=== PATIENT | male | born 1935 | race Caucasian/White ===

== ENCOUNTER 2018-08-29 23:27 | Inpatient (IN) | payer OTHER ==
[2018-08-30 00:29] LABS: Absolute Lymphocytes (CBC) 0.7 K/uL (0.7-4.9); Absolute Monocytes 0.4 K/uL (0.1-1.3); Absolute Neutrophil 4.5 K/uL (1.8-8.0); Basophils % 0.6 % (0-1.3); Eosinophils % 0.4 % (0-4.4); Hematocrit 37.6 % (39.6-49.0); Lymphocytes % 12.8 % (15.3-44.8); MCV 95.7 fL (80-100); MPV 11.4 fL (7.6-11.3); Monocytes % 6.9 % (3.3-12.3); RBC Red Blood Cell Count 3.93 M/uL (4.33-5.43)
[2018-08-30 00:48] LABS: Albumin 3.2 g/dL (3.4-5.0); Bilirubin Direct 0.3 mg/dL (0-0.2); Bilirubin Total 0.9 mg/dL (0.2-1.0); Potassium 4.3 mmol/L (3.5-5.1); Protein, Total 6.1 g/dL (6.4-8.2); Troponin (Emerg Dept Use Only) 0.07 ng/mL (0.0-0.045)
--- NOTE | 2018-08-30 01:27 | EDPHYS ---
Physician Documentation [facility] Name: Nicolle Lee Age: 82 yrs Sex: Male : 1935 Arrival Date: 08/29/2018 Time: 23:33 Bed 18 Private MD: ED Physician Cheikh Hutchins HPI: 08/30 01:10 This 82 yrs old Male presents to ER via EMS with complaints of Shortness Of rn Breath. 01:10 The patient has shortness of breath at rest, with light activity. Onset: The rn symptoms/episode began/occurred 1 week(s) ago. Duration: The symptoms are intermittent. Associated signs and symptoms: Pertinent positives: productive cough, Pertinent negatives: fever, hemoptysis, loss of consciousness. Severity of symptoms: At their worst the symptoms were moderate in the emergency department the symptoms are unchanged. The patient has not experienced similar symptoms in the past. The patient has not recently seen a physician. Reports 1 week of sob, + swelling of both legs, no fever, + productive cough, O2 was 82% for EMS, improved a little with albuterol. . Historical: - Allergies: 08/29 23:35 No Known Allergies; cc3 - Home Meds: 23:35 None [Active]; cc3 - PMHx: 23:35 None; cc3 - PSHx: 23:35 None; cc3 - Immunization history:: Adult Immunizations not up to date. - Social history:: Smoking status: Patient/guardian denies using tobacco, never smoked. - Ebola Screening: : No symptoms or risks identified at this time. - Family history:: not pertinent. - Hospitalizations: : No recent hospitalization is reported. ROS: 08/30 01:11 Constitutional: Negative for fever, chills, and weight loss, Eyes: Negative for injury, rn pain, redness, and discharge, Neck: Negative for injury, pain, and swelling, Cardiovascular: Negative for chest pain, palpitations Respiratory: Negative for wheezing, and pleuritic chest pain, Abdomen/GI: Negative for abdominal pain, nausea, vomiting, diarrhea, and constipation, MS/Extremity: + swelling of legs Skin: Negative for injury, rash, and discoloration, Neuro: Negative for headache, numbness, tingling, and seizure. Exam: 01:11 Constitutional: This is a well developed, well nourished patient who is awake, alert, rn and in no acute distress. Head/Face: Normocephalic, atraumatic. Eyes: Pupils equal round and reactive to light, extra-ocular motions intact. Lids and lashes normal. Conjunctiva and sclera are non-icteric and not injected. Cornea within normal limits. Periorbital areas with no swelling, redness, or edema. Neck: Trachea midline, no thyromegaly or masses palpated, and no cervical lymphadenopathy. Supple, full range of motion without nuchal rigidity, or vertebral point tenderness. No Meningismus. Cardiovascular: regular rate, + mild systolic murmur Respiratory: + mild tachypnea with diminished breath sounds bilaterally and at bases, no wheezing Abdomen/GI: soft, non-tender MS/ Extremity: Pulses equal, no cyanosis. Neurovascular intact. 1+ edema bilateral lower ext Neuro: Awake and alert, GCS 15, oriented to person, place, time, and situation. Cranial nerves II-XII grossly intact. Motor strength 5/5 in all extremities. Sensory grossly intact. Cerebellar exam normal. Vital Signs: 08/29 23:35 BP 159 / 106; Pulse 106; Resp 25 S; Temp 98.4(O); Pulse Ox 95% on 2 lpm NC; Weight cc3 61.23 kg (R); Height 5 ft. 8 in. (172.72 cm) (R); 08/30 00:46 BP 127 / 84; Pulse 99; Resp 28 S; Pulse Ox 95% on 2 lpm NC; cc3 01:15 BP 126 / 87; Pulse 100; Resp 28 S; Pulse Ox 94% on 2 lpm NC; cc3 02:30 BP 112 / 72; Pulse 110; Resp 25 S; Pulse Ox 94% on 2 lpm NC; cc3 08/29 23:35 Body Mass Index 20.52 (61.23 kg, 172.72 cm) cc3 MDM: 08/29 23:36 Patient medically screened. rn 08/30 01:22 Differential diagnosis: Anemia Anxiety Reaction asthma, Bronchitis CHF exacerbation, rn pneumonia, Pneumothorax pulmonary edema, reactive airway disease. Data reviewed: vital signs, nurses notes, lab test result(s), EKG, radiologic studies, plain films, and as a result, I will admit patient. Counseling: I had a detailed discussion with the patient and/or guardian regarding: the historical points, exam findings, and any diagnostic results supporting the discharge/admit diagnosis, lab results, radiology results, the need for further work-up and treatment in the hospital. Admission orders: after a detailed discussion of the patient's condition and case, the admit orders are written by me. 08/29 23:38 Order name: Hepatic Function; Complete Time: 01:01 rn 08/29 23:38 Order name: Blood Culture Adult (2) rn 08/29 23:38 Order name: BMP; Complete Time: 01:01 rn 08/29 23:38 Order name: CBC with Diff; Complete Time: 00:39 rn 08/29 23:38 Order name: NT PRO-BNP; Complete Time: 01:01 rn 08/29 23:38 Order name: Troponin (emerg Dept Use Only); Complete Time: 01:01 rn 08/29 23:38 Order name: XRAY CXR (1 view) rn 08/29 23:38 Order name: EKG; Complete Time: 23:39 rn 08/29 23:38 Order name: Cardiac monitoring; Complete Time: 23:43 rn 08/29 23:38 Order name: EKG - Nurse/Tech; Complete Time: 23:43 rn 08/29 23:38 Order name: Procalcitonin; Complete Time: 01:25 rn 08/29 23:38 Order name: Extrem Venous W Compression Pk US rn 08/30 02:30 Order name: Urine Dipstick--Ancillary (enter results) em1 08/29 23:38 Order name: IV Saline Lock; Complete Time: 23:43 rn 08/29 23:38 Order name: Labs collected and sent; Complete Time: 00:20 rn 08/29 23:38 Order name: O2 Per Protocol; Complete Time: 23:43 rn 08/29 23:38 Order name: O2 Sat Monitoring; Complete Time: 23:43 rn Administered Medications: 01:25 Drug: Lasix 40 mg Route: IVP; Site: right antecubital; cc3 01:40 Follow up: Response: No adverse reaction cc3 Disposition: 08/30/18 01:26 Hospitalization ordered by Julianna Noland for Inpatient Admission. Preliminary diagnosis are Dyspnea, unspecified, Hypoxemia, Pulmonary edema. - Bed requested for Telemetry/MedSurg (Inpatient). - Status is Inpatient Admission. cc3 - Condition is Stable. - Problem is new. - Symptoms have improved. UTI on Admission? No Signatures: Dispatcher [employer] EDMS Cheikh Hutchins MD MD rn Garcia, Cindy, RN RN cg Cordel, Charlene 3 Corrections: (The following items were deleted from the chart) 02:15 01:26 Hospitalization Ordered by Julianna Noland MD for Inpatient Admission. Preliminary cg diagnosis is Dyspnea, unspecified; Hypoxemia; Pulmonary edema. Bed requested for Telemetry/MedSurg (Inpatient). Status is Inpatient Admission. Condition is Stable. Problem is new. Symptoms have improved. UTI on Admission? No. rn 03:01 02:15 08/30/2018 01:26 Hospitalization Ordered by Julianna Noland MD for Inpatient cc3 Admission. Preliminary diagnosis is Dyspnea, unspecified; Hypoxemia; Pulmonary edema. Bed requested for Telemetry/MedSurg (Inpatient). Status is Inpatient Admission. Condition is Stable. Problem is new. Symptoms have improved. UTI on Admission? No. cg
--- NOTE | 2018-08-30 01:27 | ER ---
Nurse's Notes [facility] Name: Nicolle Lee Age: 82 yrs Sex: Male : 1935 Arrival Date: 08/29/2018 Time: 23:33 Bed 18 Private MD: Diagnosis: Dyspnea, unspecified;Hypoxemia;Pulmonary edema Presentation: 08/29 23:35 Presenting complaint: EMS states: shortness of breath since 1 week, oxygen saturation cc3 of 82% on room air. Transition of care: patient was not received from another setting of care. Onset of symptoms was August 29, 2018. Risk Assessment: Do you want to hurt yourself or someone else? Patient reports no desire to harm self or others. Initial Sepsis Screen: Does the patient meet any 2 criteria? No. Patient's initial sepsis screen is negative. Does the patient have a suspected source of infection? No. Patient's initial sepsis screen is negative. Care prior to arrival: Medication(s) given: Albuterol Neb Atrovent Neb x 1, Solu-Medrol 125 mg IV given by EMS. 23:35 Method Of Arrival: EMS: [facility] cc3 23:35 Acuity: MARY 3 cc3 Triage Assessment: 23:35 General: Appears in no apparent distress. comfortable, Behavior is calm, cooperative, cc3 appropriate for age. Pain: Denies pain. EENT: No signs and/or symptoms were reported regarding the EENT system. Neuro: Level of Consciousness is awake, alert, obeys commands, Oriented to person, place, time, situation, Appropriate for age. Cardiovascular: Denies chest pain, Patient's skin is warm and dry. Respiratory: Reports shortness of breath since 1 week Airway is patent Respiratory effort is even, unlabored, Respiratory pattern is regular, symmetrical. GI: Abdomen is round non-distended. : No signs and/or symptoms were reported regarding the genitourinary system. Derm: No signs and/or symptoms reported regarding the dermatologic system. Musculoskeletal: Circulation, motion, and sensation intact. Range of motion: intact in all extremities. Historical: - Allergies: 23:35 No Known Allergies; cc3 - Home Meds: 23:35 None [Active]; cc3 - PMHx: 23:35 None; cc3 - PSHx: 23:35 None; cc3 - Immunization history:: Adult Immunizations not up to date. - Social history:: Smoking status: Patient/guardian denies using tobacco, never smoked. - Ebola Screening: : No symptoms or risks identified at this time. - Family history:: not pertinent. - Hospitalizations: : No recent hospitalization is reported. Screenin:35 Abuse screen: Denies threats or abuse. Denies injuries from another. Nutritional cc3 screening: No deficits noted. Tuberculosis screening: No symptoms or risk factors identified. Fall Risk Ambulatory Aid- None/Bed Rest/Nurse Assist (0 pts). Gait- Normal/Bed Rest/Wheelchair (0 pts) Mental Status- Oriented to own ability (0 pts). Assessment: 23:35 General: see triage assessment. cc3 08/30 00:15 Reassessment: Patient appears in no apparent distress at this time. Patient and/or cc3 family updated on plan of care and expected duration. Pain level reassessed. Patient is alert, oriented x 3, equal unlabored respirations, skin warm/dry/pink. 01:26 Reassessment: Patient appears in no apparent distress at this time. Patient and/or cc3 family updated on plan of care and expected duration. Pain level reassessed. Patient is alert, oriented x 3, equal unlabored respirations, skin warm/dry/pink. Patient for admission, awaiting admission orders. 02:15 Reassessment: Patient appears in no apparent distress at this time. Patient and/or cc3 family updated on plan of care and expected duration. Pain level reassessed. Patient is alert, oriented x 3, equal unlabored respirations, skin warm/dry/pink. Patient passed urine in the urinal thrice with a total amount of 400 mL urine output noted. 02:30 Reassessment: Room available in 421, report handed over to Hilary Elder for continuity cc3 of care. 02:40 Reassessment: Patient and/or family updated on plan of care and expected duration. Pain cc3 level reassessed. Patient is alert, oriented x 3, equal unlabored respirations, skin warm/dry/pink. Patient complained of low back pain, gave PRN meditech order of Tylenol extra strength 500 mg PO. 02:50 Reassessment: Patient appears in no apparent distress at this time. Patient and/or cc3 family updated on plan of care and expected duration. Pain level reassessed. Patient is alert, oriented x 3, equal unlabored respirations, skin warm/dry/pink. Patient left ER for admission vitally stable by stretcher on oxygen therapy escorted by gis technician Anglican and the patient's . Vital Signs: 08/29 23:35 BP 159 / 106; Pulse 106; Resp 25 S; Temp 98.4(O); Pulse Ox 95% on 2 lpm NC; Weight cc3 61.23 kg (R); Height 5 ft. 8 in. (172.72 cm) (R); 08/30 00:46 BP 127 / 84; Pulse 99; Resp 28 S; Pulse Ox 95% on 2 lpm NC; cc3 01:15 BP 126 / 87; Pulse 100; Resp 28 S; Pulse Ox 94% on 2 lpm NC; cc3 02:30 BP 112 / 72; Pulse 110; Resp 25 S; Pulse Ox 94% on 2 lpm NC; cc3 08/29 23:35 Body Mass Index 20.52 (61.23 kg, 172.72 cm) cc3 ED Course: 08/29 23:33 Patient arrived in ED. em1 23:35 Arm band placed on left wrist. cc3 23:35 Patient has correct armband on for positive identification. Bed in low position. Call cc3 light in reach. Side rails up X2. executive consultant on. Pulse ox on. NIBP on. 23:36 Cheikh Hutchins MD is Attending Physician. rn 23:42 Janee Ayala is Primary Nurse. cc3 23:49 Triage completed. cc3 08/30 00:05 Inserted saline lock: 20 gauge in right antecubital area, using aseptic technique. cc3 Blood collected. 00:12 Extrem Venous W Compression Pk US In Process Unspecified. EDMS 00:26 X-ray completed. Portable x-ray completed in exam room. Patient tolerated procedure kw well. 00:29 XRAY CXR (1 view) In Process Unspecified. EDMS 01:26 Julianna Noland MD is Hospitalizing Provider. rn 02:30 No provider procedures requiring assistance completed. Patient admitted, IV remains in cc3 place. Administered Medications: 01:25 Drug: Lasix 40 mg Route: IVP; Site: right antecubital; cc3 01:40 Follow up: Response: No adverse reaction cc3 Outcome: 01:26 Decision to Hospitalize by Provider. rn 02:30 Admitted to Tele accompanied by tech, family with patient, via stretcher, room 421, cc3 with oxygen, with chart, Report called to Hilary Elder 02:30 Condition: stable 02:30 Instructed on the need for admit, Demonstrated understanding of instructions. 03:01 Patient left the ED. cc3 Signatures: Dispatcher [employer] EDMS Cheikh Hutchins MD MD rn Martinez, Avery em1 Tara Chen Charlene cc3 Corrections: (The following items were deleted from the chart) 00:20 08/29 23:35 Maintain EMS IV. Dressing intact. Good blood return noted. Site clean \T\ cc3 dry. Gauge \T\ site: gauge 20 at the left ACV. cc3 08/30 00:58 00:46 BP 127 / 84; Pulse 99bpm; Resp 32bpm; Pulse Ox 95% 2 lpm Nasal Cannula; cc3 cc3 01:35 08/29 23:35 BP 159 / 106; Pulse 106bpm; Resp 22bpm; Spontaneous; Pulse Ox 95% 2 lpm cc3 Nasal Cannula; Temp 98.4F Oral; 61.23 kg Reported; Height 5 ft. 8 in. Reported; BMI: 20.5; cc3
[2018-08-30] MEDS ORDERED: FUROSEMIDE 40 MG/4 ML VIAL ONE (01:34)
[2018-08-30] MEDS ORDERED: ONDANSETRON 4 MG/2 ML VIAL IV PRN (02:42)
[2018-08-30] MEDS: ACETAMINOPHEN 500 MG TAB PO PRN ×3 (02:45→15:58)
[2018-08-30] MEDS ORDERED: ACETAMINOPHEN 500 MG TAB ONE (02:55)
[2018-08-30 04:16] VITALS: BMI 19.8
--- NOTE | 2018-08-30 05:41 | P.HP ---
Certification for Inpatient Patient admitted to: Inpatient With expected LOS: >2 Midnights Practitioner: I am a practitioner with admitting privileges, knowledge of patient current condition, hospital course, and medical plan of care. Services: Services provided to patient in accordance with Admission requirements found in Title 42 Section 412.3 of the Code of Federal Regulations Patient History Date of Service: 08/30/18 Reason for admission: Acute on chronic diastolic CHF History of Present Illness: Mr Lee is a 89-year-old male with history of [id number] aortic stenosis, according to echocardiogram done in 11/03, came to ER complaining of progressive shortness of breath and weakness since 3 weeks ago, associated with lower extremity edema. He came to night because his symptoms are worse, and his noticed severe respiratory distress. She called 911, when EMS arrived O2 sat was 82% on room air, he received breathing treatment and IV steroids, then he was placed on oxygen supplement, subsequently his symptoms slightly improved. No history of fever or cough. He denied any chest pain or syncopal episode. In ER, O2 sat was 92% on 2 L NC. Chest-x-ray remarkable for venous congestion bilateral infiltrate consistent with pulmonary edema. Lab work remarkable for elevated troponin I and proBNP. Allergies No Known Allergies Allergy (Verified 03/08/13 16:53) Home medications list reviewed: Yes Home Medications: NK [No Home Meds] 08/30/18 - Past Medical/Surgical History Diabetic: No -: Mild Arthritis -: Moderate to severe aortic stenosis -: Tonsilectomy - Family History Family History: Reviewed- Non-Contributory - Social History Smoking Status: Former smoker Alcohol use: No CD- Drugs: No Caffeine use: No Place of Residence: Home Review of Systems 10-point ROS is otherwise unremarkable Physical Examination - Vital Signs Temperature: 97.3 F Blood Pressure: 150/89 Pulse: 119 Respirations: 20 Pulse Ox (%): 92 - Physical Exam General: Alert, In no apparent distress HEENT: Atraumatic, PERRLA, Mucous membr. moist/pink, EOMI, Sclerae nonicteric Neck: Supple, 2+ carotid pulse no bruit, No LAD, Without JVD or thyroid abnormality Respiratory: Normal air movement, Crackles/rales (Bibasilar rales) Cardiovascular: Regular rate/rhythm, Normal S1 S2 Gastrointestinal: Normal bowel sounds, No tenderness Musculoskeletal: No tenderness, Swelling (Bilateral lower extremity edema 2+) Integumentary: No rashes Neurological: Normal speech, Normal strength at 5/5 x4 extr, Normal tone, Normal affect Lymphatics: No axilla or inguinal lymphadenopathy - Studies Laboratory Data (last 24 hrs) 08/29/18 23:59: WBC 5.6, Hgb 12.5 L, Hct 37.6 L, Plt Count 163 08/29/18 23:59: Sodium 141, Potassium 4.3, BUN 19 H, Creatinine 1.20, Glucose 175 H, Total Bilirubin 0.9, AST 30, ALT 30, Alkaline Phosphatase 48 Assessment and Plan - Problems (Diagnosis) (1) Acute on chronic diastolic CHF (congestive heart failure) Current Visit: Yes Status: Acute (2) Elevated troponin I level Current Visit: No Status: Acute (3) Aortic stenosis Current Visit: No Status: Chronic Qualifiers: Cardiac valve disease etiology: etiology unspecified Qualified Code(s): I35.0 - Nonrheumatic aortic (valve) stenosis - Plan The patient will be admitted to the hospital due to acute on chronic diastolic CHF secondary to moderate to severe aortic stenosis. Will continue IV diuretics , oxygen support, would repeat echocardiogram to evaluate progression of the valvulopathy. Consult Cardiology team for evaluation recommendation. - Advance Directives Does patient have a Living Will: No Does patient have a Durable POA for Healthcare: No - Code Status/Comfort Care Code Status Assessed: Yes Code Status: Full Code
--- NOTE | 2018-08-30 07:14 | EKG ---
Test Date: 2018-08-29 Test Time: 23:37:13 [place]: CATIA MEASUREMENT RESULTS: Intervals: Rate: 104 MT: 140 QRSD: 138 QT: 386 QTc: 507 [place]: P: 43 MT: 140 QRS: 19 T: 55 INTERPRETIVE STATEMENTS: Sinus tachycardia with premature atrial complexes Possible Left atrial enlargement Right bundle branch block Abnormal ECG Compared to ECG 10/26/2016 17:48:52 Atrial premature complex(es) now present Sinus rhythm no longer present Electronically Signed On 08-30-18 07:13:18 SNORKELLING INSTRUCTOR by Marcelo Garcia
[2018-08-30] MEDS ORDERED: INFLUENZA VACCINE (for 3y+) 0.5 ML DOSE IMVAC ONE (08:00)
[2018-08-30] MEDS ORDERED: PNEUMOCOCCAL VACCINE 0.5 ML IMVAC ONE (08:00)
--- NOTE | 2018-08-30 08:00 | RAD REPORT ---
EXAM DESCRIPTION: USExtrem Venous W Compress Bil08/30/2018 12:05 am CLINICAL HISTORY: left leg swelling. COMPARISON: 2016 FINDINGS: Left common femoral, superficial femoral, popliteal and posterior tibial veins are compre ssible and demonstrate augmentation. Doppler demonstrates good flow. IMPRESSION: No evidence of deep venous thrombosis involving the left lower extremity.
[2018-08-30] MEDS: FUROSEMIDE 40 MG/4 ML VIAL IV SCH ×2 (08:24→17:25)
--- NOTE | 2018-08-30 08:25 | RAD REPORT ---
EXAM DESCRIPTION: Chao Single View08/30/2018 12:29 am CLINICAL HISTORY: Shortness of breath COMPARISON: 2017 FINDINGS: Small bilateral pleural effusions are present. [id number] bilateral pulmonary opacit ies seen. The heart is mildly enlarged. IMPRESSION: These findings likely indicate CHF
[2018-08-30] MEDS: ENOXAPARIN 40 MG/0.4 ML SQ SCH (08:26)
--- NOTE | 2018-08-30 13:28 | CON ---
Date of Consultation: 08/30/[address] Horan's service on August 30, 2018. I saw the patient on August 30, 2018. Reason For Consultation: Congestive heart failure. History Of Present Illness: Mr. Lee is an 82-year-old white male, has really not been in the [facility] since November 03. At that time, he was here for cellulitis. He had an echocardiogram showing ao rtic stenosis of 1 centimeter square at that time. This has not been an issue since. He came in wit h congestive heart failure symptoms with PND, orthopnea, pedal edema. Denied any syncope or chest pa in. Denied any unexplained nausea, vomiting, or diaphoresis. He did have an elevated troponin of 0. 08. He had a BNP of 14,187. His blood pressure was 133/89. Past Medical History: Otherwise negative. Allergies: NONE. Medications: Medications at home, none. Review of Systems: Negative. Social History: Negative. Family History: Noncontributory. Physical Examination: Vital Signs: Stable. He was afebrile. General: He was actually in no acute distress, lying flat. O2 saturations were adequate. HEENT: Negative. Neck: Supple without any bruit, lymphadenopathy, JVD, or thyromegaly. Chest: Clear to auscultation and percussion on the right; he had some rales on the left. Cardiac Exam: Revealed a regular rhythm and rate. No S4 gallops, aortic stenosis, murmur. Abdomen: Benign. Extremities: Revealed no clubbing, cyanosis, or edema. Diagnostic Data: As stated earlier. Impression And Plan: Acute congestive heart failure, probably secondary to decreased left ventricula r compliance, diastolic dysfunction, possibly secondary to aortic stenosis. I think echocardiogram i s needed to be repeated to see what his aortic valve is. He certainly could be a candidate for a TAV R. The patient admitted very clear to me that he does not want to have any intervention done especia lly from an open heart surgery standpoint. We will discuss the case after the echocardiogram. PAVAN Voice ID: [id number] Report ID: [id number]
--- NOTE | 2018-08-30 15:13 | ECHO ---
HEIGHT: 5 ft 8 in WEIGHT: 130 lb 4.8 oz DATE OF STUDY: 08/30/[address]: Julianna Daley MD 2-DIMENSIONAL: YES M.MODE: YES DOPPLER: YES COLOR FLOW: YES TDS: YES PORTABLE: NO DEFINITY: NO BUBBLE STUDY: NO DIAGNOSIS: AORTIC STENOSIS CARDIAC HISTORY: CATHERIZATION: NO SURGERY: NO PROSTHETIC VALVE: NO PACEMAKER: NO MEASUREMENTS (cm) DIASTOLIC (NORMALS) SYSTOLIC (NORMALS) IVSd 1.1 (0.6-1.2) LA Diam 3.6 (1.9-4.0) LVEF 38% LVIDd 5.2 (3.5-5.7) LVIDs 4.2 (2.0-3.5) %FS 19% LVPWd 1.2 (0.6-1.2) Ao Diam 2.7 (2.0-3.7) 2 DIMENSIONAL ASSESSMENT: RIGHT ATRIUM: NORMAL LEFT ATRIUM: NORMAL RIGHT VENTRICLE: NORMAL LEFT VENTRICLE: NORMAL SIZE TRICUSPID VALVE: NORMAL MITRAL VALVE: MITRAL ANNULAR CALCIFICATION PULMONIC VALVE: NORMAL AORTIC VALVE: STENOTIC PERICARDIAL EFFUSION: NONE AORTIC ROOT: NORMAL LEFT VENTRICULAR WALL MOTION: MODERATE GLOBAL HYPOKINESIS. DOPPLER/COLOR FLOW: AORTIC STENOSIS- CRITICAL 0.6 CENTIMETERS SQUARED. GRADIENT 50mmHg . SEVERE PULMONARY HYPERTENSION. COMMENTS: MODERATE GLOBAL HYPOKINESIS EJECTION FRACTION 38%. AORTIC STENOSIS CRITICAL 0.6 CENTIMETER SQUARED. MITRAL ANNULAR CALCIFICATION. MODERATE TRICUSPID REGURGITATION SEVERE PULMONARY HYPERTENSION. TECHNOLOGIST: MIN WALDEN
--- NOTE | 2018-08-30 17:25 | PN ---
Date of Progress Note: 08/30/2018 Subjective: The patient seen and examined. Chart reviewed and case discussed with RN. The patient does report significant shortness of breath, it improved but his extremity edema remains. Code Status: Full. Medications: List reviewed. Review of Systems: Negative except as above. Physical Examination: Vital Signs: Temperature 97.2, heart rate 103, blood pressure 132/89, respirations 20, O2 96% on 2 L via nasal cannula. General: Awake, alert, oriented x3. Elderly male, ill-appearing, frail, cachectic. BMI 19.3. CV: S1, S2. Sinus tachycardia. Peripheral pulses present. 3/6 systolic murmur is heard. Respiratory: Diminished breath sounds. Contractures heard. The patient is slightly tachypneic. Gastrointestinal: Abdomen is soft, nontender, nondistended. Positive bowel sounds. No guarding or rigidity. Extremities: No clubbing or cyanosis. The patient has lower extremity edema present. Neurologic: Nonfocal. Laboratory Data: Troponin 0.07, 0.08, and 0.1. Magnesium 2. Blood cultures pending. Assessment: 1.Acute dyspnea, currently on supplemental oxygen. 2.Hypoxia. 3.Acute respiratory distress. 4.Acute on chronic diastolic heart failure. Continue with IV diuresis and congestive heart failure guidelines. Repeat echocardiogram. 5.Severe aortic stenosis, nonrheumatic. 6.Elevated troponin level secondary to above. 7.Osteoarthritis, generalized. Plan: Continue diuresis. Wean out of oxygen as tolerated. Repeat echocardiogram. Follow up with betito bermudez. Length of stay greater than 48 hours. /MANJULA Voice ID: [id number] Report ID: [id number]
[2018-08-30] MEDS: METOPROLOL TAR 25 MG TAB PO SCH (17:26)
[2018-08-30] MEDS: TAMSULOSIN 0.4 MG SR CAP PO SCH (21:05)
[2018-08-31 04:14] LABS: Absolute Lymphocytes (CBC) 1.1 K/uL (0.7-4.9); Absolute Monocytes 0.8 K/uL (0.1-1.3); Absolute Neutrophil 5.5 K/uL (1.8-8.0); Basophils % 0.5 % (0-1.3); Eosinophils % 0.1 % (0-4.4); Lymphocytes % 14.5 % (15.3-44.8); MCV 94.3 fL (80-100); MPV 11.3 fL (7.6-11.3); RBC Red Blood Cell Count 3.92 M/uL (4.33-5.43)
[2018-08-31] MEDS: ACETAMINOPHEN 500 MG TAB PO PRN (05:23)
[2018-08-31] MEDS: METOPROLOL TAR 25 MG TAB PO SCH ×2 (05:23→17:04)
[2018-08-31] MEDS: FUROSEMIDE 40 MG/4 ML VIAL IV SCH ×2 (08:13→17:19)
[2018-08-31] MEDS: ENOXAPARIN 40 MG/0.4 ML SQ SCH (08:13)
[2018-08-31] MEDS: SPIRONOLACTONE 25 MG TABLET PO SCH (11:02)
--- NOTE | 2018-08-31 12:08 | RAD REPORT ---
EXAM DESCRIPTION: RAD - Chest Pa And Lat (2 Views) - 08/31/2018 11:43 am CLINICAL HISTORY: shortness of breath Chest pain. COMPARISON: Chest Single View dated 08/30/2018; Chest Single View dated 10/26/2016; CHEST SINGLE VIEW dated 03/08/2013 FINDINGS: Moderate bilateral pleural effusions. Atelectasis is suspected in both lung bases. The hea rt is mildly enlarged in size. No displaced fractures. IMPRESSION: Moderate bilateral pleural effusions.
--- NOTE | 2018-08-31 20:06 | PN ---
Date of Progress Note: 08/31/2018 Subjective: The patient seen and examined, chart reviewed, and case discussed with RN and Dr. Garcia. Family at the bedside. Treatment plan explained and all questions answered. The patient still has some shortness of breath. The patient seems to be very anxious, whenever, talking about his overall prognosis to adamantly refusing any sort of surgery for valve replacement. He understands the benefits versus risks. The family at the bedside. All questions answered. The patient has been hypertensive and has been short of breath with movement. Review of Systems: Negative except as above. Medications: List reviewed. Physical Examination: Vital Signs: Temperature 99.4, heart rate 81, blood pressure 87/51, respirations 28, O2 94% on room air. General: Awake, alert, oriented x3. Elderly male, in some mild distress. Ill- appearing, frail, cachectic. BMI 19. CV: S1 and S2. Regular rate and rhythm. Murmurs heard. 3/6 systolic ejection murmur. Peripheral pulses present. Respiratory: Diminished breath sounds at the bases. Some crackles heard. No wheezing or stridor. No use of accessory muscles. Gastrointestinal: Abdomen is soft, nontender, nondistended. Positive bowel sounds. Extremities: No clubbing or cyanosis. Edema, improved. Neurologic: Nonfocal. Laboratory Data: Sodium 139, potassium 4, chloride 102, CO2 30, BUN 26, creatinine 1.2, glucose 95, calcium 8.1. WBC 7.4, H and H 12.6 and 37, platelets 179, neutrophils 73%. Blood cultures no growth to date. Chest x-ray 2-view, personally reviewed, shows moderate bilateral pleural effusions. Echocardiogram shows EF of 38%, moderate global hypokinesis. The patient has critical aortic stenosis 0.6 cm2. Mitral annular calcification. Moderate tricuspid regurgitation and severe pulmonary hypertension. Assessment And Plan: An 82-year-old male with: 1. Shortness of breath with secondary to heart failure and aortic stenosis, currently on supplemental oxygen. We will try to wean off. Check room air sats. Ambulate patient. 2. Hypoxia, currently on supplemental oxygen. 3. Acute respiratory distress with hypoxia. 4. Jpwiz-ru-zomyopt systolic and diastolic heart failure. Echocardiogram shows EF of 38%. The patient continue with IV diuresis and congestive heart failure guidelines. The patient unable to tolerate Aldactone due to low blood pressure. We will monitor closely. Daily weights. 5. Severe aortic stenosis, nonrheumatic. The patient encouraged to have evaluation by CT surgeon, however, currently adamantly refusing and understands the risks including syncope, worsening heart failure, even sudden . 6. Elevated troponin level secondary to congestive heart failure. 7. Osteoarthritis, generalized. 8. Failure to thrive, BMI 19. 9. Normocytic normochromic anemia, likely anemia of chronic disease. 10. Gastrointestinal and deep venous thrombosis prophylaxis addressed with Lovenox. Plan: We will continue diuresis. Chest x-ray shows worsening pleural effusions. We will encourage incentive spirometry and PT evaluation. Ambulate patient. Likely discharge in the next 24 to 48 hours. Again, very poor prognosis without surgical intervention for aortic stenosis. Family updated. /MANJULA Voice ID: [id number] Report ID: [id number]
[2018-08-31] MEDS: TAMSULOSIN 0.4 MG SR CAP PO SCH (20:08)
[2018-09-01 04:20] LABS: Potassium 3.4 mmol/L (3.5-5.1)
[2018-09-01 04:49] LABS: Absolute Lymphocytes (CBC) 1.3 K/uL (0.7-4.9); Absolute Monocytes 0.7 K/uL (0.1-1.3); Absolute Neutrophil 4.3 K/uL (1.8-8.0); Eosinophils % 0.6 % (0-4.4); Hematocrit 38.8 % (39.6-49.0); Lymphocytes % 20.8 % (15.3-44.8); MCH 32.4 pg (27.0-35.0); MCV 93.7 fL (80-100); MPV 11.2 fL (7.6-11.3); RBC Red Blood Cell Count 4.15 M/uL (4.33-5.43)
[2018-09-01] MEDS ORDERED: POTASSIUM CL SA 10 MEQ TAB PO ONE ×2 (04:54→09:00)
[2018-09-01] MEDS: METOPROLOL TAR 25 MG TAB PO SCH (05:24)
[2018-09-01 08:46] VITALS: O2SAT 93
[2018-09-01] MEDS: SPIRONOLACTONE 25 MG TABLET PO SCH (09:00)
[2018-09-01] MEDS: FUROSEMIDE 40 MG/4 ML VIAL IV SCH (09:32)
[2018-09-01] MEDS: ENOXAPARIN 40 MG/0.4 ML SQ SCH (09:32)
[2018-09-01] MEDS ORDERED: SPIRONOLACTONE 25 MG TABLET PO SCH (11:00)
[2018-09-01] MEDS: ACETAMINOPHEN 500 MG TAB PO PRN (11:14)
[2018-09-01] MEDS ORDERED: MORPHINE 2 MG/ML SYR IV ONE (12:15)
[2018-09-01 12:32] VITALS: BP 106/73; TEMP 98.2
--- NOTE | 2018-09-01 17:12 | EKG ---
Test Date: 2018-09-01 Test Time: 11:33:01 Counter Manager: VALENTE MEASUREMENT RESULTS: Intervals: Rate: 96 LA: 128 QRSD: 130 QT: 392 QTc: 495 [place]: P: 46 LA: 128 QRS: 55 T: 51 INTERPRETIVE STATEMENTS: Sinus rhythm with frequent premature atrial complexes Possible Left atrial enlargement Right bundle branch block Abnormal ECG Compared to ECG 08/29/2018 23:37:13 Sinus tachycardia no longer present Electronically Signed On 09-01-18 17:12:12 SCRIP CLERK by Marcelo Garcia
--- NOTE | 2018-09-02 06:18 | DS ---
Date of Discharge: 09/01/2018 Consultants: Dr. Barker with Cardiology. Admitting Diagnoses: 1.Piwsk-bm-mwnfsor congestive heart failure. 2.Elevated troponin level. 3.Aortic stenosis. Discharge Diagnoses: 1.Acute shortness of breath. 2.Acute systolic and diastolic heart failure. Ejection fraction 38%. 3.Hypotension. 4.Hypoxia, resolved. 5.Acute respiratory distress, resolved. 6.Severe aortic stenosis, nonrheumatic. The patient is refusing surgery at this time. 7.Elevated troponin level secondary to congestive heart failure and aortic stenosis. 8.Osteoarthritis, generalized. 9.Failure to thrive. Body mass index 19. 10.Normocytic normochromic anemia. Anemia of chronic disease. 11.Hypokalemia, corrected. 12.Severe pulmonary hypertension. Hospital Course: The patient is an 82-year-old male with past medical history of nlmgifig-kg-cozgyu aortic stenosis, arthritis, who comes in with shortness of breath. The patient's chest x-ray was rem arkable for venous congestion bilaterally. He was hypoxic and was requiring supplemental oxygen. Do ppler venous was done, which showed no DVT. The patient was seen by Dr. Barker with Cardiology. Th e patient had an echocardiogram done, which showed a depressed ejection fraction at 38% and also show ed severe aortic stenosis of 0.6 cm2, moderate global hypokinesis, moderate tricuspid regurgitation, and severe pulmonary hypertension. The patient was recommended to have aortic valve replacement, how ever, adamantly refused open heart surgery and valve replacement. Family is at the bedside. He was counseled extensively regarding benefits and risks. The patient is afraid that due to the complicate d nature of the surgery, he would not survive, and did not wish to perceive any sort of open heart peck rgery. The patient could be a candidate for TAVR, however, will need to be set up as an outpatient. The patient was counseled extensively on fluid-restricted diet, sodium restricted diet, and monitori ng his weight daily. The patient will need to follow up with Cardiology very closely. The patient w as then cleared for discharge from Cardiology standpoint. He was agreeable to home health being set up. The patient was then discharged home with home health in a fair condition. Activity: Fall precautions. Medications: As per medication reconciliation list. The patient instructed to hold his blood pressu re medications if his blood pressure is less than 100 systolic. Followup: Follow up with primary care physician in 2 to 3 days. Follow up with track superintendent, Dr. Ja mccord, Wednesday, next week. Return to ER for worsening condition. Diet: Low-sodium, fluid-restricted diet. Physical Examination: General: Awake, alert, oriented x3. Elderly male, frail. CV: S1, S2, 3/6 holosystolic murmur. Respiratory: Diminished breath sounds at the bases, otherwise moving air well. Gastrointestinal: Abdomen is soft, nontender, nondistended. Positive bowel sounds. Extremities: No clubbing, cyanosis, or edema. Neurologic: Nonfocal. Total time spent discharging the patient was 45 minutes. /MANJULA Voice ID: [id number] Report ID: [id number]
--- NOTE | 2018-09-05 10:13 | PN ---
Date of Progress Note: 08/31/2018 The patient was initially seen on 08/30/2018. The patient came in with shortness of breath, congesti ve heart failure. Echocardiography showed critical aortic stenosis of 0.6 sq cm. Diastolic dysfunct ion. Normal ejection fraction. Mild pulmonary hypertension. The patient's congestive heart failure is possibly caused by the aortic stenosis. The patient indicated that he does not want to have any open heart surgery. A TAVR may be considered. I will discuss the case with Dr. Horan. The patient will come to my office with his family and we can discuss that in more details prior to making any fu rther decisions. If a TAVR is planned, the patient will need a heart catheterization left and right prior to the TAVR. PAVAN Voice ID: [id number] Report ID: [id number]
== END 2018-09-01 15:41 | disposition home health service (06) | DRG 306 ==
LOC: ER 23:27 → ERHOLD 08-30 01:27 → 4TH 08-30 02:39
PROVIDERS: ADMIT Internal Medicine; ATTEND Family Medicine
DX: I35.0 Nonrheumatic aortic (valve) stenosis (principal); I50.33 Acute on chronic diastolic (congestive) heart failure; Z87.891 Personal history of nicotine dependence; R09.02 Hypoxemia; R06.03 Acute respiratory distress; M19.90 Unspecified osteoarthritis, unspecified site; R62.7 Adult failure to thrive; D63.8 Anemia in other chronic diseases classified elsewhere; I95.9 Hypotension, unspecified; E87.6 Hypokalemia; I27.20 Pulmonary hypertension, unspecified; R79.89 Other specified abnormal findings of blood chemistry
CPT/HCPCS: 36415; 71045; 71046; 80048; 80076; 83735; 83880; 84132; 84145; 84484; 85025; 87040; 90670; 93005; 93306; 93970; 94760; 96374; 97163; 99285; G0008; G0009; J1650; J1940; J2270; J2405; Q2035

== ENCOUNTER 2021-01-09 17:42 | Emergency (ER) | payer OTHER ==
--- OUTSIDE RECORDS SUMMARY | 2021-01-09 17:45 | XMS REPORT | Continuity of Care Document ---
:[address] 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) l Outpati ent Clinics Underweigh Underweigh Problem Active [facility] Irregular Irregular Problem Active [facility] heartbeat heartbeat [facility] - [facility] Generalize Generalize Problem Active [facility] d weakness d weakness [facility] - [facility] RBBB RBBB Problem Active [facility] (right (right [facility] - bundle bundle [facility] branch branch l block) block) [facility] Ventricula Ventricula Problem Active [facility] - hypokinesi hypokinesi Me moria s s l [facility] PAC PAC Problem Active [facility] (premature (premature Reta kes - atrial atrial [facility] contractio contractio l n) n) [facility] Aortic Aortic Problem Active [facility] valve valve [facility] - stenosis, stenosis, Papo stephy etiology etiology l of cardiac of cardiac Ou tpati valve valve ent disease disease Clinics unspecifie unspecifie d d History of History of Problem Active [facility] CVA CVA [facility] - (cerebrova (cerebrova Me moria scular scular l accident) accident) Outp ati ent Clinics Pulmonary Pulmonary Problem Active [facility] hypertensi hypertensi Reta kes - on on [facility] Diastolic Diastolic Problem Active [facility] congestive congestive Reta kes - heart heart Memoria failure, failure, l unspecifie unspecifie Ou tpati d HF d HF ent chronicity chronicity Cl inics Bilateral Bilateral Problem Active [facility] pleural pleural [facility] - effusion effusion Memori a l [facility] ent [facility] S/P TAVR S/P TAVR Problem Active [facility] (transcath (transcath Reta kes - eter eter Memoria aortic aortic l valve valve Outpati replacemen replacemen en t t) t) Clinics Weight Weight Problem Active [facility] loss, loss, [facility] - non-intent non-intent Me moria ional ional l [facility] Left leg Left leg Problem [facility] swelling swelling [facility]ics Onychomyco Onychomyco Problem Active [facility] sis sis [facility] Depression Depression Problem Active [facility] screening screening [facility] - [facility] Tongue Tongue Problem Active [facility] lesion lesion [facility] Cervical Cervical Problem Active [facility] lymphadeno lymphadeno Reta kes - christelle christelle [facility] l [facility] Allergies, Adverse Reactions, Alerts This patient has no known allergies or adverse reactions. Medications Ordered Filled Start Stop Current Ordering Indication Dosage Frequency Signature Comments Components Source Medication Medication Date Date Medication? Clinician (SIG) Name Name Furosemide Furosemide 2017-10 Yes Francoise [address] [facility] 2-08 [facility] - 00:[facility]: [facility] 00 [facility] Calcium Calcium Yes Francoise [address] [facility] Millender [facility] Custar 3 Custar 3 Yes Francoise [address] [facility] Millender [facility] Docusate Docusate Yes Francoise [address] Sodium Sodium Millender as needed [facility] - [facility] Tylenol Tylenol Yes Francoise ([address] [facility] Millender mg/OTC) [facility] - 1-2 Memoria tablets l prn [facility] Docusate Docusate Yes Francoise ([address] [facility] [address] Calcium Calcium Millender mg/OTC) 1 [facility] - capsule [facility] Carvedilol Carvedilol Yes Francoise [address] [facility] Vitamin C Vitamin C Yes Francoise [address] [facility] Millender [facility] Furosemide Furosemide Yes Francoise (40 mg) [address] [facility] Millender tablet [facility] Multivitami Multivitami Yes Francoise [address] [facility] n Adults n Adults Millender Reta kes - [facility] ent Clinics Aspirin Aspirin Yes Francoise [address] [facility] Mill[facility] Spironolact Spironolact 2020- No Francoise 1/[address] [facility] one one 11-11 Millender [facility] - 00:00 Memoria :00 [facility] ent Clinics Immunizations Ordered Filled Immunization Date Status Comments Sour e Immunization Name Name FLUZONE HIGH DOSE FLUZONE HIGH DOSE 2019-07-[address] [facility] - OVER 65 OVER 65 00:00:00 [facility] Procedures This patient has no known procedures. Encounters Start End Encounter Admission Attending Care Care Encounter Source Date/Time Date/Time Type Type Clinicians Facility Department ID 2019-12-28 2019-12-28 Outpatient Alexi Truongt [id number] [facility] 16[facility]15[facility] Medicine Outpati ent Clinics 2019-09-29 2019-09-29 [facility] [id number] [facility] 11:41[facility]00 11[facility] 2019-08-24 2019-08-24 [facility] [id number] [facility] 10:00[facility]00 10[facility] Medicine Outpati [facility] Clin[facility] 2019-07-24 2019-07-24 [facility] [id number] [facility] 11[facility]40[facility]00 11[facility]:00 [facility] Medicine Outpati ent Clin[facility] 2019-07-13 2019-07-13 [facility] [id number] [facility] 16[facility]20[facility]00 16:[facility]00 [facility] Medicine Outpati ent Clinics 2019-05-19 2019-05-19 [facility] [id number] [facility] 16:02:00 16:02:00 [facility] Medicine l Medicine Outpati ent Clinics 2019-05-18 2019-05-18 [facility] [id number] [facility] 16[facility]20[facility]00 16:20:00 [facility] Medicine Outpati [facility] Clinics 2019-02-14 2019-02-14 [facility] [id number] [facility] 13:00:[facility] Medicine Outpati ent Clinics 2019-01-17 2019-01-17 [facility] [id number] [facility] 13:20:00 13:[facility] Outpati [facility] Clin[facility] 2018-11-14 2018-11-14 [facility] [id number] [facility] 11[facility]30[facility]00 [facility] Out[facility] Clin[facility] 2018-10-07 2018-10-07 [facility] [id number] 15:00[facility] Outpati [facility] Clin[facility] 2018-04-04 2018-04-04 [facility] [id number] [facility] 11:45:00 [facility]:00 [facility] Medicine Outpati [facility] Clinics Results This patient has no known results.
[2021-01-09] MEDS ORDERED: ETOMIDATE 20 MG/10 ML VIAL IV ONE (18:00)
[2021-01-09 18:14] LABS: Basophils % 0.5 % (0-1.3); Hematocrit 32.8 % (39.6-49.0); Lymphocytes % 9.5 % (15.3-44.8); MPV 8.2 fL (7.6-11.3); RBC Red Blood Cell Count 3.51 M/uL (4.33-5.43)
[2021-01-09 18:18] LABS: Protime INR 1.19
--- NOTE | 2021-01-09 18:19 | RAD REPORT ---
EXAM DESCRIPTION: CT - [id number] - 01/09/2021 5:59 pm CLINICAL HISTORY: PAIN, fall, head and neck injury COMPARISON: No comparisons TECHNIQUE: Axial 5 mm thick images of the head were obtained. Axial 2 mm thick images of the cervic al spine were obtained with sagittal and coronal reconstruction images generated and reviewed. All CT scans are performed using dose optimization technique as appropriate and may include automated exposure control or mA/KV adjustment according to patient size. FINDINGS: No intracranial hemorrhage, mass, edema or acute intracranial finding. No suspicion for ac manuela infarction. Mild for age atrophy and chronic ischemic changes are present. Ventricles are in prop ortion to the volume loss. Mastoid air cells and paranasal sinuses are clear. No globe or orbit abnor mality seen. Very dense arterial tree calcifications are present. Patient has a small left parietal s calp hematoma with underlying bone intact. Cervical bodies are normal in height. No fracture or acute cervical body finding. Slight anterior sub luxation of C4 on C5 facet degenerative change. C5-6, C6-7 and C7-T1 disc space narrowing and endplat e spurring. Multilevel facet joint degenerative changes are present. Central canal detail is inheren tly limited. No paraspinal mass or hematoma. IMPRESSION: Mild atrophy and chronic ischemic changes are present with no acute intracranial finding . There is a small left parietal scalp hematoma. Cervical spine degenerative change with no acute finding.
[2021-01-09 18:43] LABS: Urine Blood 3+ (Negative); Urine Glucose NEGATIVE (Negative); Urine Protein 2+ (NEG); Urine pH 8.5 (5.0-7.0)
--- NOTE | 2021-01-09 19:05 | EDPHYS ---
Physician Documentation [facility] Name: Nicolle Lee Age: 85 yrs Sex: Male : 1935 Arrival Date: 01/09/2021 Time: 17:37 Bed 6 Private MD: ED Physician Zaid Barrera HPI: 01/09 17:56 This 85 yrs old Male presents to ER via Unassigned with complaints of Fall kdr Injury. 17:56 Details of fall: The patient fell from an upright position, while standing. Onset: The kdr symptoms/episode began/occurred suddenly, just prior to arrival. Associated injuries: The patient sustained injury to the head, abrasion, hematoma, laceration, pain. Severity of symptoms: At their worst the symptoms were moderate, just prior to arrival, in the emergency department the symptoms are unchanged. The patient has not experienced similar symptoms in the past. It is unknown whether or not the patient has recently seen a physician. Per EMS, the patient has become more confused and agitated since the fall and their first contact. Historical: - Allergies: 17:40 No Known Allergies; bp - Home Meds: 17:40 Unable to obtain [Active]; bp - PMHx: 01/10 00:08 Hypertension; GERD; Anemia; sg - Immunization history: Last tetanus immunization: unknown. - Social history:: Smoking status: unknown. ROS: 01/09 17:56 Constitutional: Unable to obtain Eyes: Negative for injury, pain, redness, and kdr discharge, Neck: Negative for injury, pain, and swelling. Unable to obtain ROS due to altered mental status, patient distress. Exam: 17:56 Constitutional: This is a well developed, well nourished patient who is awake, alert, kdr and in no acute distress. Eyes: Pupils equal round and reactive to light, extra-ocular motions intact. Lids and lashes normal. Conjunctiva and sclera are non-icteric and not injected. Cornea within normal limits. Periorbital areas with no swelling, redness, or edema. Neck: Trachea midline, no thyromegaly or masses palpated, and no cervical lymphadenopathy. Supple, full range of motion without nuchal rigidity, or vertebral point tenderness. No Meningismus. Chest/axilla: Normal chest wall appearance and motion. Nontender with no deformity. No lesions are appreciated. Cardiovascular: Regular rate and rhythm with a normal S1 and S2. No gallops, murmurs, or rubs. Normal PMI, no JVD. No pulse deficits. Respiratory: Lungs have equal breath sounds bilaterally, clear to auscultation and percussion. No rales, rhonchi or wheezes noted. No increased work of breathing, no retractions or nasal flaring. Abdomen/GI: Soft, non-tender, with normal bowel sounds. No distension or tympany. No guarding or rebound. No evidence of tenderness throughout. Back: No spinal tenderness. No costovertebral tenderness. Full range of motion. Skin: Warm, dry with normal turgor. Normal color with no rashes, no lesions, and no evidence of cellulitis. MS/ Extremity: Pulses equal, no cyanosis. Neurovascular intact. Full, normal range of motion. Neuro: Awake and alert, GCS 15, oriented to person, place, time, and situation. Cranial nerves II-XII grossly intact. Motor strength 5/5 in all extremities. Sensory grossly intact. Cerebellar exam normal. Normal gait. Psych: Awake, alert, with orientation to person, place and time. Behavior, mood, and affect are within normal limits. 19:15 ECG was reviewed by the Attending Physician. kdr Vital Signs: 17:40 BP 158 / 84; Pulse 97; Resp 27; Temp 100.4; Pulse Ox 100% ; bp 18:00 BP 163 / 72; Pulse 95; Resp 27; Pulse Ox 100% ; bp 19:00 BP 147 / 62; Pulse 92 MON; Resp 18; Temp 99.1; sg 20:00 BP 140 / 60; Pulse 95; Resp 18; Pulse Ox 98% ; ea 22:00 BP 153 / 78; Pulse 89; Resp 16; Pulse Ox 100% on R/A; sg 23:00 BP 143 / 63; Pulse 98; Resp 16; Pulse Ox 99% on R/A; sg 01/10 00:00 BP 140 / 60; Pulse 91; Resp 16; Temp 99.1; Pulse Ox 100% on R/A; sg [place] Coma Score: 01/09 17:40 Eye Response: spontaneous(4). Verbal Response: confused(4). Motor Response: localizes bp pain(5). Total: 13. Trauma Score (Adult): 17:40 Eye Response: spontaneous(1); Verbal Response: confused(1); Motor Response: localizes bp pain(1); Systolic BP: > 89 mm Hg(4); Respiratory Rate: 10 to 29 per min(4); Anita Score: 13; Trauma Score: 11 Laceration: 19:06 Wound Repair of 4cm ( 1.6in ) subcutaneous laceration to back of head. Irregularly cp shaped.. Distal neuro/vascular/tendon intact. Wound prep: Simple cleansing by nurse. Skin closed with 5 1-0 Kindra using staple gun. Dressed with Bacitracin. Patient tolerated fair. MDM: 19:05 Patient medically screened. kdr 19:05 Data reviewed: vital signs, nurses notes, lab test result(s), radiologic studies. kdr Counseling: I had a detailed discussion with the patient and/or guardian regarding: the historical points, exam findings, and any diagnostic results supporting the discharge/admit diagnosis, lab results, radiology results, the need to transfer to another facility. 01/09 17:54 Order name: Amylase, Serum [facility] 01/09 17:54 Order name: Basic Metabolic Panel [facility] 01/09 17:54 Order name: Blood Culture Adult (2) [facility] 01/09 17:54 Order name: CBC with Diff; Complete Time: 18:46 kdr 01/09 17:54 Order name: Ckmb [facility] 01/09 17:54 Order name: CPK [facility] 01/09 17:54 Order name: Lactate; Complete Time: 18:46 [facility] 01/09 17:54 Order name: LFT's [facility] 01/09 17:54 Order name: Lipase [facility] 01/09 17:54 Order name: Procalcitonin [facility] 01/09 17:54 Order name: Protime (+inr); Complete Time: 18:46 kdr 01/09 17:54 Order name: Ptt, Activated; Complete Time: 18:46 kdr 01/09 17:54 Order name: Troponin (emerg Dept Use Only) [facility] 01/09 17:54 Order name: Urine Microscopic Only [facility] 01/09 17:38 Order name: CT Head C Spine; Complete Time: 18:46 bp 01/09 18:48 Interpretation: Abnormal. [facility] 01/09 17:54 Order name: Chest Single View XRAY [facility] 01/09 17:54 Order name: Accucheck; Complete Time: 18:30 kdr 01/09 17:54 Order name: Cardiac monitoring; Complete Time: 18:30 [facility] 01/09 17:55 Order name: EKG - Nurse/Tech; Complete Time: 19:07 [facility] 01/09 17:55 Order name: IV Saline Lock - Large Bore; Complete Time: 18:30 [facility] 01/09 17:55 Order name: Labs collected and sent; Complete Time: 18:30 [facility] 01/09 17:55 Order name: O2 Per Protocol; Complete Time: 18:30 [facility] 01/09 17:55 Order name: Amylase [facility] 01/09 17:56 Order name: Basic Metabolic Panel [facility] 01/09 17:56 Order name: Blood Culture [facility] 01/09 18:33 Order name: Urine Dipstick--Ancillary (enter results); Complete Time: 18:48 em1 01/09 19:22 Order name: Urine Culture [facility] 01/09 21:50 Order name: Lactate Sepsis 2 HR Follow-up [facility] 01/09 17:55 Order name: O2 Sat Monitoring; Complete Time: 18:30 [facility] 01/09 17:55 Order name: Urine Dipstick-Ancillary (obtain specimen); Complete Time: 18:30 [facility] 01/09 18:31 Order name: Restraint:Non-Violent; Complete Time: 18:32 bp EC:15 Rate is 110 beats/min. Rhythm is regular, Sinus tachycardia with No ectopy, Right kdr bundle branch block. QRS [place] is Normal. MD interval is normal. QRS interval is normal. QT interval is normal. Clinical impression: Sinus tachycardia. Administered Medications: 17:40 Drug: Etomidate 10 mg Route: IVP; Site: left forearm; bp 18:32 Follow up: Response: Marked relief of symptoms bp 18:58 Drug: Rocephin - (cefTRIAXone) 1 grams Route: IVPB; Infused Over: 30 mins; Site: left bp forearm; 19:15 Follow up: Response: No adverse reaction; IV Status: Completed infusion sg Disposition: 19:16 Co-signature as Attending Physician, Zaid Barrera MD I agree with the assessment and [facility] plan of care. Disposition: 01/09/21 19:05 Transfer ordered to [facility]. Diagnosis are Concussion, Altered mental status, unspecified, Fever, unspecified, Urinary tract infection, site not specified. - Reason for transfer: Higher level of care. - Accepting physician is Sheah/Trauma/Neuro. - Condition is Fair. - Problem is new. - Symptoms are unchanged. Signatures: Dispatcher [employer] EDVin Mak RN RN sg Zaid Barrera MD MD kdr Horacio Espino PA PA cp Peltier, Brian, RN RN bp Corrections: (The following items were deleted from the chart) 01/10 00:08 01/09 17:40 PMHx: Unable to obtain; bp 01/10 00:09 01/09 19:05 01/09/2021 19:05 Transfer ordered to [facility]. Diagnosis is sg Concussion; Altered mental status, unspecified; Fever, unspecified; Urinary tract infection, site not specified. Reason for transfer: Higher level of care. Accepting physician is Sheah/Trauma/Neuro. Condition is Fair. Problem is new. Symptoms are unchanged. kdr
--- NOTE | 2021-01-09 19:05 | ER ---
Nurse's Notes [facility] Name: Nicolle Lee Age: 85 yrs Sex: Male : 1935 Arrival Date: 01/09/2021 Time: 17:37 Bed 6 Private MD: Diagnosis: Concussion;Altered mental status, unspecified;Fever, unspecified;Urinary tract infection, site not specified Presentation: 01/09 17:40 Chief complaint: EMS states: FALL FROM STANDING IN PARKING LOT, UNKNOWN DOWNTIME. Care bp prior to arrival: IV initiated. 18 GA, in the right forearm. Mechanism of Injury: Fall from standing position. Trauma event details: Injury occurred in the [facility], Injury occurred: at home. Injury occurred: January 09, 2021 Injury occurred at: 17:00. 17:40 Acuity: MARY 2 bp 17:40 Method Of Arrival: EMS: [facility] bp 17:40 Coronavirus screen: At this time, the client does not indicate any symptoms associated bp with coronavirus-19. Ebola Screen: No symptoms or risks identified at this time. Initial Sepsis Screen: Does the patient meet any 2 criteria? Altered Mental Status. HR > 90 bpm. Yes Does the patient have a suspected source of infection? Yes: Dysuria/Frequency/Urgency/UTI. Risk Assessment: Do you want to hurt yourself or someone else? Patient reports no desire to harm self or others. Onset of symptoms was January 09, 2021 at 17:00. Triage Assessment: 17:40 General: SEE TRAUMA TAB. bp Trauma Activation: Physician: ED Physician; Name: ; Notified At: ; Arrived At: Physician: General Surgeon; Name: ; Notified At: ; Arrived At: Physician: Radiology; Name: ; Notified At: ; Arrived At: Physician: Respiratory; Name: ; Notified At: ; Arrived At: Physician: Lab; Name: ; Notified At: ; Arrived At: 17:40 CODE SEPSIS bp Historical: - Allergies: 17:40 No Known Allergies; bp - Home Meds: 17:40 Unable to obtain [Active]; bp - PMHx: 01/10 00:08 Hypertension; GERD; Anemia; sg - Immunization history: Last tetanus immunization: unknown. - Social history:: Smoking status: unknown. Screenin/25 17:40 Abuse screen: Denies threats or abuse. Denies injuries from another. Tuberculosis bp screening: No symptoms or risk factors identified. 17:40 Nutritional screening: No deficits noted. Fall Risk Fall in past 12 months (25 points). bp No secondary diagnosis (0 pts). IV access (20 points). Ambulatory Aid- None/Bed Rest/Nurse Assist (0 pts). Gait- Normal/Bed Rest/Wheelchair (0 pts) Mental Status- Overestimates/Forgets Limitations (15 pts.). Total Dimas Fall Scale indicates High Risk Score (45 or more points). Fall prevention measures have been instituted. Side Rails Up X 2 Placed Close to Nursing Station Frequent Obs/Assessments Occuring As available patient and family educated on Fall Prevention Program and Strategies. Primary Survey: 17:40 NO uncontrolled hemorrhage observed. A: The patient is alert. Airway: patent, No bp supplemental oxygen in use on arrival. Breathing/Chest: Respiratory pattern: regular, Respiratory effort: spontaneous, unlabored. Circulation: Skin color: pink, Skin temperature: warm, dry. Disability Alert. Exposure/Environment: All clothing and personal items were removed. Forensic evidence collection is not deemed to be indicated at this time. Items placed in patient belonging bag. There is no evidence of uncontrolled external bleeding. Obvious injury(ies) are noted at this time: OCCIPITAL LACERATION A warming method has been applied: A warm blanket has been provided to the patient. PT STAT TO CT FOR R/O CEREBRAL HEMORRHAGE. 19:50 Reassessment Airway Airway Breathing/Chest Respiratory pattern Regular Respiratory ea effort Spontaneous Unlabored Disability Alert. Assessment: 17:40 General: Appears distressed, uncomfortable, Behavior is agitated, anxious, bp uncooperative. Pain: Unable to use pain scale. Does not appear to understand pain scale. Neuro: Level of Consciousness is awake, confused, Oriented to none. EENT: No deficits noted. Cardiovascular: No deficits noted. Respiratory: No deficits noted. GI: No signs and/or symptoms were reported involving the gastrointestinal system. : Urine is cloudy, ODIFEROUS. Derm: No deficits noted. Musculoskeletal: No deficits noted. Injury Description: Laceration sustained to back of head. 18:00 Reassessment: PT RETURNED TO ER, CT GROSSLY UNREMARKABLE. PT AGITATED, AOx0, ATTEMPTING bp TO D/C PIV AND MONITOR AND EXIT BED. PT NOT RESPONDING TO VERBAL DIRECTION. RESTRAINTS PLACED FOR PT SAFETY. RESTRAINT RELEASE CRITERIA EXPLAINED, BUT PT EXHIBITED NO COMPREHENSION. 19:10 Reassessment: Franklin PARR at bedside for laceration repair at this time, assisted by stephani Rivera technology analyst. 19:47 Reassessment:. sg 20:00 General: Appears in no apparent distress. Behavior is agitated, uncooperative. Pain: ea Unable to use pain scale. Does not appear to understand pain scale. Neuro: Level of Consciousness is awake, confused, Oriented to none. Respiratory: Airway is patent Respiratory effort is even, unlabored, Respiratory pattern is regular, symmetrical. Derm: Skin is thin, Skin is dry, Skin is normal. 21:00 Reassessment: Patient and/or family updated on plan of care and expected duration. Pain ea level reassessed. Pt resting with eyes closed, respirations even and unlabored, chest expansions even and symmetrical. 23:40 Reassessment: Patient appears in no apparent distress at this time. pt alert and sg oriented to self at this time, states that he would like to go home with is , educated on the need for transfer to see NEURO for follow, pt stated understanding, awaiting pt transport at this time for transfer to receiving facility, will continue to monitor. 23:43 Reassessment: Patient and/or family updated on plan of care and expected duration. Pain ea level reassessed. Pt resting with eyes closed, respirations even and unlabored, chest expansions even and symmetrical. Awaiting on EMS for transfer. 01/10 00:00 Reassessment: Patient and/or family updated on plan of care and expected duration. Pain sg level reassessed[facility], educated pt has had a slight fever of 99.1, stated understanding. Vital Signs: 01/09 17:40 BP 158 / 84; Pulse 97; Resp 27; Temp 100.4; Pulse Ox 100% ; bp 18:00 BP 163 / 72; Pulse 95; Resp 27; Pulse Ox 100% ; bp 19:00 BP 147 / 62; Pulse 92 MON; Resp 18; Temp 99.1; sg 20:00 BP 140 / 60; Pulse 95; Resp 18; Pulse Ox 98% ; ea 22:00 BP 153 / 78; Pulse 89; Resp 16; Pulse Ox 100% on R/A; sg 23:00 BP 143 / 63; Pulse 98; Resp 16; Pulse Ox 99% on R/A; sg 01/10 00:00 BP 140 / 60; Pulse 91; Resp 16; Temp 99.1; Pulse Ox 100% on R/A; sg [place] Coma Score: 01/09 17:40 Eye Response: spontaneous(4). Verbal Response: confused(4). Motor Response: localizes bp pain(5). Total: 13. Trauma Score (Adult): 17:40 Eye Response: spontaneous(1); Verbal Response: confused(1); Motor Response: localizes bp pain(1); Systolic BP: > 89 mm Hg(4); Respiratory Rate: 10 to 29 per min(4); Anita Score: 13; Trauma Score: 11 ED Course: 17:37 Patient arrived in ED. bp 17:40 Initial lab(s) drawn, by me, sent to lab. Inserted saline lock: 20 gauge in left aa5 forearm, using aseptic technique. Blood collected. 17:40 Patient maintains SpO2 saturation greater than 95% on room air. bp 17:40 Maintain EMS IV. Dressing intact. Good blood return noted. Site clean \T\ dry. Gauge \T\ bp site: 18 GAUGE LEFT AC. 17:40 Patient has correct armband on for positive identification. Placed in gown. Bed in low bp position. Call light in reach. Side rails up X2. Adult w/ patient. 17:40 Arm band placed on. bp 17:42 Zaid Barrera MD is Attending Physician. kdr 17:59 CT Head C Spine In Process Unspecified. EDMS 18:10 Ede Diane, RN is Primary Nurse. bp 18:17 Triage completed. bp 18:29 Chest Single View XRAY In Process Unspecified. EDMS 18:51 Avery Andres initiated transfer at [facility] with Dale Ibrahim. tt3 18:56 Dale Ibrahim called back and gave admin approval to Avery Andres. The pt is going to tt3 [facility] ER. The accepting physician is Dr. Rooney. Nurse to call report to . Face sheet and MOT faxed to per Dale's request. 19:00 Thermoregulation: warm blanket given to patient. sg 21:55 No provider procedures requiring assistance completed. Patient transferred, IV remains ea in place. 01/10 00:09 Patient transferred, IV remains in place. intact, No redness/swelling at site. sg Restraints: 01/09 18:00 Non-Violent Restraint: Order obtained. Initiated on January 09, 2021 at 18:00 Restraint bp Education provided to family/significant other/legally authorized equal opportunity representative. Actions/Behavior observed: Confused/disoriented, has difficulty remembering/follow instructions, has impaired decision making, repeated attempts to get up from bed/chair w/o assistance, unable to follow instructions, repeated attempts to remove/tamper lines/tubes/IV med devices \T\ wound dressing, Less restrictive alternatives attempted: decrease environmental stimuli, placed near Nurse station, reoriented to location, medications evaluated, medicated for pain/anxiety, repositioned, performed diversional activities, Alternative interventions: Ineffective. Clinical justification for use: line protection, patient safety, Mental status: agitated/restless, confused, Cognition: poor judgement, poor safety awareness, poor attention/concentration, unable to follow commands, short term memory loss, Circulation: Within defined parameters (based on Cardiovascular assessment) Skin integrity: Within defined parameters (based on Integumentary assessment) Signs of injury related to restraint: No injuries noted. Range of Motion (ROM): declined. Hydration/Food: patient declined. Elimination/Hygiene: with urinary catheter, Restraint status: Soft wrist restraint (Right) Started. Soft wrist restraint (Left) Started. Criteria to discontinue Restraint not met. Restraint continued. Administered Medications: 17:40 Drug: Etomidate 10 mg Route: IVP; Site: left forearm; bp 18:32 Follow up: Response: Marked relief of symptoms bp 18:58 Drug: Rocephin - (cefTRIAXone) 1 grams Route: IVPB; Infused Over: 30 mins; Site: left bp forearm; 19:15 Follow up: Response: No adverse reaction; IV Status: Completed infusion sg Intake: 17:40 IV: 0ml; Total: 0ml. bp Outcome: 19:05 ER care complete, transfer ordered by . kdr 20:02 Transferred Note: report called to [place] in the ER at receiving facility sg 21:57 Patient's length of stay in the Emergency Department was greater than 2 hours. pt being ea transferedPatient's length of stay extended due to 01/10 00:09 Patient left the ED. sg 00:09 Transferred by ground EMS to [facility], Transfer form completed. sg 00:09 Condition: stable 00:09 Instructed on the need for transfer, safety practices, Demonstrated understanding of instructions, follow-up care. Addendum: 01/13/2021 09:59 Addendum: Other pt discharged from [facility]. b d Signatures: Dispatcher [employer] EDMS Mariaelena Toussaint Steven, RN RN Zaid Jiménez MD MD kdr Calderon, Audri RN RN aa5 Noa Moss RN RN ea Peltier, Brian, RN RN bp Trim, Tyler tt3 Corrections: (The following items were deleted from the chart) 01/10 00:08 01/09 17:40 PMHx: Unable to obtain; bp stephani
[2021-01-09 19:13] LABS: Albumin 3.2 g/dL (3.4-5.0); Bilirubin Direct 0.3 mg/dL (0-0.2); CKMB Creatine Kinase MB 1.1 ng/mL (0.3-3.6); Protein, Total 7.4 g/dL (6.4-8.2); Troponin (Emerg Dept Use Only) 0.02 ng/mL (0.0-0.045)
[2021-01-09 19:14] LABS: Potassium 4.2 mmol/L (3.5-5.1)
[2021-01-09] MEDS ORDERED: CEFTRIAXONE/SWI 1gm 1 GM/10 ML SYR ONE (19:14)
[2021-01-09] MEDS ORDERED: NA CHLORIDE 0.9% 100 ML ONE (19:14)
[2021-01-09 19:21] LABS: Urine Bacteria >50 /HPF (NONE SEEN)
--- NOTE | 2021-01-09 19:47 | RAD REPORT ---
EXAM DESCRIPTION: RAD - Chest Single View - 01/09/2021 6:29 pm CLINICAL HISTORY: s/p fall, chest pain COMPARISON: Two view chest August 2018 TECHNIQUE: AP portable chest image was obtained 01/09/2021 6:29 pm . FINDINGS: Lungs are fibrotic as a baseline. No pulmonary contusion, infiltrate or acute lung parench ymal process. Heart and vasculature are normal. No measurable pleural effusion and no pneumothorax. L ateral right eighth rib fracture is present, nondisplaced. No other definitive fracture. Portable exa m is limited for rib assessment. Dedicated rib films could be obtained as warranted. No acute aortic findings suspected. IMPRESSION: Fibrotic lung pattern with no pneumothorax, pulmonary contusion or significant chest fin ding. Nondisplaced lateral right eighth rib fracture.
[2021-01-10 03:59] VITALS: TEMP 99.1
[2021-01-10 04:03] VITALS: BP 143/63; O2SAT 99
== END 2021-01-10 00:09 | disposition short-term general hospital (02) ==
LOC: ER 17:42
PROC: 0HQ0XZZ Repair Scalp Skin, External Approach (ICD-10-PCS; principal; 2021-01-09)
DX: S01.01XA Laceration without foreign body of scalp, initial encounter (principal); S06.0X0A Concussion without loss of consciousness, initial encounter; N39.0 Urinary tract infection, site not specified; W19.XXXA Unspecified fall, initial encounter; I10 Essential (primary) hypertension; K21.9 Gastro-esophageal reflux disease without esophagitis
CPT/HCPCS: 96365; 87040 ×2; 87088; 85025; 87086; 80048; 36415; 82150; 82550; 87205; 85610; 80076; 83605 ×2; 85730; 87077 ×2; 87186 ×2; 84484; 82553; 83690; 84145; 70450; 72125; 71045; 96375; 99285; 12002; J0696; 81003; 81015; 93005

== ENCOUNTER 2021-02-06 10:06 | Emergency (ER) | payer OTHER ==
--- OUTSIDE RECORDS SUMMARY | 2021-02-06 10:09 | XMS REPORT | Continuity of Care Document ---
:1935 Author Organization [facility] t Address 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) l Outpati ent Clinics Underweigh Underweigh Problem Active [facility] Irregular Irregular Problem Active [facility] heartbeat heartbeat Luke s - [facility] Generalize Generalize Problem Active C [facility] d weakness d weakness Reta kes - Memoria l Outpati ent Clinics RBBB RBBB Problem Active [facility] (right (right [facility] - bundle bundle Memoria branch branch l block) block) [facility] Ventricula Ventricula Problem Active [facility] - hypokinesi hypokinesi Me moria s s l [facility] PAC PAC Problem Active [facility] (premature (premature Reta kes - atrial atrial Memoria contractio contractio l n) n) [facility] Aortic Aortic Problem Active [facility] [...] Reta kes - on on Memoria l [facility] Diastolic Diastolic Problem Active [facility] congestive congestive Reta kes - heart heart Memoria failure, failure, l unspecifie unspecifie Ou tpati d HF d HF ent chronicity chronicity Cl inics Bilateral Bilateral Problem Active [facility] pleural pleural [facility] - effusion effusion Memori a l [facility] S/P TAVR S/P TAVR Problem Active [facility] (transcath (transcath Reta kes - eter eter Memoria aortic aortic l valve valve [facility] replacemen replacemen en t t) t) Clinics Weight Weight Problem Active [facility] loss, loss, [facility] - non-intent non-intent Me moria ional ional l [facility] ent Clinics Left leg Left leg Problem Active [facility] swelling swelling [facility] - Memoria l [facility]ics Onychomyco Onychomyco Problem Active C HI [facility] sis sis [facility] - Memoria l [facility] Depression Depression Problem Active C HI [facility] screening screening Luke s - Memoria l [facility] Tongue Tongue Problem Active [facility] lesion lesion [facility] - Memoria l [facility] Cervical Cervical Problem Active [facility] t lymphadeno lymphadeno Reta kes - christelle christelle Memoria l [facility] Allergies, Adverse Reactions, Alerts This patient has no known allergies or adverse reactions. Social History Social Habit Start Date Stop Date Quantity Comments Source History [facility] Meth odist Alcohol Std Drinks History [facility] Meth odist Alcohol Binge Tobacco use and 2018-11-18 2018-11-18 Never used Mark Anthony Connor ethodist exposure 00:00:00 00:00:00 Alcohol intake 2018-11-18 2018-11-18 Current Mark Anthnoy Abernathy thodist 00:00:00 00:00:00 non-drinker of alcohol (finding) History SDOH 2018-09-02 2018-09-02 1 Mark Anthony Do odist Alcohol Frequency 00:00:00 00:00:00 [birth year] Mark Anthony nyodist 00:00:00 00:00:00 Smoking Status Start Date Stop Date Source Never smoker Mark Anthony Methodis t Medications Ordered Filled Start Stop Current Ordering Indication Dosage Frequency Signature Comments Components Source Medication Medication Date Date Medication? Clinician (SIG) Name Name furosemide Yes 40mg QD Take 40 mg [place] (LASIX) 40 2-01 by mouth Metho di mg tablet 11:02: daily. st 33 tamsulosin Yes .4mg QD Take 0.4 Evonne ston (FLOMAX) 2-01 mg by Methodi 0.4 mg 11:02: mouth st capsule 33 nightly. carvedilol Yes 6.25mg Q.5D Take 6.25 [place] (COREG) 2-01 mg by Methodi 6.25 MG 11:02: mouth 2 st tablet 33 (two) times a day with meals. Furosemide Furosemide 2017-10 Yes Francoise [address] [facility] 2-08 [facility] - 00:00: Memoria 00 l Outpati ent Clinics Calcium Calcium Yes Francoise [address] [facility]ics Molina 3 [place] 3 Yes Francoise [address] [facility] Docusate Docusate Yes Francoise [address] Sodium Sodium Millender as needed L ukes - Memoria l Outpati ent Clinics Tylenol Tylenol Yes Francoise ([address] Millender mg/OTC) [facility] - 1-2 Memoria tablets l prn Outpati ent Clinics Docusate Docusate Yes Rfancoise ([address] Calcium Calcium Millender mg/OTC) 1 [facility]ukes - capsule Memoria l Outpati ent Clinics Carvedilol Carvedilol Yes Francoise [address] [facility] [facility] Vitamin C Vitamin C Yes Francoise [address] Mill[facility] - Memoria l [facility] Furosemide Furosemide Yes Francoise (40 mg) [address] Millender tablet [facility] - Memoria l [facility]ics Multivitami Multivitami Yes Francoise [address] n Adults n Adults Millender Reta kes - Memoria l [facility] ent Clinics Aspirin Aspirin Yes Francoise [address] Mill[facility] - Memoria l [facility] Spironolact Spironolact 2019- No Francoise 1/[address] one one 11-11 [facility] - 00:00 Memoria :00 l [facility] ent Clinics Immunizations Ordered Filled Immunization Date Status Comments [facility] e Immunization Name Name FLUZONE HIGH DOSE FLUZONE HIGH DOSE 2019-07-[address] [facility] [facility] - OVER 65 OVER 65 00:00:00 [facility] Procedures This patient has no known procedures. Plan of Care Planned Activity Planned Date Details Comments Source Future Scheduled 2021-05-18 INFLUENZA VACCINE [place] [facility] 00:00:00 [code = INFLUENZA VACCINE] Future Scheduled 1986 SHINGLES VACCINES (#1) [place] [facility] 00:00:00 [code = SHINGLES VACCINES (#1)] Future Scheduled 1952 COVID-19 VACCINE (1) Evonne jenny [facility] Test 00:00:00 [code = COVID-19 VACCINE (1)] Future Scheduled 1942 65+ PNEUMOCOCCAL [place] [facility] 00:00:00 VACCINE (1 of 2 - PPSV23) [code = 65+ PNEUMOCOCCAL VACCINE (1 of 2 - PPSV23)] Encounters Start End Encounter Admission Attending Care Care Encounter Source Date/Time Date/Time Type Type Clinicians Facility Department ID 2019-12-28 2019-12-28 Outpatient Alexi Navarrete [id number] [facility] 16:15:00 16:15:00 [facility] Medicine [facility] 2019-09-29 2019-09-29 Outpatient Alexi Navarrete [id number] [facility] 11:41:00 11:41:00 [facility] Medicine [facility] 2019-08-24 2019-08-24 Outpatient Alexi Navarrete [id number] [facility] 10:00:00 10:00:00 t [facility] Medicine Outpati ent Clinics 2019-07-24 2019-07-24 [facility] [id number] [address] 11[facility]40:00 11:40:00 t [facility] Medicine Outpati ent Clinics 2019-07-13 2019-07-13 [facility] [id number] 16:20:00 16:20:00 t [facility] Medicine Medicine Outpati ent Clinics 2019-05-19 2019-05-19 [facility] [id number] [address] 16:02:00 16:02:00 t [facility] Medicine Outpati ent Clinics 2019-05-18 2019-05-18 [facility] [id number] [address] 16:20:00 16:20:00 [facility] Medicine Outpati ent Clinics 2019-02-14 2019-02-14 [facility] [id number] [facility] 13:00:00 13:00:00 [facility] Medicine Outpati ent Clinics 2019-01-17 2019-01-17 [facility] [id number] 13:20:00 13:20:00 [facility] Medicine Outpati ent Clinics 2018-11-14 2018-11-14 [facility] [id number] 11:30:00 11:30:00 [facility] Medicine Outpati ent Clinics 2018-10-07 2018-10-07 [facility] [id number] [facility] 15:00:00 15:00:00 [facility] Medicine Outpati ent Clinics 2018-04-04 2018-04-04 [facility] [id number] 11:45:00 11:45:00 [facility] Medicine Outpati ent Clinics Results This patient has no known results.
--- NOTE | 2021-02-06 10:37 | ER ---
Nurse's Notes [facility] Name: Nicolle Lee Age: 85 yrs Sex: Male : 1935 Arrival Date: 02/06/2021 Time: 10:07 Bed 18 Private MD: Diagnosis: Encounter for removal of sutures - Family history:: not pertinent. - Hospitalizations: : No recent hospitalization is reported. Assessment: 02/06 10:25 General: Appears in no apparent distress. Behavior is calm, cooperative, appropriate tr6 for age, pt reports that he is here to have rosa removed from back of his head. Pain: Denies pain. Neuro: No deficits noted. Cardiovascular: No deficits noted. Respiratory: No deficits noted. GI: No deficits noted. : No deficits noted. EENT: No deficits noted. Derm: Wound noted rosa on back of pts head. Musculoskeletal: No deficits noted. ED Course: 10:07 Patient arrived in ED. as 10:18 Cheikh Hutchins MD is Attending Physician. rn 10:54 Cintia Crawley RN is Primary Nurse. tw2 10:55 Bed in low position. Call light in reach. Adult w/ patient. tw2 Administered Medications: No medications were administered Outcome: 10:37 Discharge ordered by . rn 10:55 Patient left the ED. tw2 Signatures: Elaine Andres Roman, MD MD rn Wise, Tara, RN RN tw2 Cintia Crawley RN RN tr6
--- NOTE | 2021-02-06 10:37 | EDPHYS ---
Physician Documentation [facility] Name: Nicolle Lee Age: 85 yrs Sex: Male : 1935 Arrival Date: 02/06/2021 Time: 10:07 Bed 18 Private MD: ED Physician Cheikh Hutchins HPI: 02/06 10:35 This 85 yrs old Male presents to ER via Unassigned with complaints of Staple rn Removal. 10:35 The patient has rosa on the scalp. Previous treatment: The patient was initially rn treated 21 day(s) ago. Sutures/rosa progress: The patient has no c/o's. The wound is well-healing with no redness, swelling, discharge, or dehiscence reported. The patient has not experienced similar symptoms in the past. The patient has been recently seen at the [facility] Emergency Department. Reports 3 weeks ago got rosa on scalp after fall, doing well, hasn't had a ride to get them removed. . - Family history:: not pertinent. - Hospitalizations: : No recent hospitalization is reported. ROS: 10:35 Constitutional: Negative for fever, chills, and weight loss, Neuro: Negative for rn headache, weakness, numbness, tingling, and seizure. Exam: 10:35 Head/Face: 4 rosa, cephaulad scalp, wound closed and well healed, 4th staple rn partially buried. Procedures: 10:35 Suture/Staple removal: Removed 4 rosa, from scalp, site appears well healed, Patient rn tolerated well. MDM: 10:18 Patient medically screened. rn 10:35 Data reviewed: vital signs, nurses notes, and as a result, I will discharge patient. rn Counseling: I had a detailed discussion with the patient and/or guardian regarding: the historical points, exam findings, and any diagnostic results supporting the discharge/admit diagnosis, the need for outpatient follow up, to return to the emergency department if symptoms worsen or persist or if there are any questions or concerns that arise at home. Response to treatment: the patient's symptoms have markedly improved after treatment, and as a result, I will discharge patient. Administered Medications: No medications were administered Disposition: 02/06/21 10:37 Discharged to Home. Impression: Encounter for removal of sutures. - Condition is Stable. - Discharge Instructions: Suture Removal, Care After. - Medication Reconciliation Form, Thank You Letter, Antibiotic Education, Prescription Opioid Use form. - Follow up: Private Physician; When: As needed; Reason: Recheck today's complaints, Re-evaluation by your physician. - Problem is new. - Symptoms have improved. Signatures: Cheikh Hutchins MD MD rn DuncanMaricarmen RN RN tw2 Corrections: (The following items were deleted from the chart) 10:55 10:37 02/06/2021 10:37 Discharged to Home. Impression: Encounter for removal of tw2 sutures. Condition is Stable. Forms are Medication Reconciliation Form, Thank You Letter, Antibiotic Education, Prescription Opioid Use. Follow up: Private Physician; When: As needed; Reason: Recheck today's complaints, Re-evaluation by your physician. Problem is new. Symptoms have improved. rn
== END 2021-02-06 10:55 | disposition home or self-care (01) ==
LOC: ER 10:06
DX: Z48.02 Encounter for removal of sutures (principal)

== ENCOUNTER 2021-03-18 23:52 | Inpatient (IN) | payer OTHER ==
--- OUTSIDE RECORDS SUMMARY | 2021-03-18 23:56 | XMS REPORT | Continuity of Care Document ---
:1935 Author Organization [facility] t Address 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 Reta kes - heart heart Memoria failure, failure, l unspecifie unspecifie Ou tpati d HF d HF ent chronicity chronicity Cl inics Bilateral Bilateral Problem Active [facility] pleural pleural [facility]ukes - effusion effusion Memori a l [facility] S/P TAVR S/P TAVR Problem Active [facility] (transcath (transcath Reta kes - eter eter Memoria aortic aortic l valve valve [facility] replacemen replacemen en t t) t) Clinics Weight Weight Problem Active [facility] loss, loss, [facility] - non-intent non-intent Me moria ional ional l [facility] Left leg Left leg Problem Active [facility] swelling swelling [facility] - Memoria l [facility]ics Onychomyco Onychomyco Problem Active C [facility] sis sis [facility] - Memoria l [facility] Depression Depression Problem Active C [facility] screening screening Luke s - Memoria l [facility] Tongue Tongue Problem Active [facility] lesion lesion [facility] - Memoria l [facility] Cervical Cervical Problem Active [facility] lymphadeno lymphadeno Reta kes - christelle christelle Memoria l [facility] Allergies, Adverse Reactions, Alerts This patient has no known allergies or adverse reactions. Social History Social Habit Start Date Stop Date Quantity Comments Source History [facility] Meth odist Alcohol Std Drinks History [facility] Meth odist Alcohol Binge Tobacco use and 2018-11-18 2018-11-18 Never used Mark Anthony Connor ethodist exposure 00:00:00 00:00:00 Alcohol intake 2018-11-18 2018-11-18 Current Mark Anthony Abernathy thodist 00:00:00 00:00:00 non-drinker of alcohol (finding) History SDOH 2018-11-18 2018-11-18 1 Mark Anthony Meth odist Alcohol Frequency 00:00:00 00:00:00 Sex Assigned [...] [facility] [place] 3 Yes Francoise [address] [facility] [facility] Docusate Docusate Yes Francoise [address] Sodium Sodium Millender as needed L ukes - Memoria l Outpati ent Clinics Tylenol Tylenol Yes Francoise ([address] Millender mg/OTC) Lukes - 1-2 Memoria tablets l prn Outpati ent Clinics Docusate Docusate Yes Francoise ([address] Calcium Calcium Millender mg/OTC) 1 [facility]ukes - capsule Memoria l Outpati ent Clinics Carvedilol Carvedilol Yes Francoise [address] [facility] [facility] Vitamin C Vitamin C Yes Francoise [address] Millender [facility] - [facility] Furosemide Furosemide Yes Francoise (40 mg) [address] Millender tablet [facility] - Memoria l [facility] Multivitami Multivitami Yes Francoise [address] [facility] n Adults n Adults Millender Reta kes - Memoria l [facility] ent Clinics Aspirin Aspirin Yes Francoise [address] [facility] - Memoria l [facility] Spironolact Spironolact 2019- No Francoise 1/[address] one one 11-11 [facility] - 00:00 Memoria :00 l [facility] Immunizations Ordered Filled Immunization Date Status Comments [facility] e Immunization Name Name FLUZONE HIGH DOSE FLUZONE HIGH DOSE 2019-07-[address] [facility] - OVER 65 OVER 65 00:00:00 [facility] Procedures This patient has no known procedures. Plan of Care Planned Activity Planned Date Details Comments Source Future Scheduled 2021-05-18 INFLUENZA VACCINE [place] [facility] 00:00:00 [code = INFLUENZA VACCINE] Future Scheduled 1986 SHINGLES VACCINES (#1) [place] [facility] 00:00:00 [code = SHINGLES VACCINES (#1)] Future Scheduled 1948 COVID-19 VACCINE (1) [place] [facility] 00:00:00 [code = COVID-19 VACCINE (1)] Future Scheduled 1942 65+ PNEUMOCOCCAL [place] [facility] 00:00:00 VACCINE (1 of 2 - PPSV23) [code = 65+ PNEUMOCOCCAL VACCINE (1 of 2 - PPSV23)] Encounters Start End Encounter Admission Attending Care Care Encounter Source Date/Time Date/Time Type Type Clinicians Facility Department ID 2019-12-28 2019-12-28 Outpatient Alexi Navarrete [id number] [facility] 16:15:00 16:15:00 [facility] Medicine [facility] 2019-09-29 2019-09-29 Outpatient Alexi Navarrete [id number] [facility] 11:41:00 11:41:00 [facility] Medicine [facility] 2019-08-24 2019-08-24 Outpatient Alexi Navarrete [id number] 10:00:00 10:00:00 t [facility] Medicine Outpati ent Clinics 2019-07-24 2019-07-24 [facility] [id number] 11:40:00 11:40:00 t [facility] Medicine Outpati ent Clinics 2019-07-13 2019-07-13 [facility] [id number] [facility] 16:20:00 16:20:00 t [facility] Medicine Medicine Outpati ent Clinics 2019-05-19 2019-05-19 [facility] [id number] [facility] 16:02:00 16:02:00 t [facility] Medicine Outpati ent Clinics 2019-05-18 2019-05-18 [facility] [id number] 16:20:00 16:20:00 [facility] Medicine Outpati ent Clinics 2019-02-14 2019-02-14 [facility] [id number] 13:00:00 13:00:00 [facility] Medicine Outpati ent Clinics 2019-01-17 2019-01-17 [facility] [id number] [facility] 13:20:00 13:20:00 [facility] Medicine Outpati ent Clinics 2018-11-14 2018-11-14 [facility] [id number] 11:30:00 11:30:00 [facility] Medicine Outpati ent Clinics 2018-10-07 2018-10-07 [facility] [id number] 15:00:00 15:00:00 [facility] Medicine Outpati ent Clinics 2018-04-04 2018-04-04 [facility] [id number] [facility] 11:45:00 11:45:00 [facility] Medicine Outpati ent Clinics Results This patient has no known results.
[2021-03-19] MEDS ORDERED: LORazepam 2 MG/ML VIAL ONE ×2 (00:19→06:19)
[2021-03-19 01:17] LABS: Absolute Lymphocytes (CBC) 0.1 K/uL (0.7-4.9); Basophils % 0.2 % (0-1.3); Hematocrit 30.8 % (39.6-49.0); Lymphocytes % 3.2 % (15.3-44.8); RBC Red Blood Cell Count 3.34 M/uL (4.33-5.43)
[2021-03-19 01:20] LABS: Protime INR 1.09
[2021-03-19 01:24] LABS: Urine Blood 3+ (Negative); Urine Glucose Negative (Negative); Urine Protein 2+ (Negative); Urine Specific Gravity 1.015 (1.005-1.030); Urine pH 5.5 (5.0-7.0)
[2021-03-19 01:29] LABS: Bilirubin Direct 0.1 mg/dL (0-0.2); Bilirubin Total 0.5 mg/dL (0.2-1.0); Potassium 3.7 mmol/L (3.5-5.1); Protein, Total 6.2 g/dL (6.4-8.2); Troponin (Emerg Dept Use Only) 0.17 ng/mL (0.0-0.045)
[2021-03-19] MEDS ORDERED: ACETAMINOPHEN 650MG/RECT SUPP PR ONE (01:54)
[2021-03-19] MEDS ORDERED: CEFTRIAXONE/SWI 1gm 1 GM/10 ML SYR ONE (01:55)
[2021-03-19] MEDS ORDERED: NA CHLORIDE 0.9% 1,000 ML ONE (01:55)
[2021-03-19 02:06] LABS: Urine Bacteria >50 /HPF (NONE SEEN); Urine RBC >50 /HPF (NONE SEEN)
[2021-03-19 03:15] LABS: Blood Morphology Comment NOT SEEN (NOT SEEN); Platelet Estimate ADEQ
--- NOTE | 2021-03-19 03:17 | EDPHYS ---
Physician Documentation [facility] Name: Nicolle Lee Age: 85 yrs Sex: Male : 1935 Arrival Date: 03/18/2021 Time: 23:53 Bed 30 Private MD: ED Physician Cheikh Hutchins HPI: 03/19 01:54 This 85 yrs old Male presents to ER via EMS with complaints of Altered Mental rn Status. 01:54 The patient presents with agitation, confusion. Onset: The symptoms/episode rn began/occurred at an unknown time. Possible causes: unknown. Current symptoms: In the emergency department the patient's symptoms are unchanged from the initial presentation. It is unknown whether or not the patient has had similar symptoms in the past. Per EMS, called 911 for AMS, hematuria was noted on underwear, as well as fever. Pt not oriented to place or time. Very agitated and not cooperative with exam.. Historical: - Allergies: 00:01 No Known Allergies; ap3 - Home Meds: 00:01 Unable to obtain [Active]; ap3 - PMHx: 00:01 Anemia; GERD; Hypertension; ap3 - PSHx: 00:01 Unable to obtain; ap3 - Immunization history:: Adult Immunizations unknown. - Social history:: Smoking status: unknown. - History obtained from: EMS. - Unable to obtain history due to: altered mental status. ROS: 01:54 Constitutional: Negative for fever, chills, and weight loss. rn 01:54 Unable to obtain ROS due to altered mental status. Exam: 01:54 Constitutional: Thin male, agitated, trying to get out of bed Head/Face: rn Normocephalic, atraumatic. ENT: dry MM Neck: No Meningismus. Cardiovascular: Tachycardic. No pulse deficits. Respiratory: + mild tachypnea. No retractions or nasal flaring. Abdomen/GI: Soft, non-tender Skin: Warm, dry MS/ Extremity: Pulses equal, no cyanosis. Neuro: Awake, not oriented to place or time. Moves all 4 extremities. Vital Signs: 03/18 23:56 Pulse 122; Resp 24; Temp 102.5; Pulse Ox 96% on R/A; ap3 03/19 00:30 Weight 68.04 kg (R); bb 01:40 Pulse 101; Resp 24 S; Pulse Ox 99% on 2 lpm NC; bb 02:26 BP 154 / 80; Pulse 102; Resp 24 S; Temp 99.1(A); Pulse Ox 100% on R/A; bb 04:30 BP 128 / 65; Pulse 113; Resp 20; Pulse Ox 98% on 2 lpm NC; wh 06:00 BP 151 / 77; Pulse 106; Resp 20; Temp 99.1(A); Pulse Ox 98% on R/A; wh MDM: 03/18 23:53 Patient medically screened. rn 03/19 03:15 Differential Diagnosis: pneumonia, sepsis, UTI, volume depletion. Data reviewed: vital rn signs, nurses notes, lab test result(s), and as a result, I will admit patient. Counseling: I had a detailed discussion with the patient and/or guardian regarding: the historical points, exam findings, and any diagnostic results supporting the discharge/admit diagnosis, lab results, the need for further work-up and treatment in the hospital. Response to treatment: the patient's symptoms have markedly improved after treatment, and as a result, I will admit patient. Admission orders: after a detailed discussion of the patient's condition and case, the admit orders are written by me. ED course: Pt with urosepsis, stable and improving vitals, will admit to hospitalist service, domenica burdick. . 03/18 23:55 Order name: Urine Culture rn 03/18 23:55 Order name: Basic Metabolic Panel; Complete Time: 01:40 rn 03/18 23:55 Order name: Blood Culture Adult (2) rn 03/18 23:55 Order name: CBC with Diff rn 03/18 23:55 Order name: Lactate rn 03/18 23:55 Order name: LFT's; Complete Time: 01:40 rn 03/18 23:55 Order name: Lipase; Complete Time: 01:40 rn 03/18 23:55 Order name: Procalcitonin; Complete Time: 01:40 rn 03/18 23:55 Order name: Protime (+inr); Complete Time: 01:40 rn 03/18 23:55 Order name: Ptt, Activated; Complete Time: 01:40 rn 03/18 23:55 Order name: Troponin (emerg Dept Use Only); Complete Time: 01:40 rn 03/18 23:55 Order name: Urine Microscopic Only rn 03/19 01:23 Order name: Urine Dipstick-Ancillary; Complete Time: 01:40 EDMS 03/18 23:55 Order name: Chest Single View XRAY rn 03/18 23:55 Order name: Accucheck; Complete Time: 01:48 rn 03/18 23:55 Order name: CT Abd/Pelvis - IV Contrast Only rn 03/18 23:55 Order name: CT Head Brain wo Cont rn 03/19 01:24 Order name: Manual Differential EDMS 03/19 01:38 Order name: CORONAVIRUS EDMS 03/19 02:30 Order name: SARS-COV-2 RT PCR EDMS 03/19 05:39 Order name: Lactate Sepsis 2 HR Follow-up EDMS 03/18 23:55 Order name: Cardiac monitoring; Complete Time: 01:40 rn 03/18 23:55 Order name: EKG - Nurse/Tech; Complete Time: 01:40 rn 03/18 23:55 Order name: IV Saline Lock - Large Bore; Complete Time: 00:08 rn 03/18 23:55 Order name: Labs collected and sent; Complete Time: 01:48 rn 03/18 23:55 Order name: O2 Per Protocol; Complete Time: 01:48 rn 03/18 23:55 Order name: O2 Sat Monitoring; Complete Time: 00:08 rn 03/18 23:55 Order name: Urine Dipstick-Ancillary (obtain specimen); Complete Time: 01:39 rn Administered Medications: 00:05 Drug: Ativan (LORazepam) 0.5 mg Route: IVP; Site: left forearm; wh 01:48 Follow up: Response: No adverse reaction bb 01:40 Drug: NS 0.9% 1000 ml Route: IV; Rate: 1000 ml; Site: right wrist; bb 06:08 Follow up: Response: No adverse reaction; IV Status: Completed infusion wh 01:40 Drug: Tylenol Suppository 650 mg Route: LA; bb 02:27 Follow up: Response: Temperature is decreased bb 06:08 Follow up: Response: No adverse reaction; Temperature is decreased wh 01:40 Drug: Rocephin (cefTRIAXone) 1 grams Route: IV; Rate: calculated rate; Site: right bb wrist; 01:50 Follow up: Response: No adverse reaction; IV Status: Completed infusion; IV Intake: 10mlbb 06:08 Follow up: Response: No adverse reaction; IV Status: Completed infusion 03:47 Drug: morphine 2 mg Route: IVP; Site: right forearm; 06:08 Follow up: Response: No adverse reaction; Pain is decreased 04:33 Drug: Zofran (Ondansetron) 4 mg Route: IVP; Site: right forearm; 06:07 Follow up: Response: No adverse reaction; Nausea is decreased 06:02 Drug: Ativan (LORazepam) 0.5 mg Route: IVP; Site: right forearm; Disposition: 03/19/21 03:16 Hospitalization ordered by Rae Roman for Inpatient Admission. Preliminary diagnosis are Altered mental status, unspecified, Delirium due to known physiological condition, Urinary tract infection, site not specified, Sepsis, unspecified organism. - Bed requested for Telemetry/MedSurg (Inpatient). - Status is Inpatient Admission. - Condition is Stable. - Problem is new. - Symptoms have improved. Signatures: Dispatcher [employer] EDMS Elaina Felton RN RN bb Cheikh Hutchins MD MD rn Garcia, Cindy, RN RN Tracy Elder RN RN Candi Xavier RN RN ap3 Corrections: (The following items were deleted from the chart) 01:48 03/18 23:55 Dickerson ordered. rn lilly 03/19 05:41 03:16 Hospitalization Ordered by Rae Roman MD for Inpatient Admission. Preliminary cg diagnosis is Altered mental status, unspecified; Delirium due to known physiological condition; Urinary tract infection, site not specified; Sepsis, unspecified organism. Bed requested for Telemetry/MedSurg (Inpatient). Status is Inpatient Admission. Condition is Stable. Problem is new. Symptoms have improved. rn 06:27 05:41 03/19/2021 03:16 Hospitalization Ordered by Rae Roman MD for Inpatient Admission. Preliminary diagnosis is Altered mental status, unspecified; Delirium due to known physiological condition; Urinary tract infection, site not specified; Sepsis, unspecified organism. Bed requested for Telemetry/MedSurg (Inpatient). Status is Inpatient Admission. Condition is Stable. Problem is new. Symptoms have improved.
--- NOTE | 2021-03-19 03:17 | ER ---
Nurse's Notes [facility] Name: Nicolle Lee Age: 85 yrs Sex: Male : 1935 Arrival Date: 03/18/2021 Time: 23:53 Bed 30 Private MD: Diagnosis: Altered mental status, unspecified;Delirium due to known physiological condition;Urinary tract infection, site not specified;Sepsis, unspecified organism Presentation: 03/18 23:56 Chief complaint: EMS states: patient was found at home in the restroom, and appeared to ap3 have been urinating blood. called EMS due to patients altered mental status. Patient is AOX0. Coronavirus screen: Client denies travel out of the [place] in the last 14 days. chills, fever, shaking with chills, Client presents with at least one sign or symptom that may indicate coronavirus-19. Ebola Screen: No symptoms or risks identified at this time. Initial Sepsis Screen: Does the patient meet any 2 criteria? RR > 20 per min. Temp <36.0*C (96.8*F)) or > 38.3*C (100.9*F). Altered Mental Status. HR > 90 bpm. Yes Does the patient have a suspected source of infection? Yes: Other: AMS, urinating blood, axillary temp 102.5. Risk Assessment: Do you want to hurt yourself or someone else? Unable to obtain. Onset of symptoms was March 18, 2021 at 22:45. Care prior to arrival: IV initiated. 20 GA, in the left forearm. 23:56 Method Of Arrival: EMS: [facility] ap3 23:56 Acuity: MARY 2 ap3 03/19 00:04 Note unable to attain blood pressure at this time. patient keeps saying "I need to go ap3 to the other room", "I need to get up", and "help me". patient is currently AOx0. Patient is trying to get out of bed. Side rails up X's 4, Code Sepsis called at [phone]. Triage Assessment: 00:03 General: Appears distressed, uncomfortable, Behavior is agitated, anxious, combative, ap3 restless. Pain: Complains of pain in unknown. patient states, "it hurts, it hurts" but area is unspecified. Neuro: Oriented to none. Historical: - Allergies: 00:01 No Known Allergies; ap3 - Home Meds: 00:01 Unable to obtain [Active]; ap3 - PMHx: 00:01 Anemia; GERD; Hypertension; ap3 - PSHx: 00:01 Unable to obtain; ap3 - Immunization history:: Adult Immunizations unknown. - Social history:: Smoking status: unknown. - History obtained from: EMS. - Unable to obtain history due to: altered mental status. Screenin:01 Abuse screen: Denies threats or abuse. Nutritional screening: unable to attain at this ap3 time.. Tuberculosis screening: No symptoms or risk factors identified. Fall Risk Fall in past 12 months (25 points). Secondary diagnosis (15 points) altered mental status. IV access (20 points). Ambulatory Aid- Crutches/Cane/Walker (15 pts). Gait- Impaired (20 pts.). Mental Status- Overestimates/Forgets Limitations (15 pts.). Total Dimas Fall Scale indicates High Risk Score (45 or more points). Fall prevention measures have been instituted. Side Rails Up X 2 Placed Close to Nursing Station Frequent Obs/Assessments Occuring As available patient and family educated on Fall Prevention Program and Strategies. Assessment: 03/18 06:00 Reassessment: Patient appears in no apparent distress at this time. Patient and/or wh family updated on plan of care and expected duration. Pain level reassessed. 03/19 00:00 General: Appears ill, emaciated, Behavior is flat, listless. Neuro: Level of bb Consciousness is listless, Oriented to none. Cardiovascular: Heart tones present Capillary refill < 3 seconds Patient's skin is warm and dry. Edema is 2+ to left midcalf, left ankle, right midcalf and right ankle. Respiratory: Airway is patent Respiratory effort is unlabored, Respiratory pattern is regular, Breath sounds are diminished bilaterally. GI: Abdomen is non-distended, Bowel sounds diminished in right upper quadrant, left upper quadrant, right lower quadrant and left lower quadrant. Derm: Skin is fragile, is thin, Skin is dry, Skin is pale, Skin temperature is warm. Musculoskeletal: Capillary refill < 3 seconds. 01:48 Reassessment: pt to CT scan via bed accompanied by optical lab technician. bb 02:25 Reassessment: pt back from CT scan resting quietly, resp unlabored, IV site intact, bb patent, with fluids infusing, family at bedside. 04:00 Reassessment: Patient appears in no apparent distress at this time. Patient and/or family updated on plan of care and expected duration. Pain level reassessed. Received report from Elaina MACKENZIE. Vital Signs: 03/18 23:56 Pulse 122; Resp 24; Temp 102.5; Pulse Ox 96% on R/A; ap3 03/19 00:30 Weight 68.04 kg (R); bb 01:40 Pulse 101; Resp 24 S; Pulse Ox 99% on 2 lpm NC; bb 02:26 BP 154 / 80; Pulse 102; Resp 24 S; Temp 99.1(A); Pulse Ox 100% on R/A; bb 04:30 BP 128 / 65; Pulse 113; Resp 20; Pulse Ox 98% on 2 lpm NC; wh 06:00 BP 151 / 77; Pulse 106; Resp 20; Temp 99.1(A); Pulse Ox 98% on R/A; ED Course: 03/18 23:53 Patient arrived in ED. mw2 23:53 Cheikh Hutchins MD is Attending Physician. rn 03/19 00:00 Triage completed. ap3 00:04 Bed in low position. Call light in reach. Side rails up X2. sheet roller operator on. Pulse ap3 ox on. NIBP on. 01:00 Inserted saline lock: 20 gauge in right forearm, using aseptic technique. Blood oe collected. 02:00 Chest Single View XRAY In Process Unspecified. EDMS 02:23 CT Abd/Pelvis - IV Contrast Only In Process Unspecified. EDMS 02:23 CT Head Brain wo Cont In Process Unspecified. EDMS 02:28 Arm band placed on on arrival. bb 03:16 Rae Roman MD is Hospitalizing Provider. rn 04:32 Tracy Elder RN is Primary Nurse. 06:05 No provider procedures requiring assistance completed. Patient admitted, IV remains in place. Administered Medications: 00:05 Drug: Ativan (LORazepam) 0.5 mg Route: IVP; Site: left forearm; 01:48 Follow up: Response: No adverse reaction bb 01:40 Drug: NS 0.9% 1000 ml Route: IV; Rate: 1000 ml; Site: right wrist; bb 06:08 Follow up: Response: No adverse reaction; IV Status: Completed infusion 01:40 Drug: Tylenol Suppository 650 mg Route: WA; bb 02:27 Follow up: Response: Temperature is decreased bb 06:08 Follow up: Response: No adverse reaction; Temperature is decreased 01:40 Drug: Rocephin (cefTRIAXone) 1 grams Route: IV; Rate: calculated rate; Site: right bb wrist; 01:50 Follow up: Response: No adverse reaction; IV Status: Completed infusion; IV Intake: 10mlbb 06:08 Follow up: Response: No adverse reaction; IV Status: Completed infusion 03:47 Drug: morphine 2 mg Route: IVP; Site: right forearm; 06:08 Follow up: Response: No adverse reaction; Pain is decreased 04:33 Drug: Zofran (Ondansetron) 4 mg Route: IVP; Site: right forearm; 06:07 Follow up: Response: No adverse reaction; Nausea is decreased 06:02 Drug: Ativan (LORazepam) 0.5 mg Route: IVP; Site: right forearm; bb Intake: 01:50 IV: 10ml; Total: 10ml. Outcome: 03:16 Decision to Hospitalize by Provider. rn 06:05 Admitted to Med/surg accompanied by tech, family with patient, via stretcher, room 212, with chart, Report called to Handy Person RN 06:05 Condition: stable 06:05 Instructed on the need for admit. 06:27 Patient left the ED. Signatures: Dispatcher [employer] EDElaina Brown RN RN Cheikh Hutchins MD MD rn Espinosa, Orlando oe Habalo, Winsy, RN RN Candi Xavier RN RN ap3 Collette Demarco 2
[2021-03-19] MEDS ORDERED: MORPHINE 2 MG/ML SYR ONE (04:05)
[2021-03-19] MEDS ORDERED: ONDANSETRON 4 MG/2 ML VIAL ONE (04:50)
--- NOTE | 2021-03-19 06:27 | P.HP ---
Certification for Inpatient Patient admitted to: Inpatient With expected LOS: >2 Midnights Patient will require the following post-hospital care: None Practitioner: I am a practitioner with admitting privileges, knowledge of patient current condition, hospital course, and medical plan of care. Services: Services provided to patient in accordance with Admission requirements found in Title 42 Section 412.3 of the Code of Federal Regulations Patient History Date of Service: 03/19/21 Primary Care Provider: Benitez Reason for admission: urosepsis History of Present Illness: Mr. Lee is an 85 yo M with HTN here today for AMS. Per , he is normally oriented x 4. Since yesterday at 5pm, he has been confused. She says he has had fever, nausea, vomiting, hematuria. Denies pain, diarrhea. H/H 10.5 BUN 27 Lactate 2.8 Trop 0.17 procal 3.18 found to have a UTI, flagging sepsis. Allergies No Known Allergies Allergy (Verified 03/08/13 16:53) Home Medications: Furosemide [Lasix] 40 mg PO DAILY #30 tab 09/01/18 Spironolactone 12.5 mg PO DAILY #30 tablet 09/01/18 Tamsulosin [Flomax*] 0.4 mg PO BEDTIME #30 cap 09/01/18 carvediloL [Coreg] 6.25 mg PO BID #60 tab 09/01/18 - Past Medical/Surgical History Diabetic: No -: Mild Arthritis -: Moderate to severe aortic stenosis -: HTN -: Tonsilectomy - Family History Family History: Reviewed- Non-Contributory - Social History Smoking Status: Never smoker Alcohol use: No CD- Drugs: No Caffeine use: No Place of Residence: Home Review of Systems is unable to be obtained Physical Examination - Physical Exam General: Cachectic, Demented, Confused HEENT: Atraumatic, Normocephalic, PERRLA, Mucous membr. moist/pink, EOMI, Sclerae nonicteric Neck: Supple, 2+ carotid pulse no bruit, JVD not distended, No Thyromegaly, No LAD Respiratory: Clear to auscultation bilaterally, Normal air movement Cardiovascular: No edema, Normal pulses, Regular rate/rhythm, Normal S1 S2, No gallops, No rubs, No murmurs Capillary refill: <2 Seconds Gastrointestinal: Normal bowel sounds, Soft and benign, Non-distended, No ascites, No tenderness, No masses, No rebound, No guarding Musculoskeletal: No clubbing, No swelling, No contractures, No erythema, No tenderness, No warmth Integumentary: No rashes, No breakdown, No significant lesion, No tenderness/swelling, No erythema, No warmth, No cyanosis Neurological: Normal tone, Abnormal affect, Dementia Lymphatics: No axilla or inguinal lymphadenopathy Urinary: Deleon catheter - Studies Laboratory Data (last 24 hrs) 03/19/21 00:50: PT 12.6 H, INR 1.09, APTT 25.9 03/19/21 00:50: WBC 4.00 L, Hgb 10.5 L, Hct 30.8 L, Plt Count 152 03/19/21 00:50: Sodium 145, Potassium 3.7, BUN 27 H, Creatinine 1.22, Glucose 98, Total Bilirubin 0.5, AST 20, ALT 15, Alkaline Phosphatase 78, Lipase 170 Assessment and Plan - Plan Assessment UTI sepsis HTN elevated troponin Plan IV vancomycin and ceftriaxone continue IVF tylenol for fever trend troponin BNP pending blood cultures pending deleon catheter SCDs BP currently stable, continue to monitor Discharge Plan: Home Plan to discharge in: 72 Hours - Advance Directives Does patient have a Living Will: No Does patient have a Durable POA for Healthcare: No - Code Status/Comfort Care Code Status Assessed: Yes (full code) Critical Care: No Time Spent Managing Pts Care (In Minutes): 70
[2021-03-19] MEDS ORDERED: Pharmacy Consult 1 EA XX PRN (06:40)
[2021-03-19] MEDS ORDERED: ACETAMINOPHEN 500 MG TAB PO PRN (06:40)
[2021-03-19] MEDS ORDERED: ONDANSETRON 4 MG/2 ML VIAL IV PRN (06:40)
[2021-03-19] MEDS ORDERED: VANCOMYCIN 1.75 GM in NA CHLORIDE 0.9% 500 ML IVPB ONE (07:00)
[2021-03-19 08:07] LABS: Albumin 2.9 g/dL (3.4-5.0); Bilirubin Total 0.8 mg/dL (0.2-1.0); Potassium 3.7 mmol/L (3.5-5.1); Protein, Total 5.8 g/dL (6.4-8.2)
[2021-03-19 08:12] LABS: Troponin I 5.29 ng/mL (0.0-0.045)
[2021-03-19 08:13] LABS: Urine Appearance CLEAR (Clear); Urine Bilirubin NEGATIVE (Negative); Urine Blood 2+ (Negative); Urine Color YELLOW (Yellow); Urine Glucose NEGATIVE (Negative); Urine Protein TRACE (Negative); Urine Urobilinogen 0.2 mg/dL (0.2-1.0)
[2021-03-19 08:16] LABS: Urine Microscopic Reflex ORDER UMIC
[2021-03-19 09:15] LABS: Urine Bacteria <20 /HPF (NONE SEEN); Urine Yeast PRESENT (NONE SEEN)
[2021-03-19] MEDS: NA CHLORIDE 0.9% 1,000 ML IV SCH ×2 (09:17→16:40)
[2021-03-19] MEDS: VANCOMYCIN 1.25 GM in NA CHLORIDE 0.9% 250 ML IVPB SCH (09:18)
[2021-03-19 09:40] VITALS: BMI 21.5
--- NOTE | 2021-03-19 10:54 | RAD REPORT ---
EXAM DESCRIPTION: CT Head Without Intravenous Contrast CLINICAL HISTORY: The patient is 85 years old and is Male; AMS TECHNIQUE: Axial computed tomography images of the head/brain without intravenous contrast. Sagitt al and coronal reformatted images were created and reviewed. This CT exam was performed using one o r more of the following dose reduction techniques: automated exposure control, adjustment of the mA and/or kV according to patient size, and/or use of iterative reconstruction technique. COMPARISON: No relevant prior studies available. FINDINGS: Limitations: Evaluation limited by motion artifact. Brain: Mild nonspecific white matter changes likely related to chronic microvascular ischemic di sease. No hemorrhage. Ventricles: Unremarkable. No ventriculomegaly. Bones/joints: Unremarkable. No acute fracture. Soft tissues: Unremarkable. Vasculature: Vascular calcifications. Sinuses: Unremarkable as visualized. Mastoid air cells: Unremarkable as visualized. No mastoid effusion. IMPRESSION: No acute intracranial abnormality. Electronically signed by: Thomas Jin MD 03/19/2021 3:15 AM CDT Due to temporary technical issues with the PACS/Fluency reporting system, reports are being signed by the in house radiologist without review as a courtesy to ensure prompt reporting. The interpreting r adiologist is fully responsible for the content of the report.
--- NOTE | 2021-03-19 10:58 | RAD REPORT ---
EXAM DESCRIPTION: CT Abdomen and Pelvis With Intravenous Contrast CLINICAL HISTORY: The patient is 85 years old and is Male; fever, hematuria TECHNIQUE: Axial computed tomography images of the abdomen and pelvis with intravenous contrast. S agittal and coronal reformatted images were created and reviewed. This CT exam was performed using one or more of the following dose reduction techniques: automated exposure control, adjustment of t he mA and/or kV according to patient size, and/or use of iterative reconstruction technique. COMPARISON: No relevant prior studies available. FINDINGS: Limitations: Evaluation severely limited by motion artifact and artifact related to hand /arm positioning. Lung bases: Unremarkable. No mass. No consolidation. ABDOMEN: Liver: Unremarkable. No mass. Gallbladder and bile ducts: Unremarkable. No calcified stones. No ductal dilation. Pancreas: Unremarkable. No mass. No ductal dilation. Spleen: Unremarkable. No splenomegaly. Adrenals: Unremarkable. No mass. Kidneys and ureters: Bilateral perinephric stranding, left greater than right, which may be college advisor charlie. 3.3 cm simple cyst in the right kidney. ACR White Paper guidelines (Hernicola, et al. JACR 2018; 15(2):264-273) suggest no follow-up is necessary. No hydronephrosis. Stomach and bowel: Unremarkable. No obstruction. No mucosal thickening. PELVIS: Appendix: No findings to suggest acute appendicitis. Bladder: Unremarkable. No mass. Reproductive: Unremarkable as visualized. ABDOMEN and PELVIS: Intraperitoneal space: Unremarkable. No free air. No significant fluid collection. Bones/joints: Osseous hemangioma in the T10 vertebral body. Disc space narrowing with degenerative endplate changes from T10 to T11. No acute fracture. No dislocation. Soft tissues: Unremarkable. Vasculature: Scattered atherosclerotic vascular calcifications including at the origins of the m esenteric and renal arteries. No abdominal aortic aneurysm. Lymph nodes: Unremarkable. No enlarged lymph nodes. IMPRESSION: 1. No acute finding. 2. The bladder appears normal. 3. Bilateral perinephric stranding, left greater than right, which may be chronic. 4. Evaluation severely limited by motion artifact and artifact related to hand/arm positioning. Electronically signed by: Thomas Jin MD 03/19/2021 3:25 AM CDT Due to temporary technical issues with the PACS/Fluency reporting system, reports are being signed by the in house radiologist without review as a courtesy to ensure prompt reporting. The interpreting r henryogist is fully responsible for the content of the report.
--- NOTE | 2021-03-19 11:11 | RAD REPORT ---
EXAM DESCRIPTION: XR Chest, 1 View CLINICAL HISTORY: The patient is 85 years old and is Male; fever, AMS TECHNIQUE: Single view of the chest. COMPARISON: No relevant prior studies available. FINDINGS: Lungs: Unremarkable. No consolidation. Pleural space: Unremarkable. No pneumothorax. Heart: No cardiomegaly. TAVR. Mediastinum: Unremarkable. Bones/joints: Degenerative changes in the AC joints. No acute rib fracture visualized. Upper abdomen: No free air in the visualized upper abdomen. IMPRESSION: No acute cardiopulmonary process identified. Electronically signed by: Stephany Ugalde MD 03/19/2021 4:35 AM CDT Due to temporary technical issues with the PACS/Fluency reporting system, reports are being signed by the in house radiologist without review as a courtesy to ensure prompt reporting. The interpreting r adiologist is fully responsible for the content of the report.
--- NOTE | 2021-03-19 11:55 | EKG ---
Test Date: 2021-03-19 Test Time: 01:33:20 Engine Tester: ROSARIO MEASUREMENT RESULTS: Intervals: Rate: 100 AZ: 174 QRSD: 130 QT: 358 QTc: 461 Hudson: P: 86 AZ: 174 QRS: 58 T: 52 INTERPRETIVE STATEMENTS: Normal sinus rhythm Right bundle branch block Abnormal ECG Compared to ECG 01/09/2021 18:29:54 Sinus tachycardia no longer present Atrial premature complex(es) no longer present Electronically Signed On 03-19-21 11:53:33 CDT by Vahe Barker
[2021-03-19] MEDS: FLUCONAZOLE 200mg IVPB 200 MG/100 ML BAG IV SCH (17:05)
[2021-03-19] MEDS ORDERED: KCL 20 MEQ/100 mL IVPB 20 MEQ/100 ML BAG IV SCH (18:00)
--- NOTE | 2021-03-19 19:10 | P.PN ---
Date of Service: 03/19/21 Patient seen and examined. He is somnolent. Diagnosis: UTI Sepsis. Metabolic encephalopathy. Plan: Cultures pending Continue broad-spectrum antibiotics. IV fluid. Keep NPO until fully awake. Full-dose Lovenox for elevated troponin. Obtain echocardiogram. Cardiology consult.
[2021-03-19] MEDS ORDERED: ENOXAPARIN 80 MG/0.8 ML SQ ONE (19:15)
[2021-03-19] MEDS: CEFTRIAXONE/SWI 1gm 1 GM/10 ML SYR IVP SCH (20:32)
[2021-03-19] MEDS: ENSURE ENLIVE 237 ML CAN PO SCH (20:32)
[2021-03-19] MEDS ORDERED: CEFTRIAXONE 1 GM/NS 50 ML 1 GM/50 ML BAG IV SCH (21:00)
[2021-03-20] MEDS: NA CHLORIDE 0.9% 1,000 ML IV SCH (02:06)
[2021-03-20 04:43] LABS: Absolute Lymphocytes (CBC) 0.7 K/uL (0.7-4.9); Basophils % 0.2 % (0-1.3); Hematocrit 32.7 % (39.6-49.0); Lymphocytes % 4.6 % (15.3-44.8); MPV 9.9 fL (7.6-11.3)
[2021-03-20 04:58] LABS: Albumin 2.4 g/dL (3.4-5.0); Bilirubin Total 0.6 mg/dL (0.2-1.0); Magnesium 1.7 mg/dL (1.8-2.4); Phosphorus 3.5 mg/dL (2.5-4.9); Potassium 3.7 mmol/L (3.5-5.1); Protein, Total 5.4 g/dL (6.4-8.2)
[2021-03-20] MEDS ORDERED: MAGNESIUM SULFATE 1 gm IVPB 1 GM/100 ML BAG IV ONE (05:57)
[2021-03-20 07:55] LABS: Blood Morphology Comment NOT SEEN (NOT SEEN); Platelet Estimate ADEQ
[2021-03-20] MEDS ORDERED: KCL 20 MEQ/100 mL IVPB 20 MEQ/100 ML BAG IV SCH (08:00)
[2021-03-20] MEDS: VANCOMYCIN 1.25 GM in NA CHLORIDE 0.9% 250 ML IVPB SCH (08:27)
[2021-03-20] MEDS: ENOXAPARIN 80 MG/0.8 ML SQ SCH ×2 (08:28→20:16)
--- NOTE | 2021-03-20 10:18 | CON ---
Date of Consultation: 03/20/[address] Lanier with sepsis on 03/19/2021. I saw the patient on 03/20/2021. DICTATION ENDS HERE LINDA/MANJULA Voice ID: [id number] Report ID: [id number]
--- NOTE | 2021-03-20 10:58 | P.PN ---
Subjective Date of Service: 03/20/21 Primary Care Provider: Benitez Chief Complaint: urosepsis Patient is more awake and interactive today. He has intermittent low-grade fever. Oral intake is poor. Lactate has trended down. He has significant bandemia. Physical Examination - Vital Signs Temperature: 98.4 F Blood Pressure: 106/58 Pulse: 78 Respirations: 20 Pulse Ox (%): 100 - Physical Exam General: In no apparent distress, Confused, Other (Awake,) HEENT: Normocephalic, Mucous membr. moist/pink Neck: JVD not distended Respiratory: Normal air movement Cardiovascular: No edema, Regular rate/rhythm, Normal S1 S2 Capillary refill: <2 Seconds Gastrointestinal: Normal bowel sounds, Soft and benign, Non-distended, No tenderness Musculoskeletal: No swelling Integumentary: No rashes Neurological: Other (No focal motor deficit.) Lymphatics: No axilla or inguinal lymphadenopathy Assessment And Plan - Current Problems (Diagnosis) (1) Sepsis Current Visit: Yes Status: Acute (2) UTI (urinary tract infection) Current Visit: Yes Status: Acute (3) Metabolic encephalopathy Current Visit: Yes Status: Acute (4) Elevated troponin Current Visit: Yes Status: Acute (5) Hypertension Current Visit: Yes Status: Acute - Plan Patient with clinical features of severe sepsis. Elevated troponin likely secondary to sepsis. Urine culture is growing Gram negative rods. Blood cultures: no growth to the Continue current antibiotics and follow cultures. Cardiology input appreciated. Echocardiogram completed, result is pending. Continue to hold antihypertensives given sepsis and soft blood pressure. Lasix on hold given sepsis and poor oral intake. Monitor CBC and blood chemistry. IV hydration with D5 normal saline until oral intake improve.
--- NOTE | 2021-03-20 11:48 | CON ---
Date of Consultation: 03/20/2021 Reason For Consultation: Admitted to Dr. Lanier on 03/19/2021 with sepsis. I saw the patient on 12/2020 for elevated troponin. History Of Present Illness: Mr. Lee is an 85-year-old white male with history of anemia, gastroeso phageal reflux disease, hypotension, came in with altered mental status, confusion, was found to be i n sepsis. He was very agitated. Has had hematuria, fever. No chest pain, nausea, vomiting, diaphor esis, PND, orthopnea, pedal edema, palpitations, or syncope. He was found to have UTI, sepsis, and h e was found to have an elevated troponin. Past Medical History: Otherwise negative. Allergies: NONE. Review of Systems: Negative. Social History: Negative. Family History: Noncontributory. Medications: Listed by Dr. Lanier. Physical Examination: Vital Signs: He had a pulse of 100. He had a temperature 102.5. His respiratory rate was 24. O2 s aturation was 96% on room air. Blood pressure was 128/65. Sinus tachycardia. Chest: Clear. Abdomen: Benign. Extremities: Revealed no clubbing, cyanosis, or edema. Diagnostic Data: Basically showed UTI. Creatinine 1.2. Troponin was 4.21. BNP was 6098. Impression And Plan: The patient with sepsis, elevated troponin. The troponin elevation is secondar y to sepsis. He has elevated BNP. Echocardiogram is pending. Continue Lovenox. Continue antibioti cs. We will see what the echocardiogram shows before making further decisions. LINDA/MANJULA Voice ID: [id number] Report ID: [id number]
[2021-03-20] MEDS: D5NS KCL 20MEQ 20 MEQ/1,000 ML BAG IV SCH (12:00)
[2021-03-20] MEDS: ENSURE ENLIVE 237 ML CAN PO SCH ×2 (12:46→20:17)
[2021-03-20] MEDS: FLUCONAZOLE 200mg IVPB 200 MG/100 ML BAG IV SCH (16:39)
[2021-03-20] MEDS: CEFTRIAXONE/SWI 1gm 1 GM/10 ML SYR IVP SCH (20:16)
[2021-03-20] MEDS: POLYETHYL GLY 3350 17 GM/DOSE PO SCH (20:16)
[2021-03-21] MEDS: D5NS KCL 20MEQ 20 MEQ/1,000 ML BAG IV SCH ×2 (01:20→14:40)
[2021-03-21 05:54] LABS: Absolute Lymphocytes (CBC) 0.8 K/uL (0.7-4.9); Basophils % 0.3 % (0-1.3); Hematocrit 29.9 % (39.6-49.0); Lymphocytes % 7.9 % (15.3-44.8); MPV 9.9 fL (7.6-11.3); RBC Red Blood Cell Count 3.24 M/uL (4.33-5.43)
[2021-03-21 05:59] LABS: Magnesium 2.3 mg/dL (1.8-2.4); Potassium 3.7 mmol/L (3.5-5.1)
[2021-03-21 09:38] LABS: Blood Morphology Comment NOT SEEN (NOT SEEN); Platelet Estimate DECR
--- NOTE | 2021-03-21 10:10 | ECHO ---
HEIGHT: 5 ft 10 in WEIGHT: 150 lb 0 oz DATE OF STUDY: 03/20/[address]: cat goldberg 2-DIMENSIONAL: YES M.MODE: YES DOPPLER: YES COLOR FLOW: YES TDS: PORTABLE: DEFINITY: BUBBLE STUDY: DIAGNOSIS: NON ST ELEVATION MYOCARDIAL INFARCTION CARDIAC HISTORY: CATHERIZATION: NO SURGERY: NO PROSTHETIC VALVE: NO PACEMAKER: NO MEASUREMENTS (cm) DIASTOLIC (NORMALS) SYSTOLIC (NORMALS) IVSd 1.0 (0.6-1.2) LA Diam 2.4 (1.9-4.0) LVEF 55-60% LVIDd 4.7 (3.5-5.7) LVIDs 2.6 (2.0-3.5) %FS 44% LVPWd 1.0 (0.6-1.2) Ao Diam 2.2 (2.0-3.7) 2 DIMENSIONAL ASSESSMENT: RIGHT ATRIUM: NORMAL LEFT ATRIUM: NORMAL RIGHT VENTRICLE: NORMAL LEFT VENTRICLE: NORMAL TRICUSPID VALVE: MILD TRICUSPID REGURGITATION MITRAL VALVE: MODERATE MITRAL REGURGITATION PULMONIC VALVE: NORMAL AORTIC VALVE: NORMAL PERICARDIAL EFFUSION: NONE AORTIC ROOT: NORMAL LEFT VENTRICULAR WALL MOTION: NORMAL DOPPLER/COLOR FLOW: SEE BELOW COMMENTS: NORMAL LEFT VENTRICULAR EJECTION FRACTION 55-60%. NORMAL WALL MOTION. MILD TRICUSPID REGURGITATION. TECHNOLOGIST: SAKSHI ARROYO
[2021-03-21] MEDS: ENOXAPARIN 80 MG/0.8 ML SQ SCH ×2 (10:29→21:00)
[2021-03-21] MEDS: POLYETHYL GLY 3350 17 GM/DOSE PO SCH ×2 (10:29→21:00)
[2021-03-21] MEDS: ENSURE ENLIVE 237 ML CAN PO SCH ×2 (10:30→21:56)
[2021-03-21] MEDS: VANCOMYCIN 1.25 GM in NA CHLORIDE 0.9% 250 ML IVPB SCH (11:48)
[2021-03-21] MEDS: FLUCONAZOLE 100 MG TAB PO SCH (16:54)
--- NOTE | 2021-03-21 18:38 | P.PN ---
Subjective Date of Service: 03/21/21 Primary Care Provider: Benitez Chief Complaint: urosepsis Patient is more awake. No fever past 48 hrs. Patient is eating well according to the spouse. Leukocytosis resolved. Bandemia improved. Physical Examination - Vital Signs Temperature: 97.6 F Blood Pressure: 162/79 Pulse: 78 Respirations: 16 Pulse Ox (%): 98 - Physical Exam General: Confused, Other (Awake) HEENT: Mucous membr. moist/pink Neck: Supple, JVD not distended Respiratory: Clear to auscultation bilaterally, Normal air movement Cardiovascular: No edema, Regular rate/rhythm, Normal S1 S2 Gastrointestinal: Normal bowel sounds, Soft and benign, Non-distended, No tenderness Musculoskeletal: No swelling Integumentary: No rashes Neurological: Normal strength at 5/5 x4 extr - Studies Microbiology Data (last 24 hrs): 03/19/21 01:07 Catheterized Urine [place] Count - Final >100,000 CFU/ML. 03/19/21 01:07 Catheterized Urine - Final Escherichia Coli Gram Neg Jeovany Assessment And Plan - Current Problems (Diagnosis) (1) Sepsis Current Visit: Yes Status: Acute (2) UTI (urinary tract infection) Current Visit: Yes Status: Acute (3) Metabolic encephalopathy Current Visit: Yes Status: Acute (4) Elevated troponin Current Visit: Yes Status: Acute (5) Hypertension Current Visit: Yes Status: Acute - Plan Urine culture growing E. coli. Blood culture no growth to date. Elevated troponin likely secondary to sepsis. Cardiology input appreciated. Antibiotics scaled down to IV Rocephin. Echocardiogram: Normal EF, unremarkable. Patient is currently hypertensive. Resume antihypertensives Lasix on hold given poor oral intake. Monitor CBC and blood chemistry. Continue IV fluid. PT to evaluate.
[2021-03-21] MEDS: CEFTRIAXONE/SWI 1gm 1 GM/10 ML SYR IVP SCH (21:56)
[2021-03-22] MEDS: D5NS KCL 20MEQ 20 MEQ/1,000 ML BAG IV SCH ×3 (02:29→16:54)
[2021-03-22 06:01] LABS: Absolute Lymphocytes (CBC) 0.8 K/uL (0.7-4.9); Basophils % 0.6 % (0-1.3); Hematocrit 30.6 % (39.6-49.0); Lymphocytes % 14.6 % (15.3-44.8); MPV 10.3 fL (7.6-11.3); RBC Red Blood Cell Count 3.26 M/uL (4.33-5.43)
[2021-03-22 06:10] LABS: BUN Blood Urea Nitrogen 16 mg/dL (7-18); Bicarbonate 27 mmol/L (21-32); Glucose Level 91 mg/dL (74-106); Potassium 4.6 mmol/L (3.5-5.1); Sodium Level 145 mmol/L (136-145)
[2021-03-22] MEDS ORDERED: VANCOMYCIN 1.5 GM in NA CHLORIDE 0.9% 500 ML IVPB SCH (08:00)
[2021-03-22] MEDS: ENOXAPARIN 80 MG/0.8 ML SQ SCH (08:41)
[2021-03-22] MEDS: ENSURE ENLIVE 237 ML CAN PO SCH ×2 (08:41→21:00)
[2021-03-22] MEDS: POLYETHYL GLY 3350 17 GM/DOSE PO SCH ×2 (08:41→20:56)
--- NOTE | 2021-03-22 14:17 | P.PN ---
Subjective Date of Service: 03/22/21 Primary Care Provider: Benitez Chief Complaint: urosepsis Patient is awake and interactive. Oriented x2. Patient is seen eating well Leukocytosis resolved. Bandemia improved. He is tolerating physical therapy. Physical Examination - Vital Signs Temperature: 97.9 F Blood Pressure: 150/70 Pulse: 62 Respirations: 16 Pulse Ox (%): 98 - Physical Exam General: Alert, In no apparent distress, Oriented x2 HEENT: Mucous membr. moist/pink Neck: Supple, JVD not distended Respiratory: Clear to auscultation bilaterally, Normal air movement Cardiovascular: No edema, Regular rate/rhythm, Normal S1 S2 Gastrointestinal: Soft and benign, Non-distended, No tenderness Musculoskeletal: No swelling Integumentary: No rashes Neurological: Normal strength at 5/5 x4 extr Assessment And Plan - Current Problems (Diagnosis) (1) Sepsis Current Visit: Yes Status: Acute (2) UTI (urinary tract infection) Current Visit: Yes Status: Acute (3) Metabolic encephalopathy Current Visit: Yes Status: Acute (4) Elevated troponin Current Visit: Yes Status: Acute (5) Hypertension Current Visit: Yes Status: Acute - Plan Urine culture growing E. coli. Blood culture no growth to date. Elevated troponin likely secondary to sepsis. Seen by cardiology. Continue IV Rocephin. Echocardiogram: Normal EF, unremarkable. Antihypertensives resumed for elevated BP. Home medications resumed. Continue to hold Lasix. Monitor CBC and blood chemistry. Continue IV fluid with dextrose. Continue PT.
[2021-03-22] MEDS: FLUCONAZOLE 100 MG TAB PO SCH (16:33)
[2021-03-22] MEDS: carvediloL 6.25 MG TAB PO SCH (20:56)
[2021-03-22] MEDS: CEFTRIAXONE/SWI 1gm 1 GM/10 ML SYR IVP SCH (20:56)
[2021-03-23] MEDS: D5NS KCL 20MEQ 20 MEQ/1,000 ML BAG IV SCH (04:07)
[2021-03-23 06:07] LABS: BUN Blood Urea Nitrogen 10 mg/dL (7-18); Bicarbonate 28 mmol/L (21-32); Glucose Level 90 mg/dL (74-106); Magnesium 1.9 mg/dL (1.8-2.4); Potassium 4.6 mmol/L (3.5-5.1); Sodium Level 145 mmol/L (136-145)
[2021-03-23 06:10] LABS: Absolute Lymphocytes (CBC) 0.8 K/uL (0.7-4.9); Basophils % 0.8 % (0-1.3); Hematocrit 30.9 % (39.6-49.0); Lymphocytes % 17.9 % (15.3-44.8); MPV 10.6 fL (7.6-11.3); RBC Red Blood Cell Count 3.33 M/uL (4.33-5.43)
[2021-03-23] MEDS: POLYETHYL GLY 3350 17 GM/DOSE PO SCH ×2 (08:43→21:00)
[2021-03-23] MEDS: SPIRONOLACTONE 25 MG TABLET PO SCH (08:44)
[2021-03-23] MEDS: POTASS/SODIUM PHOSPHATE 1 PKT POWD.PACK PO SCH ×3 (08:44→10:22)
[2021-03-23] MEDS: carvediloL 6.25 MG TAB PO SCH ×2 (08:44→21:24)
[2021-03-23] MEDS: ENSURE ENLIVE 237 ML CAN PO SCH ×2 (08:45→21:31)
[2021-03-23] MEDS: ENOXAPARIN 80 MG/0.8 ML SQ SCH (08:45)
[2021-03-23] MEDS ORDERED: FUROSEMIDE 40 MG TABLET PO SCH (09:00)
--- NOTE | 2021-03-23 11:14 | P.PN ---
Subjective Date of Service: 03/23/21 Primary Care Provider: Benitez Chief Complaint: urosepsis Patient is awake and interactive. Oriented x2. Patient is seen eating well. Leukocytosis resolved. Bandemia improved. Patient has no complain today. Physical Examination - Vital Signs Temperature: 97.8 F Blood Pressure: 178/79 Pulse: 55 Respirations: 16 Pulse Ox (%): 98 - Physical Exam General: Alert, In no apparent distress HEENT: Mucous membr. moist/pink Neck: JVD not distended Respiratory: Clear to auscultation bilaterally, Normal air movement Cardiovascular: Regular rate/rhythm, Normal S1 S2 Gastrointestinal: Soft and benign, Non-distended, No tenderness Musculoskeletal: No swelling, No tenderness Integumentary: No rashes Neurological: Normal strength at 5/5 x4 extr, Cranial nerves 3-12 intact Assessment And Plan - Current Problems (Diagnosis) (1) Sepsis Current Visit: Yes Status: Acute (2) UTI (urinary tract infection) Current Visit: Yes Status: Acute (3) Metabolic encephalopathy Current Visit: Yes Status: Acute (4) Elevated troponin Current Visit: Yes Status: Acute (5) Hypertension Current Visit: Yes Status: Acute - Plan Urine culture growing E. coli. Blood culture no growth to date. Elevated troponin likely secondary to sepsis. Seen by cardiology. Continue IV Rocephin.. Transition to oral Levaquin tomorrow for discharge. Echocardiogram: Normal EF, unremarkable. Antihypertensives resumed for elevated BP. Add amlodipine to control blood pressure. Resume Lasix. Discontinue IV fluid Monitor CBC and blood chemistry. Continue PT. Possible home with PT pending PT follow up tomorrow.
[2021-03-23] MEDS: AMLODIPINE 5 MG TAB PO SCH (12:16)
[2021-03-23] MEDS: FLUCONAZOLE 100 MG TAB PO SCH (16:10)
[2021-03-23] MEDS: CEFTRIAXONE/SWI 1gm 1 GM/10 ML SYR IVP SCH (21:24)
[2021-03-24 04:59] LABS: Basophils % 0.9 % (0-1.3); Hematocrit 30.6 % (39.6-49.0); Lymphocytes % 20.3 % (15.3-44.8); MPV 10.3 fL (7.6-11.3); RBC Red Blood Cell Count 3.33 M/uL (4.33-5.43)
[2021-03-24 05:12] LABS: BUN Blood Urea Nitrogen 11 mg/dL (7-18); Bicarbonate 29 mmol/L (21-32); Glucose Level 79 mg/dL (74-106); Phosphorus 3.5 mg/dL (2.5-4.9); Sodium Level 142 mmol/L (136-145)
[2021-03-24] MEDS: SPIRONOLACTONE 25 MG TABLET PO SCH (07:56)
[2021-03-24] MEDS: POLYETHYL GLY 3350 17 GM/DOSE PO SCH ×2 (07:57→20:59)
[2021-03-24] MEDS: ENSURE ENLIVE 237 ML CAN PO SCH ×2 (07:57→20:59)
[2021-03-24] MEDS: AMLODIPINE 5 MG TAB PO SCH (07:57)
[2021-03-24] MEDS: carvediloL 6.25 MG TAB PO SCH ×2 (07:57→20:58)
[2021-03-24] MEDS ORDERED: ENOXAPARIN 40 MG/0.4 ML SQ SCH (09:00)
--- NOTE | 2021-03-24 13:42 | P.DS ---
Admission Date: 03/19/21 Discharge Date: 03/24/21 Primary Care Provider: Benitez Disposition: DC HOME/HOME HEALTH CARE Discharge Condition: FAIR Reason for Admission: urosepsis - Problems (1) Sepsis Current Visit: Yes Status: Acute (2) UTI (urinary tract infection) Current Visit: Yes Status: Acute (3) Metabolic encephalopathy Current Visit: Yes Status: Acute (4) Elevated troponin Current Visit: Yes Status: Acute (5) Hypertension Current Visit: Yes Status: Acute Brief History of Present Illness: 85-year-old gentleman with a history of hypertension was brought to the emergency department due to altered mental status. At baseline the patient is oriented times 4 per his . Patient was unresponsive on arrival to the ED. Spouse reported episode of fever and nausea vomiting and hematuria. Lactate was elevated to 2.8, broke up 3.18 and troponin mildly elevated. Patient diagnosed with sepsis and UTI. He was started on antibiotics and admitted for further management. Hospital Course: Patient admitted to the medical floor and started on broad-spectrum antibiotics- IV cefepime and vancomycin. Blood culture yielded no growth. Urine culture grew E. coli. Noted urine also showed yeast. Patient started on Diflucan. His troponin trended up to 5. Patient was seen by cardiology, elevated troponin deemed secondary to sepsis. Echocardiogram done showed normal EF and unremarkable. Patient mental status improved with treatment and was back to baseline. He was seen by PT, patient was able to walk with a walker with minimal support. He has clinically improved with treatment. He is eating well, mental status is back to baseline. Patient is deemed stable for discharge. He is prescribed ciprofloxacin to complete at least 10 days of treatment, Diflucan complete 14 days of treatment. Vital Signs/Physical Exam: Temp Pulse Resp BP Pulse Ox 97.2 F 62 15 156/72 H 100 03/24/21 08:00 03/24/21 08:00 03/24/21 08:00 03/24/21 08:00 03/24/21 08:00 General: Alert, In no apparent distress, Oriented x3 HEENT: Mucous membr. moist/pink Neck: JVD not distended Respiratory: Clear to auscultation bilaterally, Normal air movement Cardiovascular: No edema, Regular rate/rhythm, Normal S1 S2 Gastrointestinal: Soft and benign, Non-distended, No tenderness Musculoskeletal: No swelling, No erythema Integumentary: No rashes Neurological: Normal strength at 5/5 x4 extr Laboratory Data at Discharge: WBC 4.90 K/uL (4.3-10.9) 03/24/21 04:27 Hgb 10.5 g/dL (13.6-17.9) L 03/24/21 04:27 Hct 30.6 % (39.6-49.0) L 03/24/21 04:27 Plt Count 114 K/uL (152-406) L 03/24/21 04:27 PT 12.6 SECONDS (9.5-12.5) H 03/19/21 00:50 INR 1.09 03/19/21 00:50 APTT 25.9 SECONDS (24.3-36.9) 03/19/21 00:50 Sodium 142 mmol/L (136-145) 03/24/21 04:27 Potassium 4.0 mmol/L (3.5-5.1) 03/24/21 04:27 BUN 11 mg/dL (7-18) 03/24/21 04:27 Creatinine 0.72 mg/dL (0.55-1.3) 03/24/21 04:27 Glucose 79 mg/dL (74-106) 03/24/21 04:27 Phosphorus 3.5 mg/dL (2.5-4.9) D 03/24/21 04:27 Magnesium 1.9 mg/dL (1.8-2.4) 03/23/21 05:31 Total Bilirubin 0.6 mg/dL (0.2-1.0) 03/20/21 03:43 AST 46 U/L (15-37) H 03/20/21 03:43 ALT 17 U/L (12-78) 03/20/21 03:43 Alkaline Phosphatase 49 U/L (45-117) 03/20/21 03:43 Troponin I 3.59 ng/mL (0.0-0.045) H* 03/19/21 23:27 Lipase 170 U/L (73-393) 03/19/21 00:50 Home Medications: Furosemide [Lasix*] 40 mg PO DAILY #30 tab 09/01/18 Spironolactone 12.5 mg PO DAILY #30 tablet 09/01/18 carvediloL [Coreg*] 6.25 mg PO BID #60 tab 09/01/18 Amlodipine [Norvasc*] 5 mg PO DAILY #30 tab 03/24/21 Ciprofloxacin HCl [Cipro 500 MG Tablet] 500 mg PO BID #12 tab 03/24/21 Ensure Enlive 237 ml PO BID #60 can 03/24/21 Fluconazole [Diflucan] 200 mg PO DAILY #10 tablet 03/24/21 Lactobacillus Acidophilus [Acidophilus] 1 each PO TID #90 capsule 03/24/21 New Medications: Lactobacillus Acidophilus [Acidophilus] 1 each PO TID #90 capsule Ciprofloxacin HCl [Cipro 500 MG Tablet] 500 mg PO BID #12 tab Fluconazole [Diflucan] 200 mg PO DAILY #10 tablet Ensure Enlive 237 ml PO BID #60 can Amlodipine [Norvasc*] 5 mg PO DAILY #30 tab Diet: AHA Activity: Fall precautions Followup: Unknown,U [Primary Care Provider] - 1 Week Time spent managing pt's care (in minutes): 36
[2021-03-24] MEDS: FLUCONAZOLE 100 MG TAB PO SCH (16:26)
--- NOTE | 2021-03-24 17:53 | P.PN ---
Subjective Date of Service: 03/24/21 Primary Care Provider: Benitez Chief Complaint: urosepsis Patient is awake and interactive. Patient is seen eating well. Nursing staff report patient had hematuria today. He is experiencing the urge to urinate frequently. Patient ambulated in the hallway with a walker and completed 2 laps. Physical Examination - Vital Signs Temperature: 97.2 F Blood Pressure: 154/75 Pulse: 61 Respirations: 16 Pulse Ox (%): 99 - Physical Exam General: Alert, In no apparent distress, Oriented x2 HEENT: Mucous membr. moist/pink Neck: JVD not distended Respiratory: Clear to auscultation bilaterally, Normal air movement Cardiovascular: No edema, Regular rate/rhythm, Normal S1 S2 Gastrointestinal: Soft and benign, Non-distended, No tenderness Musculoskeletal: No swelling Integumentary: No rashes Neurological: Normal strength at 5/5 x4 extr - Studies Microbiology Data (last 24 hrs): 03/19/21 01:05 Blood - Blood Aerobic Blood Culture - Final No growth in 5 days. 03/19/21 01:05 Blood - Blood Anaerobic Blood Culture - Final No growth in 5 days. 03/19/21 00:50 Blood - Blood Aerobic Blood Culture - Final No growth in 5 days. 03/19/21 00:50 Blood - Blood Anaerobic Blood Culture - Final No growth in 5 days. Assessment And Plan - Current Problems (Diagnosis) (1) Sepsis Current Visit: Yes Status: Acute (2) UTI (urinary tract infection) Current Visit: Yes Status: Acute (3) Metabolic encephalopathy Current Visit: Yes Status: Acute (4) Elevated troponin Current Visit: Yes Status: Acute (5) Hypertension Current Visit: Yes Status: Acute (6) Hematuria Current Visit: Yes Status: Acute - Plan Urine culture growing E. coli. Blood culture no growth to date. Elevated troponin likely secondary to sepsis. Seen by cardiology. Patient is on IV Rocephin. He will be discharged with oral Cipro. Overall he has clinically improved. I suspect the hematuria is secondary to BPH. Bladder scan shows no urinary retention. Patient started on Flomax. Will need to monitor overnight to make sure patient does not have any voiding issues before discharge. Continue current antihypertensives. Lasix is on hold. Monitor CBC and blood chemistry. Continue PT.
[2021-03-24] MEDS ORDERED: TAMSULOSIN 0.4 MG SR CAP PO SCH (21:00)
[2021-03-24] MEDS: CEFTRIAXONE/SWI 1gm 1 GM/10 ML SYR IVP SCH (21:04)
[2021-03-24 21:34] VITALS: O2SAT 96
[2021-03-25 06:18] LABS: Absolute Lymphocytes (CBC) 1.2 K/uL (0.7-4.9); Basophils % 0.7 % (0-1.3); Lymphocytes % 25.1 % (15.3-44.8); MPV 9.8 fL (7.6-11.3); RBC Red Blood Cell Count 3.56 M/uL (4.33-5.43)
[2021-03-25 06:25] LABS: BUN Blood Urea Nitrogen 15 mg/dL (7-18); Bicarbonate 28 mmol/L (21-32); Glucose Level 83 mg/dL (74-106); Magnesium 1.9 mg/dL (1.8-2.4); Potassium 4.1 mmol/L (3.5-5.1); Sodium Level 141 mmol/L (136-145)
[2021-03-25] MEDS: AMLODIPINE 5 MG TAB PO SCH (09:00)
[2021-03-25] MEDS: ENSURE ENLIVE 237 ML CAN PO SCH (09:00)
[2021-03-25] MEDS: POLYETHYL GLY 3350 17 GM/DOSE PO SCH (10:00)
[2021-03-25] MEDS: SPIRONOLACTONE 25 MG TABLET PO SCH (10:00)
[2021-03-25] MEDS: carvediloL 6.25 MG TAB PO SCH (10:00)
--- NOTE | 2021-03-25 10:47 | P.DS ---
Admission Date: 03/19/21 Discharge Date: 03/25/21 Primary Care Provider: Benitez Disposition: DC HOME/HOME HEALTH CARE Discharge Condition: FAIR Reason for Admission: urosepsis Consultations: Cardiology - Dr. Barker Procedures: CXR (03/18): IMPRESSION: No acute cardiopulmonary process identified. CT Abd/Pelvis (03/18): IMPRESSION: 1. No acute finding. 2. The bladder appears normal. 3. Bilateral perinephric stranding, left greater than right, which may be chronic. 4. Evaluation severely limited by motion artifact and artifact related to hand/arm positioning. CT Head (03/18): FINDINGS: Limitations: Evaluation limited by motion artifact. Brain: Mild nonspecific white matter changes likely related to chronic microvascular ischemic disease. No hemorrhage. Ventricles: Unremarkable. No ventriculomegaly. Bones/joints: Unremarkable. No acute fracture. Soft tissues: Unremarkable. Vasculature: Vascular calcifications. Sinuses: Unremarkable as visualized. Mastoid air cells: Unremarkable as visualized. No mastoid effusion. IMPRESSION: No acute intracranial abnormality. TTE (03/20): normal LVEF: 55-60%, normal wall mition. mild TR Brief History of Present Illness: 85-year-old gentleman with a history of hypertension was brought to the emergency department due to altered mental status. At baseline the patient is oriented times 4 per his . Patient was unresponsive on arrival to the ED. Spouse reported episode of fever and nausea vomiting and hematuria. Lactate was elevated to 2.8, broke up 3.18 and troponin mildly elevated. Patient diagnosed with sepsis and UTI. He was started on antibiotics and admitted for further management. Hospital Course: Patient admitted to the medical floor and started on broad-spectrum antibiotics- IV cefepime and vancomycin. Blood culture yielded no growth. Urine culture grew E. coli. Noted urine also showed yeast. Patient started on Diflucan. His troponin trended up to 5. Patient was seen by cardiology, elevated troponin deemed secondary to sepsis. Echocardiogram done showed normal EF and unremarkable. Patient mental status improved with treatment and was back to baseline. He was seen by PT, patient was able to walk with a walker with minimal support. He has clinically improved with treatment. He is eating well, mental status is back to baseline. Patient is deemed stable for discharge. He is prescribed ciprofloxacin to complete at least 10 days of treatment, Diflucan complete 14 days of treatment. He was started on flomax for BPH and mild/temporary urinary retention. He was noted to have high BP and norvasc was added to his regimen with improvement. Vital Signs/Physical Exam: Physical Exam: General: Alert, In no apparent distress, Oriented x3 HEENT: Mucous membr. moist/pink Respiratory: Clear to auscultation bilaterally, Normal air movement Cardiovascular: No edema, Regular rate/rhythm, Normal S1 S2 Gastrointestinal: Soft and benign, Non-distended, No tenderness Musculoskeletal: No swelling, No erythema Integumentary: No rashes Temp Pulse Resp BP Pulse Ox 97.6 F 69 15 164/72 H 96 03/25/21 08:00 03/25/21 08:00 03/25/21 08:00 03/25/21 08:00 03/25/21 08:00 Laboratory Data at Discharge: WBC 4.70 K/uL (4.3-10.9) 03/25/21 05:41 Hgb 10.9 g/dL (13.6-17.9) L 03/25/21 05:41 Hct 33.0 % (39.6-49.0) L 03/25/21 05:41 Plt Count 150 K/uL (152-406) L D 03/25/21 05:41 PT 12.6 SECONDS (9.5-12.5) H 03/19/21 00:50 INR 1.09 03/19/21 00:50 APTT 25.9 SECONDS (24.3-36.9) 03/19/21 00:50 Sodium 141 mmol/L (136-145) 03/25/21 05:41 Potassium 4.1 mmol/L (3.5-5.1) 03/25/21 05:41 BUN 15 mg/dL (7-18) 03/25/21 05:41 Creatinine 0.77 mg/dL (0.55-1.3) 03/25/21 05:41 Glucose 83 mg/dL (74-106) 03/25/21 05:41 Phosphorus 3.5 mg/dL (2.5-4.9) D 03/24/21 04:27 Magnesium 1.9 mg/dL (1.8-2.4) 03/25/21 05:41 Total Bilirubin 0.6 mg/dL (0.2-1.0) 03/20/21 03:43 AST 46 U/L (15-37) H 03/20/21 03:43 ALT 17 U/L (12-78) 03/20/21 03:43 Alkaline Phosphatase 49 U/L (45-117) 03/20/21 03:43 Troponin I 3.59 ng/mL (0.0-0.045) H* 03/19/21 23:27 Lipase 170 U/L (73-393) 03/19/21 00:50 Home Medications: Furosemide [Lasix*] 40 mg PO DAILY #30 tab 09/01/18 Spironolactone 12.5 mg PO DAILY #30 tablet 09/01/18 carvediloL [Coreg*] 6.25 mg PO BID #60 tab 09/01/18 Amlodipine [Norvasc*] 5 mg PO DAILY #30 tab 03/24/21 Ciprofloxacin HCl [Cipro 500 MG Tablet] 500 mg PO BID #12 tab 03/24/21 Ensure Enlive 237 ml PO BID #60 can 03/24/21 Fluconazole [Diflucan] 200 mg PO DAILY #10 tablet 03/24/21 Lactobacillus Acidophilus [Acidophilus] 1 each PO TID #90 capsule 03/24/21 Tamsulosin [Flomax*] 0.4 mg PO BEDTIME 30 Days #30 cap 03/25/21 New Medications: Lactobacillus Acidophilus [Acidophilus] 1 each PO TID #90 capsule Ciprofloxacin HCl [Cipro 500 MG Tablet] 500 mg PO BID #12 tab Fluconazole [Diflucan] 200 mg PO DAILY #10 tablet Ensure Enlive 237 ml PO BID #60 can Tamsulosin [Flomax*] 0.4 mg PO BEDTIME 30 Days #30 cap Amlodipine [Norvasc*] 5 mg PO DAILY #30 tab Physician Discharge Instructions: PROBLEM: Urinary Tract infection GOAL: Clear understanding of disease process INSTRUCTIONS: Diet: heart healthy Activity: Fall precautions You were found to have a urinary tract infection. You are discharged with antibiotics and antifungal medications. You were also noted to have high blood pressure and norvasc (amlodipine) was added. You had some mild urinary retention, flomax was started, and you are discharged with this medication as well. Follow up with your PCP in 3-5 days. Diet: AHA Activity: Fall precautions Followup: Unknown,U [Primary Care Provider] - 1 Week Time spent managing pt's care (in minutes): 40
[2021-03-25 12:06] VITALS: BP 120/60; TEMP 98
== END 2021-03-25 14:03 | disposition home or self-care (01) | DRG 871 ==
LOC: ER 23:52 → 2ND 03-19 05:35
PROVIDERS: ADMIT Internal Medicine; ATTEND Hospitalist
DX: A41.51 Sepsis due to Escherichia coli [E. coli] (principal); G93.41 Metabolic encephalopathy; N39.0 Urinary tract infection, site not specified; R64 Cachexia; K21.9 Gastro-esophageal reflux disease without esophagitis; I10 Essential (primary) hypertension; D72.825 Bandemia; N40.1 Benign prostatic hyperplasia with lower urinary tract symptoms; R33.8 Other retention of urine; R31.9 Hematuria, unspecified; R65.20 Severe sepsis without septic shock; R77.8 Other specified abnormalities of plasma proteins; Z79.899 Other long term (current) drug therapy; Z68.21 Body mass index [BMI] 21.0-21.9, adult; Z20.822 Contact with and (suspected) exposure to COVID-19
CPT/HCPCS: 36415; 70450; 71045; 74177; 80048; 80053; 80076; 80202; 81003; 81015; 83605; 83690; 83735; 83880; 84100; 84145; 84484; 85025; 85610; 85730; 87040; 87077; 87086; 87088; 87186; 93005; 93306; 94760; 97116; 97161; 97530; 99285; J0696; J1450; J1650; J2270; J2405; J3370; J3475; J3480; J7030; J7040; J7050; Q9967; U0003

== ENCOUNTER 2022-07-09 15:32 | Emergency (ER) | payer OTHER ==
--- OUTSIDE RECORDS SUMMARY | 2022-07-09 15:37 | XMS REPORT | Continuity of Care Document ---
:1935 Author Organization [facility] t Address 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 with 29mm EvolutPRO Benign Benign Disease Active 2017-10 Methodi prostatic prostatic 1-16 st hyperplasi hyperplasi 00:00: Ho spita a without a without 00 l lower lower urinary urinary tract tract symptoms symptoms Allergies, Adverse Reactions, Alerts This patient has no known allergies or adverse reactions. Social History Social Habit Start Date Stop Date Quantity Comments Source History [facility] Drinks [facility] Alcohol intake 2018-11-18 2018-11-18 Current [facility] 00:00:00 00:00:00 non-drinker of Hospital alcohol (finding) History SDOH 2018-11-18 2018-11-18 1 [facility] Alcohol Frequency 00:00:00 00:00:00 Hospita l Tobacco use and 2018-09-02 2018-09-02 Smokeless tobacco Me thodist exposure 00:00:00 00:00:00 non-user Hospital Sex Assigned At [birth year] [facility] 00:[facility]00 Hospital Smoking Status Start Date Stop Date Source Never smoked tobacco [facility] Medications Ordered Filled Start Stop Current Ordering Indication Dosage Frequency Signature Comments Components Source Medication Medication Date Date Medication? Clinician (SIG) Name Name furosemide Yes 40mg QD Take 40 mg M ethodi (LASIX) 40 2-[address] mg tablet 11:02: daily. Hospit a 33 l tamsulosin Yes .4mg QD Take 0.4 Met hodi (FLOMAX) 2-[address] 0.4 mg 11:02: mouth Hospita capsule 33 nightly. l carvedilol Yes 6.25mg Q.5D Take 6.25 Methodi (COREG) 2-[address] 6.25 MG 11:02: mouth 2 Hospita tablet 33 (two) l times a day with meals. Furosemide Furosemide 2017-10 Yes Francoise 1 tablet Common 2-08 [facility] 00:[facility]: - [facility] 00 [facility] Calcium Calcium Yes Francoise 1 tablet Comm on [facility] Midway 3 Midway 3 Yes Francoise 1 capsule Com mon [facility] Docusate Docusate Yes Francoise 1 capsule C ommon Sodium Sodium [facility] as needed S pirit [facility] Tylenol Tylenol Yes Francoise (500 Common [facility] mg/OTC) [facility] 1-2 - [facility] tablets [facility] Docusate Docusate Yes Francoise (50 Common Calcium Calcium [facility] mg/OTC) 1 Spirit capsule - [facility] Carvedilol Carvedilol Yes Francoise 1 tablet Common [facility] Vitamin C Vitamin C Yes Francoise 1 tablet Common [facility] Furosemide Furosemide Yes Francoise (40 mg) 1 Common [facility] tablet [facility] Multivitami Multivitami Yes Francoise 1 tablet Common n Adults n Adults [facility] Aspirin Aspirin Yes Francoise 1 tablet Comm on [facility] Spironolact Spironolact 2020- No Francoise 1/2 tablet Common one one 11-11 [facility] 00:00 - [facility] :00 [facility] Immunizations Ordered Immunization Filled Immunization Date Status Commen ts Source Name Name FLUZONE HIGH DOSE FLUZONE HIGH DOSE 2019-07-13 Completed [facility] OVER 65 OVER 65 00:00:00 [facility] Procedures This patient has no known procedures. Plan of Care Planned Activity Planned Date Details Comments Source Future Scheduled 2022-06-19 HEPATITIS B VACCINES [facility] Test 22:24:08 (1 of 3 - 3-dose series) [code = HEPATITIS B VACCINES (1 of 3 - 3-dose series)] Future Scheduled 2022-06-19 COVID-19 VACCINE (#1) Me [facility] Test 22:24:08 [code = COVID-19 VACCINE (#1)] Future Scheduled 2022-06-19 SHINGLES VACCINES (1 [facility] Test 22:24:08 of 2) [code = SHINGLES VACCINES (1 of 2)] Future Scheduled 2022-06-19 65+ PNEUMOCOCCAL Methodi [facility] Test 22:24:08 VACCINE (1 - PCV) [code = 65+ PNEUMOCOCCAL VACCINE (1 - PCV)] Future Scheduled 2022-06-19 INFLUENZA VACCINE Method [facility] Test 22:24:08 [code = INFLUENZA VACCINE] Encounters Start End Encounter Admission Attending Care Care Encounter Source Date/Time Date/Time Type Type Clinicians Facility Department ID 2021-12-25 Outpatient Marquis, [facility] [id number] Common 10:28:00 Magen [facility] 2021-11-12 Outpatient [facility] [id number] Common 13:56:53 [id number] [facility] 2021-11-12 Outpatient [facility] [id number] Common 13:19:58 [id number] [facility] 2021-11-12 Outpatient [facility] [id number] Common 13:19:13 [id number] [facility] 2021-11-12 Outpatient [facility] [id number] Common 13:08:42 [id number] [facility] 2021-11-12 Outpatient [facility], [facility]LMLC [facility] [id number] Common 11:26:08 Francoise [id number] [facility] 2021-11-12 Outpatient [facility], STLMLC ST[facility] [id number] Common 11:11:18 Francoise [id number] [facility] 2021-11-12 Outpatient [facility], STLMLC ST[facility] [id number] Common 10:59:56 Francoise [id number] [facility] 2022-05-29 2022-05-29 ambulatory [facility] [id number] Common 00:00:00 00:00:00 [facility] 2021-07-24 2021-07-24 Outpatient [facility] [id number] Common 00:00:00 00:00:00 [facility] 2021-07-24 2021-07-24 Outpatient [facility] [id number] Common 00:00:00 00:00:00 [facility] 2021-07-24 2021-07-24 Outpatient [facility] [id number] Common 00:00:00 00:00:00 [facility] 2021-04-23 2021-04-23 Outpatient [facility] [id number] Common 00:00:00 00:00:00 [facility] 2019-12-28 2019-12-28 [facility] [id number] Common 16:15:00 16:15:00 [facility] 2019-09-29 2019-09-29 [facility] [id number] Common 11:41:00 11:41:00 [facility] 2019-08-24 2019-08-24 [facility] [id number] Common 10:00:00 10:00:[address] [facility] 2019-07-24 2019-07-24 [facility] [id number] Common 11:40:00 11:40:[address] [facility] 2019-07-13 2019-07-13 [facility] [id number] Common 16:20:00 16:20:[address] [facility] 2019-05-19 2019-05-19 [facility] [id number] Common 16:02:00 16:02:[address] [facility] 2019-05-18 2019-05-18 [facility] [id number] Common 16:20:00 16:20:[address] [facility] 2019-02-14 2019-02-14 [facility] [id number] Common 13:00:00 13:00:[address] [facility] 2019-01-17 2019-01-17 [facility] [id number] Common 13:20:00 13:20:[address] [facility] 2018-11-14 2018-11-14 [facility] [id number] Common 11:30:00 11:30:[address] [facility] 2018-10-07 2018-10-07 [facility] [id number] Common 15:00:00 15:00:[address] [facility] 2018-04-04 2018-04-04 [facility] [id number] Common 11:45:00 11:45:[address] [facility] Results This patient has no known results.
--- NOTE | 2022-07-09 19:24 | ER ---
Nurse's Notes [facility] Name: Nicolle Lee Age: 86 yrs Sex: Male : 1935 Arrival Date: 07/09/2022 Time: 15:37 Bed 9 Private MD: Diagnosis: Unilateral inguinal hernia, without obstruction or gangrene Presentation: 07/09 16:21 Chief complaint: Pt's states "he's got a hernia on his right groin and he's been aa5 hurting since this morning". Coronavirus screen: At this time, the client does not indicate any symptoms associated with coronavirus-19. Ebola Screen: Patient denies travel to an Ebola-affected area in the 21 days before illness onset. Initial Sepsis Screen: Does the patient meet any 2 criteria? No. Patient's initial sepsis screen is negative. Does the patient have a suspected source of infection? No. Patient's initial sepsis screen is negative. Risk Assessment: Do you want to hurt yourself or someone else? Patient reports no desire to harm self or others. Onset of symptoms was July 09, 2022. 16:21 Method Of Arrival: Wheelchair aa5 16:21 Acuity: MARY 3 aa5 Historical: - Allergies: 16:07 No Known Allergies; aa5 - PMHx: 16:07 Hypertension; aa5 - Immunization history:: Adult Immunizations unknown. - Social history:: Smoking status: Patient denies any tobacco usage or history of. Screenin:23 Abuse screen: Denies threats or abuse. Denies injuries from another. Nutritional lg3 screening: No deficits noted. Tuberculosis screening: No symptoms or risk factors identified. Fall Risk None identified. Assessment: 19:23 General: Appears in no apparent distress. comfortable, Behavior is calm, cooperative. lg3 Pain: Complains of pain in groin. Neuro: No deficits noted. Level of Consciousness is awake, alert, obeys commands, Oriented to person, place, time, situation. Cardiovascular: No deficits noted. Denies chest pain, shortness of breath, Capillary refill < 3 seconds Clubbing of nail beds is absent JVD is absent Patient's skin is warm and dry. Respiratory: No deficits noted. Airway is patent Trachea midline Respiratory effort is even, unlabored, Respiratory pattern is regular, symmetrical, Breath sounds are clear bilaterally. GI: No deficits noted. Abdomen is flat, non-distended, Bowel sounds present X 4 quads. : No deficits noted. No signs and/or symptoms were reported regarding the genitourinary system. EENT: No deficits noted. No signs and/or symptoms were reported regarding the EENT system. Derm: No deficits noted. Skin is intact, is fragile, is thin, Skin is dry, Skin is normal, Skin temperature is warm. Musculoskeletal: Circulation, motion, and sensation intact. Range of motion: intact in all extremities. Vital Signs: 16:21 BP 188 / 70; Pulse 72; Resp 16 S; Temp 97.0(TE); Pulse Ox 100% on R/A; aa5 19:26 BP 184 / 72; Pulse 68; Resp 17 S; Pulse Ox 98% on R/A; lg3 ED Course: 15:37 Patient arrived in ED. rg4 16:07 Arm band placed on. aa5 16:22 Triage completed. aa5 19:12 Butch Barragan DO is Attending Physician. ms3 19:23 Cesario Rushing MD is Referral Physician. ms3 19:23 Patient has correct armband on for positive identification. Placed in gown. Bed in low lg3 position. Call light in reach. Side rails up X 1. Client placed on continuous cardiac and pulse oximetry monitoring. NIBP monitoring applied. Door closed. Noise minimized. Warm blanket given. Family accompanied patient. 19:23 No provider procedures requiring assistance completed. Patient did not have IV access lg3 during this emergency room visit. Administered Medications: No medications were administered Medication: 19:23 VIS not applicable for this client. lg3 Outcome: 19:23 Discharge ordered by . ms3 19:29 Discharged to home via wheelchair, with significant other. lg3 19:29 Condition: stable 19:29 Discharge instructions given to patient, significant other, Instructed on discharge instructions, follow up and referral plans. Demonstrated understanding of instructions, follow-up care. 19:48 Patient left the ED. lg3 Signatures: Queta Briggs, RN RN aa5 Majo Munguia rg4 Deana Martin RN RN lg3 Butch Barragan DO DO ms3 Corrections: (The following items were deleted from the chart) 16:23 16:07 PMHx: Anemia; aa5 aa5 16:23 16:07 PMHx: GERD; aa5 aa5 16:24 16:21 Resp 16bpm; Spontaneous; Temp 97.0F Temporal; aa5 aa5
--- NOTE | 2022-07-09 19:24 | EDPHYS ---
Physician Documentation [facility] Name: Nicolle Lee Age: 86 yrs Sex: Male : 1935 Arrival Date: 07/09/2022 Time: 15:37 Bed 9 Private MD: ED Physician Butch Barragan HPI: 07/09 19:25 This 86 yrs old Male presents to ER via Wheelchair with complaints of Hernia. ms3 19:25 86-year-old male with past medical history of hypertension presents with his for ms3 hernia pain. Patient states this morning his hernia appeared to be larger and was painful. Patient states while waiting in the emergency department the pain decreased. Patient's gave patient aspirin that alleviated some of the pain. Patient denies inciting factors. Patient states he is pain is currently a 6/10 and described as "normal pain.". Patient denies nausea, vomiting, fevers, chills.. Historical: - Allergies: 16:07 No Known Allergies; aa5 - PMHx: 16:07 Hypertension; aa5 - Immunization history:: Adult Immunizations unknown. - Social history:: Smoking status: Patient denies any tobacco usage or history of. ROS: 19:25 Constitutional: Negative for fever, and chills. Neck: Negative for injury, pain, and ms3 swelling, Cardiovascular: Negative for chest pain, and palpitations. Respiratory: Negative for shortness of breath, cough, wheezing, and pleuritic chest pain. 19:25 MS/Extremity: Negative for injury and deformity, Skin: Negative for injury, rash, and discoloration. 19:25 Abdomen/GI: Positive for abdominal pain. 19:25 All other systems are negative. Exam: 19:25 Constitutional: This is a well developed, well nourished patient who is awake, alert, ms3 and in no acute distress. Head/Face: Normocephalic, atraumatic. Chest/axilla: Normal chest wall appearance and motion. Nontender with no deformity. Cardiovascular: Regular rate and rhythm with a normal S1 and S2. No gallops, murmurs, or rubs. Normal PMI, no JVD. No pulse deficits. Respiratory: Lungs have equal breath sounds bilaterally, clear to auscultation and percussion. No rales, rhonchi or wheezes noted. No increased work of breathing, no retractions or nasal flaring. 19:25 Neuro: Awake and alert, GCS 15, oriented to person, place, time, and situation. Cranial nerves II-XII grossly intact. Motor strength 5/5 in all extremities. Sensory grossly intact. Cerebellar exam normal. Normal gait. Psych: Awake, alert, with orientation to person, place and time. Behavior, mood, and affect are within normal limits. 19:25 Abdomen/GI: Inspection: abdomen appears normal, Bowel sounds: normal, Palpation: mild abdominal tenderness, in the right lower quadrant. Vital Signs: 16:21 BP 188 / 70; Pulse 72; Resp 16 S; Temp 97.0(TE); Pulse Ox 100% on R/A; aa5 19:26 BP 184 / 72; Pulse 68; Resp 17 S; Pulse Ox 98% on R/A; lg3 MDM: 19:23 Patient medically screened. ms3 19:25 Data reviewed: vital signs, nurses notes, and as a result, I will discharge patient. ms3 Counseling: I had a detailed discussion with the patient and/or guardian regarding: the historical points, exam findings, and any diagnostic results supporting the discharge/admit diagnosis, to return to the emergency department if symptoms worsen or persist or if there are any questions or concerns that arise at home. ED course: Hernia easily reduced, no overlying erythema, patient without emesis, patient nontoxic-appearing. Patient to follow-up with Dr. Rushing in 2 to 3 days for evaluation. All questions were answered. Return precautions discussed include worsening symptoms, or any other concerns.. Administered Medications: No medications were administered Disposition Summary: 07/09/22 19:23 Discharge Ordered Location: Home ms3 Condition: Stable ms3 Diagnosis - Unilateral inguinal hernia, without obstruction or gangrene ms3 Followup: ms3 - With: Cesario Rushing MD - When: 2 - 3 days - Reason: Recheck today's complaints Discharge Instructions: - Discharge Summary Sheet ms3 - Inguinal Hernia, Adult ms3 Forms: - Medication Reconciliation Form ms3 - Thank You Letter ms3 - Antibiotic Education ms3 - Prescription Opioid Use ms3 Signatures: Queta Briggs RN RN aa5 Butch Barragan DO DO ms3 Corrections: (The following items were deleted from the chart) 16:23 16:07 PMHx: Anemia; aa5 aa5 : 16:07 PMHx: GERD; aa5 aa5
[2022-07-11 07:42] VITALS: TEMP 97
[2022-07-11 07:44] VITALS: BP 184/72; O2SAT 98
== END 2022-07-09 19:48 | disposition home or self-care (01) ==
LOC: ER 15:32
DX: K40.90 Unilateral inguinal hernia, without obstruction or gangrene, not specified as recurrent (principal); I10 Essential (primary) hypertension
CPT/HCPCS: 99281

== ENCOUNTER 2022-10-31 05:41 | Inpatient (IN) | payer OTHER ==
--- OUTSIDE RECORDS SUMMARY | 2022-10-31 05:45 | XMS REPORT | Continuity of Care Document ---
:1935 Author Organization [facility] t Address [address] [place] [address] Care Team Providers Name Role Phone Francoise Tatum MD Primary Care Physician Magen Marquis Attending Clinician Unavailable Francoise Tatum Attending Clinician Unavailable Payers Payer Name Policy Type Policy Number Effective Date Expiration Date S ource MEDICAID MC [id number] [facility] MEDICARE MB [id number] [place] [id number] Common Sp davian ing Medicare - [facility] MEDICAID MC [id number] [facility] MEDICARE MB [id number] Common [place] [id number] Common Sp davian ing Medicare - [facility] MEDICARE MB [id number] [place] [id number] Common Sp davian ing Medicare - [facility] MEDICAID MC [id number] [facility] Problems Condition Condition Condition Status Onset Resolution Last Treating Co mments Source Name Details Category Date Date Treatment Clinician Date 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 with 29mm EvolutPRO Benign Benign Disease Active 2017-10 Methodi prostatic prostatic 1-16 st hyperplasi hyperplasi 00:00: Ho spita a without a without 00 l lower lower urinary urinary tract tract symptoms symptoms [id number] Underweigh Problem Active Co mmon t [facility] [id number] Elevated Problem Active Comm on BP without Spirit diagnosis - [facility] of [facility] [id number] Diastolic Problem Active 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, St unspecifie [facility] d HF Medical chronicity Center [id number] Weight Problem Active Common loss, Spirit non-intent - [facility] ional [facility] [id number] Pulmonary Problem Active Comm on hypertensi Spirit on [facility] [id number] Aortic Problem Active Common valve Spirit stenosis, - [facility]I etiology St of cardiac [facility] valve Medical disease Center unspecifie d [id number] Bilateral Problem Active Com mon pleural Spirit effusion - [facility] [id number] PAC Problem Active Common (premature Spirit atrial - [facility] contractio St n) [facility] [id number] Ventricula Problem Active Com mon r Spirit hypokinesi - [facility] s [facility] [id number] 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) [facility] [id number] Tongue Problem Active Common lesion Spirit - [facility] [id number] 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) [facility] Cardiac Irregular Problem Active Commo n arrhythmia heartbeat Spi rit - [facility] [id number] Cervical Problem Active Comm on lymphadeno [facility] christelle - [facility] [id number] Generalize Problem Active Com mon d weakness [facility] 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 Social History Social Habit Start Date Stop Date Quantity Comments Source History of Common [facility] - Tobacco Use [facility] Drinks History SDWI [facility] Alcohol intake 2018-11-18 2018-11-18 Current [facility] 00:00:00 00:00:00 non-drinker of Hospital alcohol (finding) [facility] 2018-11-18 2018-11-18 1 [facility] Alcohol Frequency 00:00:00 00:00:00 Hospita l Tobacco use and 2018-09-02 2018-09-02 Smokeless tobacco Me thodist exposure 00:00:00 00:00:00 non-user Hospital Sex Assigned At [birth year] [facility] 00:00:00 00:00:00 Hospital Smoking Status Start Date Stop Date Source Former Smoker 2021-09-19 00:00:00 2021-09-19 00:00:00 Common S pirit - [facility] Ce nter Never smoked tobacco [facility] Medications Ordered Filled Start Stop Current Ordering Indication Dosage Frequency Signature Comments Components Source Medication Medication Date Date Medication? Clinician (SIG) Name Name furosemide Yes 40mg QD Take 40 mg M ethodi (LASIX) 40 2-[address] mg tablet 11:02: daily. Hospit a 33 l furosemide Yes 40mg QD Take 40 mg [...] (two) l times a day with meals. tamsulosin 2019-0 Yes .4mg QD Take 0.4 Met hodi (FLOMAX) 2-[address] 0.4 mg 11:02: mouth Hospita capsule 33 nightly. l carvedilol 2018- Yes 6.25mg Q.5D Take 6.25 Methodi (COREG) 2-[address] 6.25 MG 11:02: mouth 2 Hospita tablet 33 (two) l times a day with meals. Furosemide Furosemide 2017-10 Yes Francoise 1 tablet Common - [place] Spirit 00:00: - [facility] 00 [facility] Furosemide Furosemide No 1{table Furosemide 40 MG 40 MG t} 40 MG Furosemide Furosemide No Furosemide Carvedilol Carvedilol No 1{table Carvedilol 6.25 MG 6.25 MG t} 6.25 MG Flomax 0.4 Flomax 0.4 No 1{capsu QD Flomax 0.4 MG MG le} MG [place] 3 [place] 3 No 1{capsu QD [place] 3 1000 MG 1000 MG le} 1000 MG Spironolact Spironolact No QD Spironolac one 25 mg one 25 mg tone 25 mg Spironolact Spironolact No QD Spironolac one 25 mg one 25 mg tone 25 mg Vitamin C Vitamin C No 1{table QD Vitamin C 1000 MG 1000 MG t} 1000 MG Aspirin 325 Aspirin 325 No 1{table QD Aspirin MG MG t} 325 MG amLODIPine amLODIPine No amLODIPine Besylate 5 Besylate 5 Besylate 5 MG MG MG Furosemide Furosemide No 1{table Furosemide 40 MG 40 MG t} 40 MG Furosemide Furosemide No Furosemide [place] 3 [place] 3 No 1{capsu QD [place] 3 1000 MG 1000 MG le} 1000 MG Calcium Calcium No 1{table QD Calcium t} Docusate Docusate No QD Docusate Calcium Calcium Calcium Multivitami Multivitami No 1{table QD Multivitam n Adults - n Adults - t} in Adults - Docusate Docusate No 1{capsu QD Docusate Sodium 50 Sodium 50 le_as_n Sodium 50 MG MG eeded} MG Flomax 0.4 Flomax 0.4 No 1{capsu QD Flomax 0.4 MG MG le} MG Carvedilol Carvedilol No 1{table Carvedilol 6.25 MG 6.25 MG t} 6.25 MG Tylenol Tylenol No QD Tylenol Docusate Docusate No 1{capsu QD Docusate Sodium 50 Sodium 50 le_as_n Sodium 50 MG MG eeded} MG Calcium Calcium No 1{table QD Calcium t} amLODIPine amLODIPine No amLODIPine Besylate 5 Besylate 5 Besylate 5 MG MG MG Vitamin C Vitamin C No 1{table QD Vitamin C 1000 MG 1000 MG t} 1000 MG Aspirin 325 Aspirin 325 No 1{table QD Aspirin MG MG t} 325 MG Tylenol Tylenol No QD Tylenol Docusate Docusate No QD Docusate Calcium Calcium Calcium Multivitami Multivitami No 1{table QD Multivitam n Adults - n Adults - t} in Adults - Furosemide Furosemide No 1{table Furosemide 40 MG 40 MG t} 40 MG Furosemide Furosemide No Furosemide Carvedilol Carvedilol No 1{table Carvedilol 6.25 MG 6.25 MG t} 6.25 MG Flomax 0.4 Flomax 0.4 No 1{capsu QD Flomax 0.4 MG MG le} MG [place] 3 [place] 3 No 1{capsu QD [place] 3 1000 MG 1000 MG le} 1000 MG Spironolact Spironolact No QD Spironolac one 25 mg one 25 mg tone 25 mg Docusate Docusate No 1{capsu QD Docusate Sodium 50 Sodium 50 le_as_n Sodium 50 MG MG eeded} MG Calcium Calcium No 1{table QD Calcium t} amLODIPine amLODIPine No amLODIPine Besylate 5 Besylate 5 Besylate 5 MG MG MG Vitamin C Vitamin C No 1{table QD Vitamin C 1000 MG 1000 MG t} 1000 MG Aspirin 325 Aspirin 325 No 1{table QD Aspirin MG MG t} 325 MG Tylenol Tylenol No QD Tylenol Docusate Docusate No QD Docusate Calcium Calcium Calcium Multivitami Multivitami No 1{table QD Multivitam n Adults - n Adults - t} in Adults - Furosemide Furosemide No 1{table Furosemide 40 MG 40 MG t} 40 MG Furosemide Furosemide No Furosemide Carvedilol Carvedilol No 1{table Carvedilol 6.25 MG 6.25 MG t} 6.25 MG Flomax 0.4 Flomax 0.4 No 1{capsu QD Flomax 0.4 MG MG le} MG [place] 3 [place] 3 No 1{capsu QD [place] 3 1000 MG 1000 MG le} 1000 MG Spironolact Spironolact No QD Spironolac one 25 mg one 25 mg tone 25 mg Calcium Calcium Yes Francoise 1 tablet Comm on Millender [facility] [place] 3 [place] 3 Yes Francoise 1 capsule Com mon [facility] Docusate Docusate Yes Francoise 1 capsule C ommon Sodium Sodium Millender as needed S pirit [facility] Tylenol Tylenol Yes Francoise (500 Common Millender mg/OTC) Spirit 1-2 - [facility] tablets [facility] Docusate Docusate Yes Francoise (50 Common Calcium Calcium Millender mg/OTC) 1 Spirit capsule [facility] Carvedilol Carvedilol Yes Francoise 1 tablet Common Millender [facility] Vitamin C Vitamin C Yes Francoise 1 tablet Common Millender [facility] Furosemide Furosemide Yes Francoise (40 mg) 1 Common Millender tablet [facility] Multivitami Multivitami Yes Francoise 1 tablet Common n Adults n Adults Millender Sp davian [facility] Aspirin Aspirin Yes Francoise 1 tablet Comm on Millender [facility] Docusate Docusate No 1{capsu QD Docusate Sodium 50 Sodium 50 le_as_n Sodium 50 MG MG eeded} MG Calcium Calcium No 1{table QD Calcium t} amLODIPine amLODIPine No amLODIPine Besylate 5 Besylate 5 Besylate 5 MG MG MG Vitamin C Vitamin C No 1{table QD Vitamin C 1000 MG 1000 MG t} 1000 MG Aspirin 325 Aspirin 325 No 1{table QD Aspirin MG MG t} 325 MG Tylenol Tylenol No QD Tylenol Docusate Docusate No QD Docusate Calcium Calcium Calcium Multivitami Multivitami No 1{table QD Multivitam n Adults - n Adults - t} in Adults - Spironolact Spironolact 2019- No Francoise 1/2 tablet Common one one 11-11 [place] [facility] 00:00 - [facility] :00 [facility] Immunizations Ordered Immunization Filled Immunization Date Status Commen ts Source Name Name FLUZONE HIGH DOSE FLUZONE HIGH DOSE 2021-07-24 Completed [facility] OVER 65 OVER 65 15:17:00 - [facility] FLUZONE HIGH DOSE FLUZONE HIGH DOSE 2021-07-24 Completed [facility] OVER 65 OVER 65 15:17:00 [facility] FLUZONE HIGH DOSE FLUZONE HIGH DOSE 2021-07-24 Completed [facility] OVER 65 OVER 65 15:17:00 - [facility] FLUZONE HIGH DOSE FLUZONE HIGH DOSE 2021-07-24 Completed [facility] OVER 65 OVER 65 15:17:00 - [facility] Pneumovax (PPSV23) Pneumovax (PPSV23) 2020-07-18 Completed [facility] 14:00:00 [facility] Pneumovax (PPSV23) Pneumovax (PPSV23) 2020-07-18 Completed [facility] 14:00:00 [facility] FLUZONE HIGH DOSE FLUZONE HIGH DOSE 2019-07-13 Completed [facility] OVER 65 OVER 65 17:05:00 - [facility] FLUZONE HIGH DOSE FLUZONE HIGH DOSE 2019-07-13 Completed [facility] OVER 65 OVER 65 17:05:00 - [facility] FLUZONE HIGH DOSE FLUZONE HIGH DOSE 2019-07-13 Completed [facility] OVER 65 OVER 65 17:05:00 [facility] FLUZONE HIGH DOSE FLUZONE HIGH DOSE 2019-07-13 Completed Common [facility] OVER 65 OVER 65 17:05:00 [facility] FLUZONE HIGH DOSE FLUZONE HIGH DOSE 2019-07-13 Completed Common [facility] OVER 65 OVER 65 00:00:00 - [facility] Vital Signs Vital Name Observation Time Observation Value Comments Source height 2021-07-24 13:10:00 67.00 [in_i] Common [facility] weight 2021-07-24 13:10:00 121.2 [lb_av] Common [facility] temperature 2021-07-24 13:10:00 97.5 [degF] Common [facility] bmi 2021-07-24 13:10:00 18.98 kg/m2 Common [facility] oximetry 2021-07-24 13:10:00 97 % Common S [facility] respiratory rate 2021-07-24 13:10:00 18 /min Comm on [facility] blood pressure 2021-07-24 13:10:00 130 mm[Hg] Common [facility] - systolic [facility] blood pressure 2021-07-24 13:10:00 73 mm[Hg] Common [facility] - diastolic [facility] height 2021-07-24 13:00:00 67.00 [in_i] Common [facility] weight 2021-07-24 13:00:00 121.2 [lb_av] [facility] temperature 2021-07-24 13:00:00 97.5 [degF] [facility] bmi 2021-07-24 13:00:00 18.98 kg/m2 [facility] oximetry 2021-07-24 13:00:00 97 % [facility] respiratory rate 2021-07-24 13:00:00 18 /min Comm on [facility] blood pressure 2021-07-24 13:00:00 130 mm[Hg] [facility] systolic [facility] blood pressure 2021-07-24 13:00:00 73 mm[Hg] Common [facility] diastolic [facility] Procedures This patient has no known procedures. Plan of Care Planned Activity Planned Date Details Comments Source Future Scheduled 2022-10-03 COVID-19 VACCINE (#1) [facility] Test 17:56:49 [code = COVID-19 VACCINE (#1)] Future Scheduled 2022-10-03 SHINGLES VACCINES (1 Met [facility] Test 17:56:49 of 2) [code = SHINGLES VACCINES (1 of 2)] Future Scheduled 2022-10-03 65+ P[facility]UMOCOCCAL [facility] Test 17:56:49 VACCINE (1 - PCV) [code = 65+ PNEUMOCOCCAL VACCINE (1 - PCV)] Future Scheduled 2022-10-03 INFLUENZA VACCINE Method [facility] Hospital Test 17:56:49 [code = INFLUENZA VACCINE] Future Scheduled 2022-06-19 HEPATITIS B VACCINES Met [facility] Test 22:24:08 (1 of 3 - 3-dose series) [code = HEPATITIS B VACCINES (1 of 3 - 3-dose series)] Future Scheduled 2022-06-19 COVID-19 VACCINE (#1) Me [facility] Test 22:24:08 [code = COVID-19 VACCINE (#1)] Future Scheduled 2022-06-19 SHINGLES VACCINES (1 Met [facility] Test 22:24:08 of 2) [code = SHINGLES VACCINES (1 of 2)] Future Scheduled 2022-06-19 65+ P[facility]UMOCOCCAL [facility] Test 22:24:08 VACCINE (1 - PCV) [code = 65+ PNEUMOCOCCAL VACCINE (1 - PCV)] Future Scheduled 2022-06-19 INFLUENZA VACCINE Method [facility] Hospital Test 22:24:08 [code = INFLUENZA VACCINE] Encounters Start End Encounter Admission Attending Care Care Encounter Source Date/Time Date/Time Type Type Clinicians Facility Department ID 2021-12-25 Outpatient Marquis, STLMLC STLMLC [id number] Common 10:28:00 [facility] 2021-11-12 Outpatient STLMLC STLMLC [id number] Common 13:56:53 [id number] [facility] 2021-11-12 Outpatient STLMLC STLMLC [id number] Common 13:19:58 [id number] [facility] 2021-11-12 Outpatient STLMLC STLMLC [id number] Common 13:19:13 [id number] [facility] 2021-11-12 Outpatient STLMLC STLMLC [id number] Common 13:08:42 [id number] [facility] 2021-11-12 Outpatient Millender, STLMLC STLMLC [id number] Common 11:26:08 Francoise [id number] [facility] 2021-11-12 Outpatient Millender, STLMLC STLMLC [id number] Common 11:11:18 Francoise [id number] [facility] 2021-11-12 Outpatient Millender, STLMLC STLMLC [id number] Common 10:59:56 Francoise [id number] [facility] - [facility] 2022-05-29 2022-05-29 (TEL) STLMLC STLMLC [id number] Co mmon 00:00:00 00:00:00 Spirit [facility] 2021-07-24 2021-07-24 OFFICE STLMLC STLMLC [id number] Co mmon 00:00:00 00:00:00 VISIT Spirit ESTAB PT - [facility]I LEVEL 4 [facility] 2021-07-24 2021-07-24 (TEL) STLMLC STLMLC [id number] Co mmon 00:00:00 00:00:00 [facility] 2021-07-24 2021-07-24 SUB ANNUAL STLMLC STLMLC [id number] Common 00:00:00 00:00:00 MCR Spirit WELLNESS - [facility]I VISIT [facility] 2021-04-23 2021-04-23 Outpatient STLMLC STLMLC [id number] Common 00:00:00 00:00:00 [facility] 2019-12-28 2019-12-28 [id number] Common 16:15:00 16:15:[address] [facility] [address] [facility] 2019-09-29 2019-09-29 [facility] [id number] Common 11:41:00 11:41:[address] [facility] [address] [facility] [address] [facility] 2019-08-24 2019-08-24 [facility] [id number] Common 10:00:00 10:00:[address] [facility] [address] [place] [facility] [address] [facility] 2019-07-24 2019-07-24 [facility] [id number] Common 11:40:00 11:40:[address] [facility] [address] [place] [facility] [address] [facility] 2019-07-13 2019-07-13 [facility] [id number] Common 16:20:00 16:20:[address] [facility] [address] [place] [facility] [address] [facility] 2019-05-19 2019-05-19 [facility] [id number] Common 16:02:00 16:02:[address] [facility] 2019-05-18 2019-05-18 [facility] [id number] Common 16:20:00 16:20:[address] [facility] 2019-02-14 2019-02-14 [facility] [id number] Common 13:00:00 13:00:[address] [facility] 2019-01-17 2019-01-17 [facility] [id number] Common 13:20:00 13:20:[address] [facility] 2018-11-14 2018-11-14 [facility] [id number] Common 11:30:00 11:30:[address] [facility] 2018-10-07 2018-10-07 [facility] [id number] Common 15:00:00 15:00:[address] [facility] 2018-04-04 2018-04-04 [facility] [id number] Common 11:45:00 11:45:[address] [facility] Results This patient has no known results.
[2022-10-31 05:52] LABS: Urine Blood 2+ (Negative); Urine Glucose Negative (Negative); Urine Protein 2+ (Negative)
[2022-10-31] MEDS ORDERED: ACETAMINOPHEN 650MG/RECT SUPP PR ONE (05:57)
[2022-10-31 06:00] LABS: Absolute Lymphocytes (CBC) 0.3 K/uL (0.7-4.9); Hematocrit 32.3 % (39.6-49.0); MCV 93.7 fL (80-100); RBC Red Blood Cell Count 3.45 M/uL (4.33-5.43)
--- NOTE | 2022-10-31 06:11 | ER ---
Nurse's Notes [facility] Name: Nicolle Lee Age: 87 yrs Sex: Male : 1935 Arrival Date: 10/31/2022 Time: 05:44 Bed 3 Private MD: Diagnosis: Altered mental status, unspecified;Fever, unspecified Presentation: 10/31 05:47 Chief complaint: EMS states: Pt reportedly fell, had no LOC. Upon arrival pt was jb4 altered and had a fever of 101.7. BGL of 143 Given 250ml of NS via 18g to RAC. Coronavirus screen: At this time, the client does not indicate any symptoms associated with coronavirus-19. Ebola Screen: No symptoms or risks identified at this time. Initial Sepsis Screen: Does the patient meet any 2 criteria? RR > 20 per min. Temp <36.0*C (96.8*F)) or > 38.3*C (100.9*F). Altered Mental Status. HR > 90 bpm. Yes Does the patient have a suspected source of infection? Yes: Dysuria/Frequency/Urgency/UTI. Risk Assessment: Do you want to hurt yourself or someone else? Patient reports no desire to harm self or others. Onset of symptoms was October 31, 2022. Transition of care: patient was not received from another setting of care. 05:47 Method Of Arrival: EMS: [facility] 05:47 Acuity: MARY 2 jb4 Triage Assessment: 05:49 General: Appears uncomfortable, ill, Behavior is calm, cooperative. Pain: Unable to use jb4 pain scale. FLACC scale score is 0 out of 10. EENT: No signs and/or symptoms were reported regarding the EENT system. Neuro: Level of Consciousness is awake, confused, Oriented to none. Cardiovascular: Patient's skin is warm and dry. Respiratory: Airway is patent Respiratory effort is even, labored, Respiratory pattern is symmetrical, tachypnea. GI: No signs and/or symptoms were reported involving the gastrointestinal system. : Parent/caregiver report the patient having incontinence. Derm: Skin is intact. Musculoskeletal: Circulation, motion, and sensation intact. Range of motion: intact in all extremities. Historical: - Allergies: 07:03 No Known Allergies; jb4 - Home Meds: 05:49 Unable to obtain [Active]; jb4 - PMHx: 05:49 Hypertension; jb4 - PSHx: 05:49 Unable to Obtain; jb4 - Immunization history:: Adult Immunizations unknown. - Social history:: Smoking status: unknown. Screenin:49 [facility] ED Fall Risk Assessment (Adult) History of falling in the last 3 months, jb4 including since admission Yes- single mechanical fall (1 pt) Confusion or Disorientation Yes (5 pts) Intoxicated or Sedated No (0 pts) Impaired Gait No (0 pts) Mobility Assist Device Used No (0 pt) Altered Elimination Yes (1 pt) Score/Fall Risk Level 3 or more points = High Risk Oriented to surroundings, Maintained a safe environment, Educated pt \T\ family on fall prevention, incl call for assistance when getting out of bed, Assessed \T\ reinforced patient's understanding of fall precautions, Provided non-skid footwear, Hourly rounding (assess needs \T\ fall precautionary measures) done, Used ambulatory aids as needed (educated on \T\ assisted with), Used gait belt as appropriate Implemented a Fall Risk Plan of Care, Apply high fall risk patient identification: yellow non skid footwear/ fall signage, Placed fall mat w/ non beveled edge next to bed, Activated bed/chair alarm. Abuse screen: Denies threats or abuse. Nutritional screening: No deficits noted. Tuberculosis screening: No symptoms or risk factors identified. Assessment: 05:49 Reassessment: See triage note. jb4 08:14 Reassessment: Patient appears in no apparent distress at this time. No changes from hb previously documented assessment. Patient and/or family updated on plan of care and expected duration. Pain level reassessed. 10:22 Reassessment: Report called to Stella MACKENZIE. ph Vital Signs: 05:47 BP 158 / 74; Pulse 107; Resp 21; Temp 100.3; Pulse Ox 100% on R/A; jb4 06:37 Weight 57 kg (M); Height 5 ft. 10 in. (177.80 cm) (R); jb4 08:14 BP 115 / 98; Pulse 92; Resp 18; Pulse Ox 100% on R/A; hb 09:49 BP 106 / 53; Pulse 86; Resp 18; Temp 98.1; Pulse Ox 98% on R/A; ph 06:37 Body Mass Index 18.03 (57.00 kg, 177.80 cm) jb4 ED Course: 05:44 Patient arrived in ED. jb4 05:46 Zadi Barrera MD is Attending Physician. kdr 05:46 Cintia Colby is Primary Nurse. tw5 05:46 Urine collected: straight cath specimen, cloudy, Amount Returned: 200mL. tw5 05:49 Triage completed. jb4 05:49 Arm band placed on right wrist. jb4 06:05 Inserted saline lock: 18 gauge in left antecubital area, using aseptic technique. Blood kd3 collected. 06:09 Rae Roman MD is Hospitalizing Provider. kdr 06:28 Notified ED physician of a critical lab result(s). Lactate 2.4. kl 06:41 No provider procedures requiring assistance completed. bb 06:41 Patient admitted, IV remains in place. bb 06:41 Patient has correct armband on for positive identification. Placed in gown. Bed in low bb position. Call light in reach. Side rails up X2. Adult w/ patient. residential monitor on. Pulse ox on. NIBP on. Warm blanket given. 06:55 CXR XRAY In Process Unspecified. EDMS 07:04 CT Head C Spine In Process Unspecified. EDMS 07:18 Attending Physician role handed off by Zaid Barrera MD [facility] 07:18 Horacio Giron MD is Attending Physician. beau Administered Medications: 06:22 Drug: Tylenol Suppository 650 mg Route: KS; jb4 07:51 Follow up: Response: No adverse reaction ph 06:38 Drug: Rocephin (cefTRIAXone) 1 grams Route: IV; Rate: calculated rate; Site: right bb antecubital; 07:15 Follow up: Response: No adverse reaction; IV Status: Completed infusion ph 06:38 Drug: NS 0.9% (30 ml/kg) 30 ml/kg Route: IV; Rate: bolus; Site: right antecubital; bb Medication: 06:41 VIS not applicable for this client. bb Outcome: 06:11 Decision to Hospitalize by Provider. kdr 06:41 Instructed on the need for admit. bb 10:23 Admitted to Med/surg accompanied by tech, family with patient, via stretcher, room 201, ph with chart, Report called to Stella MACKENZIE 10:23 Condition: stable 11:19 Patient left the ED. ph Signatures: Dispatcher [employer] EDMS Olimpia Perez RN Horacio Pacheco MD MD cha Rittger, Kevin, MD MD kdr Ballard, Brenda RN Juliet Aragon RN RN ph Baxter, Heather, RN RN hb Bryson, James RN RN jb4 Cintia Colby tw5 Elizabeth Carlos RN GURDEEP kd3 Corrections: (The following items were deleted from the chart) 06:53 05:47 Chief complaint: EMS states: Pt reportedly fell, had no LOC. Upon arrival pt was jb4 altered and had a fever of 101.7. BGL of 143 jb4 07:03 05:49 Allergies: Unable to obtain; jb4 jb4
--- NOTE | 2022-10-31 06:12 | EDPHYS ---
Physician Documentation [facility] Name: Nicolle Lee Age: 87 yrs Sex: Male : 1935 Arrival Date: 10/31/2022 Time: 05:44 Bed 3 Private MD: ED Physician Horacio Giron HPI: 10/31 06:02 This 87 yrs old Male presents to ER via EMS with complaints of ams. kdr 06:02 EMS states that they were called to the house of the patient where he lives with his kdr . The call had been for lift assist. When they arrived they realized the patient was altered and had a temperature of 101.0. He then transferred the patient to the ED in stable condition. Is unknown his baseline mental status but at this time he is confused and not responding appropriately to questions. There is no obvious injury.. Onset: The symptoms/episode began/occurred just prior to arrival, today. Severity of symptoms: At their worst the symptoms were mild in the emergency department the symptoms are unchanged. It is unknown whether or not the patient has had similar symptoms in the past. Historical: - Allergies: 07:03 No Known Allergies; jb4 - Home Meds: 05:49 Unable to obtain [Active]; jb4 - PMHx: 05:49 Hypertension; jb4 - PSHx: 05:49 Unable to Obtain; jb4 - Immunization history:: Adult Immunizations unknown. - Social history:: Smoking status: unknown. ROS: 06:02 Constitutional: Unable to obtain secondary to altered mental status and there was no kdr family present 06:02 Constitutional: Positive for chills, fever, malaise. 06:02 Unable to obtain ROS due to altered mental status, patient distress. Exam: 06:02 Constitutional: This is a well developed, poorly nourished patient who is awake, kdr confused and not responding to questions or following commands consistently Head/Face: Normocephalic, atraumatic. Neck: Trachea midline, no thyromegaly or masses palpated, and no cervical lymphadenopathy. Supple, full range of motion without nuchal rigidity, or vertebral point tenderness. No Meningismus. Chest/axilla: Normal chest wall appearance and motion. Nontender with no deformity. No lesions are appreciated. Cardiovascular: Regular rate and rhythm with a normal S1 and S2. No gallops, murmurs, or rubs. Normal PMI, no JVD. No pulse deficits. Respiratory: Lungs have equal breath sounds bilaterally, clear to auscultation and percussion. No rales, rhonchi or wheezes noted. No increased work of breathing, no retractions or nasal flaring. Abdomen/GI: Soft, non-tender, with normal bowel sounds. No distension or tympany. No guarding or rebound. No evidence of tenderness throughout. Back: No spinal tenderness. No costovertebral tenderness. Full range of motion. Skin: Warm, dry with normal turgor. Normal color with no rashes, no lesions, and no evidence of cellulitis. MS/ Extremity: Pulses equal, no cyanosis. Neurovascular intact. Full, normal range of motion. 06:02 Psych: Awake, alert, with orientation to person, place and time. Behavior, mood, and affect are within normal limits. 06:02 ENT: Mouth: Oral mucosa: dry. 06:02 Neuro: Orientation: unable to test, Mentation: inappropriate for stated age, slow to respond, confused. 07:39 ECG was reviewed by the Attending Physician. [facility] Vital Signs: 05:47 BP 158 / 74; Pulse 107; Resp 21; Temp 100.3; Pulse Ox 100% on R/A; jb4 06:37 Weight 57 kg (M); Height 5 ft. 10 in. (177.80 cm) (R); jb4 08:14 BP 115 / 98; Pulse 92; Resp 18; Pulse Ox 100% on R/A; hb 09:49 BP 106 / 53; Pulse 86; Resp 18; Temp 98.1; Pulse Ox 98% on R/A; ph 06:37 Body Mass Index 18.03 (57.00 kg, 177.80 cm) jb4 MDM: 06:02 Data reviewed: vital signs, nurses notes, lab test result(s), radiologic studies. kdr Consideration of Admission/Observation Patient was admitted/placed on observation. Escalation of care including admission/observation considered. Management of patient was discussed with the following: Hospitalist: Dr. Roman. I considered the following discharge prescriptions or medication management in the emergency department Patient was given antibiotics and fluids according to the sepsis protocol. Test considered but Not performed:. Counseling: I had a detailed discussion with the patient and/or guardian regarding: the historical points, exam findings, and any diagnostic results supporting the discharge/admit diagnosis, lab results, radiology results, the need for further work-up and treatment in the hospital. ED course: Patient continued to be medically stable in the ED. 06:11 Patient medically screened. kdr 10/31 05:45 Order name: Blood Culture Adult (2) 10/31 05:45 Order name: CBC with Diff; Complete Time: 07:19 10/31 05:45 Order name: CMP; Complete Time: 07:19 bb 10/31 05:45 Order name: Lactate w/ 2H reflex if indic.; Complete Time: 07:19 bb 10/31 05:45 Order name: Protime (+inr); Complete Time: 07:19 10/31 05:45 Order name: Ptt, Activated; Complete Time: 07:19 10/31 05:52 Order name: Urine Microscopic Only; Complete Time: 11:11 [facility] 10/31 05:52 Order name: Urine Dipstick-Ancillary; Complete Time: 07:19 EDAR 10/31 05:52 Order name: Urine Culture [facility] 10/31 06:12 Order name: Glucose, Ancillary Testing; Complete Time: 07:19 EDAR 10/31 06:14 Order name: SARS RAPID; Complete Time: 07:19 10/31 07:41 Order name: COVID-19/FLU A+B; Complete Time: 11:11 [facility] 10/31 10:37 Order name: Creatine Phosphokinase; Complete Time: 11:11 EDMS 10/31 10:37 Order name: T4 Free; Complete Time: 11:11 EDAR 10/31 05:45 Order name: EKG; Complete Time: 05:46 10/31 05:45 Order name: Accucheck; Complete Time: 06:09 10/31 05:45 Order name: Cardiac monitoring; Complete Time: 05:52 bb 10/31 05:45 Order name: EKG - Nurse/Tech; Complete Time: 06:09 10/31 05:45 Order name: IV Saline Lock - Large Bore; Complete Time: 05:52 10/31 05:45 Order name: Labs collected and sent; Complete Time: 05:52 10/31 05:45 Order name: O2 Per Protocol; Complete Time: 05:52 10/31 05:45 Order name: O2 Sat Monitoring; Complete Time: 05:52 10/31 05:45 Order name: Vital Signs; Complete Time: 05:51 10/31 06:39 Order name: CXR XRAY; Complete Time: 07:19 [facility] 10/31 06:39 Order name: CT Head C Spine; Complete Time: 07:19 [facility] 10/31 10:37 Order name: Thyroid Stimulating Hormone; Complete Time: 11:11 EDMS 10/31 11:03 Order name: Lactate w/ 2H reflex if indic.; Complete Time: 11:11 EDMS EC:39 Rate is 102 beats/min. Rhythm is regular. QRS [place] is Normal. [place] interval is normal. beau QRS interval is normal. QT interval is normal. No Q waves. T waves are Normal. Clinical impression: Sinus tachycardia and No evidence of ischemia. Interpreted by me. Reviewed by me. Administered Medications: 06:22 Drug: Tylenol Suppository 650 mg Route: OH; jb4 07:51 Follow up: Response: No adverse reaction ph 06:38 Drug: Rocephin (cefTRIAXone) 1 grams Route: IV; Rate: calculated rate; Site: right bb antecubital; 07:15 Follow up: Response: No adverse reaction; IV Status: Completed infusion ph 06:38 Drug: NS 0.9% (30 ml/kg) 30 ml/kg Route: IV; Rate: bolus; Site: right antecubital; Disposition Summary: 10/31/22 06:11 Hospitalization Ordered Hospitalization Status: Inpatient Admission kdr Provider: Rae Roman Condition: Fair kdr Problem: new kdr Symptoms: have improved kdr Bed/Room Type: Standard kdr Location: Telemetry/MedSurg (Inpatient)(10/31/22 06:42) Room Assignment: 201(10/31/22 09:38) Diagnosis - Altered mental status, unspecified kdr - Fever, unspecified kdr Forms: - Medication Reconciliation Form kdr - SBAR form kdr Signatures: Dispatcher [employer] Olimpia Tarango RN RN kl Webb, Martha RN Horacio Salmeron MD MD cha Rittger, Kevin, MD MD kdr Waters, Shelly, MANAGER PERIOPERATIVE-C MANAGER PERIOPERATIVE-Lylew Elaina Felton RN RN bb Bryson, James, RN RN jb Lauren Palma Patricia RN ph Corrections: (The following items were deleted from the chart) 06:14 06:11 kdr 06:42 06:11 Telemetry/MedSurg (Inpatient) [facility] 06:42 06:14 [facility] 07:03 05:49 Allergies: Unable to obtain; jb4 jb4 09:38 06:42 [facility]
[2022-10-31 06:14] LABS: Protime INR 1.07
[2022-10-31 06:18] LABS: Albumin 3.4 g/dL (3.4-5.0); Bilirubin Total 0.5 mg/dL (0.2-1.0); Potassium 4.5 mmol/L (3.5-5.1); Protein, Total 6.9 g/dL (6.4-8.2)
[2022-10-31] MEDS ORDERED: CEFTRIAXONE 1000 MG/VIAL ONE (06:34)
[2022-10-31] MEDS ORDERED: NA CHLORIDE 0.9% 1,000 ML ONE ×2 (06:34→06:43)
[2022-10-31 07:01] LABS: Urine Bacteria <20 /HPF (<20); Urine WBC Clump Few /HPF (None Seen)
[2022-10-31 07:08] LABS: SARS-CoV-2 Antigen Rapid Res Negative (Negative)
--- NOTE | 2022-10-31 07:08 | RAD REPORT ---
EXAM DESCRIPTION: RAD - Chest Single View - 10/31/2022 6:53 am CLINICAL HISTORY: FEVER COMPARISON: Chest Single View dated 03/19/2021; Chest Single View dated 01/09/2021; Chest Pa And Lat (2 Views) dated 08/31/2018; Chest Single View dated 08/30/2018; Head C Spine Mpr Wo Con dated 10/31/2022 Chest Single View dated 03/19/2021; Chest Single View dated 01/09/2021; Chest Pa And Lat (2 Views) dated 08/31/2018; Chest Single View dated 08/30/2018; Head C Spine Mpr Wo Con dated 10/31/2022; Abdomen P zahira W Contrast dated 03/19/2021 FINDINGS: Lines: None. Lungs: No evidence of edema or pneumonia. Pleural: No significant pleural effusions or pneumothorax. Cardiac: Similar size and configuration. TAVR. Mediastinum: Within normal limits. Bones: No acute fractures. Other: None IMPRESSION: No acute cardiopulmonary disease.
--- NOTE | 2022-10-31 07:16 | RAD REPORT ---
EXAM DESCRIPTION: CT - CTHCSPWOC - 10/31/2022 7:02 am CLINICAL HISTORY: Trauma, head and neck injury. Altered Mental Status COMPARISON: Head C Spine Mpr Wo Con dated 01/09/2021 TECHNIQUE: Axial 5 mm thick images of the head were obtained. Axial 2 mm thick images of the cervical spine were obtained with sagittal and coronal reconstruction images generated and reviewed. All CT scans are performed using dose optimization technique as appropriate and may include automated exposure control or mA/KV adjustment according to patient size. FINDINGS: CT HEAD WITHOUT CONTRAST: No acute hemorrhage, hydrocephalus or extra-axial collection is identified.No areas of brain edema or midline shift. Chronic small vessel ischemic changes. Mild maxillary sinus thickening bilaterally. Several ethmoid air cells are also thickened.The calvari um is intact. CT CERVICAL SPINE WITHOUT CONTRAST: No fracture or subluxation.No prevertebral soft tissues swelling is identified. Multilevel cervical s pondylosis with varying degrees of neural foraminal narrowing. 3 millimeters anterolisthesis C4 on C5 likely related underlying degenerative changes. IMPRESSION: No acute intracranial or cervical spine findings.
[2022-10-31 09:04] LABS: SARS-COV-2 RT PCR NEGATIVE (NEGATIVE)
[2022-10-31] MEDS ORDERED: ONDANSETRON 4 MG/2 ML VIAL IV PRN (09:16)
--- NOTE | 2022-10-31 09:59 | P.HP ---
Certification for Inpatient Patient admitted to: Inpatient With expected LOS: >2 Midnights Patient will require the following post-hospital care: None Practitioner: I am a practitioner with admitting privileges, knowledge of patient current condition, hospital course, and medical plan of care. Services: Services provided to patient in accordance with Admission requirements found in Title 42 Section 412.3 of the Code of Federal Regulations Patient History Date of Service: 10/31/22 Reason for admission: AMS, UTI History of Present Illness: Mr. Lee is an 85-year-old male with prior medical history of hypertension who presents to the emergency room with complaints of altered mental status with fever. Patient was evaluated in the ER, with at bedside. Patient was sound asleep but arousable and confused. Pupils were equal reactive to light and accommodation. Sensations were intact. Review of systems and history obtained from . Per , he is normally oriented x 4 and independent. She states that her was coming out of the bathroom this morning, he did not have his cane, and while coming out of the bathroom he fell. She denies any injuries post fall. stated that she was unable to pick her up from the floor. She proceeded to calling EMS for help. She states that her had 3 falls this past year. She denies any other contributing symptoms. No reported chest pain, shortness of breath, palpitation, headaches, change in vision, nausea, diarrhea, or constipation. Patient was found to have a UTI in the ER. His labs were significant for lactic of 2.4, temperature 100.3, blood pressure 158/74, pulse rate of 107. All imaging negative for any acute findings. Patient will be admitted under the care of Dr. Roman. Infectious disease will be consulted for further recommendations. Physical therapy will be consulted for further recommendations. Allergies No Known Allergies Allergy (Verified 03/08/13 16:53) Home medications list reviewed: Yes Home Medications: NK [No Home Meds] 10/31/22 - Past Medical/Surgical History Diabetic: No -: Mild Arthritis -: Moderate to severe aortic stenosis -: HTN -: Tonsilectomy - Social History Smoking Status: Never smoker Alcohol use: No CD- Drugs: No Caffeine use: No Review of Systems 10-point ROS is otherwise unremarkable General: Fever Physical Examination - Vital Signs Temperature: 98.1 F Blood Pressure: 107/53 Pulse: 88 Respirations: 20 Pulse Ox (%): 97 - Physical Exam General: Confused HEENT: Atraumatic, Normocephalic, PERRLA Neck: Supple, 2+ carotid pulse no bruit Respiratory: Clear to auscultation bilaterally, Normal air movement Cardiovascular: Edema Capillary refill: <2 Seconds Gastrointestinal: Normal bowel sounds Musculoskeletal: No clubbing, Swelling Integumentary: No breakdown Neurological: Sensation intact, Normal reflexes 2+, Abnormal speech Lymphatics: No axilla or inguinal lymphadenopathy - Studies Laboratory Data (last 24 hrs) 10/31/22 05:48: PT 11.8, INR 1.07, APTT 24.3 10/31/22 05:48: Sodium 144, Potassium 4.5, BUN 27 H, Creatinine 1.21, Glucose 130 H, Total Bilirubin 0.5, AST 17, ALT 15 L, Alkaline Phosphatase 77 10/31/22 05:48: WBC 8.30, Hgb 10.8 L, Hct 32.3 L, Plt Count 231 Assessment and Plan - Plan Assessment UTI AMS with fall Hypertension BPH Aortic stenosis Plan UTI Continue antibiotic Blood/urine cultures pending Infectious disease consulted, recommendation appreciated AMS with fall 3 falls this year Physical therapy consult, recommendations appreciated Keep patient n.p.o. Continue IV fluid Perform bedside swallowing evaluation Advance diet as tolerated CPK ordered CT Head & Spine No acute intracranial or cervical spine findings. Hypertension Resume home meds when appropriate BPH Resume home meds when appropriate Insert Dickerson with urinary retention Aortic stenosis ECHO 03/20/21 NORMAL LEFT VENTRICULAR EJECTION FRACTION 55-60%. NORMAL WALL MOTION. MILD TRICUSPID REGURGITATION. Resume home medication when appropriate PPX- Lovenox Code Status- Full code Discharge Plan: Home Plan to discharge in: 48 Hours - Advance Directives Does patient have a Living Will: No Does patient have a Durable POA for Healthcare: No - Code Status/Comfort Care Code Status Assessed: Yes (Full code) Critical Care: No Time Spent Managing Pts Care (In Minutes): 50
[2022-10-31 10:37] LABS: Thyroid Stimulating Hormone 1.27 uIU/mL (0.358-3.740)
[2022-10-31] MEDS: NA CHLORIDE 0.9% 1,000 ML IV SCH (11:52)
[2022-10-31 12:08] VITALS: BMI 17.4
[2022-10-31] MEDS: CEFTRIAXONE 1,000 MG in NA CHLORIDE 0.9% 50 ML IVPB SCH (20:30)
[2022-10-31] MEDS: ACETAMINOPHEN 500 MG TAB PO PRN (20:30)
--- NOTE | 2022-10-31 20:35 | CON ---
History Of Present Illness: This is an 87-year-old male. I was consulted for urinary tract infectio n, sepsis, and altered mental status. The patient is an -[id number]-lmt male lying in bed, hard of hearing. Most of the history was obtained through by the bedside and medical record. The hung casillas was brought in the emergency room after he had a fall coming out of the bathroom. As per , the patient was on the bathroom on the floor for 15 minutes. On admission, the patient was arousabl e, but asleep and confused, but at the time of my examination, patient was awake and was able to resp ond to verbal commands. The patient denies any headache, nausea, vomiting, chest pain, abdominal rustam n, constipation, diarrhea. No coughing or fevers. At the time of admission, patient's temperature w as 100.3, and he was admitted for urosepsis. Past Medical History: Mild arthritis, moderate to severe aortic stenosis, hypertension, tonsillectom y, coronary artery disease. Social History: Nonsmoker, nondrinker. Family History: Noncontributory. Medications: Rocephin. See MAR for other medications. Allergies: NO KNOWN DRUG ALLERGIES. Review of Systems: 10-point review was performed. Physical Examination: General: This is an 87-year-old male, lying in bed, not in any acute cardiopulmonary distress. Vital Signs: Temperature 98, pulse 88, respirations 18, blood pressure 107/53. HEENT: Unremarkable. Neck: Supple. Lungs: Basal crackles. Heart: S1, S2. Regular. Abdomen: Soft, nontender. Bowel sounds present. Extremities: No edema. Laboratory Data: Shows WBC 8.3, hemoglobin 10.8, platelets 231. Chemistry shows BUN of 27, creatini ne 1.2. Albumin level of 3.4, lactic acid 2.4. Urinalysis shows more than 50 wbc, 11-20 rbc. Micro data; blood cultures and urine cultures are pending. Assessment And Plan: 1.Urosepsis status post fall. 2.Anemia of chronic disease. 3.Muscle wasting noted. The patient currently on Rocephin empirically, pending culture results. Fever has subsided. History of coronary artery disease. Continue current treatment most likely requiring 5-7 days of antibiotic treatment, can be switched to oral if the patient able to tolerate. We will follow the patient clos nghia. Thank you Dr. Roman for consult. LUZ MARIA/MANJULA Voice ID: [id number] Report ID: [id number]
[2022-11-01] MEDS ORDERED: ALPRAZOLAM 0.5 MG TABLET PO ONE ×2 (00:33→23:24)
[2022-11-01] MEDS: NA CHLORIDE 0.9% 1,000 ML IV SCH ×2 (00:56→21:39)
[2022-11-01] MEDS: ACETAMINOPHEN 500 MG TAB PO PRN (05:04)
[2022-11-01 06:27] LABS: Magnesium 1.8 mg/dL (1.6-2.4); Phosphorus 2.4 mg/dL (2.5-4.9); Potassium 3.7 mmol/L (3.5-5.1)
[2022-11-01 06:33] LABS: Absolute Lymphocytes (CBC) 0.5 K/uL (0.7-4.9); Lymphocytes % 5.2 % (15.3-44.8); MCV 93.8 fL (80-100); MPV 8.6 fL (7.6-11.3); RBC Red Blood Cell Count 2.88 M/uL (4.33-5.43)
[2022-11-01] MEDS: CEFTRIAXONE 1,000 MG in NA CHLORIDE 0.9% 50 ML IVPB SCH ×2 (08:00→21:38)
[2022-11-01] MEDS: ENOXAPARIN 40 MG/0.4 ML SQ SCH (08:01)
[2022-11-01] MEDS ORDERED: MAGNESIUM SULFATE 1 gm IVPB 1 GM/100 ML BAG IV ONE (10:00)
[2022-11-01] MEDS ORDERED: POTASSIUM PHOS IN 0.9 % NACL 15 MMOL/250 ML BAG IV ONE (11:00)
[2022-11-02] MEDS: NA CHLORIDE 0.9% 1,000 ML IV SCH (02:00)
[2022-11-02 03:40] LABS: MCV 93.5 fL (80-100); RBC Red Blood Cell Count 3.43 M/uL (4.33-5.43)
[2022-11-02 03:41] LABS: Absolute Lymphocytes (CBC) 0.7 K/uL (0.7-4.9); Lymphocytes % 7.2 % (15.3-44.8)
[2022-11-02 04:04] LABS: Magnesium 2.1 mg/dL (1.6-2.4); Potassium 3.8 mmol/L (3.5-5.1)
[2022-11-02] MEDS: ENOXAPARIN 40 MG/0.4 ML SQ SCH (07:58)
[2022-11-02] MEDS: CEFTRIAXONE 1,000 MG in NA CHLORIDE 0.9% 50 ML IVPB SCH ×2 (07:58→20:49)
--- NOTE | 2022-11-02 08:54 | P.PN ---
Subjective Date of Service: 11/02/22 Chief Complaint: AMS, UTI Patient lying in bed resting when ID arrives. Denied having any chest pain, shortness of breath, nausea, vomiting, diarrhea, or constipation. No major event upon examination. Friends at the bedside. Physical Examination - Vital Signs Temperature: 97.0 F Blood Pressure: 173/70 Pulse: 79 Respirations: 16 Pulse Ox (%): 93 - Physical Exam General: Alert, In no apparent distress, Oriented x3, Demented (baseline, per friends at bedside.) Respiratory: Clear to auscultation bilaterally Cardiovascular: No edema, Irregular heart rate/rhythm Gastrointestinal: Normal bowel sounds Musculoskeletal: No swelling, No tenderness Integumentary: No breakdown Neurological: Normal speech - Studies Current Medications: Acetaminophen (Acetaminophen 500 Mg Tab) 500 mg PO Q4HP PRN PRN Reason: Pain scale 2-4 (Mild) Last Admin: 11/01/22 05:04 Dose: 500 mg Enoxaparin Sodium (Enoxaparin 40 Mg/0.4 Ml) 40 mg SQ DAILY [facility] Last Admin: 11/02/22 07:58 Dose: 40 mg Sodium Chloride (Ns 1000 Ml Ivbag) 1,000 mls @ 75 mls/hr IV .[id number] [facility] Last Admin: 11/02/22 02:00 Dose: Not Given Ceftriaxone Sodium 1,000 mg/ (Sodium Chloride) 50 mls @ 100 mls/hr IVPB Q12HR [facility]; Protocol Last Admin: 11/02/22 07:58 Dose: 50 mls Ondansetron HCl (Ondansetron 4 Mg/2 Ml Vial) 4 mg IV Q6HP PRN PRN Reason: NAUSEA / VOMITING Sodium Chloride (Flush Normal Saline 10 Ml) 10 ml IV BID [facility] Last Admin: 11/02/22 07:58 Dose: 10 ml Microbiology Data (last 24 hrs): 10/31/22 05:49 Catheterized Urine [place] Count - Final >100,000 CFU/ML. 10/31/22 05:49 Catheterized Urine - Final Escherichia Coli 10/31/22 05:48 Blood - Blood Blood Culture Gram Stain - Final Assessment And Plan - Current Problems (Diagnosis) (1) Urosepsis secondary to UTI Current Visit: Yes Status: Acute Plan: Cultures: 10/31 UC: Positive E. Coli 10/31 BC: Negative Antibiotics: - Recommend to continue with current IV antibiotics, Ceftriaxone 10/31 to present - Can switch to PO Levofloxacin tomorrow as patient tolerates diet ID will monitor the patient closely for signs of infection with fever and WBC trends Case has been discussed with Taty Beatty - Plan 1. Urosepsis status post fall: Recommend to continue current IV antibiotics, Ceftriaxone 2. Anemia of chronic disease 3. Muscle wasting noted 4. HTN 5. History of CAD ID will monitor the patient closely for signs of infection with fever and WBC trends. Case has been discussed with Dr. Galdamez N
--- NOTE | 2022-11-02 10:31 | P.PN ---
Subjective Date of Service: 11/02/22 Chief Complaint: AMS, UTI Per RN, no acute events overnight. He has been intermittently confused per nursing staff. This morning, he is alert and oriented x 1 to self only. No further history is available at this time. Review of Systems is unable to be obtained Physical Examination - Vital Signs Temperature: 97.0 F Blood Pressure: 173/70 Pulse: 79 Respirations: 16 Pulse Ox (%): 93 - Physical Exam General: Alert, In no apparent distress, Oriented x1 HEENT: Atraumatic, Mucous membr. moist/pink, Sclerae nonicteric Neck: JVD not distended Respiratory: Clear to auscultation bilaterally, Normal air movement Cardiovascular: No edema, Regular rate/rhythm, Normal S1 S2, No gallops, No rubs, No murmurs Gastrointestinal: Normal bowel sounds, Soft and benign, Non-distended, No tenderness, No rebound, No guarding Musculoskeletal: No clubbing Integumentary: No rashes Neurological: Other (confused) - Studies Microbiology Data (last 24 hrs): 10/31/22 05:49 Catheterized Urine [place] Count - Final >100,000 CFU/ML. 10/31/22 05:49 Catheterized Urine - Final Escherichia Coli 10/31/22 05:48 Blood - Blood Blood Culture Gram Stain - Final Assessment And Plan - Plan # Acute Toxic Metabolic Encephalopathy likely secondary to Becerra-Sensitive Escherichia Coli Urinary Tract Infection with Gram-Negative Bacteremia # Microscopic Hematuria - Evaluation thus far: - Labs = Na+ 141, Ca2+ 7.8, CO2 24, Glucose 75, Ammonia pending, BUN 16, Vitamin B12 pending, TSH 1.27 - ABG = pending - Blood cultures x 2 drawn = 1/4 positive for gram-negative rods - Urinalysis = 2+ blood, 3+ leukocyte esterase, 11-20 RBCs, >50 WBCs, 2+ protein - Urine culture = becerra-sensitive Escherichia Coli - Chest x-ray = "no acute cardiopulmonary disease." - CT head/cervical spine = "No acute intracranial or cervical spine findings." - Management plan: - Infectious Diseases consulted and spoke with Dr. Galdamez - recommendations appreciated - Continue ceftriaxone - Await pending lab studies above - Serial neurologic exams # Severe Sepsis likely secondary to Becerra-Sensitive Escherichia Coli Urinary Tract Infection with Gram-Negative Bacteremia (POA) He initially met sepsis criteria based on HR > 90 bpm and RR > 20 breaths/min, and the identified source is UTI with bacteremia. Severe sepsis is suspected due to concern for tissue hypoperfusion/organ dysfunction based on lactic acid > 2 mmol/L. - No longer meeting sepsis criteria - Sepsis order set was initiated - Lactate trend 2.4 -> 0.8 - Blood cultures drawn - 10/21 positive for gram-negative rods - Broad spectrum antibiotics started: Ceftriaxone - In regards to fluids: - 30 mL/kg of IV fluids was not administered given SBP > 90, MAP > 65, lactic acid < 4 # KDIGO Stage I Acute Kidney Injury secondary to Dehydration (resolved) - Creatinine = 1.21 -> 0.88 -> 0.79 - Urinalysis = 2+ blood, 3+ leukocyte esterase, 11-20 RBCs, >50 WBCs, 2+ protein - Lactated Ringers' @ 75 mL/hr - Monitor creatinine and urine output - If worsening, obtain renal ultrasound - Renally dose medications # Deconditioning complicated by Recurrent Mechanical Falls - Consulted PT - recommendations appreciated # Concern for Protein Calorie Malnutrition - BMI 17.4 kg/m2 - Consulted nutrition for formal evaluation - recommendations appreciated # Hypertension # Benign Prostatic Hyperplasia - Resume home medications once verified # Moderate-Severe Aortic Stenosis s/p TAVR - Follow-up with outpatient seed production field supervisor as previously scheduled Jose Gibbons M.D.
[2022-11-02] MEDS: Ringers Lactate 1,000 ML IV SCH (11:15)
[2022-11-02 14:50] LABS: Arterial Blood Carboxyhemoglob 1.2 % (0-1.5); Blood Gas Oxyhemoglobin 94.9 % (94-97); Blood O2 Saturation 97.4 % (92-98.5)
--- NOTE | 2022-11-02 17:38 | EKG ---
Test Date: 2022-10-31 Test Time: 06:14:06 Crm Architect: GUILLERMO MEASUREMENT RESULTS: Intervals: Rate: 102 NC: QRSD: 128 QT: 356 QTc: 463 [place]: P: NC: QRS: 57 T: 64 INTERPRETIVE STATEMENTS: Sinus rhythm with occasional premature ventricular complexes Right bundle branch block Abnormal ECG Compared to ECG 03/19/2021 01:33:20 Ventricular premature complex(es) now present Electronically Signed On 11-02-22 17:34:06 CLINICAL DOCUMENTATION NURSE by Chang Suacedo
[2022-11-02] MEDS: ENSURE ENLIVE 237 ML CAN PO SCH (20:50)
[2022-11-03] MEDS: Ringers Lactate 1,000 ML IV SCH (00:20)
[2022-11-03 05:45] VITALS: TEMP 97.9
[2022-11-03] MEDS: ENSURE ENLIVE 237 ML CAN PO SCH (08:04)
[2022-11-03] MEDS: ENOXAPARIN 40 MG/0.4 ML SQ SCH (08:05)
[2022-11-03] MEDS: CEFTRIAXONE 1,000 MG in NA CHLORIDE 0.9% 50 ML IVPB SCH (08:05)
--- NOTE | 2022-11-03 08:31 | P.DS ---
Admission Date: 10/31/22 Discharge Date: 11/03/22 Disposition: DC HOME/HOME HEALTH CARE Discharge Condition: GOOD Reason for Admission: AMS, UTI Consultations: 1. Infectious Diseases Hospital Course: DIAGNOSES: # Acute Toxic Metabolic Encephalopathy likely secondary to Becerra-Sensitive Escherichia Coli Urinary Tract Infection with Bacteremia # Severe Sepsis likely secondary to Becerra-Sensitive Escherichia Coli Urinary Tract Infection with Bacteremia (POA) # KDIGO Stage I Acute Kidney Injury secondary to Dehydration (resolved) # Deconditioning complicated by Recurrent Mechanical Falls # Severe Protein Calorie Malnutrition - BMI 17.4 kg/m2 # Microscopic Hematuria # Hypertension # Benign Prostatic Hyperplasia # Moderate-Severe Aortic Stenosis s/p TAVR HOSPITAL COURSE: Mr. Nicolle Lee is a pleasant 87 year old male with a past medical history significant for aortic stenosis s/p TAVR, hypertension, and benign prostatic hyperplasia who was admitted to the [facility] on 10/31/2022 for altered mental status. He was admitted to the Medicine service. Upon further evaluation, he was found to have actue toxic metabolic encephalopathy secondary to a becerra-sensitive Escherichia Coli urinary tract infection with bacteremia. Infectious Diseases was consulted and he was evaluated by Dr. Galdamez. He was treated with ceftriaxone while hospitalized, and he improved significantly over the course of his hospitalization. This morning, his mental status has returned back to baseline and he is alert and oriented x 4 to person, place, time, and situation. He has been cleared for discharge with an additional 10 days of PO levofloxacin. Of note, he was found to have deconditioning. He was evaluated by Physical Therapy and it was recommended that he be discharged with Home Health services. With the assistance of case management, this was arranged. Additionally, he was noted to have microscopic hematuria. He and his , Ms. Vázquez, were counseled that this may represent an underlying malignancy. They were advised that he have this followed up with his PCP for further evaluation. They verbalized understanding and agreed to make this appointment. On 11/03/2022, he was seen on morning rounds and deemed medically stable for discharge. He was discharged with instructions to schedule a follow-up appointment with his PCP (Dr. Marquis). He was provided a prescription for levofloxacin. He and his were given the opportunity to ask questions and reported no further questions. Furthermore, all questions were answered to the best of my ability. A copy of this discharge summary will be sent to the above providers to facilitate continuity of care. Today, I personally spent 25 minutes on his case, of which greater than 50% of the time was spent in patient education, counseling, and coordination of care as described above. Vital Signs/Physical Exam: Temp Pulse Resp BP Pulse Ox 97.9 F 66 18 154/74 H 96 11/03/22 04:00 11/03/22 04:00 11/03/22 04:00 11/03/22 04:00 11/03/22 04:00 General: Alert, In no apparent distress, Oriented x3, Other (hard of hearing) HEENT: Atraumatic, Mucous membr. moist/pink, EOMI, Sclerae nonicteric Neck: JVD not distended Respiratory: Clear to auscultation bilaterally, Normal air movement Cardiovascular: No edema, Regular rate/rhythm, Normal S1 S2, No gallops, No rubs, No murmurs Gastrointestinal: Normal bowel sounds, Soft and benign, Non-distended, No tenderness, No rebound, No guarding Musculoskeletal: No clubbing Integumentary: No rashes Neurological: Normal speech, Cranial nerves 3-12 intact, Normal affect Laboratory Data at Discharge: WBC 9.80 K/uL (4.3-10.9) 11/02/22 03:17 Hgb 10.7 g/dL (13.6-17.9) L D 11/02/22 03:17 Hct 32.0 % (39.6-49.0) L 11/02/22 03:17 Plt Count 170 K/uL (152-406) 11/02/22 03:17 PT 11.8 SECONDS (9.5-12.5) 10/31/22 05:48 INR 1.07 10/31/22 05:48 APTT 24.3 SECONDS (24.3-36.9) 10/31/22 05:48 Sodium 141 mmol/L (136-145) 11/02/22 03:17 Potassium 3.8 mmol/L (3.5-5.1) 11/02/22 03:17 BUN 16 mg/dL (7-18) 11/02/22 03:17 Creatinine 0.79 mg/dL (0.70-1.30) 11/02/22 03:17 Glucose 75 mg/dL (74-106) 11/02/22 03:17 Phosphorus 2.4 mg/dL (2.5-4.9) L 11/01/22 05:41 Magnesium 2.1 mg/dL (1.6-2.4) 11/02/22 03:17 Total Bilirubin 0.5 mg/dL (0.2-1.0) 10/31/22 05:48 AST 17 U/L (15-37) 10/31/22 05:48 ALT 15 U/L (16-61) L 10/31/22 05:48 Alkaline Phosphatase 77 U/L (45-117) 10/31/22 05:48 Triglycerides 54 mg/dL (<150) 11/01/22 05:41 Cholesterol 119 mg/dL (<200) 11/01/22 05:41 HDL Cholesterol 43 mg/dL (40-60) 11/01/22 05:41 Cholesterol/HDL Ratio 2.77 11/01/22 05:41 Home Medications: levoFLOXacin [Levaquin] 750 mg PO DAILY 10 Days #10 tab 11/03/22 New Medications: levoFLOXacin [Levaquin] 750 mg PO DAILY 10 Days #10 tab Physician Discharge Instructions: 1. Please call and schedule a follow-up appointment with your PCP (Dr. Marquis) in 3-5 days - You were noted to have a small amount of blood in your urine. As we discussed, this could be a sign of cancer. Please discuss this with Dr. Marquis, so that it can be further evaluated. Diet: Regular Activity: Fall precautions Followup: Magen Marquis, DO [ACTIVE - CAN ADMIT] - Time spent managing pt's care (in minutes): 25
--- NOTE | 2022-11-03 08:41 | P.PN ---
Subjective Date of Service: 11/03/22 Chief Complaint: AMS, UTI Patient sitting in bed having breakfast with the at the bedside. Patient is alert and able to answer questions accordingly. Denied having any chest pain, shortness of breath, nausea, vomiting, diarrhea, or constipation. No major event upon examination. Physical Examination - Vital Signs Temperature: 97.9 F Blood Pressure: 154/74 Pulse: 66 Respirations: 18 Pulse Ox (%): 96 - Physical Exam General: Alert, In no apparent distress, Oriented x3 HEENT: Other (severely hard of hearing) Respiratory: Clear to auscultation bilaterally Cardiovascular: No edema, Irregular heart rate/rhythm Gastrointestinal: Normal bowel sounds Musculoskeletal: No swelling, No tenderness Integumentary: No rashes, No breakdown Neurological: Normal speech, Sensation intact - Studies Current medications: Acetaminophen (Acetaminophen 500 Mg Tab) 500 mg PO Q4HP PRN PRN Reason: Pain scale 2-4 (Mild) Last Admin: 11/01/22 05:04 Dose: 500 mg Enoxaparin Sodium (Enoxaparin 40 Mg/0.4 Ml) 40 mg SQ DAILY [facility] Last Admin: 11/03/22 08:05 Dose: 40 mg Lactated Ringer's (Lactated Ringers) 1,000 mls @ 75 mls/hr IV .[id number] [facility] Last Admin: 11/03/22 00:20 Dose: 1,000 mls Levofloxacin (Levofloxacin 750 Mg Tab) 750 mg PO DAILY [facility] Stop: 11/12/22 09:01 Nutritional Formula (Ensure Enlive 237 Ml Can) 237 ml PO BID [facility] Last Admin: 11/03/22 08:04 Dose: 237 ml Ondansetron HCl (Ondansetron 4 Mg/2 Ml Vial) 4 mg IV Q6HP PRN PRN Reason: NAUSEA / VOMITING Sodium Chloride (Flush Normal Saline 10 Ml) 10 ml IV BID [facility] Last Admin: 11/03/22 08:04 Dose: 10 ml Microbiology Data (last 24 hrs): 10/31/22 05:48 Blood - Blood Blood Culture Gram Stain - Final 10/31/22 05:49 Catheterized Urine [place] Count - Final >100,000 CFU/ML. 10/31/22 05:49 Catheterized Urine - Final Escherichia Coli Assessment And Plan - Current Problems (Diagnosis) (1) Urosepsis secondary to UTI Status: Acute Plan: Cultures: 10/31 UC: Positive E. Coli 10/31 BC: Positive E. Coli Antibiotics: - Had IV antibiotics, Ceftriaxone (10/31 - 11/02) - 11/03 Started PO Levofloxacin today Plan to discharge home today ID will monitor the patient closely for signs of infection with fever and WBC trends Case has been discussed with Taty Beatty - Plan 1. Urosepsis status post fall: Can discharge with PO Levofloxacin 2. Anemia of chronic disease 3. Muscle wasting noted 4. HTN 5. History of CAD ID will monitor the patient closely for signs of infection with fever and WBC trends. Case has been discussed with Dr. Galdamez N
[2022-11-03] MEDS ORDERED: levoFLOXacin 750 MG TAB PO SCH (09:00)
[2022-11-03 09:48] VITALS: O2SAT 94
[2022-11-03 16:22] VITALS: BP 154/74
== END 2022-11-03 12:00 | disposition home health service (06) | DRG 871 ==
LOC: ER 05:41 → ERHOLD 08:45 → 2ND 10:26
PROVIDERS: ADMIT Hospitalist; ATTEND Internal Medicine
DX: A41.51 Sepsis due to Escherichia coli [E. coli] (principal); E43 Unspecified severe protein-calorie malnutrition; G92.8 Other toxic encephalopathy; N39.0 Urinary tract infection, site not specified; N17.9 Acute kidney failure, unspecified; Z68.1 Body mass index [BMI] 19.9 or less, adult; I10 Essential (primary) hypertension; E86.0 Dehydration; D63.8 Anemia in other chronic diseases classified elsewhere; I35.0 Nonrheumatic aortic (valve) stenosis; N40.0 Benign prostatic hyperplasia without lower urinary tract symptoms; M62.50 Muscle wasting and atrophy, not elsewhere classified, unspecified site; M19.90 Unspecified osteoarthritis, unspecified site; I25.10 Atherosclerotic heart disease of native coronary artery without angina pectoris; R31.29 Other microscopic hematuria; R29.6 Repeated falls; R65.20 Severe sepsis without septic shock; Z79.899 Other long term (current) drug therapy; Z20.822 Contact with and (suspected) exposure to COVID-19
CPT/HCPCS: 0240U; 36415; 70450; 71045; 72125; 80048; 80053; 80061; 81003; 81015; 82140; 82550; 82607; 82805; 82947; 83605; 83735; 84100; 84439; 84443; 85025; 85610; 85730; 87040; 87077; 87086; 87088; 87186; 87205; 87811; 93005; 96365; 96375; 97110; 97116; 97161; 97530; 99285; J1650; J3475; J7030; J7120

== ENCOUNTER 2023-05-06 04:26 | Inpatient (IN) | payer OTHER ==
--- OUTSIDE RECORDS SUMMARY | 2023-05-06 04:30 | XMS REPORT | Continuity of Care Document ---
:[address] [facility] t Address [address] [place] [address] Care Team Providers Name Role Phone Franocise Tatum MD Primary Care Physician Magen Marquis Attending Clinician Unavailable Francoise Tatum Attending Clinician Unavailable Payers Payer Name Policy Type Policy Number Effective Date Expiration Date S clauce MEDICAID MC [id number] [facility] MEDICARE MB [id number] [place] [id number] Common Sp davian ing Medicare - [facility] MEDICAID MC [id number] [facility] MEDICARE MB [id number] Common [place] [id number] Common Sp davian ing Medicare - [facility] MEDICARE MB [id number] [place] [id number] Common Sp davian ing Medicare - [facility] MEDICAID MC [id number] [facility] Problems Condition Condition Condition Status Onset Resolution [...] lower urinary urinary tract tract symptoms symptoms [id number] Underweigh Problem Active Co mmon t Spirit [facility] [id number] Elevated Problem Active Comm on BP without Spirit diagnosis - [facility] of [facility] [id number] Diastolic Problem Active 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, St unspecifie [facility] d HF Medical chronicity Center [id number] Weight Problem Active Common loss, Spirit non-intent - CHI ional [facility] [id number] Pulmonary Problem Active Comm on hypertensi Spirit on - [facility] [id number] Aortic Problem Active Common valve Spirit stenosis, - CHI etiology St of cardiac [facility] valve Medical disease Center unspecifie d [id number] Bilateral Problem Active Com mon pleural Spirit effusion - [facility] [id number] PAC Problem Active Common (premature Spirit atrial - CHI contractio St n) [facility] [id number] Ventricula Problem Active Com mon r Spirit hypokinesi - CH[facility] s [facility] [id number] 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) [facility] [id number] Tongue Problem Active Common lesion Spirit - [facility] [id number] 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) [facility] Cardiac Irregular Problem Active Commo n arrhythmia heartbeat Spi rit - [facility] [id number] Cervical Problem Active Comm on lymphadeno Spirit christelle - [facility] [id number] Generalize Problem Active Com mon d weakness [facility] 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 Social History Social Habit Start Date Stop Date Quantity Comments Source History of Tobacco [facility] - Use [facility] History [facility] Hospit al Sexual orientation [facility] Gender identity [facility] History of Social 2019-06-08 2019-06-[address] function 00:00:00 00:00:00 Hospital Alcohol intake 2018-11-18 2018-11-18 Current [facility] 00:00:00 00:00:00 non-drinker of Hospital alcohol (finding) History [facility] 2018-11-18 2018-11-18 1 [facility] Frequency 00:00:00 00:00:00 Hospita l Tobacco use and 2018-09-02 2018-09-02 Smokeless [facility] exposure 00:00:00 00:00:00 tobacco non-user Hospital Sex Assigned At [birth year] [facility] 00:[facility] 00:[facility]:00 Hospital Smoking Status Start Date Stop Date Source Former Smoker 2021-09-19 00:00:00 2021-09-19 00:00:00 Common S [facility]ter Never smoked tobacco [facility] Medications Ordered Filled Start Stop [...] mouth Hospita capsule 33 nightly. l carvedilol 2019-0 Yes 6.25mg Q.5D Take 6.25 Methodi (COREG) 2-[address] 6.25 MG 11:02: mouth 2 Hospita tablet 33 (two) l times a day with meals. tamsulosin 2018-0 Yes .4mg QD Take 0.4 Met hodi (FLOMAX) 2-[address] 0.4 mg 11:02: mouth Hospita capsule 33 nightly. l carvedilol 2018-0 Yes 6.25mg Q.5D Take 6.25 Methodi (COREG) 2-[address] 6.25 MG 11:02: mouth 2 Hospita tablet 33 (two) l times a day with meals. furosemide Yes 40mg QD Take 40 mg M ethodi (LASIX) 40 2-[address] mg tablet 11:02: daily. Hospit a 33 l tamsulosin Yes .4mg QD Take 0.4 Met hodi (FLOMAX) 2-[address] 0.4 mg 11:02: mouth Hospita capsule 33 nightly. l carvedilol 0 Yes 6.25mg Q.5D Take 6.25 Methodi (COREG) 2-[address] 6.25 MG 11:02: mouth 2 Hospita tablet 33 (two) l times a day with meals. Furosemide Furosemide 2017-10 Yes Francoise 1 tablet Common 2-08 Mill[facility] Spirit 00:00: - [facility] 00 [facility] Calcium Calcium No 1{table QD Calcium t} [...] QD Flomax 0.4 MG MG le} MG [place] 3 [place] 3 No 1{capsu QD [place] 3 1000 MG 1000 MG le} 1000 [...] t} 40 MG Furosemide Furosemide No Furosemide [place] 3 [place] 3 No 1{capsu QD [place] 3 1000 MG 1000 MG le} 1000 [...] QD Flomax 0.4 MG MG le} MG [place] 3 [place] 3 No 1{capsu QD [place] 3 1000 MG 1000 MG le} 1000 [...] QD Flomax 0.4 MG MG le} MG [place] 3 [place] 3 No 1{capsu QD [place] 3 1000 MG 1000 MG le} 1000 MG Spironolact Spironolact No QD Spironolac one 25 mg one 25 mg tone 25 mg Calcium Calcium Yes Francoise 1 tablet Comm on Millender [facility] [place] 3 [place] 3 Yes Francoise 1 capsule Com mon Millender [facility] Docusate Docusate Yes Francoise 1 capsule C ommon Sodium Sodium Millender as needed S pirit [facility] Tylenol Tylenol Yes Francoise (500 Common Millender mg/OTC) Spirit 1-2 - CHI tablets [facility] Docusate Docusate Yes Francoise (50 Common Calcium Calcium Millender mg/OTC) 1 Spirit capsule - [facility] Carvedilol Carvedilol Yes Francoise 1 tablet Common Millender [facility] Vitamin C Vitamin C Yes Francoise 1 tablet Common Millender [facility] Furosemide Furosemide Yes Francoise (40 mg) 1 Common Millender tablet [facility] Multivitami Multivitami Yes Francoise 1 tablet Common n Adults n Adults Millender Sp davian - [facility] Aspirin Aspirin Yes Francoise 1 tablet Comm on Millender [facility] Docusate Docusate No 1{capsu QD Docusate Sodium 50 Sodium 50 le_as_n Sodium 50 MG MG eeded} MG Spironolact Spironolact Francoise 1/2 tablet Common one one 11-11 Millender Spirit 00:00 - CHI :00 [facility] Immunizations Ordered Immunization Filled Immunization Date Status Commen ts Source Name Name FLUZONE HIGH DOSE FLUZONE HIGH DOSE 2021-07-24 Completed [facility] OVER 65 OVER 65 15:17:00 [facility] FLUZONE HIGH DOSE FLUZONE HIGH DOSE 2021-07-24 Completed [facility] OVER 65 OVER 65 15:17:00 - [facility] FLUZONE HIGH DOSE FLUZONE HIGH DOSE 2021-07-24 Completed [facility] OVER 65 OVER 65 15:17:00 [facility] FLUZONE HIGH DOSE FLUZONE HIGH DOSE 2021-07-24 Completed [facility] OVER 65 OVER 65 15:17:00 [facility] Pneumovax (PPSV23) Pneumovax (PPSV23) 2020-07-18 Completed [facility] 14:00:00 [facility] Pneumovax (PPSV23) Pneumovax (PPSV23) 2020-07-18 Completed [facility] 14:00:00 [facility] FLUZONE HIGH DOSE FLUZONE HIGH DOSE 2019-07-13 Completed [facility] OVER 65 OVER 65 17:05:00 [facility] FLUZONE HIGH DOSE FLUZONE HIGH DOSE 2019-07-13 Completed [facility] OVER 65 OVER 65 17:05:00 [facility] FLUZONE HIGH DOSE FLUZONE HIGH DOSE 2019-07-13 Completed [facility] OVER 65 OVER 65 17:05:00 [facility] FLUZONE HIGH DOSE FLUZONE HIGH DOSE 2019-07-13 Completed Common [facility] OVER 65 OVER 65 17:05:00 [facility] FLUZONE HIGH DOSE FLUZONE HIGH DOSE 2019-07-13 Completed Common [facility] OVER 65 OVER 65 00:00:00 - [facility] Vital Signs Vital Name Observation Time Observation Value Comments Source height 2021-07-24 13:10:00 67.00 [in_i] Common [facility] weight 2021-07-24 13:10:00 121.2 [lb_av] [facility] temperature 2021-07-24 13:10:00 97.5 [degF] Common [facility] bmi 2021-07-24 13:10:00 18.98 kg/m2 [facility] oximetry 2021-07-24 13:10:00 97 % [facility] respiratory rate 2021-07-24 13:10:00 18 /min Comm on [facility] blood pressure 2021-07-24 13:10:00 130 mm[Hg] Common [facility] - systolic [facility] blood pressure 2021-07-24 13:10:00 73 mm[Hg] Common [facility] - diastolic [facility] height 2021-07-24 13:00:00 67.00 [in_i] [facility] weight 2021-07-24 13:00:00 121.2 [lb_av] [facility] temperature 2021-07-24 13:00:00 97.5 [degF] Common [facility] bmi 2021-07-24 13:00:00 18.98 kg/m2 [facility] oximetry 2021-07-24 13:00:00 97 % [facility] respiratory rate 2021-07-24 13:00:00 18 /min Comm on [facility] blood pressure 2021-07-24 13:00:00 130 mm[Hg] Common [facility] - systolic [facility] blood pressure 2021-07-24 13:00:00 73 mm[Hg] Common [facility] - diastolic [facility] Procedures This patient has no known procedures. Plan of Care Planned Activity Planned Date Details Comments Source Future Scheduled 2023-04-03 COVID-19 VACCINE (#1) [facility] Test 17:58:25 [code = COVID-19 VACCINE (#1)] Future Scheduled 2023-04-03 SHINGLES VACCINES (1 Met [facility] Test 17:58:25 of 2) [code = SHINGLES VACCINES (1 of 2)] Future Scheduled 2023-04-03 65+ PNEUMOCOCCAL Methodi [facility] Test 17:58:25 VACCINE (1 - PCV) [code = 65+ PNEUMOCOCCAL VACCINE (1 - PCV)] Future Scheduled 2023-04-03 INFLUENZA VACCINE Method [facility] Test 17:58:25 [code = INFLUENZA VACCINE] Future Scheduled 2022-10-03 65+ [facility] 17:56:49 VACCINE (1 - PCV) [code = 65+ PNEUMOCOCCAL VACCINE (1 - PCV)] Future Scheduled 2022-10-03 INFLUENZA VACCINE Method [facility] Test 17:56:49 [code = INFLUENZA VACCINE] Future Scheduled 2022-10-03 COVID-19 VACCINE (#1) [facility] Test 17:56:49 [code = COVID-19 VACCINE (#1)] Future Scheduled 2022-10-03 SHINGLES VACCINES (1 Met [facility] Test 17:56:49 of 2) [code = SHINGLES VACCINES (1 of 2)] Future Scheduled 2022-06-19 HEPATITIS B VACCINES Met [facility] Test 22:24:08 (1 of 3 - 3-dose series) [code = HEPATITIS B VACCINES (1 of 3 - 3-dose series)] Future Scheduled 2022-06-19 COVID-19 VACCINE (#1) [facility] Test 22:24:08 [code = COVID-19 VACCINE (#1)] Future Scheduled 2022-06-19 SHINGLES VACCINES (1 Met [facility] Test 22:24:08 of 2) [code = SHINGLES VACCINES (1 of 2)] Future Scheduled 2022-06-19 65+ [facility]AL [facility] Test 22:24:08 VACCINE (1 - PCV) [code = 65+ PNEUMOCOCCAL VACCINE (1 - PCV)] Future Scheduled 2022-06-19 INFLUENZA VACCINE Method [facility] Test 22:24:08 [code = INFLUENZA VACCINE] Encounters Start End Encounter Admission Attending Care Care Encounter Source Date/Time Date/Time Type Type Clinicians Facility Department ID 2021-12-25 Outpatient Marquis, STLMLC STLMLC [id number] Common 10:28:00 [facility] 2021-11-12 Outpatient STLMLC STLMLC [id number] Common 13:56:53 [id number] [facility] 2021-11-12 Outpatient STLMLC STLMLC [id number] Common 13:19:58 [id number] [facility] 2021-11-12 Outpatient STLMLC STLMLC [id number] Common 13:19:13 [id number] [facility] 2021-11-12 Outpatient STLMLC STLMLC [id number] Common 13:08:42 [id number] [facility] 2021-11-12 Outpatient Millender, STLMLC STLMLC [id number] Common 11:26:08 Francoise [id number] [facility] 2021-11-12 Outpatient Millender, STLMLC STLMLC [id number] Common 11:11:18 Francoise [id number] [facility] 2021-11-12 Outpatient Millender, STLMLC STLMLC [id number] Common 10:59:56 Francoise [id number] [facility] 2022-05-29 2022-05-29 (TEL) STLMLC STLMLC [id number] Co mmon 00:00:00 00:00:00 [facility] 2021-07-24 2021-07-24 OFFICE STLMLC STLMLC [id number] Co mmon 00:00:00 00:00:00 VISIT [facility] 4 [facility] 2021-07-24 2021-07-24 (TEL) STLMLC STLMLC [id number] Co mmon 00:00:00 00:00:00 [facility] 2021-07-24 2021-07-24 SUB ANNUAL STLMLC STLMLC [id number] Common 00:00:00 00:00:00 MCR Spirit WELLNESS - CHI VISIT [facility] 2021-04-23 2021-04-23 Outpatient STLMLC STLC [id number] Common 00:00:00 00:00:00 Spirit - [facility] 2019-12-28 2019-12-28 [facility] [place] [id number] Common 16:15:00 16:15:[address] Family - [facility] Family [facility] 2019-09-29 2019-09-29 [facility] [id number] Common 11:41:00 11:41:[address] Family [facility] 2019-08-24 2019-08-24 [facility] [id number] Common 10:00:00 10:00:[address] [facility] 2019-07-24 2019-07-24 [facility] [id number] Common 11:40:00 11:40:[address] Family - [facility] 2019-07-13 2019-07-13 [facility] [id number] Common 16:20:00 16:20:[address] [facility] 2019-05-19 2019-05-19 [facility] [id number] Common 16:02:00 16:02:[address] Family - [facility] Family [facility] 2019-05-18 2019-05-18 [facility] [id number] Common 16:20:00 16:20:[address] Family - [facility] Family [facility] 2019-02-14 2019-02-14 [facility] [id number] Common 13:00:00 13:00:[address] Family - [facility] Family [facility] 2019-01-17 2019-01-17 [facility] [id number] Common 13:20:00 13:20:[address] Family - [facility] Family [facility] 2018-11-14 2018-11-14 Outpatient Alexi [facility]ong[facility] [id number] Common 11:30:00 11:30:00 t [facility] Road Sp[address] Road [facility] 2018-10-07 2018-10-07 Outpatient Alexi Truongt [id number] Common 15:00:00 15:00:00 t [facility] Road Sp[address] Road [facility] 2018-04-04 2018-04-04 Outpatient Alexi Truongt [id number] Common 11:45:00 11:45:00 t [facility] Road Sp[address] Road [facility] Results This patient has no known results.
[2023-05-06] MEDS ORDERED: LORazepam 2 MG/ML VIAL ONE (05:10)
[2023-05-06 05:17] LABS: Absolute Lymphocytes (CBC) 0.1 K/uL (0.7-4.9); Hematocrit 28.8 % (39.6-49.0); MCV 93.2 fL (80-100); RBC Red Blood Cell Count 3.09 M/uL (4.33-5.43)
[2023-05-06] MEDS ORDERED: NA CHLORIDE 0.9% 100 ML ONE ×2 (05:34→07:15)
[2023-05-06] MEDS ORDERED: NA CHLORIDE 0.9% 1,000 ML ONE (05:34)
[2023-05-06] MEDS ORDERED: CEFEPIME 1 GM/VIAL ONE (05:34)
[2023-05-06] MEDS ORDERED: ACETAMINOPHEN 650MG/RECT SUPP PR ONE (05:34)
[2023-05-06 05:37] LABS: Albumin 2.8 g/dL (3.4-5.0); Bilirubin Direct 0.1 mg/dL (0-0.2); Bilirubin Indirect, Calculated 0.2 mg/dL (0.2-0.8); Bilirubin Total 0.3 mg/dL (0.2-1.0); Magnesium 1.7 mg/dL (1.6-2.4); Protein, Total 5.8 g/dL (6.4-8.2)
[2023-05-06 05:42] LABS: Troponin High Sensitivity 78.2 pg/mL (<58.9)
[2023-05-06 05:43] LABS: Transitional Epithelial <5 /HPF (None Seen); Urine Bacteria <20 /HPF (<20); Urine Bilirubin NEGATIVE (Negative); Urine Blood 2+ (Negative); Urine Clarity Clear (Clear); Urine Color Colorless (Yellow); Urine Glucose NEGATIVE (Negative); Urine Mucus Slight /HPF (None Seen); Urine Protein TRACE (Negative); Urine Urobilinogen Normal (Normal)
--- NOTE | 2023-05-06 05:49 | ER ---
Nurse's Notes [facility] Name: Nicolle Lee Age: 87 yrs Sex: Male : 1935 Arrival Date: 05/06/2023 Time: 04:26 Bed 17 Private MD: Diagnosis: Fever, unspecified;Altered mental status, unspecified;Neutropenia, unspecified;Anemia, unspecified;Thrombocytopenia, unspecified;Pulmonary fibrosis, unspecified;Abnormal levels of other serum enzymes-elevated troponion;Edema, unspecified;Sepsis, unspecified organism;Pneumonia due to other specified bacteria-Right Lower Lobe Presentation: 05/06 04:48 Chief complaint: EMS states: Pt was found slumped over a stool covered in vomit. jb4 reports it started tonight. Coronavirus screen: At this time, the client does not indicate any symptoms associated with coronavirus-19. Ebola Screen: No symptoms or risks identified at this time. Initial Sepsis Screen: Does the patient meet any 2 criteria? RR > 20 per min. Altered Mental Status. HR > 90 bpm. Yes Does the patient have a suspected source of infection? Yes: Dysuria/Frequency/Urgency/UTI. Risk Assessment: Do you want to hurt yourself or someone else? Patient reports no desire to harm self or others. Onset of symptoms was May 06, 2023. Transition of care: patient was not received from another setting of care. 04:48 Method Of Arrival: EMS: [facility] jb4 04:48 Acuity: MARY 2 jb4 04:51 Care prior to arrival: Medication(s) given: Normal saline infusion, 1,600mL zofran 4 mg.jb4 Historical: - Allergies: 04:50 No Known Allergies; jb4 - Home Meds: 04:50 Furosemide Oral [Active]; amlodipine oral [Active]; jb4 - PMHx: 04:50 Hypertension; jb4 08:42 Congestive heart failure; kc6 - Immunization history:: Adult Immunizations up to date. - Social history:: Smoking status: unknown. - Family history:: not pertinent. Screenin:00 [facility] ED Fall Risk Assessment (Adult) History of falling in the last 3 months, kc6 including since admission Yes- single mechanical fall (1 pt) Confusion or Disorientation Yes (5 pts) Intoxicated or Sedated No (0 pts) Impaired Gait Yes (1 pt) Mobility Assist Device Used Yes (1 pt) Altered Elimination Yes (1 pt) Score/Fall Risk Level 3 or more points = High Risk. Abuse screen: Denies threats or abuse. Denies injuries from another. Nutritional screening: No deficits noted. Tuberculosis screening: No symptoms or risk factors identified. Assessment: 04:51 General: Appears distressed, uncomfortable, ill, Behavior is agitated, uncooperative. jb4 Pain: Unable to use pain scale. FLACC scale score is 6 out of 10. Neuro: Level of Consciousness is awake, confused, Oriented to none. Cardiovascular: Patient's skin is warm and dry. Respiratory: Airway is patent Respiratory effort is even, unlabored, Respiratory pattern is regular, symmetrical. GI: Abdomen is flat, non-distended, Reports nausea, vomiting. : Penile discharge is blood. EENT: No signs and/or symptoms were reported regarding the EENT system. Derm: Skin is intact, Skin is pink, warm \T\ dry. Musculoskeletal: Circulation, motion, and sensation intact. Range of motion: intact in all extremities. 05:45 Reassessment: No changes from previously documented assessment. Patient and/or family jb4 updated on plan of care and expected duration. Pain level reassessed. 06:42 Reassessment: Pt is resting in bed with eyes closed, respirations are even and jb4 unlabored with no s/s of pain or distress noted. remains at the bedside. 07:00 General: Appears in no apparent distress. comfortable, ill, Behavior is drowsy, kc6 inappropriate for age. Neuro: Level of Consciousness is confused, Oriented to none. Cardiovascular: Capillary refill < 3 seconds Rhythm is sinus tachycardia. Respiratory: Airway is patent Trachea midline Respiratory effort is even, unlabored, Respiratory pattern is regular, symmetrical. GI: Abdomen is flat, non-distended, Parent/caregiver reports the patient having nausea, vomiting. Derm: No signs and/or symptoms reported regarding the dermatologic system. Skin is intact, is healthy with good turgor, Skin is pink, warm \T\ dry. 07:00 Reassessment: pt has two 18G IV's placed to the RAC and RFA, along with a criticore kc6 temperature deleon to gravity drainage and clamped at this time. 08:06 Reassessment: Patient appears in no apparent distress at this time. No changes from kc6 previously documented assessment. Patient and/or family updated on plan of care and expected duration. Pain level reassessed. 08:54 Reassessment: please see [facility] for further charting. kc6 Vital Signs: 04:48 BP 142 / 55; Pulse 105; Resp 26; Temp 102.1(Ca); Pulse Ox 96% on R/A; Weight 56 kg (M); jb4 06:42 BP 107 / 47; Pulse 102; Resp 18; Temp 101.2(Ca); Pulse Ox 100% on 2 lpm NC; jb4 07:21 BP 110 / 50; Pulse 109; Resp 19 S; Temp 100.8(Ca); Pulse Ox 100% on 2 lpm NC; kc6 07:27 BP 121 / 66; Pulse 96; kc6 08:06 BP 116 / 58; Pulse 95; Resp 19 S; Temp 100.5(Ca); Pulse Ox 100% on 2 lpm NC; kc6 08:42 BP 115 / 49; Pulse 94; Resp 17 S; Temp 100.3(Ca); Pulse Ox 100% on 2 lpm NC; kc6 ED Course: 04:27 Patient arrived in ED. rv1 04:32 Horacio Giron MD is Attending Physician. beau 04:48 Ervin Singh RN is Primary Nurse. jb4 04:49 Triage completed. jb4 04:50 Arm band placed on right wrist. jb4 05:07 XRAY Chest (1 view) In Process Unspecified. EDMS 05:45 Albin Hutchins MD is Hospitalizing Provider. beau 06:03 Jose Gibbons MD is Hospitalizing Provider. beau 06:08 CT Traumagram (Head C Spine CAP wo con) In Process Unspecified. EDMS 07:00 Patient has correct armband on for positive identification. Placed in gown. Bed in low kc6 position. Call light in reach. Side rails up X2. Adult w/ patient. Report received from GURDEEP Corea. 10:11 No provider procedures requiring assistance completed. Patient admitted, IV remains in kc6 place. Administered Medications: 05:08 Drug: Ativan IVP 0.5 mg Route: IVP; Site: right antecubital; kd3 08:05 Follow up: Response: No adverse reaction; Anxiety decreased; RASS: Drowsy (-1) kc6 05:21 Not Given (Duplicate Order): NS 0.9% IV 500 ml IV at bolus once beau 05:25 Not Given (Given by EMS): NS 0.9% IV 500 ml IV at bolus once jb4 05:26 Not Given (Given by EMSs): NS 0.9% IV 1000 ml IV at 1 bolus Per protocol; 1000 mL bolus jb4 05:26 Not Given (Other Intervention Used): Acetaminophen PO 1000 mg PO once jb4 05:33 Drug: Ativan IVP 0.5 mg Route: IVP; Site: right antecubital; kd3 08:06 Follow up: Response: No adverse reaction; Anxiety decreased; RASS: Drowsy (-1) kc6 05:35 Drug: NS 0.9% IV 1000 ml Route: IV; Rate: 125 ml/hr; Site: right forearm; jb4 07:22 Follow up: Response: No adverse reaction; IV Status: Infusion continued upon admission kc6 05:35 Drug: Cefepime IVPB 1 grams Route: IVPB; Rate: 200 ml/hr; Infused Over: 30 mins; Site: jb4 right forearm; 07:22 Follow up: Response: No adverse reaction; IV Status: Completed infusion; IV Intake: kc6 100ml 05:35 Drug: Acetaminophen W[place] Suppository 650 mg Route: W[place]; jb4 07:22 Follow up: Response: No adverse reaction; Temperature is decreased kc6 07:13 Drug: Piperacillin-Tazobactam IVPB 3.375 grams Route: IVPB; Infused Over: 60 mins; kc6 Site: right forearm; 08:06 Follow up: Response: No adverse reaction; IV Status: Completed infusion; IV Intake: kc6 100ml Medication: 10:11 VIS not applicable for this client. kc6 Intake: 07:22 IV: 100ml; Total: 100ml. kc6 08:06 IV: 100ml; Total: 200ml. kc6 Outcome: 05:49 Decision to Hospitalize by Provider. beau 10:11 Admitted to Med/surg accompanied by marie, via stretcher, room 215, with chart, Report kc6 called to Alina Baig RN 10:11 Condition: stable 10:11 Instructed on the need for admit. 10:12 Patient left the ED. kc6 Signatures: Dispatcher [employer] EDHoracio León MD MD cha Bryson, James RN RN jb4 Elizabeth Carlos, RN RN kd3 Elizabeth Malik, RN RN kc6 Tamela Sotomayor rv1 Corrections: (The following items were deleted from the chart) 07:19 07:18 Inserted saline lock: 18 gauge in right antecubital area, using aseptic kc6 technique. kc6 08:12 07:00 Inserted saline lock: 18 gauge in right antecubital area, using aseptic kc6 technique. kc6 08:12 07:00 Inserted saline lock: 18 gauge in right forearm, using aseptic technique. kc6 kc6
--- NOTE | 2023-05-06 05:50 | EDPHYS ---
Physician Documentation [facility] Name: Nicolle Lee Age: 87 yrs Sex: Male : 1935 Arrival Date: 05/06/2023 Time: 04:26 Bed 17 Private MD: ED Physician Horacio Giron HPI: 05/06 04:43 This 87 yrs old Male presents to ER via Unassigned with complaints of ams, beau fever at home. 04:43 ems, ams fever. The patient presents with confusion, decreased mental status, trouble beau concentrating. Onset: The symptoms/episode began/occurred this morning, today. Possible causes: CVA or TIA, low blood sugar, seizure, sepsis. Associated signs and symptoms: Pertinent positives: chest pain, confusion, dizziness, gait abnormality, lightheadedness. Current symptoms: In the emergency department the patient's symptoms are unchanged from the initial presentation. The patient reports fever, that was measured at 103 degrees Fahrenheit. Modifying factors: there are no obvious modifying factors. Patient's baseline: Neuro: alert and fully oriented. Associated signs and symptoms: Pertinent positives: altered mental status,\E\ arthralgias, chills, cough, nausea, runny nose, sinus congestion, shortness of breath, vomiting. Severity of symptoms: At their worst the symptoms were mild moderate in the emergency department the symptoms are unchanged. The patient has experienced similar episodes in the past, several times. Historical: - Allergies: 04:50 No Known Allergies; jb4 - Home Meds: 04:50 Furosemide Oral [Active]; amlodipine oral [Active]; jb4 - PMHx: 04:50 Hypertension; jb4 08:42 Congestive heart failure; kc6 - Immunization history:: Adult Immunizations up to date. - Social history:: Smoking status: unknown. - Family history:: not pertinent. ROS: 04:43 Eyes: Negative for injury, pain, redness, and discharge, ENT: Negative for injury, beau pain, and discharge, Neck: Negative for injury, pain, and swelling, Abdomen/GI: Negative for abdominal pain, nausea, vomiting, diarrhea, and constipation, Back: Negative for injury and pain, : Negative for injury, bleeding, discharge, and swelling, MS/Extremity: Negative for injury and deformity, Psych: Negative for depression, anxiety, suicide ideation, homicidal ideation, and hallucinations, Allergy/Immunology: Negative for hives, rash, and allergies, Endocrine: Negative for neck swelling, polydipsia, polyuria, polyphagia, and marked weight changes. 04:43 Constitutional: Positive for body aches, chills, fever. 04:43 Respiratory: Positive for cough. 04:43 MS/extremity: Positive for swelling, of the right leg and left leg. 04:43 Skin: Positive for pallor. 04:43 Neuro: Positive for altered mental status, tremor, weakness. Exam: 04:43 Constitutional: This is a well developed, well nourished patient who is awake, alert, beau and in no acute distress. Head/Face: Normocephalic, atraumatic. Eyes: Pupils equal round and reactive to light, extra-ocular motions intact. Lids and lashes normal. Conjunctiva and sclera are non-icteric and not injected. Cornea within normal limits. Periorbital areas with no swelling, redness, or edema. ENT: Nares patent. No nasal discharge, no septal abnormalities noted. Tympanic membranes are normal and external auditory canals are clear. Oropharynx with no redness, swelling, or masses, exudates, or evidence of obstruction, uvula midline. Mucous membranes moist. Neck: Trachea midline, no thyromegaly or masses palpated, and no cervical lymphadenopathy. Supple, full range of motion without nuchal rigidity, or vertebral point tenderness. No Meningismus. Chest/axilla: Normal chest wall appearance and motion. Nontender with no deformity. No lesions are appreciated. Abdomen/GI: Soft, non-tender, with normal bowel sounds. No distension or tympany. No guarding or rebound. No evidence of tenderness throughout. Back: No spinal tenderness. No costovertebral tenderness. Full range of motion. Male : Normal genitalia with no discharge or lesions. Psych: Awake, alert, with orientation to person, place and time. Behavior, mood, and affect are within normal limits. 04:43 Cardiovascular: Rate: tachycardic, actual rate is 112 bpm, Rhythm: regular, Pulses: Pulses are 4+ in bilateral radial, brachial, femoral, popliteal, posterior tibial and and dorsalis pedis arteries.. Heart sounds: normal, Edema: 1+ edema to level of left midcalf and right midcalf, JVD: is not appreciated. 05:43 ECG was reviewed by the Attending Physician. beau 06:03 Neck: External neck: is normal, no acute changes, C-spine: appears grossly normal, no beau acute changes, Thyroid: appears normal, no acute changes, Trachea: is midline with no obvious abnormalities, no acute changes, ROM/movement: limited range of motion, is not appreciated, Meningeal signs: are not present, Kernig's sign is negative, Brudzinski's sign is negative, nuchal rigidity, is not appreciated, Lymph nodes: no appreciated lymphadenopathy. Vital Signs: 04:48 BP 142 / 55; Pulse 105; Resp 26; Temp 102.1(Ca); Pulse Ox 96% on R/A; Weight 56 kg (M); jb4 06:42 BP 107 / 47; Pulse 102; Resp 18; Temp 101.2(Ca); Pulse Ox 100% on 2 lpm NC; jb4 07:21 BP 110 / 50; Pulse 109; Resp 19 S; Temp 100.8(Ca); Pulse Ox 100% on 2 lpm NC; kc6 07:27 BP 121 / 66; Pulse 96; kc6 08:06 BP 116 / 58; Pulse 95; Resp 19 S; Temp 100.5(Ca); Pulse Ox 100% on 2 lpm NC; kc6 08:42 BP 115 / 49; Pulse 94; Resp 17 S; Temp 100.3(Ca); Pulse Ox 100% on 2 lpm NC; kc6 MDM: 04:32 Patient medically screened. beau 04:49 Differential diagnosis: viral Infection, bacterial infection, URI, bronchitis, beau pneumonia UTI, gastroenteritis. Differential Diagnosis altered mental status, sepsis, flu. Differential Diagnosis: CVA, electrolyte abnormality, hypoglycemia, intracranial bleed, pneumonia, seizure, sepsis, TIA, UTI, volume depletion. Data reviewed: vital signs, nurses notes, EMS record, lab test result(s), EKG, radiologic studies, plain films. Consideration of Admission/Observation Patient was admitted/placed on observation. Escalation of care including admission/observation considered. I considered the following discharge prescriptions or medication management in the emergency department Medications were administered in the Emergency Department. See MAR. Test considered but Not performed: MRI: no mri brain. Historians other than the Patient: EMS: ems well informed. Care significantly affected by the following chronic conditions: Hypertension. Counseling: I had a detailed discussion with the patient and/or guardian regarding: the historical points, exam findings, and any diagnostic results supporting the discharge/admit diagnosis, lab results, radiology results, the need for further work-up and treatment in the hospital. 05/06 04:40 Order name: Basic Metabolic Panel; Complete Time: 05:44 [facility] 05/06 04:40 Order name: CBC with Diff; Complete Time: 09:37 [facility] 05/06 04:40 Order name: LFT's; Complete Time: 05:44 [facility] 05/06 04:40 Order name: Magnesium; Complete Time: 05:44 [facility] 05/06 04:40 Order name: NT PRO-BNP; Complete Time: 05:44 [facility] 05/06 04:40 Order name: PT-INR; Complete Time: 09:37 [facility] 05/06 04:40 Order name: Troponin HS; Complete Time: 05:44 [facility] 05/06 04:40 Order name: Lipase; Complete Time: 05:44 [facility] 05/06 04:40 Order name: Blood Culture Adult (2) [facility] 05/06 04:40 Order name: Lactate w/ 2H reflex if indic.; Complete Time: 05:44 [facility] 05/06 04:40 Order name: Urinalysis w/ reflexes; Complete Time: 05:44 [facility] 05/06 04:40 Order name: COVID-19 SARS RT PCR; Complete Time: 09:37 [facility] 05/06 04:40 Order name: Flu; Complete Time: 05:31 [facility] 05/06 05:23 Order name: Manual Differential; Complete Time: 09:37 [facility] 05/06 09:38 Order name: Lactate Sepsis 2 HR Follow-up [facility] 05/06 04:40 Order name: XRAY Chest (1 view) [facility] 05/06 04:56 Order name: CT Traumagram (Head C Spine CAP wo con) [facility] 05/06 04:40 Order name: EKG; Complete Time: 04:41 [facility] 05/06 04:40 Order name: Cardiac monitoring; Complete Time: 05:45 [facility] 05/06 04:40 Order name: EKG - Nurse/Tech; Complete Time: 05:45 [facility] 05/06 04:40 Order name: IV Saline Lock; Complete Time: 05:20 [facility] 05/06 04:40 Order name: Labs collected and sent; Complete Time: 05:20 [facility] 05/06 04:40 Order name: O2 Per Protocol; Complete Time: beau 05/06 04:40 Order name: O2 Sat Monitoring; Complete Time: [facility] 05/06 04:40 Order name: Dickerson; Complete Time: : [facility] EC:43 Rate is 104 beats/min. Rhythm is regular. QRS [place] is Normal. AL interval is normal. [facility] QRS interval is prolonged at 132 msec. QT interval is normal. No Q waves. T waves are Normal. No ST changes noted. Clinical impression: NSR w/ Non-specific ST/T Changes and No evidence of ischemia. Interpreted by me. Reviewed by me. Administered Medications: 05:08 Drug: Ativan IVP 0.5 mg Route: IVP; Site: right antecubital; kd3 08:05 Follow up: Response: No adverse reaction; Anxiety decreased; RASS: Drowsy (-1) kc6 05:21 Not Given (Duplicate Order): NS 0.9% IV 500 ml IV at bolus once [facility] 05:25 Not Given (Given by EMS): NS 0.9% IV 500 ml IV at bolus once jb4 05:26 Not Given (Given by EMSs): NS 0.9% IV 1000 ml IV at 1 bolus Per protocol; 1000 mL bolus jb4 05:26 Not Given (Other Intervention Used): Acetaminophen PO 1000 mg PO once jb4 05:33 Drug: Ativan IVP 0.5 mg Route: IVP; Site: right antecubital; kd3 08:06 Follow up: Response: No adverse reaction; Anxiety decreased; RASS: Drowsy (-1) kc6 05:35 Drug: NS 0.9% IV 1000 ml Route: IV; Rate: 125 ml/hr; Site: right forearm; jb4 07:22 Follow up: Response: No adverse reaction; IV Status: Infusion continued upon admission kc6 05:35 Drug: Cefepime IVPB 1 grams Route: IVPB; Rate: 200 ml/hr; Infused Over: 30 mins; Site: jb4 right forearm; 07:22 Follow up: Response: No adverse reaction; IV Status: Completed infusion; IV Intake: kc6 100ml 05:35 Drug: Acetaminophen AL Suppository 650 mg Route: AL; jb4 07:22 Follow up: Response: No adverse reaction; Temperature is decreased kc6 07:13 Drug: Piperacillin-Tazobactam IVPB 3.375 grams Route: IVPB; Infused Over: 60 mins; kc6 Site: right forearm; 08:06 Follow up: Response: No adverse reaction; IV Status: Completed infusion; IV Intake: kc6 100ml Disposition Summary: 05/06/23 05:49 Hospitalization Ordered Hospitalization Status: Inpatient Admission beau Location: Telemetry/[facility] (Inpatient) beau Condition: Fair beau Problem: new beau Symptoms: have improved beau Bed/Room Type: Standard beau Provider: Jose Gibbons(05/06/23 06:03) beau Room Assignment: 215(05/06/23 09:11) kj1 Diagnosis - Fever, unspecified beau - Altered mental status, unspecified beau - Neutropenia, unspecified beau - Anemia, unspecified beau - Thrombocytopenia, unspecified beau - Pulmonary fibrosis, unspecified beau - Abnormal levels of other serum enzymes - elevated troponion beau - Edema, unspecified beau - Sepsis, unspecified organism beau - Pneumonia due to other specified bacteria - Right Lower Lobe beau Forms: - Medication Reconciliation Form beau - SBAR form beau Signatures: Dispatcher [employer] EDMS Horacio Giron MD MD cha Attema, Lee, VIDEO NETWORK ENGINEER-C VIDEO NETWORK ENGINEER-Cla1 Ervin Singh RN RN [email or web address] Dorota Lorenzo1 Elizabeth Carlos RN RN shyam3 Stephany Lu MD MD sd2 Elizabeth Malik RN RN kc6 Corrections: (The following items were deleted from the chart) 06:03 05:49 Albin Hutchins cha [facility] 09:11 05:49 beau kj1
[2023-05-06 05:57] LABS: Protime INR 1.12
[2023-05-06 06:00] LABS: Platelet Estimate DECR
[2023-05-06] MEDS: ENOXAPARIN 60 MG/0.6 ML SQ SCH ×2 (06:00→18:00)
[2023-05-06 06:01] LABS: Blood Morphology Comment NOT SEEN (NOT SEEN)
[2023-05-06] MEDS ORDERED: PIPERACIL/TAZO 3.375 GM VIAL IV ONE (07:15)
--- NOTE | 2023-05-06 08:21 | P.HP ---
Certification for Inpatient Patient admitted to: Inpatient With expected LOS: <2 Midnights Patient will require the following post-hospital care: None Practitioner: I am a practitioner with admitting privileges, knowledge of patient current condition, hospital course, and medical plan of care. Services: Services provided to patient in accordance with Admission requirements found in Title 42 Section 412.3 of the Code of Federal Regulations Patient History Date of Service: 05/06/23 Reason for admission: Fever History of Present Illness: 87 year old male male with past medical history of Dementia, Mild Arthritis, Moderate to severe aortic stenosis, HTN presents to the ER via EMS for fever and confusion. is a bedside reports he has been more confused the last 2 days. Reports fever 103.00 at home. reports fall after tripping over recliner this morning. She is unsure if he hit his head. No reported pain, or edema, hematoma verbalized or noted. Patient is AOx1, resting with eyes closed. is at bedside is primary historian. Reports patient ambulates with cane at baseline, has history of occasional falls, reports history of confusion with Dementia, forgetful at baseline. She reports he has a dry non productive cough for the past few days. She is POA request her be Full Code. patient has Right leg swelling, fever, dry cough, confusion. No reported chest pain, shortness of breath, no reported dizziness, or syncope. ED course pt received 2000 cc NS bolus, Tylenol, Zosyn, Ativan, Cefepime in ED Chest x-ray generalized coarsening of the interstitial lung markings, prominent cardiac silhouette, history of remote cardiac aortic valve replacement, Lab evaluation Lacitic 1.2, WBC Neutropenia 2.20, with left shift, HH 9.6, 28.0, plts 146, UYEN Bun 30, Cr, normal 1.01, hypocalcemia 7.3, elevated Trop 78.2, BNP 1495, low albumin 2.8, UA +2 blood EKG, on arrival to ED tachycardia, 112 bpm with noted fever. Allergies No Known Allergies Allergy (Verified 03/08/13 16:53) Home Medications: levoFLOXacin [Levaquin] 750 mg PO DAILY 10 Days #10 tab 11/03/22 - Past Medical/Surgical History Diabetic: No -: Mild Arthritis -: Moderate to severe aortic stenosis -: HTN -: Dementia -: HX Falls -: Tonsilectomy - Social History Smoking Status: Never smoker Alcohol use: No CD- Drugs: No Caffeine use: No Review of Systems 10-point ROS is otherwise unremarkable Physical Examination - Physical Exam General: In no apparent distress, Oriented x1, Confused HEENT: Atraumatic, PERRLA, Mucous membr. moist/pink, EOMI, Sclerae nonicteric Neck: Supple, 2+ carotid pulse no bruit, No LAD, Without JVD or thyroid abnormality Respiratory: Normal air movement, Diminished Cardiovascular: Regular rate/rhythm, Normal S1 S2, Edema (RLE +1) Capillary refill: <2 Seconds Gastrointestinal: Normal bowel sounds, Soft and benign, No tenderness Musculoskeletal: No tenderness Integumentary: No rashes, No breakdown Neurological: Normal strength at 5/5 x4 extr, Normal tone, Other (resting with eyes closed, eyes open to verbal), Dementia Lymphatics: No axilla or inguinal lymphadenopathy - Studies Laboratory Data (last 24 hrs) 05/06/23 05:04: PT 12.3, INR 1.12 05/06/23 05:04: WBC 2.20 L, Hgb 9.6 L, Hct 28.8 L, Plt Count 146 L 05/06/23 05:04: Sodium 142, Potassium 4.0, BUN 30 H, Creatinine 1.01, Glucose 91, Magnesium 1.7, Total Bilirubin 0.3, AST 21, ALT 14 L, Alkaline Phosphatase 75, Lipase 38 Microbiology Data (last 24 hrs): 05/06/23 04:50 Nasopharnyx Influenza Type A Antigen Screen - Final 05/06/23 04:50 Nasopharnyx Influenza Type B Antigen Screen - Final Assessment and Plan - Plan Assessment/Plan Sepsis without organ dysfunction Metabolic Encephalopathy Elevated trop, like d/t Acute on chronic HF (Card consulted, ECHO ordered 05/06) Neutropenia acute kidney injury Falls Anemia Thrombocytopenia Pulmonary fibrosis Edema, unspecified Assessment/Plan Sepsis without organ dysfunction, Fever Sepsis bolus given in ED 2L, IVNS at 75, IV Cefepime 2000 cc NS bolus, Tylenol, Zosyn, Ativan, Cefepime in ED Lab evaluation Lacitic 1.2, WBC Neutropenia 2.20, with left shift, Cultures, Trend lactic 1.2, 2.2, 2.6, Metabolic Encephalopathy Speech consulted for Swallow eval Elevated trop, like d/t Acute on chronic HF Card consulted, trend BNP, trop, tele, Echo ordered, Lasix ordered BID Chest x-ray generalized coarsening of the interstitial lung markings, prominent cardiac silhouette, history of remote cardiac aortic valve replacement, BNP 1495 Neutropenia trend wbc, lactic WBC Neutropenia 2.20, with left shift, acute kidney injury UYEN Bun 30, Cr, normal 1.01, IVF Falls PT eval Anemia trend HH, Transfuse less low albumin 2.8, UA +2 blood Thrombocytopenia trend Plts, on lovenox low albumin 2.8, UA +2 blood plts 146, Pulmonary fibrosis 02 2l, keep sats >92% Chest x-ray generalized coarsening of the interstitial lung markings, prominent cardiac silhouette, history of remote cardiac aortic valve replacement, Edema, unspecified Lasix bid, card diet when more alert daily wt, IO Diet NPO until more alert Full Code DVT Lovenox r. Discharge Plan: Home Plan to discharge in: 48 Hours - Advance Directives Does patient have a Living Will: No Does patient have a Durable POA for Healthcare: No - Code Status/Comfort Care Code Status: Full Code Physician Review: Patient Assessed, Agree with Above Assessment and Plan Critical Care: No Time Spent Managing Pts Care (In Minutes): 55
[2023-05-06] MEDS ORDERED: ALBUTEROL 2.5 MG/3 ML NEB SOL NEB PRN (08:37)
[2023-05-06 08:50] VITALS: BMI 19.3
[2023-05-06] MEDS: NA CHLORIDE 0.9% 1,000 ML IV SCH ×3 (08:51→22:20)
--- NOTE | 2023-05-06 10:19 | RAD REPORT ---
EXAM DESCRIPTION: RAD - Chest Single View - 05/06/2023 5:05 am CLINICAL HISTORY: 87 years Male, COUGH COMPARISON: 03/19/2021 TECHNIQUE: Single portable x-ray view of the chest performed on 05/06/2023 at 4:56 AM FINDINGS: The lungs are well expanded. There is very mild generalized coarsening of the interstitial lung markings. No focal airspace process is identified. There is no evidence of a pneumothorax. The cardiac silhouette is mildly prominent and is likely accentuated by the portable technique. There has been prior aortic valve replacement. There are atherosclerotic calcifications along the thoracic aorta. The mediastinal contours are normal. No acute osseous abnormality is identified. No acute soft tissue abnormalities are seen. Lines and tubes: None. Free air: None IMPRESSION: 1. No definite acute intrathoracic disease. There is very mild generalized coarsening of the interstitial lung markings. 2. Remote aortic valve replacement. Electronically signed by: Bren Fung DO 05/06/2023 5:37 AM CDT Due to temporary technical issues with the PACS/Fluency reporting system, reports are being signed by the in house radiologist without review as a courtesy to ensure prompt reporting. The interpreting r adiologist is fully responsible for the content of the report.
--- NOTE | 2023-05-06 10:25 | RAD REPORT ---
EXAM DESCRIPTION: CT - Head C Spine Cap Wo Con - 05/06/2023 6:50 am ADDENDUM #1 CLINICAL HISTORY: Fever, Vomiting, Mental status change COMPARISON: None. TECHNIQUE: CT HEAD CERVICAL SPINE CHEST ABDOMEN PELVIS WITHOUT IV CONTRAST on 05/06/2023 4:56 AM CDT This exam was performed according to our departmental dose-optimization program, which includes autom ated exposure control, adjustment of the mA and/or kV according to patient size and/or use of iterati ve reconstruction technique. FINDINGS: Chest: The heart is borderline in size. Aortic valve replacement was performed. There is n o pericardial effusion. Intrathoracic lymph nodes are not enlarged. There is no pleural effusion, pleural thickening or pneumothorax. Central airways are patent. There a re patchy groundglass opacities in the superior segment of the right lower lobe as well as in the pos terior basilar segments of the right lower lobe. Abdomen: The liver is normal in appearance. There is no biliary dilatation. Gallbladder is normal in appearance. The pancreas and spleen are normal in appearance. Adrenal glands are normal. Kidneys are mildly atrophic. Right renal cyst requires no further follow-up. Abdominal aorta is densely calcified without aneurysm. There is no free air. There is no retroperiton eal adenopathy. Pelvis: There is large amount of stool within the distal colon especially. There is moderate divertic ulosis of the distal colon. Urinary bladder is decompressed with a Dickerson catheter within. There is no free fluid. Right inguinal hernia contains portion of the adjacent small bowel without obstruction. Appendix is normal. Skeleton: There is mild old upper endplate compression deformity of T12. IMPRESSION: Probable right lower lobe pneumonia. Constipation. Electronically signed by: Ashok Hunt MD 05/06/2023 6:43 AM CDT End of Addendum CLINICAL HISTORY: Fever, Vomiting, Mental status change COMPARISON: None. TECHNIQUE: CT HEAD CERVICAL SPINE CHEST ABDOMEN PELVIS WITHOUT IV CONTRAST on 05/06/2023 4:56 AM CDT This exam was performed according to our departmental dose-optimization program, which includes autom ated exposure control, adjustment of the mA and/or kV according to patient size and/or use of iterati ve reconstruction technique. FINDINGS: Brain: There is no acute hemorrhage, mass effect or midline shift. Epperson-white differentiat ion is preserved. There is no hydrocephalus. There is no significant volume loss for age. The calvarium is intact. Orbits and globes are unremarkable. The paranasal sinuses are clear. Mastoid air cells are clear. Cervical Spine: There is no acute fracture. There is grade 1 anterolisthesis of C4 on C5. There is mo derate diffuse bilateral facet arthritis. There is mild narrowing of C3-4 with moderate narrowing at C4-5. There is severe narrowing at C5-6, C 6-7 and C7-T1. Vertebral body heights are preserved. Soft tissues are unremarkable. IMPRESSION: No acute postraumatic findings. Electronically signed by: Ashok Hunt MD 05/06/2023 6:26 AM CDT Due to temporary technical issues with the PACS/Fluency reporting system, reports are being signed by the in house radiologist without review as a courtesy to ensure prompt reporting. The interpreting r adiologist is fully responsible for the content of the report.
[2023-05-06] MEDS: CEFEPIME 2 GM in NA CHLORIDE 0.9% 100 ML IV SCH ×2 (12:29→20:04)
[2023-05-06] MEDS ORDERED: PIPER TAZO 3.375 GM in NA CHLORIDE 0.9% 100 ML IV SCH (17:00)
[2023-05-06] MEDS ORDERED: FUROSEMIDE 40 MG/4 ML VIAL IV SCH (17:00)
[2023-05-06] MEDS ORDERED: ENOXAPARIN 40 MG/0.4 ML SQ SCH (17:00)
--- NOTE | 2023-05-06 17:00 | CON ---
Date of Consultation: 05/06/2023 Reason For Consultation: Elevated troponin. History Of Present Illness: An 87-year-old male, history of dementia, aortic valve stenosis, hyperte nsion, who presented to the emergency room with fever and confusion. Cardiac enzymes were done and w ere slightly elevated, hence I was consulted. I saw the patient by bedside, very poor historian, cou ld not get any history from him. He is not cooperative to answering questions. Past Medical History: As outlined above in the HPI. Medications: Refer to reconciliation sheet for detailed list. Allergies: NO KNOWN DRUG ALLERGIES. Family History: No premature coronary artery disease or cancer. Social History: He does not smoke or drink. Does not use any drugs. Review of Systems: All systems reviewed and they were negative except what mentioned in HPI. Physical Examination: Vital Signs: Reviewed. Head and Neck: Pupils are equal, reactive to light. Intact eye movements. No JVD. No cervical lym phadenopathy. Neck is supple. Thyroid is not enlarged. Lungs: Clear to auscultation bilaterally. No rhonchi, wheezing, or crackles. No accessory muscle u se. Heart: Regular rate and rhythm with aortic systolic murmur. Abdomen: Soft, nontender. Bowel sounds positive. No organomegaly. No masses or hernia. No rigidi ty or rebound. Extremities: No clubbing or cyanosis. Intact pulses. Skin: No rash. Neurologic: He is very lethargic, unable to answer my questions. Lymph Nodes: No cervical or axillary lymphadenopathy. Investigations: His BUN is 30, creatinine 1.1. Troponin 78. NT-proBNP is . Assessment And Recommendations: 1.Aortic valve stenosis. Obtain echo to assess the severity and plan accordingly. 2.Elevated troponin. This is likely demand ischemia. Trend troponin to 1 more set at least to assu re stability and if the troponin jumps significantly higher, then further recommendations will follow . SR/MODL Voice ID: [id number] Report ID: [id number]
[2023-05-06] MEDS ORDERED: ENOXAPARIN 30 MG/0.3 ML SQ ONE (18:45)
[2023-05-06] MEDS: ACETAMINOPHEN 650MG/RECT SUPP PR PRN (20:23)
[2023-05-07 03:59] LABS: Absolute Lymphocytes (CBC) 0.4 K/uL (0.7-4.9); Hematocrit 27.1 % (39.6-49.0); Lymphocytes % 3.9 % (15.3-44.8); MCV 93.7 fL (80-100); MPV 8.9 fL (7.6-11.3); RBC Red Blood Cell Count 2.89 M/uL (4.33-5.43)
[2023-05-07 04:11] LABS: Magnesium 1.9 mg/dL (1.6-2.4); Potassium 4.2 mEq/L (3.5-5.1); Troponin High Sensitivity 1893.8 pg/mL (<58.9)
[2023-05-07] MEDS: ENOXAPARIN 60 MG/0.6 ML SQ SCH ×2 (05:36→17:18)
[2023-05-07] MEDS: NA CHLORIDE 0.9% 1,000 ML IV SCH ×3 (05:36→13:36)
[2023-05-07] MEDS: ASPIRIN 81 MG CHEWABLE TABLET PO SCH (08:08)
[2023-05-07] MEDS: CEFEPIME 2 GM in NA CHLORIDE 0.9% 100 ML IV SCH ×2 (08:08→19:53)
[2023-05-07] MEDS: ACETAMINOPHEN 650MG/RECT SUPP PR PRN ×2 (10:31→20:00)
--- NOTE | 2023-05-07 14:33 | ECHO ---
HEIGHT: 5 ft 7 in WEIGHT: 123 lb 0 oz DATE OF STUDY: 05/07/[address]: Adelia Louis FINISH OFF OPERATORCamelia 2-DIMENSIONAL: YES M.MODE: YES DOPPLER: YES COLOR FLOW: YES TDS: NO PORTABLE: YES DEFINITY: NO BUBBLE STUDY: NO DIAGNOSIS: ELEVATED TROPONIN, EVALUATE HEART FAILURE CARDIAC HISTORY: CATHERIZATION:YES SURGERY: NO PROSTHETIC VALVE: NO PACEMAKER: NO MEASUREMENTS (cm) DIASTOLIC (NORMALS) SYSTOLIC (NORMALS) IVSd 1.1 (0.6-1.2) LA Diam 2.9 (1.9-4.0) LVEF 58% LVIDd 4.8 (3.5-5.7) LVIDs 3.3 (2.0-3.5) %FS 31% LVPWd 1.2 (0.6-1.2) Ao Diam 2.5 (2.0-3.7) 2 DIMENSIONAL ASSESSMENT: RIGHT ATRIUM: NORMAL LEFT ATRIUM: NORMAL RIGHT VENTRICLE: NORMAL LEFT VENTRICLE: NORMAL TRICUSPID VALVE: MILD TR MITRAL VALVE: MODERATE MR PULMONIC VALVE: MILD PI AORTIC VALVE: MILD AI PERICARDIAL EFFUSION: NONE AORTIC ROOT: NORMAL LEFT VENTRICULAR WALL MOTION: NORMAL DOPPLER/COLOR FLOW: SEE BELOW. COMMENTS: 1. NORMAL LEFT VENTRICULAR EJECTION FRACTION 55-60% WITH NORMAL WALL MOTION. 2. MODERATE MITRAL REGURGITATION. 3. MILD AORTIC, PULMONARY AND TRICUSPID REGURGITATION. TECHNOLOGIST: Tomás WINKLER
--- NOTE | 2023-05-07 19:48 | PN ---
Date of Progress Note: 05/07/2023 Subjective: Seen at bedside. He is more awake and alert today, but still confused. Review of Systems: No chest pain, shortness of breath, orthopnea, cough, nausea, vomiting, or diarrhea. All other syste ms reviewed are negative. Physical Examination: Vital Signs: Reviewed. Head and Neck: Pupils are equal and reactive to light. Intact eye movements. No JVD. No cervical lymphadenopathy. Neck is supple. Thyroid is not enlarged. Lungs: Clear to auscultation bilaterally. No rhonchi, wheezing, or crackles. No accessory muscle u se. Heart: Irregularly irregular. No extra sounds. Abdomen: Soft, nontender. Bowel sounds positive. No organomegaly. He has an NG tube. Extremities: No clubbing or cyanosis. Intact pulses. Skin: No rash. No lesions. Neurologic: Alert, awake with confusion. No acute focal deficits appreciated. Lymph Nodes: No cervical or axillary lymphadenopathy. Investigations: BUN 29, creatinine 1.03. Troponin peaked at 1986 and trending down. Hemoglobin is 9.1. Echo is with normal ejection fraction. Assessment/recommendation: 1.Elevated troponin. The patient is a very poor historian and has advanced dementia. At this point , I will recommend a Lexiscan nuclear stress test to evaluate for possibility of coronary artery dise ase. Recommend to continue baby aspirin, and I believe this is likely demand ischemia, however, collin nary artery disease needs to be ruled out. Lexiscan nuclear stress test is recommended and continue aspirin and recommend to start a low-dose beta-karthikeyan, metoprolol 25 mg twice a day. 2.Aortic valve disorder. By echo, he has mild aortic regurgitation and moderate mitral regurgitatio n. At this point due to the poor quality of life, I will avoid aggressive workup, but I recommend Le xiscan nuclear stress test to rule out having significant ischemia. SR/MODL Voice ID: [id number] Report ID: [id number]
--- NOTE | 2023-05-07 19:49 | P.PN ---
Subjective Date of Service: 05/07/23 Chief Complaint: Fever Per RN, no acute events overnight. He is unable to provide any history. He appears comfortable this morning. Review of Systems is unable to be obtained Physical Examination - Vital Signs Temperature: 98.0 F Blood Pressure: 146/72 Pulse: 82 Respirations: 16 Pulse Ox (%): 98 - Physical Exam General: Alert, Oriented x1 HEENT: Atraumatic, Sclerae nonicteric Neck: JVD not distended Respiratory: Diminished, Rhonchi/gurgles Cardiovascular: No edema, Regular rate/rhythm, Systolic murmur Gastrointestinal: Normal bowel sounds, Soft and benign, Non-distended, No tenderness, No rebound, No guarding Musculoskeletal: No clubbing Integumentary: No rashes Neurological: Dementia Assessment And Plan - Plan # Severe Sepsis likely secondary to Right Lower Lobe Pneumonia # Acute Toxic Metabolic Encephalopathy on Advanced Dementia # Pulmonary Fibrosis He met SIRS criteria based on temperature > 100.9 F, HR > 90 bpm, RR > 20 breaths/min, WBC < 4,000, and the suspected source is pulmonary. Severe sepsis is suspected due to concern for tissue hypoperfusion/organ dysfunction based on lactic acid > 2 mmol/L. - Sepsis order set was initiated - Lactate trend: 2.2 -> 2.6 -> 2.3 -> 2.3 -> 1.8 -> 1.4 - Blood cultures drawn - Broad spectrum antibiotics started: Cefepime - In regards to fluids: - 30 mL/kg of IV fluids was not administered given SBP > 90, MAP > 65, lactic acid < 4 - CT chest/abdomen/pelvis = "probable right lower lobe pneumonia. Constipation." - CT head/cervical spine = "no acute postraumatic findings." # Non-ST Segment Elevation Myocardial Infarction # Moderate-Severe Aortic Stenosis # Hypertension - Evaluation thus far: - EKG requested - Serial troponin: 78.2 -> 1985.1 -> 1984.6 -> 1893.8 - Transthoracic echocardiogram = "1. normal left ventricular ejection fraction 55-60% with normal wall motion. 2. moderate mitral regurgitation. 3. mild aortic, pulmonary and tricuspid regurgitation." - Chest x-ray = "1. No definite acute intrathoracic disease. There is very mild generalized coarsening of the interstitial lung markings. 2. Remote aortic valve replacement." - Management plan: - Consult Cardiology - recommendations appreciated - Plan for nuclear stress test on 05/10/2023 - Continue aspirin + enoxaparin - Start metoprolol - Consider starting CHILANGO-inhibitor/ARB, statin as tolerated # History of Falls - Consult PT Jose Gibbons M.D.
[2023-05-08 05:19] LABS: Absolute Lymphocytes (CBC) 0.6 K/uL (0.7-4.9); Lymphocytes % 11.6 % (15.3-44.8); MCV 93.4 fL (80-100); MPV 8.9 fL (7.6-11.3); RBC Red Blood Cell Count 2.89 M/uL (4.33-5.43)
[2023-05-08 05:44] LABS: Magnesium 1.9 mg/dL (1.6-2.4); Troponin High Sensitivity 1102.7 pg/mL (<58.9)
[2023-05-08] MEDS: ENOXAPARIN 60 MG/0.6 ML SQ SCH ×2 (05:46→17:24)
[2023-05-08] MEDS: CEFEPIME 2 GM in NA CHLORIDE 0.9% 100 ML IV SCH ×2 (08:52→20:04)
[2023-05-08] MEDS: ASPIRIN 81 MG CHEWABLE TABLET PO SCH (09:00)
[2023-05-08] MEDS ORDERED: VANCOMYCIN 1.25 GM in NA CHLORIDE 0.9% 250 ML IV SCH (13:00)
[2023-05-08] MEDS ORDERED: NA CHLORIDE 0.9% IV SCH (13:00)
[2023-05-08] MEDS ORDERED: VANCOMYCIN IV SCH (13:00)
--- NOTE | 2023-05-08 13:09 | P.PN ---
Subjective Date of Service: 05/08/23 Chief Complaint: Fever Per RN, no acute events overnight. 10/21 blood culture have returned positive for gram-positive rods. He is unable to provide any history due to advanced dementia. He appears comfortable this morning. Review of Systems is unable to be obtained Physical Examination - Vital Signs Temperature: 98.2 F Blood Pressure: 157/81 Pulse: 77 Respirations: 16 Pulse Ox (%): 96 Assessment And Plan - Plan - Physical Exam General: Alert, Oriented x1 HEENT: Atraumatic, Sclerae nonicteric Neck: JVD not distended Respiratory: Diminished, Rhonchi/gurgles Cardiovascular: No edema, Regular rate/rhythm, Systolic murmur Gastrointestinal: Soft, Non-distended, No tenderness Musculoskeletal: No clubbing Integumentary: No rashes Neurological: Dementia # Severe Sepsis likely secondary to Right Lower Lobe Pneumonia with possible Gram-Positive Bacteremia # Acute Toxic Metabolic Encephalopathy on Advanced Dementia # Pulmonary Fibrosis He met SIRS criteria based on temperature > 100.9 F, HR > 90 bpm, RR > 20 breaths/min, WBC < 4,000, and the suspected source is pulmonary. Severe sepsis is suspected due to concern for tissue hypoperfusion/organ dysfunction based on lactic acid > 2 mmol/L. - Sepsis order set was initiated - Lactate trend: 2.2 -> 2.6 -> 2.3 -> 2.3 -> 1.8 -> 1.4 - Blood cultures drawn - 10/21 positive for gram-positive rods. Repeat blood cultures requested. - Broad spectrum antibiotics started: Cefepime - added vancomycin - In regards to fluids: - 30 mL/kg of IV fluids was not administered given SBP > 90, MAP > 65, lactic acid < 4 - CT chest/abdomen/pelvis = "probable right lower lobe pneumonia. Constipation." - CT head/cervical spine = "no acute postraumatic findings." # Suspect Demand Ischemia (Type II Non-ST Segment Elevation Myocardial Inf arction) due to above # Moderate-Severe Aortic Stenosis # Hypertension - Evaluation thus far: - EKG requested - Serial troponin: 78.2 -> 1985.1 -> 1985.6 -> 1893.8 -> 1102.7 - Transthoracic echocardiogram = "1. normal left ventricular ejection fraction 55-60% with normal wall motion. 2. moderate mitral regurgitation. 3. mild aortic, pulmonary and tricuspid regurgitation." - Chest x-ray = "1. No definite acute intrathoracic disease. There is very mild generalized coarsening of the interstitial lung markings. 2. Remote aortic valve replacement." - Management plan: - Consult Cardiology - recommendations appreciated - Plan for nuclear stress test on 05/10/2023 - Continue aspirin + enoxaparin - Start metoprolol - Consider starting CHILANGO-inhibitor/ARB, statin as tolerated # History of Falls - Consult PT Jose Gibbons M.D.
[2023-05-09] MEDS: ENOXAPARIN 60 MG/0.6 ML SQ SCH ×2 (05:37→17:11)
[2023-05-09 06:36] LABS: Absolute Lymphocytes (CBC) 0.8 K/uL (0.7-4.9); Hematocrit 28.5 % (39.6-49.0); MCV 91.8 fL (80-100); MPV 9.3 fL (7.6-11.3); RBC Red Blood Cell Count 3.11 M/uL (4.33-5.43)
[2023-05-09 07:36] LABS: Magnesium 1.8 mg/dL (1.6-2.4); Potassium 3.6 mEq/L (3.5-5.1)
[2023-05-09 07:37] LABS: Troponin High Sensitivity 569.7 pg/mL (<58.9)
[2023-05-09] MEDS: ASPIRIN 81 MG CHEWABLE TABLET PO SCH (09:00)
[2023-05-09] MEDS: CEFEPIME 2 GM in NA CHLORIDE 0.9% 100 ML IV SCH ×2 (09:05→21:42)
[2023-05-09] MEDS: VANCOMYCIN 1 GM in NA CHLORIDE 0.9% 250 ML IVPB SCH (12:36)
--- NOTE | 2023-05-09 17:14 | P.PN ---
Subjective Date of Service: 05/09/23 Chief Complaint: Fever Per RN, no acute events overnight. His daughter and granddaughter were present on rounds this morning alongside bedside RN, Stella. Although dementia is charted in H&P by GAMALIEL Louis, the family states that he does not have a confirmed diagnosis of dementia. Given this new information, please disregard this diagnosis on prior notes. Clinically, he appears to have signs of dementia, but would prefer to have formal neurologic evaluation prior to official diagnosis. He does not report any specific concerns this morning. Review of Systems is unable to be obtained Physical Examination - Vital Signs Temperature: 98.0 F Blood Pressure: 155/73 Pulse: 71 Respirations: 16 Pulse Ox (%): 97 Assessment And Plan - Plan - Physical Exam General: Alert, Oriented x1 HEENT: Atraumatic, Sclerae nonicteric Neck: JVD not distended Respiratory: Diminished, Rhonchi/gurgles Cardiovascular: No edema, Regular rate/rhythm, Systolic murmur Gastrointestinal: Soft, Non-distended, No tenderness Musculoskeletal: No clubbing Integumentary: No rashes Neurological: Unable to cooperate # Severe Sepsis likely secondary to Right Lower Lobe Pneumonia with possible Gram-Positive Bacteremia # Acute Toxic Metabolic Encephalopathy likely due to above # Pulmonary Fibrosis He met SIRS criteria based on temperature > 100.9 F, HR > 90 bpm, RR > 20 breaths/min, WBC < 4,000, and the suspected source is pulmonary. Severe sepsis is suspected due to concern for tissue hypoperfusion/organ dysfunction based on lactic acid > 2 mmol/L. - Sepsis order set was initiated - Lactate trend: 2.2 -> 2.6 -> 2.3 -> 2.3 -> 1.8 -> 1.4 - Blood cultures drawn - 10/21 positive for gram-positive rods. Repeat blood cultures requested. - Broad spectrum antibiotics started: Cefepime - added vancomycin - In regards to fluids: - 30 mL/kg of IV fluids was not administered given SBP > 90, MAP > 65, lactic acid < 4 - CT chest/abdomen/pelvis = "probable right lower lobe pneumonia. Constipation." - CT head/cervical spine = "no acute postraumatic findings." # Suspect Demand Ischemia (Type II Non-ST Segment Elevation Myocardial Infarction) due to above # Moderate-Severe Aortic Stenosis # Hypertension - Evaluation thus far: - EKG - Serial troponin: 78.2 -> 1985.1 -> 1985.6 -> 1893.8 -> 1102.7 - Transthoracic echocardiogram = "1. normal left ventricular ejection fraction 55-60% with normal wall motion. 2. moderate mitral regurgitation. 3. mild aortic, pulmonary and tricuspid regurgitation." - Chest x-ray = "1. No definite acute intrathoracic disease. There is very mild generalized coarsening of the interstitial lung markings. 2. Remote aortic valve replacement." - Management plan: - Consult Cardiology - recommendations appreciated - Plan for nuclear stress test on 05/10/2023 - Continue aspirin + enoxaparin - Start metoprolol - Consider starting CHILANGO-inhibitor/ARB, statin as tolerated # History of Falls - Consult PT # Question of Dementia - Consulted Neurology - recommendations appreciated Jose Gibbons M.D.
--- NOTE | 2023-05-09 20:40 | P.PN ---
Date of Service: 05/10/23 Subjective: ROS: 10 point ROS as noted above, otherwise negative Physical Exam: Gen: Alert,orientedx1 HEENT: normal conjunctiva, sclera anicteric CV: regular rate & rhythm, no edema, Systolic murmur Pulm: non-labored respirations on room air, Diminished at bases b/l, Rhonchi/gurgles Abd: soft, non-tender, non-distended MSK: no joint tenderness Neuro: normal speech, normal affect, moves all extremities Problem List: 1. Severe Sepsis likely secondary to Right Lower Lobe Pneumonia with possible Gram-Positive Bacteremia 2. Acute Toxic Metabolic Encephalopathy likely due to above 3. Pulmonary Fibrosis 4. Suspect Demand Ischemia (Type II Non-ST Segment Elevation Myocardial Infarction) due to above 5. Moderate-Severe Aortic Stenosis 6. Hypertension 7. History of Falls 8. Question of Dementia PLAN CT chest/abdomen/pelvis(05/06): probable right lower lobe pneumonia. Constipation. Blood cultures(05/06): NGTD -- / positive for gram-positive rods. Repeat cultures (05/08): NGTD Continue cefepeme (05/06-) and vancomycin (05/09-) Troponins elevated (peak at 1985) Cardiology consulted Echo (05/07): EF: 58% with normal wall motion, moderate mitral regurgitation, mild aortic, pulmonary and tricuspid regurgitation Tentative stress test today (05/10) Continue aspirin + enoxaparin Continue metoprolol PT consulted Neurology consulted VTE: Lovenox
[2023-05-10] MEDS: ENOXAPARIN 60 MG/0.6 ML SQ SCH ×2 (06:32→16:59)
[2023-05-10] MEDS ORDERED: REGADENOSON 0.4 MG/5 ML SYR IV ONE (08:06)
[2023-05-10] MEDS: ASPIRIN 81 MG CHEWABLE TABLET PO SCH (09:00)
[2023-05-10 09:23] LABS: Potassium 3.7 mEq/L (3.5-5.1)
[2023-05-10] MEDS: CEFEPIME 2 GM in NA CHLORIDE 0.9% 100 ML IV SCH ×2 (11:41→20:32)
--- NOTE | 2023-05-10 11:46 | RAD REPORT ---
EXAM DESCRIPTION: NM - Rest Stress Cardiac Imaging - 05/10/2023 11:32 am CLINICAL HISTORY: elevated troponin Chest pain. COMPARISON: No comparisons TECHNIQUE: The patient was administered approximately 10mCi of Tc 99m Sestamibi prior to resting SPE CT imaging of the heart. The patient was then administered approximately 30 mCi of Tc 99m Sestamibi f ollowing exercise or pharmacologic stress. Multiplanar SPECT images were reviewed. FINDINGS: There is a small to moderate area of stress-induced ischemia noted involving the LV apex c ompatible with stress-induced ischemia. No fixed defect is seen to suggest hibernating myocardium or scarred myocardium. The end diastolic volume is 104 ml, the end systolic volume is 43 ml, and the ejection fraction is 59 %. IMPRESSION: Small to moderate area of stress-induced ischemia LV apex.
[2023-05-10] MEDS: VANCOMYCIN 1 GM in NA CHLORIDE 0.9% 250 ML IVPB SCH (14:08)
[2023-05-11 04:23] LABS: Magnesium 1.9 mg/dL (1.6-2.4); Potassium 4.3 mEq/L (3.5-5.1)
[2023-05-11] MEDS: ENOXAPARIN 60 MG/0.6 ML SQ SCH ×2 (05:11→18:00)
[2023-05-11] MEDS: ASPIRIN 81 MG CHEWABLE TABLET PO SCH (05:28)
--- NOTE | 2023-05-11 07:08 | TREADPHA ---
DX: ELEVATED TROPONIN Date of Study: 05/10/2023 Ht: 5' 7 " Wt: 123 lb 0 oz Consulting Physician: TARIK MEDICATIONS: TYLENOL SUPPOSITORY, PROVENTIL, ASPIRIN, CEFEPIME IN SODIUM CHLORIDE, VANCOMYCIN HISTORY: 87 YEAR OLD MALE WITH COMPLAINTS OF CHEST PAIN. HISTORY OF HEART VALVE REPLACEMENT PER DAUGHTER, NO HISTORY OF SMOKING, ALCOHOL, OR DRUG USE. PATIENT IS VERY CONFUSED, DOES NOT FOLLOW COMMANDS. PHYSICIAL EXAMINATION: RESTING B.P.: 150/69 RESTING H.R.: 77 RESTING EKG: NORMAL SINUS RHYTHM WITH PREMATURE ATRIAL COMPLEXES, RIGHT BUNDLE BRANCH BLOCK PROTOCOL: PHARMACOLOGIC EXERCISE TIME: 3:30 B.P. AT PEAK STRESS: 126/57 IMPRESSION: LEXISCAN INJECTED. CARDIOLITE GIVEN PER PROTOCOL. SEE NUCLEAR MEDICINE REPORT. PREMATURE VENTRICULAR COMPLEXES AND PREMATURE ATRIAL COMPLEXES NOTED THROUGHOUT PROCEDURE. NO SUPRAVENTRICULAR TACHYCARDIA, VENTRICULAR TACHYCARDIA NOTED. DENIES CHEST PAIN DURING THE PROCEDURE. NO ELECTROCARDIOGRAM CHANGES OF ISCHEMIA WITH LEXISCAN.
[2023-05-11] MEDS: CEFEPIME 2 GM in NA CHLORIDE 0.9% 100 ML IV SCH (08:38)
[2023-05-11] MEDS ORDERED: HEPA 1000U/500MLS 2,000 UNIT/1,000 ML BAG IV ONE (15:04)
[2023-05-11] MEDS ORDERED: ATROPINE SULF 1 MG/10 ML SYR IV ONE (15:05)
[2023-05-11] MEDS ORDERED: VERAPAMIL HCL 10 MG/4 ML VIAL IV ONE (15:05)
[2023-05-11] MEDS ORDERED: FENTANYL CITR 100 MCG/2 ML ONE ×2 (15:05→16:00)
[2023-05-11] MEDS ORDERED: HEPARIN 10,000 UNIT/10 ML VIAL IV ONE (15:05)
[2023-05-11] MEDS ORDERED: HEPARIN 5000 UNIT/ML 1 ML VIAL ONE (15:05)
[2023-05-11] MEDS ORDERED: MIDAZOLAM HCL 2 MG/2 ML INJ ONE ×2 (15:05→16:01)
[2023-05-11] MEDS ORDERED: LIDOCAINE 1% 20 ML MDV ONE (15:06)
--- NOTE | 2023-05-11 15:13 | EKG ---
Test Date: 2023-05-06 Test Time: 05:29:09 Academic Coach: ROSARIO MEASUREMENT RESULTS: Intervals: Rate: 104 OH: QRSD: 132 QT: 352 QTc: 462 Flynn: P: OH: QRS: 43 T: 31 INTERPRETIVE STATEMENTS: Sinus tachycardia Right bundle branch block Abnormal ECG Ventricular premature complex(es) no longer present Electronically Signed On 05-11-23 15:03:56 CDT by Chang Saucedo
[2023-05-11] MEDS ORDERED: NA CHLORIDE 0.9% 500 ML ONE (15:47)
--- NOTE | 2023-05-11 16:35 | PN ---
Date of Progress Note: 05/10/2023 Subjective: Seen by bedside. No chest pain. Review of Systems: No chest pain, shortness of breath, orthopnea, cough. No nausea, vomiting, diarrhea. All other syst ems reviewed and they were negative. Physical Examination: Vital Signs: Reviewed. Head and Neck: Pupils are equal, reactive to light. Intact eye movements. No JVD. No cervical lym phadenopathy. Neck is supple. Thyroid is not enlarged. Lungs: Clear to auscultation bilaterally. No rhonchi, wheezing, or crackles. No accessory muscle u se. Heart: Regular rate and rhythm. No extra sounds. Abdomen: Soft, nontender. Bowel sounds positive. No organomegaly. No masses or hernia. No rigidi ty or rebound. Extremities: No clubbing or cyanosis. Intact pulses. Skin: No rash. Neurologic: Alert, awake. No acute focal deficits appreciated. Lymph Nodes: No cervical or axillary lymphadenopathy. Investigations: His troponins peaked at 1800 range and trending down. BUN is 16, creatinine 0.7. Assessment And Recommendations: 1.Elevated troponin suggestive of non-ST elevation myocardial infarction and he has abnormal stress test. Recommend coronary angiogram. Continue baby aspirin for now and he is already on anticoagulat ion with Lovenox. Plan for coronary angiogram to further identify the etiology and the anatomy of hi s coronary arteries. 2.Aortic valve stenosis. Echo was obtained. There is no significant aortic valve disease, but he has moderate mitral valve regurgitation. This is to be monitored. SR/MODL Voice ID: [id number] Report ID: [id number]
--- NOTE | 2023-05-11 16:47 | PN ---
Date of Progress Note: 05/11/2023 Subjective: Seen by bedside. No new complaints. Review of Systems: No chest pain, shortness of breath, orthopnea, cough. No nausea, vomiting, diarrhea. All other syst ems reviewed and they were negative. Physical Examination: Vital Signs: Temperature is 98.6, pulse 80, breathing at 18, blood pressure 149/76, saturating 97%. General: Pleasant elderly male, no distress. Head and Neck: Pupils are equal, reactive to light. Intact eye movements. No JVD. No cervical lym phadenopathy. Neck is supple. Thyroid is not enlarged. Lungs: Clear to auscultation bilaterally. No rhonchi, wheezing, or crackles. No accessory muscle u se. Heart: Irregular. No extra sounds. Abdomen: Soft, nontender. Bowel sounds positive. No organomegaly. No masses or hernia. No rigidi ty or rebound. Extremities: No clubbing or cyanosis. Intact pulses. Skin: No rash. Neurologic: Alert, awake. No acute focal deficits appreciated. Investigations: BUN 14, creatinine 0.83. Last troponin was 569. Assessment And Recommendations: 1.Non-ST elevation myocardial infarction. The patient is on aspirin and Lovenox. We will plan for coronary angiogram today and further plan of treatment after the left heart catheterization. 2.Mitral valve regurgitation. It is moderate. Monitor clinically. SR/MODL Voice ID: [id number] Report ID: [id number]
--- NOTE | 2023-05-11 17:26 | OP ---
Date of Procedure: 05/11/2023 Surgeon: ROBERTO MONTANEZ Procedures Performed: 1.Selective coronary angiogram. 2.Left heart catheterization. Indication: Non-ST elevation myocardial infarction. Access: Right radial artery 6-Croatian closed with TR band. Complications: None. Bleeding: Less than 50 mL. Description Of Procedure: After risks, benefits, alternatives were explained, the patient agreed to procedure and signed informed consent. The patient was brought into the cardiac catheterization [facility], prepped and draped in the usual sterile fashion. Then, I accessed right radial artery using pediatric micropuncture kit, placed a 6-Croatian Slender sheath, and took a 6-Croatian JL3.5 catheter int o the aortic root, engaged left main, took standard view, and then exchanged for 6-Croatian JR4 cathete r into the aortic root and engaged the RCA, took standard views, and the catheter was pushed over the wire into the LV, measured LVEDP, pullback did not record any gradient. The catheter was removed, s ander was removed, and placed TR band with good hemostasis. Findings: 1.Left main; normal. 2.LAD; proximal segment has luminal irregularities. Mid segment 50% stenosis. Diagonal branch has proximal 70% stenosis and the rest of the LAD is with luminal irregularities. 3.Left circumflex; in the mid segment, there is very long diffuse 70% stenosis. OM branch is with l uminal irregularities. 4.RCA; it is dominant circulation with very long segment, heavily calcified 70% stenosis, GIULIANO-3 pop w however. 5.Normal LVEDP at 6 mmHg. 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 2.Normal LVEDP. Recommendation: Given the age and the dementia, recommend aggressive medical management. If the pat ient continues to be symptomatic, then after optimizing medical management, then an attempt to do a P CI of the RCA with atherectomy and then the left circumflex on a staged basis is recommended. SR/MODL Voice ID: [id number] Report ID: [id number]
[2023-05-12] MEDS: ACETAMINOPHEN 650MG/RECT SUPP PR PRN (01:25)
[2023-05-12] MEDS: ENOXAPARIN 60 MG/0.6 ML SQ SCH ×2 (06:21→17:59)
[2023-05-12] MEDS: ASPIRIN 81 MG CHEWABLE TABLET PO SCH (07:59)
[2023-05-12 15:50] LABS: SARS-CoV-2 Antigen Rapid Res Negative (Negative)
[2023-05-12] MEDS ORDERED: ALBUTEROL 2.5 MG/3 ML NEB SOL NEB PRN (17:00)
[2023-05-13] MEDS: ENOXAPARIN 60 MG/0.6 ML SQ SCH (06:07)
[2023-05-13 08:54] VITALS: BP 156/81; TEMP 98.6
[2023-05-13] MEDS: ASPIRIN 81 MG CHEWABLE TABLET PO SCH (10:03)
--- NOTE | 2023-05-13 10:19 | P.DS ---
Discharge Date: 05/13/23 Disposition: TRANSFER TO CARE HOME Discharge Condition: GOOD Reason for Admission: Fever Hospital Course: Findings: 1. Left main; normal. 2. LAD; proximal segment has luminal irregularities. Mid segment 50% stenosis. Diagonal branch has proximal 70% stenosis and the rest of the LAD is with luminal irregularities. 3. Left circumflex; in the mid segment, there is very long diffuse 70% stenosis. OM branch is with luminal irregularities. 4. RCA; it is dominant circulation with very long segment, heavily calcified 70% stenosis, GIULIANO-3 flow however. 5. Normal LVEDP at 6 mmHg. Conclusion: 1. 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 2. Normal LVEDP. OPERATIVE REPORT (Continued) NAME: SEE COLEMAN CC: Rae Roman MD; Jose Gibbons MD; Chang Saucedo OPERATIVE REPORT SEE COLEMAN / Report: [id number] Page 2of 2 Recommendation: Given the age and the dementia, recommend aggressive medical management. If the patient continues to be symptomatic, then after optimizing medical management, then an attempt to do a PCI of the RCA with atherectomy and then the left circumflex on a staged basis is recommended. Vital Signs/Physical Exam: Temp Pulse Resp BP Pulse Ox 98.6 F 74 16 156/81 H 96 05/13/23 08:00 05/13/23 08:00 05/13/23 08:00 05/13/23 08:00 05/13/23 08:00 Laboratory Data at Discharge: WBC 4.40 thou/uL (4.3-10.9) 05/09/23 05:54 Hgb 9.7 g/dL (13.6-17.9) L D 05/09/23 05:54 Hct 28.5 % (39.6-49.0) L 05/09/23 05:54 Plt Count 128 thou/uL (152-406) L 05/09/23 05:54 PT 12.3 SECONDS (9.5-12.5) 05/06/23 05:04 INR 1.12 05/06/23 05:04 Sodium 140 mEq/L (136-145) 05/11/23 03:54 Potassium 4.3 mEq/L (3.5-5.1) D 05/11/23 03:54 BUN 14 mg/dL (7-18) 05/11/23 03:54 Creatinine 0.83 mg/dL (0.70-1.30) 05/11/23 03:54 Glucose 90 mg/dL (74-106) 05/11/23 03:54 Magnesium 1.9 mg/dL (1.6-2.4) 05/11/23 03:54 Total Bilirubin 0.3 mg/dL (0.2-1.0) 05/06/23 05:04 AST 21 U/L (15-37) 05/06/23 05:04 ALT 14 U/L (16-61) L 05/06/23 05:04 Alkaline Phosphatase 75 U/L (45-117) 05/06/23 05:04 Lipase 38 U/L (13-75) 05/06/23 05:04 Home Medications: Amlodipine [Norvasc*] 5 mg PO DAILY 05/06/23 Furosemide [Lasix] 40 mg PO DAILY 05/06/23 Aspirin Chewable [Aspirin Chewable*] 81 mg PO DAILY #30 tab.chew 05/13/23 New Medications: Aspirin Chewable [Aspirin Chewable*] 81 mg PO DAILY #30 tab.chew Physician Discharge Instructions: -DC IV and [facility] to [facility] -Follow-up with PCP in 1 to 2 weeks -Follow-up with Cardiology in 1 to 2 weeks -Follow-up with ENT for hearing aids -Follow-up with neurology for further work-up of dementia -Please call Dr. Roman at [phone] if any questions regarding hospital stay -Please call nursing station at [phone] if any nursing or medication questions -Return to the emergency room if symptoms worsen Diet: AHA Activity: Fall precautions Followup: Ti Hurtado MD [ASSOCIATE-ACTIVE - CAN ADMIT] - Chuyita Rice DO [ACTIVE - CAN ADMIT] - Magen Marquis DO [Primary Care Provider] - Chang Saucedo MD [ACTIVE - CAN ADMIT] -
[2023-05-13 12:37] VITALS: O2SAT 96
--- NOTE | 2023-05-13 20:27 | PN ---
Date of Progress Note: 05/13/2023 Subjective: Seen by bedside. No new complaints. Review of Systems: There is no chest pain, shortness of breath, orthopnea, or cough. No nausea, vomiting, or diarrhea. All other systems reviewed and they were negative. Objective: Vital Signs: Reviewed. Head and Neck: Pupils are equal, reactive to light. Intact eye movements. No JVD. No cervical lym phadenopathy. Neck is supple. Thyroid is not enlarged. Lungs: Clear to auscultation bilaterally. No rhonchi, wheezing, or crackles. No accessory muscle u se. Heart: Regular rate and rhythm. No extra sounds. Abdomen: Soft, nontender. Bowel sounds positive. No organomegaly. No masses or hernia. No rigidi ty or rebound. Extremities: No edema, clubbing, or cyanosis. Intact pulses. Skin: No rash. No nodules. Neurologic: Alert, awake, oriented x3. No acute focal deficits appreciated. Investigations: Labs are reviewed. Assessment And Recommendations: 1.Coronary artery disease with elevated troponin, likely due to demand. He does have multivessel co ronary artery disease up to 70%. At this point, I will leave it to medical management given his poor quality of life and his age. Recommend baby aspirin and Plavix 75 mg daily and a beta-karthikeyan. Pat ient can be released from Cardiology standpoint to follow up with Cardiology as an outpatient and I w ill sign off on the case. 2.Mitral valve regurgitation. It is moderate. Recommend an echo in 1 year. SR/CANDACEL Voice ID: [id number] Report ID: [id number]
--- NOTE | 2023-05-13 23:42 | PN ---
Date of Progress Note: 05/12/2023 Subjective: Seen at bedside, doing well. No chest pain, status post coronary angiogram yesterday. Review of Systems: No chest pain, shortness of breath, orthopnea, cough. No nausea, vomiting, diarrhea. All other syst ems reviewed are negative. Objective: Vital Signs: Reviewed. Head and Neck: Pupils are equal, reactive to light. Intact eye movements. No JVD. No cervical lym phadenopathy. Neck is supple. Thyroid is not enlarged. Lungs: Clear to auscultation bilaterally. No rhonchi, wheezing, or crackles. No accessory muscle u se. Heart: Regular rate and rhythm. No extra sounds. Abdomen: Soft, nontender. Bowel sounds positive. No organomegaly. No masses or hernia. No rigidi ty or rebound. Extremities: No edema, clubbing, or cyanosis. Intact pulses. Skin: No rash. No nodules. Neurologic: Alert, awake, oriented x3. No acute focal deficits appreciated. Investigations: Labs are reviewed. Assessment And Recommendations: 1.Elevated troponin. This is likely demand ischemia. Coronary angiogram showed coronary artery dis ease that ranging up to 70% and then multivessel, but this should not cause non ST elevation myocardi al infarction. Given that his age and his poor quality of life, all in all, I would recommend medica l management. Recommend aspirin and Plavix, and high-dose statin as well as beta karthikeyan. 2.Mitral valve regurgitation. This is moderate. Repeat echo in about 6 months. SR/MODL Voice ID: [id number] Report ID: [id number]
== END 2023-05-13 12:17 | DRG 871 ==
LOC: ER 04:26 → ERHOLD 08:25 → 2ND 10:00
PROVIDERS: ADMIT Internal Medicine; ATTEND Hospitalist
PROC: 4A023N7 Measurement of Cardiac Sampling and Pressure, Left Heart, Percutaneous Approach (ICD-10-PCS; principal; 2023-05-11)
PROC: B2111ZZ Fluoroscopy of Multiple Coronary Arteries using Low Osmolar Contrast (ICD-10-PCS; 2023-05-11)
DX: A41.9 Sepsis, unspecified organism (principal); G92.8 Other toxic encephalopathy; J18.9 Pneumonia, unspecified organism; I21.A1 Myocardial infarction type 2; N17.9 Acute kidney failure, unspecified; D61.818 Other pancytopenia; R65.20 Severe sepsis without septic shock; I10 Essential (primary) hypertension; E83.51 Hypocalcemia; M19.90 Unspecified osteoarthritis, unspecified site; I08.3 Combined rheumatic disorders of mitral, aortic and tricuspid valves; K59.00 Constipation, unspecified; J84.10 Pulmonary fibrosis, unspecified; F03.90 Unspecified dementia, unspecified severity, without behavioral disturbance, psychotic disturbance, mood disturbance, and anxiety; R60.9 Edema, unspecified; Z91.81 History of falling; Z79.82 Long term (current) use of aspirin; Z79.899 Other long term (current) drug therapy; Z20.822 Contact with and (suspected) exposure to COVID-19
CPT/HCPCS: 36415; 70450; 71045; 71250; 72125; 76937; 78452; 80048; 80076; 80202; 81001; 83605; 83690; 83735; 83880; 84484; 85025; 85610; 87040; 87205; 87635; 87804; 87811; 92526; 92610; 93005; 93017; 93306; 93458; 96365; 96366; 96375; 97110; 97116; 97161; 97530; 99285; A9500; C1893; J0461; J0692; J1644; J1650; J1940; J2001; J2250; J2543; J2785; J3010; J7030; J7040; J7050; Q9966

== ENCOUNTER 2023-06-19 22:00 | Observation (INO) | payer OTHER ==
--- OUTSIDE RECORDS SUMMARY | 2023-06-19 22:11 | XMS REPORT | Continuity of Care Document ---
:1935 Author Organization [facility] t Address [address] [place] [address] Care Team Providers Name Role Phone Francoise Tatum MD Primary Care Physician Magen Marquis Attending Clinician Unavailable Francoise Tatum Attending Clinician Unavailable Payers Payer Name Policy Type Policy Number Effective Date Expiration Date S ource MEDICAID MC [id number] [facility] MEDICARE MB [id number] [place] [id number] Common Sp davian ing Medicare - [facility] MEDICAID MC [id number] [facility] MEDICARE MB [id number] Common [place] [id number] Common Sp davian ing Medicare - [facility] MEDICARE MB [id number] [place] [id number] Common Sp davian ing Medicare - [facility] MEDICAID MC [id number] [facility] Problems Condition Condition Condition Status Onset Resolution [...] lower urinary urinary tract tract symptoms symptoms [id number] Underweigh Problem Active Co mmon t Spirit [facility] [id number] Elevated Problem Active Comm on BP without Spirit diagnosis - [facility] of [facility] [id number] Diastolic Problem Active 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, St unspecifie [facility] [id number] Weight Problem Active Common loss, Spirit non-intent - [facility] ional [facility] [id number] Pulmonary Problem Active Comm on hypertensi Spirit on [facility] [id number] Aortic Problem Active Common valve Spirit stenosis, - [facility]I etiology St of cardiac 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) [facility] [id number] Tongue Problem Active Common lesion Spirit - [facility] [id number] 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) [facility] Cardiac Irregular Problem Active Commo n arrhythmia heartbeat Spi rit - [facility] [id number] Cervical Problem Active Comm on lymphadeno [facility] christelle - [facility] [id number] Generalize Problem Active Com mon d weakness Spirit [facility] 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 Social History Social Habit Start Date Stop Date Quantity Comments Source History of Tobacco [facility] - Use [facility] Sexual orientation [facility] Gender identity [facility] History SD[facility] Alcohol Std Drinks Hospit al History SD[facility] Binge Hospital History of Social 2019-06-08 2019-06-[address] function 00:00:00 00:00:00 Hospital Alcohol intake 2018-11-18 2018-11-18 Current [facility] 00:00:00 00:00:00 non-drinker of Hospital alcohol (finding) History SDOH 2018-11-18 2018-11-18 1 [facility] Frequency 00:00:00 00:00:00 Hospita l Tobacco use and 2018-09-02 2018-09-02 Smokeless [facility] exposure 00:00:00 00:00:00 tobacco non-user [facility] Sex Assigned At [birth year] [facility] 00:00:00 00:00:00 Hospital Smoking Status Start Date Stop Date Source Former Smoker 2021-09-19 00:00:00 2021-09-19 00:00:00 Common S pirit [facility] Ce nter Never smoked tobacco [facility] Medications Ordered Filled Start Stop Current Ordering Indication Dosage Frequency Signature Comments Components Source Medication Medication Date Date Medication? Clinician (SIG) Name Name carvedilol Yes 6.25mg Q.5D Take 6.25 Methodi [...] 11:02: daily. Hospit a 33 l tamsulosin 2019-0 Yes .4mg QD Take 0.4 [...] 11:02: daily. Hospit a 33 l tamsulosin 20190 Yes .4mg QD Take 0.4 Met hodi (FLOMAX) 2-[address] 0.4 mg 11:02: mouth Hospita capsule 33 nightly. l Furosemide Furosemide 2017-10 Yes Francoise 1 tablet Common 2-08 [facility] Spirit 00:00: - [facility] 00 [facility] Calcium Calcium Yes Francoise 1 tablet Comm on Millender Spirit - [facility] [place] 3 [place] 3 Yes Francoise 1 capsule Com mon [facility] - [facility] Docusate Docusate Yes Francoise 1 capsule C ommon Sodium Sodium Millender as needed S pirit [facility] Tylenol Tylenol Yes Francoise (500 Common Millender mg/OTC) Spirit 1-2 - [facility]I tablets [facility] Docusate Docusate Yes Francoise (50 Common Calcium Calcium Millender mg/OTC) 1 Spirit capsule - [facility] Carvedilol Carvedilol Yes Francoise 1 tablet Common [facility] Spirit [facility] Vitamin C Vitamin C Yes Francoise 1 tablet Common [facility] Spirit [facility] Furosemide Furosemide Yes Francoise (40 mg) 1 Common Millender tablet [facility] Multivitami Multivitami Yes Francoise 1 tablet Common n Adults n Adults Millender Sp davian [facility] Aspirin Aspirin Yes Francoise 1 tablet Comm on Millender [facility] Docusate Docusate No 1{capsu QD Docusate Sodium [...] QD Flomax 0.4 MG MG le} MG Goodland 3 [place] 3 No 1{capsu QD [place] 3 1000 MG 1000 MG le} 1000 [...] t} 40 MG Furosemide Furosemide No Furosemide [place] 3 [place] 3 No 1{capsu QD [place] 3 1000 MG 1000 MG le} 1000 [...] QD Flomax 0.4 MG MG le} MG [place] 3 [place] 3 No 1{capsu QD [place] 3 1000 MG 1000 MG le} 1000 [...] QD Flomax 0.4 MG MG le} MG [place] 3 [place] 3 No 1{capsu QD [place] 3 1000 MG 1000 MG le} 1000 MG Spironolact Spironolact No QD Spironolac one 25 mg one 25 mg tone 25 mg Spironolact Spironolact Francoise 1/2 tablet Common one one 11-11 Millender Spirit 00:00 - [facility] : [facility] Immunizations Ordered Immunization Filled Immunization Date Status Commen ts Source Name Name FLUZONE HIGH DOSE FLUZONE HIGH DOSE 2021-07-24 Completed [facility] OVER 65 OVER 65 15:17:00 - [facility] FLUZONE HIGH DOSE FLUZONE HIGH DOSE 2021-07-24 Completed [facility] OVER 65 OVER 65 15:17:00 - [facility] FLUZONE HIGH DOSE FLUZONE HIGH DOSE 2021-07-24 Completed [facility] OVER 65 OVER 65 15:17:00 [facility] FLUZONE HIGH DOSE FLUZONE HIGH DOSE 2021-07-24 Completed [facility] OVER 65 OVER 65 15:17:00 [facility] Pneumovax (PPSV23) Pneumovax (PPSV23) 2020-07-18 Completed [facility] 14:00:00 - [facility] Pneumovax (PPSV23) Pneumovax (PPSV23) 2020-07-18 Completed [facility] 14:00:00 - [facility] FLUZONE HIGH DOSE FLUZONE HIGH DOSE 2019-07-13 Completed [facility] OVER 65 OVER 65 17:05:00 - [facility] FLUZONE HIGH DOSE FLUZONE HIGH DOSE 2019-07-13 Completed [facility] OVER 65 OVER 65 17:05:00 - [facility] FLUZONE HIGH DOSE FLUZONE HIGH DOSE 2019-07-13 Completed [facility] OVER 65 OVER 65 17:05:00 - [facility] FLUZONE HIGH DOSE FLUZONE HIGH DOSE 2019-07-13 Completed [facility] OVER 65 OVER 65 17:05:00 - [facility] FLUZONE HIGH DOSE FLUZONE HIGH DOSE 2019-07-13 Completed [facility] OVER 65 OVER 65 00:00:00 - [facility] Vital Signs Vital Name Observation Time Observation Value Comments Source height 2021-07-24 13:10:00 67.00 [in_i] Common [facility] weight 2021-07-24 13:10:00 121.2 [lb_av] [facility] temperature 2021-07-24 13:10:00 97.5 [degF] Common [facility] bmi 2021-07-24 13:10:00 18.98 kg/m2 [facility] oximetry 2021-07-24 13:10:00 97 % [facility] respiratory rate 2021-07-24 13:10:00 18 /min Comm on [facility] blood pressure 2021-07-24 13:10:00 130 mm[Hg] Common [facility] - systolic [facility] blood pressure 2021-07-24 13:10:00 73 mm[Hg] Common [facility] - diastolic [facility] height 2021-07-24 13:00:00 67.00 [in_i] Common [facility] weight 2021-07-24 13:00:00 121.2 [lb_av] [facility] temperature 2021-07-24 13:00:00 97.5 [degF] Common S pirit - [facility] bmi 2021-07-24 13:00:00 18.98 kg/m2 [facility] oximetry 2021-07-24 13:00:00 97 % Common S pir - [facility] respiratory rate 2021-07-24 13:00:00 18 /min Comm on Spirit - [facility] blood pressure 2021-07-24 13:00:00 130 mm[Hg] [facility] - systolic [facility] blood pressure 2021-07-24 13:00:00 73 mm[Hg] Common [facility] - diastolic [facility] Procedures This patient has no known procedures. Plan of Care Planned Activity Planned Date Details Comments Source Future Scheduled 2023-06-13 COVID-19 VACCINE (#1) [facility] Hospital Test 02:35:08 [code = COVID-19 VACCINE (#1)] Future Scheduled 2023-06-13 SHINGLES VACCINES (1 Met [facility] Test 02:35:08 of 2) [code = SHINGLES VACCINES (1 of 2)] Future Scheduled 2023-06-13 65+ [facility]AL [facility] Test 02:35:08 VACCINE (1 - PCV) [code = 65+ PNEUMOCOCCAL VACCINE (1 - PCV)] Future Scheduled 2023-06-13 INFLUENZA VACCINE (#1) [facility] Hospital Test 02:35:08 [code = INFLUENZA VACCINE (#1)] Future Scheduled 2023-04-03 COVID-19 VACCINE (#1) [facility] Hospital Test 17:58:25 [code = COVID-19 VACCINE (#1)] Future Scheduled 2023-04-03 SHINGLES VACCINES (1 Met [facility] Hospital Test 17:58:25 of 2) [code = SHINGLES VACCINES (1 of 2)] Future Scheduled 2023-04-03 65+ PNEUMOCOCCAL Methodi Hospital Test 17:58:25 VACCINE (1 - PCV) [code = 65+ PNEUMOCOCCAL VACCINE (1 - PCV)] Future Scheduled 2023-04-03 INFLUENZA VACCINE Method [facility] Hospital Test 17:58:25 [code = INFLUENZA VACCINE] Future Scheduled 2022-10-03 COVID-19 VACCINE (#1) [facility] Test 17:56:49 [code = COVID-19 VACCINE (#1)] Future Scheduled 2022-10-03 SHINGLES VACCINES (1 Met [facility] Test 17:56:49 of 2) [code = SHINGLES VACCINES (1 of 2)] Future Scheduled 2022-10-03 65+ PNEUMOCOCCAL Methodi [facility] Test 17:56:49 VACCINE (1 - PCV) [code = 65+ PNEUMOCOCCAL VACCINE (1 - PCV)] Future Scheduled 2022-10-03 INFLUENZA VACCINE Method [facility] Hospital Test 17:56:49 [code = INFLUENZA VACCINE] Future Scheduled 2022-06-19 HEPATITIS B VACCINES Met [facility] Test 22:24:08 (1 of 3 - 3-dose series) [code = HEPATITIS B VACCINES (1 of 3 - 3-dose series)] Future Scheduled 2022-06-19 COVID-19 VACCINE (#1) Me [facility] Test 22:24:08 [code = COVID-19 VACCINE (#1)] Future Scheduled 2022-06-19 SHINGLES VACCINES (1 Met [facility] Test 22:24:08 of 2) [code = SHINGLES VACCINES (1 of 2)] Future Scheduled 2022-06-19 65+ PNEUMOCOCCAL Methodi [facility] Test 22:24:08 VACCINE (1 - PCV) [code = 65+ PNEUMOCOCCAL VACCINE (1 - PCV)] Future Scheduled 2022-06-19 INFLUENZA VACCINE Method [facility] Hospital Test 22:24:08 [code = INFLUENZA VACCINE] Encounters Start End Encounter Admission Attending Care Care Encounter Source Date/Time Date/Time Type Type Clinicians Facility Department ID 2023-06-03 Outpatient Marquis, [facility] [id number] Common 10:20:00 Formerly [facility] [id number] [facility] 2023-05-18 Outpatient Marquis, [facility] [id number] Common 16:00:00 Formerly [facility] [id number] [facility] 2021-12-25 Outpatient Marquis, [facility] [id number] Common 10:28:00 Magen [facility] 2021-11-12 [facility] [id number] Common 13:56:53 [id number] [facility] 2021-11-12 Outpatient STL[facility] [id number] Common 13:19:58 [id number] [facility] 2021-11-12 Outpatient [facility] [id number] Common 13:19:13 [id number] [facility] 2021-11-12 Outpatient STLMLC STL[facility] [id number] Common 13:08:42 [id number] [facility] 2021-11-12 Outpatient Millender, STLMLC STLMLC [id number] Common 11:26:08 Francoise [id number] [facility] 2021-11-12 Outpatient Millender, STLMLC STLMLC [id number] Common 11:11:18 Francoise [id number] [facility] 2021-11-12 Outpatient Millender, STLMLC STLMLC [id number] 10:59:56 Francoise [id number] [facility] 2022-05-29 2022-05-29 (TEL) STLMLC STLMLC [id number] Co mmon 00:00:00 00:00:00 [facility] 2021-07-24 2021-07-24 OFFICE STLMLC STLMLC [id number] Co mmon 00:00:00 00:00:00 VISIT [facility] ESTAB PT - [facility] LEVEL 4 [facility] 2021-07-24 2021-07-24 (TEL) STLMLC STLMLC [id number] Co mmon 00:00:00 00:00:00 [facility] 2021-07-24 2021-07-24 SUB ANNUAL STLMLC STLMLC [id number] Common 00:00:00 00:00:00 MCR Spirit WELLNESS - [facility] VISIT [facility] 2021-04-23 2021-04-23 Outpatient STLMLC STLMLC [id number] Common 00:00:00 00:00:00 [facility] 2019-12-28 2019-12-28 [id number] Common 16:15:00 16:15:00 [facility] 2019-09-29 2019-09-29 [facility] [id number] Common 11:41:00 11:41:[address] [facility] 2019-08-24 2019-08-24 [facility] [id number] Common 10:00:00 10:00:[address] [facility] 2019-07-24 2019-07-24 [facility] [id number] Common 11:40:00 11:40:[address] [facility] 2019-07-13 2019-07-13 [facility] [id number] Common 16:20:00 16:20:[address] [facility] 2019-05-19 2019-05-19 [facility] [id number] Common 16:02:00 16:02:[address] [facility] 2019-05-18 2019-05-18 [facility] [id number] Common 16:20:00 16:20:[address] [facility] 2019-02-14 2019-02-14 [facility] [id number] Common 13:00:00 13:00:[address] [facility] 2019-01-17 2019-01-17 [facility] [id number] Common 13:20:00 13:20:[address] [facility] 2018-11-14 2018-11-14 [facility] [id number] Common 11:30:00 11:30:[address] [facility] 2018-10-07 2018-10-07 [facility] [id number] Common 15:00:00 15:00:[address] [facility] 2018-04-04 2018-04-04 [facility] [id number] Common 11:45:00 11:45:00 t [facility] Results This patient has no known results.
[2023-06-19] MEDS ORDERED: NA CHLORIDE 0.9% 250 ML ONE (22:33)
[2023-06-19] MEDS ORDERED: DIAZEPAM 10 MG/2 ML INJ SYRINGE ONE (22:33)
[2023-06-19] MEDS ORDERED: HYDROMORPHONE HCL 0.5 MG/0.5 ML INJ ONE ×2 (22:34→22:51)
[2023-06-19 22:50] LABS: Absolute Lymphocytes (CBC) 1.4 K/uL (0.7-4.9); Lymphocytes % 25.4 % (15.3-44.8); MCV 93.1 fL (80-100); MPV 8.7 fL (7.6-11.3); Platelets 178 thou/uL (152-406); RBC Red Blood Cell Count 3.33 M/uL (4.33-5.43)
[2023-06-19 23:10] LABS: Albumin 3.1 g/dL (3.4-5.0); Bilirubin Direct 0.1 mg/dL (0-0.2); Bilirubin Indirect, Calculated 0.2 mg/dL (0.2-0.8); Bilirubin Total 0.3 mg/dL (0.2-1.0); Potassium 4.4 mEq/L (3.5-5.1); Protein, Total 6.6 g/dL (6.4-8.2); Troponin High Sensitivity 14.9 pg/mL (<58.9)
--- NOTE | 2023-06-19 23:35 | ER ---
Nurse's Notes [facility] Name: Nicolle Lee Age: 87 yrs Sex: Male : 1935 Arrival Date: 06/19/2023 Time: 22:00 Bed 5 Private MD: Diagnosis: Other specified abdominal hernia with obstruction, without gangrene-direct inguinal ;Unspecified hearing loss, bilateral;Dementia in other diseases classified elsewhere without behavioral disturbance Presentation: 06/19 22:25 Chief complaint: Chief complaint: EMS states: Pts family called saying he has a hernia vc1 that is hurting him pretty badly. 22:25 Coronavirus screen: Client denies travel out of the [place] in the last 14 days. At this vc1 time, the client does not indicate any symptoms associated with coronavirus-19. Ebola Screen: Patient negative for fever greater than or equal to 101.5 degrees Fahrenheit, and additional compatible Ebola Virus Disease symptoms Patient denies exposure to infectious person. Patient denies travel to an Ebola-affected area in the 21 days before illness onset. No symptoms or risks identified at this time. Initial Sepsis Screen: Does the patient meet any 2 criteria? No. Patient's initial sepsis screen is negative. Does the patient have a suspected source of infection? No. Patient's initial sepsis screen is negative. Risk Assessment: Do you want to hurt yourself or someone else? Patient reports no desire to harm self or others. Onset of symptoms is unknown. 22:25 Method Of Arrival: EMS: [facility] vc1 22:25 Acuity: MARY 3 vc1 Historical: - Allergies: 22:55 No Known Allergies; kl - Home Meds: 22:54 amlodipine [Active]; Furosemide Oral [Active]; kl - PMHx: 22:54 Congestive heart failure; Hypertension; kl 23:00 Dementia; kl - Immunization history:: Adult Immunizations unknown. - Social history:: Smoking status: unknown. - Unable to obtain history due to: patient being uncooperative, difficulty hearing and was brought to ED when he did not wish to come. Screenin:53 [facility] ED Fall Risk Assessment (Adult) History of falling in the last 3 months, kl including since admission No falls in past 3 months (0 pts) Confusion or Disorientation Yes (5 pts) Intoxicated or Sedated No (0 pts) Impaired Gait Yes (1 pt) Mobility Assist Device Used No (0 pt) Altered Elimination No (0 pt) Score/Fall Risk Level 3 or more points = High Risk Oriented to surroundings, Maintained a safe environment, Implemented a Fall Risk Plan of Care. Abuse screen: Denies threats or abuse. Nutritional screening: No deficits noted. Tuberculosis screening: No symptoms or risk factors identified. Assessment: 22:05 General: Appears distressed, uncomfortable, Behavior is anxious, uncooperative. Pain: Complains of pain in groin and right femoral area Pain at worst was 1. out of 10 on a pain scale. Neuro: Level of Consciousness is awake, alert. Cardiovascular: No deficits noted. Respiratory: No deficits noted. GI: No deficits noted. : bulge to right inguinal area. 23:58 Reassessment: Patient appears in no apparent distress at this time. Patient states kl symptoms have improved. 06/20 01:28 Reassessment: Patient appears in no apparent distress at this time. Patient and/or 1 family updated on plan of care and expected duration. Pain level reassessed. Vital Signs: 06/19 22:15 BP 130 / 66; Pulse 78; Resp 20; Temp 98(TE); Pulse Ox 100% on R/A; kl 22:45 BP 125 / 62; Pulse 78; Resp 20; Pulse Ox 98% ; vc1 06/20 00:00 BP 134 / 66; Pulse 77; Resp 12; Pulse Ox 100% ; vc1 01:00 BP 140 / 59; Pulse 75; Resp 10; Pulse Ox 100% ; vc1 ED Course: 06/19 22:04 Patient arrived in ED. kj1 22:09 Horacio Giron MD is Attending Physician. snw 22:25 Inserted saline lock: 20 gauge in right antecubital area, using aseptic technique. Blood collected. 22:25 Arm band placed on. vc1 23:01 Patient has correct armband on for positive identification. Bed in low position. Call light in reach. Side rails up X2. 23:31 Jose Gibbons MD is Hospitalizing Provider. beau 23:42 Blood Culture Adult (2) Sent. 06/20 00:20 XRAY Chest (1 view) In Process Unspecified. EDMS 00:33 CT Abd/Pelvis - IV Contrast Only In Process Unspecified. EDMS 01:28 Triage completed. vc1 01:28 No provider procedures requiring assistance completed. vc1 02:46 IV discontinued, intact, bleeding controlled, No redness/swelling at site. Pressure vc1 dressing applied. Administered Medications: 06/19 22:35 Drug: NS 0.9% IV 250 ml Route: IV; Rate: bolus; Site: right antecubital; kl 22:35 Drug: HYDROmorphone IVP 0.5 mg Route: IVP; Site: right antecubital; kl 22:40 Drug: Diazepam IVP 5 mg Route: IVP; Site: right antecubital; kl 22:50 Drug: HYDROmorphone IVP 0.5 mg Route: IVP; Site: right antecubital; kl 23:42 Drug: Piperacillin-Tazobactam IVPB 3.375 grams Route: IVPB; Infused Over: 60 mins; kl Site: right antecubital; 06/20 00:44 Follow up: IV Status: Completed infusion; IV Intake: 100ml Medication: 02:46 VIS not applicable for this client. vc1 Intake: 00:44 IV: 100ml; Total: 100ml. kl Outcome: 06/19 23:35 Decision to Hospitalize by Provider. [facility] 06/20 02:46 Admitted to Med/surg accompanied by tech, via wheelchair, room 232, Report called to 1 GURDEEP Hammond Condition: good Instructed on the need for admit. 02:46 Patient left the ED. vc1 Signatures: Dispatcher [employer] Olimpia Tarango RN RN kl Anderson, Corey, MD MD cha Waters, Shelly, ALUM PLANT OPERATOR-C ALUM PLANT OPERATOR-Csnw Dorota Lorenzo Jayleen Short RN RN vc1 Corrections: (The following items were deleted from the chart) 01:28 01:26 Chief complaint: vc1 vc1
--- NOTE | 2023-06-19 23:36 | EDPHYS ---
Physician Documentation [facility] Name: Nicolle Lee Age: 87 yrs Sex: Male : 1935 Arrival Date: 06/19/2023 Time: 22:00 Bed 5 Private MD: ED Physician Horacio Giron HPI: 06/19 23:14 This 87 yrs old Male presents to ER via Unassigned with complaints of HERNIA. snw 23:14 The patient presents with swelling, that is severe, of the right inguinal area. Onset: snw The symptoms/episode began/occurred gradually, and became worse today. Associated signs and symptoms: Pertinent positives: abdominal pain, tenderness. The patient has experienced similar episodes in the past. It is unknown whether or not the patient has recently seen a physician. pt's family dropped pt at back door of ED. Historical: - Allergies: 22:55 No Known Allergies; kl - Home Meds: 22:54 amlodipine [Active]; Furosemide Oral [Active]; kl - PMHx: 22:54 Congestive heart failure; Hypertension; kl 23:00 Dementia; kl - Immunization history:: Adult Immunizations unknown. - Social history:: Smoking status: unknown. - Unable to obtain history due to: patient being uncooperative, difficulty hearing and was brought to ED when he did not wish to come. ROS: 23:12 Constitutional: Negative for fever, chills, and weight loss, Eyes: Negative for injury, snw pain, redness, and discharge, ENT: Negative for injury, pain, and discharge, Neck: Negative for injury, pain, and swelling, Cardiovascular: Negative for chest pain, palpitations, and edema, Respiratory: Negative for shortness of breath, cough, wheezing, and pleuritic chest pain, Abdomen/GI: Negative for abdominal pain, nausea, vomiting, diarrhea, and constipation, Back: Negative for injury and pain, MS/Extremity: Negative for injury and deformity, Skin: Negative for injury, rash, and discoloration, Neuro: Negative for headache, weakness, numbness, tingling, and seizure, Psych: Negative for depression, anxiety, suicide ideation, homicidal ideation, and hallucinations. 23:12 : Positive for right inguinal hernia with tenderness. Exam: 22:22 Head/Face: Normocephalic, atraumatic. Eyes: Pupils equal round and reactive to light, snw extra-ocular motions intact. Lids and lashes normal. Conjunctiva and sclera are non-icteric and not injected. Cornea within normal limits. Periorbital areas with no swelling, redness, or edema. ENT: Nares patent. No nasal discharge, no septal abnormalities noted. Tympanic membranes are normal and external auditory canals are clear. Oropharynx with no redness, swelling, or masses, exudates, or evidence of obstruction, uvula midline. Mucous membranes moist. Neck: Trachea midline, no thyromegaly or masses palpated, and no cervical lymphadenopathy. Supple, full range of motion without nuchal rigidity, or vertebral point tenderness. No Meningismus. Chest/axilla: Normal chest wall appearance and motion. Nontender with no deformity. No lesions are appreciated. Cardiovascular: Regular rate and rhythm with a normal S1 and S2. No gallops, murmurs, or rubs. Normal PMI, no JVD. No pulse deficits. Respiratory: Lungs have equal breath sounds bilaterally, clear to auscultation and percussion. No rales, rhonchi or wheezes noted. No increased work of breathing, no retractions or nasal flaring. Back: No spinal tenderness. No costovertebral tenderness. Full range of motion. MS/ Extremity: Pulses equal, no cyanosis. Neurovascular intact. Full, normal range of motion. 22:22 Constitutional: The patient appears alert, awake, restless, uncomfortable, confused 22:22 Abdomen/GI: Inspection: abdomen appears normal, Bowel sounds: normal, Hernia: noted in the right inguinal area, incarceration, that is moderate, tenderness, that is moderate, that is severe. 22:22 Skin: Appearance: normal except for affected area, injury, abrasion(s), small abrasion noted, of the dorsal aspect of left forearm. 22:22 Neuro: Orientation: to person, place, situation. 22:22 Psych: Behavior/mood is anxious, aggressive, uncooperative, Oriented to person, place, time. 06/20 00:01 ECG was reviewed by the Attending Physician. [facility] Vital Signs: 06/19 22:15 BP 130 / 66; Pulse 78; Resp 20; Temp 98(TE); Pulse Ox 100% on R/A; kl 22:45 BP 125 / 62; Pulse 78; Resp 20; Pulse Ox 98% ; vc1 06/20 00:00 BP 134 / 66; Pulse 77; Resp 12; Pulse Ox 100% ; vc1 01:00 BP 140 / 59; Pulse 75; Resp 10; Pulse Ox 100% ; vc1 MDM: 06/19 22:09 Patient medically screened. snw 23:13 Differential diagnosis: hernia. Data reviewed: vital signs, nurses notes. I considered snw the following discharge prescriptions or medication management in the emergency department Medications were administered in the Emergency Department. See MAR. Counseling: I had a detailed discussion with the patient and/or guardian regarding the historical points, exam findings, and any diagnostic results supporting the discharge/admit diagnosis, radiology results. 06/19 22:26 Order name: Basic Metabolic Panel; Complete Time: 23:10 snw 06/19 22:26 Order name: CBC with Diff; Complete Time: 23:10 snw 06/19 22:26 Order name: LFT's; Complete Time: 23:10 snw 06/19 22:26 Order name: Magnesium; Complete Time: 23:10 w 06/19 22:26 Order name: NT PRO-BNP; Complete Time: 23:10 snw 06/19 22:26 Order name: PT-INR; Complete Time: 00:33 snw 06/19 22:26 Order name: Troponin HS; Complete Time: 23:10 snw 06/19 22:26 Order name: Blood Culture Adult (2) snw 06/19 22:26 Order name: XRAY Chest (1 view) w 06/19 23:11 Order name: CT Abd/Pelvis - IV Contrast Only w 06/19 22:26 Order name: EKG; Complete Time: 22:27 w 06/19 22:26 Order name: Cardiac monitoring; Complete Time: 00:04 w 06/19 22:26 Order name: EKG - Nurse/Tech; Complete Time: 00:04 w 06/19 22:26 Order name: IV Saline Lock; Complete Time: 00:15 snw 06/19 22:26 Order name: Labs collected and sent; Complete Time: 00:15 snw 06/19 22:26 Order name: O2 Per Protocol; Complete Time: 00:15 snw 06/19 22:26 Order name: O2 Sat Monitoring; Complete Time: 00:05 snw EC/03 00:01 Rate is 68 beats/min. Rhythm is regular. QRS Mcintosh is Normal. ME interval is normal. QRS beau interval is normal. QT interval is normal. No Q waves. T waves are Normal. No ST changes noted. Clinical impression: NSR w/ Non-specific ST/T Changes and No evidence of ischemia. Interpreted by me. Reviewed by me. Administered Medications: 06/19 22:35 Drug: NS 0.9% IV 250 ml Route: IV; Rate: bolus; Site: right antecubital; kl 22:35 Drug: HYDROmorphone IVP 0.5 mg Route: IVP; Site: right antecubital; kl 22:40 Drug: Diazepam IVP 5 mg Route: IVP; Site: right antecubital; kl 22:50 Drug: HYDROmorphone IVP 0.5 mg Route: IVP; Site: right antecubital; kl 23:42 Drug: Piperacillin-Tazobactam IVPB 3.375 grams Route: IVPB; Infused Over: 60 mins; Site: right antecubital; 06/20 00:44 Follow up: IV Status: Completed infusion; IV Intake: 100ml kl Disposition: 00:00 Co-signature as Attending Physician, Horacio Giron MD I agree with the assessment and beau plan of care. Disposition Summary: 06/19/23 23:35 Hospitalization Ordered Hospitalization Status: Observation beau Provider: Jose Gibbons cha Location: Telemetry/MedSurg (Inpatient) beau Condition: Fair beau Problem: new beau Symptoms: have improved beau Bed/Room Type: Standard beau Room Assignment: 232(06/20/23 01:15) sm8 Diagnosis - Other specified abdominal hernia with obstruction, without gangrene - direct beau inguinal - Unspecified hearing loss, bilateral beau - Dementia in other diseases classified elsewhere without behavioral disturbance beau Forms: - Medication Reconciliation Form beau - SBAR form beau - Leadership Thank You Letter beau Signatures: Dispatcher [employer] Olimpia Tarango RN RN kl Anderson, Corey, MD MD cha Waters, Shelly, FNP-C CHAVEZ-Csnw Hesham Castillo FNP-C FNP-Cla1 Rafaela Zavala sm8 Corrections: (The following items were deleted from the chart) 01:15 06/19 23:35 beau sm8
[2023-06-19] MEDS ORDERED: NA CHLORIDE 0.9% 100 ML ONE (23:50)
[2023-06-19] MEDS ORDERED: PIPERACIL/TAZO 3.375 GM VIAL IV ONE (23:51)
[2023-06-20 00:03] LABS: Protime INR 1.04
--- NOTE | 2023-06-20 01:59 | P.HP ---
Certification for Inpatient Patient admitted to: Observation With expected LOS: <2 Midnights Patient will require the following post-hospital care: None Practitioner: I am a practitioner with admitting privileges, knowledge of patient current condition, hospital course, and medical plan of care. Services: Services provided to patient in accordance with Admission requirements found in Title 42 Section 412.3 of the Code of Federal Regulations <Hesham Castillo - Last Filed: 06/20/23 01:55> Patient History Date of Service: 06/20/23 History of Present Illness: 87-year-old male with history of hypertension, CHF, CAD, BPH, moderate to severe aortic stenosis status post TAVR, suspected underlying dementia presents to the emergency department with a chief complaint of right lower abdominal pain. Per EMS patient was in the [employer] parking lot in his vehicle with his and began to complain of right lower abdominal pain, he has a known hernia in that area. He was evaluated in the emergency department his labs were significant for hemoglobin 10.6 medic at 31.[address] showed right inguinal hernia without complicating factors. Manual reduction was attempted in ED without success. Patient with significant pain reported at that site, ED provider wishes to admit under observation for evaluation of hernia by general surgery. Patient noted to have significant pitting edema of the lower extremities, he had a heart catheterization performed on 05/11/2023 which showed significant multivessel disease approaching 70% range, normal LVEDP recommendations were given for aggressive medical management given patient's age and dementia, if he remains symptomatic after aggressive medical management may benefit with PCI. Last echocardiogram was performed on 05/07/2023 which showed a normal left ventricular ejection fraction 55 to 60% with normal wall motion, moderate mitral regurgitation, mild aortic, pulmonary tricuspid regurgitation. Per previous documentation there is no lower extremity edema, now with 2-3+ pitting edema in lower extremities. Evaluate hernia, continue with gentle diuresis. It appears patient was prescribed Lasix 40 mg p.o. daily but unclear if he has been taking this medication. - Past Medical/Surgical History Diabetic: No -: Mild Arthritis -: Moderate to severe aortic stenosis -: HTN -: Dementia -: HX Falls -: CHF -: CAD -: Tonsilectomy -: TAVR Psychosocial/ Personal History: Lives at home with his - Family History Family History: Reviewed- Non-Contributory - Social History Smoking Status: Never smoker Alcohol use: No CD- Drugs: No Caffeine use: No Place of Residence: Home <Hesham Castillo - Last Filed: 06/20/23 01:55> Date of Service: 06/20/23 <ShaiJose vazquez - Last Filed: 06/20/23 15:18> Allergies No Known Allergies Allergy (Verified 03/08/13 16:53) Home Medications: Amlodipine [Norvasc*] 5 mg PO DAILY 05/06/23 Furosemide [Lasix] 40 mg PO DAILY 05/06/23 Aspirin Chewable [Aspirin Chewable*] 81 mg PO DAILY #30 tab.chew 05/13/23 Review of Systems 10-point ROS is otherwise unremarkable Gastrointestinal: Other (Right lower quadrant abdominal pain) <Hesham Castillo - Last Filed: 06/20/23 01:55> Physical Examination - Physical Exam General: Alert, In no apparent distress, Oriented x2, Other (Extremely hard of hearing past hearing out of right ear) HEENT: Atraumatic, PERRLA, Mucous membr. moist/pink, EOMI, Sclerae nonicteric Neck: Supple, 2+ carotid pulse no bruit, No LAD, Without JVD or thyroid abnormality Respiratory: Clear to auscultation bilaterally, Normal air movement Cardiovascular: Regular rate/rhythm, Normal S1 S2, Edema (2+ edema lower extremities bilaterally) Capillary refill: <2 Seconds Gastrointestinal: Normal bowel sounds, No tenderness Musculoskeletal: No tenderness Integumentary: No rashes Neurological: Normal speech, Normal strength at 5/5 x4 extr, Normal tone, Normal affect - Studies Laboratory Data (last 24 hrs) 06/19/23 06/19/23 06/19/23 23:30 22:35 22:35 WBC 5.40 Hgb 10.6 L Hct 31.0 L Plt Count 178 PT 11.4 INR 1.04 Sodium 142 Potassium 4.4 BUN 22 H Creatinine 1.11 Glucose 100 Magnesium 2.0 Total Bilirubin 0.3 AST 32 ALT 33 Alkaline Phosphatase 80 <Hesham Castillo - Last Filed: 06/20/23 01:55> - Studies Laboratory Data (last 24 hrs) 06/19/23 06/19/23 06/19/23 23:30 22:35 22:35 WBC 5.40 Hgb 10.6 L Hct 31.0 L Plt Count 178 PT 11.4 INR 1.04 Sodium 142 Potassium 4.4 BUN 22 H Creatinine 1.11 Glucose 100 Magnesium 2.0 Total Bilirubin 0.3 AST 32 ALT 33 Alkaline Phosphatase 80 Microbiology Data (last 24 hrs): 06/19/23 23:30 Blood - Blood Anaerobic Blood Culture - Final <Jose Gibbons - Last Filed: 06/20/23 15:18> Assessment and Plan - Plan Assessment: Right inguinal hernia, abdominal tenderness Acute on chronic diastolic congestive heart failure History of CAD, aortic stenosis status post TAVR Hypertension Dementia Plan: Right inguinal hernia, abdominal tenderness Minimal reduction attempted in ED without success, ED physician consulted general surgery. Will observe her in hospital for evaluation. N.p.o., IV antibiotics. Acute on chronic diastolic congestive heart failure Recent echo with normal ejection fraction, had a heart catheterization also recently that showed multivessel disease approaching 70%, recommendation for medical management at this time. Patient denies any chest pain currently he does have significant pedal edema bilaterally, continue gentle diuresis. Continue other home medications. History of CAD, aortic stenosis status post TAVR Continue home medications. Hypertension Dementia Continue home meds. DVT PPX: SCD Code status: Full Discharge Plan: Home Plan to discharge in: 24 Hours - Advance Directives Does patient have a Living Will: No Does patient have a Durable POA for Healthcare: No - Code Status/Comfort Care Code Status Assessed: Yes (Full code) Critical Care: No Time Spent Managing Pts Care (In Minutes): 55 <Hesham Castillo - Last Filed: 06/20/23 01:55> Physician Review: Patient Assessed, Agree with Above Assessment and Plan <Jose Gibbons - Last Filed: 06/20/23 15:18>
[2023-06-20 03:16] VITALS: BMI 17.1
[2023-06-20] MEDS ORDERED: ONDANSETRON 4 MG/2 ML VIAL IV PRN (03:17)
[2023-06-20] MEDS ORDERED: MORPHINE 2 MG/ML SYR IV PRN (03:17)
[2023-06-20 03:27] VITALS: O2SAT 100
[2023-06-20 04:26] LABS: Hematocrit 28.7 % (39.6-49.0); Lymphocytes % 21.7 % (15.3-44.8); MCV 93.2 fL (80-100); Platelets 156 thou/uL (152-406); RBC Red Blood Cell Count 3.08 M/uL (4.33-5.43)
[2023-06-20 04:50] LABS: Potassium 4.3 mEq/L (3.5-5.1)
[2023-06-20] MEDS: FUROSEMIDE 20 MG/ 2ML VIAL IV SCH ×2 (09:36→17:58)
[2023-06-20] MEDS: PIPER TAZO 3.375 GM in NA CHLORIDE 0.9% 100 ML IV SCH ×2 (09:38→17:57)
[2023-06-20] MEDS ORDERED: MINERAL OIL 30 ML UCUP PO ONE (14:30)
--- NOTE | 2023-06-20 14:59 | RAD REPORT ---
EXAM DESCRIPTION: CT - Abdomen Pelvis W Contrast - 06/20/2023 6:51 am CLINICAL HISTORY: 87 years, Male, HERNIA COMPARISON: 05/06/2023. TECHNIQUE: Contrast-enhanced images of the abdomen and pelvis were performed utilizing 5 mm slice th ickness at 5 mm interval reconstruction from the lung bases to the ischial tuberosities after the adm inistration of IV contrast. In addition multiplanar reformats in the coronal and sagittal plane were obtained and reviewed. This exam was performed according to our departmental dose-optimization protocol, which includes auto mated exposure control, adjustment of the mA and/or kV according to patient size and/or use of iterat amthew reconstruction technique. FINDINGS: Some of the images are compromised by breathing motion artifact limiting diagnostic value. Lung bases: The lung bases demonstrate to be clear. There is minimal mitral annular calcification. Liver: The liver demonstrate decreased attenuation corresponding to fatty infiltration. Gallbladder: The gallbladder demonstrate to be within normal limits. No evidence for biliary duct dil atation. Pancreas: The pancreas demonstrate to be within normal limits. Spleen: The spleen demonstrate to be within normal limits. Adrenal gland: The adrenal glands demonstrate to be normal. Kidneys: The kidneys demonstrate normal uptake of contrast media. There is no evidence for nephrolith iasis and/or hydronephrosis. There is a upper pole right renal cyst measuring 3.7 x 3.2 cm on image 2 4. GI: Grossly the unopacified stomach, small bowel and large bowel demonstrate to be within normal limi ts. There is no evidence for bowel dilatation/or free air. The appendix was not visualized. There is diverticulosis. There is mild fecal stasis especially along the rectosigmoid colon Urinary bladder: The urinary bladder demonstrate to be within normal limits The prostate gland demonstrate to be within normal limits. Abdominal aorta: There is atherosclerotic disease of the aorta and iliac arteries. Retroperitoneum: There is no retroperitoneal lymphadenopathy. There is no evidence for ascites/or abn ormal fluid collections Bones: Mild diffuse bony osteopenia with minimal anterior spondylosis. There is compression deformity at T12 Soft tissues: There is a small right inguinal hernia containing omentum and small amount of fluid. IMPRESSION: Small right inguinal hernia containing omentum and small amount of fluid. Mild fecal stasis especially along the rectosigmoid colon. Fatty infiltration of the liver. 3.7 cm right Bosniak 1 benign simple cyst. No follow-up imaging is recommended. JACR 2018 Nov; 264-273, Management of the Incidental RenalMass on CT, [employer] 2020; 814-848, Christiano sniak Classification of Cystic Renal Masses, Version 2019. Compression deformity at T12. Electronically signed by: Yoni Mac MD 06/20/2023 1:01 AM CDT Due to temporary technical issues with the PACS/Fluency reporting system, reports are being signed by the in house radiologists without review as a courtesy to insure prompt reporting. The interpreting radiologist is fully responsible for the content of the report.
--- NOTE | 2023-06-20 15:36 | RAD REPORT ---
EXAM DESCRIPTION: RAD - Chest Single View - 06/20/2023 12:18 am CLINICAL HISTORY: 87 years, Male, preop COMPARISON: 05/06/2023 FINDINGS: Single view of the chest was obtained portable. Prior films were compared. There is hyperi nflation. The cardiomediastinal silhouette demonstrate to be unremarkable. The thoracic aorta demonst rate intimal aortic arch calcification. There is a stent within the aortic valve corresponding to tra nsaortic valvular repair. Costophrenic angles are sharp. No areas of consolidation or masses are se en. The rest of the soft tissue and bony structures demonstrate to be unremarkable. IMPRESSION: Hyperinflation. Status post TAVR. No acute cardiopulmonary disease seen. Electronically signed by: Yoni Mac MD 06/20/2023 12:35 AM CDT Due to temporary technical issues with the PACS/Fluency reporting system, reports are being signed by the in house radiologists without review as a courtesy to insure prompt reporting. The interpreting radiologist is fully responsible for the content of the report.
[2023-06-20 17:19] VITALS: BP 135/70; TEMP 97.5
--- NOTE | 2023-06-20 18:48 | P.PN ---
Date of Service: 06/21/23 Subjective: tentative Thursday 06/21 note Physical Exam: Vitals: Reviewed Gen: Alert, Oriented, NAD CV: regular rate & rhythm, no edema Pulm: Respirations are clear bilaterally Abd: soft, nontender, nondistended MSK: no joint tenderness Integumentary: No rashes Neuro: normal speech, normal affect Problem List: PLAN:
--- NOTE | 2023-06-20 19:38 | P.DS ---
Admission Date: 06/20/23 Discharge Date: 06/20/23 Disposition: ROUTINE DISCHARGE Discharge Condition: GOOD Consultations: General surgery Dr. Pitts Procedures: 06/19/2023 chest x-ray FINDINGS: Single view of the chest was obtained portable. Prior films were compared. There is hyperinflation. The cardiomediastinal silhouette demonstrate to be unremarkable. The thoracic aorta demonstrate intimal aortic arch calcification. There is a stent within the aortic valve corresponding to transaortic valvular repair. Costophrenic angles are sharp. No areas of consolidation or masses are seen. The rest of the soft tissue and bony structures demonstrate to be unremarkable. IMPRESSION: Hyperinflation. Status post TAVR. No acute cardiopulmonary disease seen 06/19/2023 CT abdomen pelvis FINDINGS: Some of the images are compromised by breathing motion artifact limiting diagnostic value. Lung bases: The lung bases demonstrate to be clear. There is minimal mitral annular calcification. Liver: The liver demonstrate decreased attenuation corresponding to fatty infiltration. Gallbladder: The gallbladder demonstrate to be within normal limits. No evidence for biliary duct dilatation. Pancreas: The pancreas demonstrate to be within normal limits. Spleen: The spleen demonstrate to be within normal limits. Adrenal gland: The adrenal glands demonstrate to be normal. Kidneys: The kidneys demonstrate normal uptake of contrast media. There is no evidence for nephrolithiasis and/or hydronephrosis. There is a upper pole right renal cyst measuring 3.7 x 3.2 cm on image 24. GI: Grossly the unopacified stomach, small bowel and large bowel demonstrate to be within normal limits. There is no evidence for bowel dilatation/or free air. The appendix was not visualized. There is diverticulosis. There is mild fecal stasis especially along the rectosigmoid colon Urinary bladder: The urinary bladder demonstrate to be within normal limits The prostate gland demonstrate to be within normal limits. Abdominal aorta: There is atherosclerotic disease of the aorta and iliac arteries. Retroperitoneum: There is no retroperitoneal lymphadenopathy. There is no evidence for ascites/or abnormal fluid collections Bones: Mild diffuse bony osteopenia with minimal anterior spondylosis. There is compression deformity at T12 Soft tissues: There is a small right inguinal hernia containing omentum and small amount of fluid. IMPRESSION: Small right inguinal hernia containing omentum and small amount of fluid. Mild fecal stasis especially along the rectosigmoid colon. Fatty infiltration of the liver. 3.7 cm right Bosniak 1 benign simple cyst. No follow-up imaging is recommended. JACR 2018 Nov; 264-273, Management of the Incidental RenalMass on CT, [employer] 2020; 814- 848, Bosniak Classification of Cystic Renal Masses, Version 2019. Compression deformity at T12 Brief History of Present Illness: 87-year-old male with history of hypertension, CHF, CAD, BPH, moderate to severe aortic stenosis status post TAVR, suspected underlying dementia presents to the emergency department with a chief complaint of right lower abdominal pain. Per EMS patient was in the [employer] parking lot in his vehicle with his and began to complain of right lower abdominal pain, he has a known hernia in that area. He was evaluated in the emergency department his labs were significant for hemoglobin 10.6 medic at 31.[address] showed right inguinal hernia without complicating factors. Manual reduction was attempted in ED without success. Patient with significant pain reported at that site, ED provider wishes to admit under observation for evaluation of hernia by general surgery. Patient noted to have significant pitting edema of the lower extremities, he had a heart catheterization performed on 05/11/2023 which showed significant multivessel disease approaching 70% range, normal LVEDP recommendations were given for aggressive medical management given patient's age and dementia, if he remains symptomatic after aggressive medical management may benefit with PCI. Last echocardiogram was performed on 05/07/2023 which showed a normal left ventricular ejection fraction 55 to 60% with normal wall motion, moderate mitral regurgitation, mild aortic, pulmonary tricuspid regurgitation. Per previous documentation there is no lower extremity edema, now with 2-3+ pitting edema in lower extremities. Evaluate hernia, continue with gentle diuresis. It appears patient was prescribed Lasix 40 mg p.o. daily but unclear if he has been taking this medication. Hospital Course: Patient was admitted for right inguinal hernia. Reduction was attempted in the ED without success patient was complaining of pain therefore he was admitted under observation for evaluation general surgery. General surgery evaluated patient this evening deemed that he is not a surgical candidate. His lower extremity edema improved overnight and he is back at his baseline. Of note patient is a patient of Dr. Lao. Discussed with will need follow-up with PCP. Otherwise patient is stable for discharge. Vital Signs/Physical Exam: Temp Pulse Resp BP Pulse Ox 97.5 F 60 18 135/70 98 09/03/23 16:00 06/20/23 17:58 06/20/23 16:00 06/20/23 17:58 06/20/23 16:00 General: Alert, In no apparent distress, Oriented x3 HEENT: Atraumatic, PERRLA, EOMI Neck: Supple, JVD not distended Respiratory: Clear to auscultation bilaterally, Normal air movement Cardiovascular: Regular rate/rhythm, Normal S1 S2 Capillary refill: <2 Seconds Gastrointestinal: Normal bowel sounds, No tenderness Musculoskeletal: No tenderness Integumentary: No rashes Neurological: Normal speech, Normal tone, Normal affect Laboratory Data at Discharge: WBC 4.80 thou/uL (4.3-10.9) 06/20/23 03:29 Hgb 9.9 g/dL (13.6-17.9) L 06/20/23 03:29 Hct 28.7 % (39.6-49.0) L 06/20/23 03:29 Plt Count 156 thou/uL (152-406) 06/20/23 03:29 PT 11.4 SECONDS (9.5-12.5) 06/19/23 23:30 INR 1.04 06/19/23 23:30 Sodium 142 mEq/L (136-145) 06/20/23 03:29 Potassium 4.3 mEq/L (3.5-5.1) 06/20/23 03:29 BUN 21 mg/dL (7-18) H 06/20/23 03:29 Creatinine 0.88 mg/dL (0.70-1.30) 06/20/23 03:29 Glucose 82 mg/dL (74-106) 06/20/23 03:29 Magnesium 2.0 mg/dL (1.6-2.4) 06/19/23 22:35 Total Bilirubin 0.3 mg/dL (0.2-1.0) 06/19/23 22:35 AST 32 U/L (15-37) 06/19/23 22:35 ALT 33 U/L (16-61) 06/19/23 22:35 Alkaline Phosphatase 80 U/L (45-117) 06/19/23 22:35 Home Medications: Amlodipine [Norvasc*] 5 mg PO DAILY 05/06/23 Furosemide [Lasix] 40 mg PO DAILY 05/06/23 Aspirin Chewable [Aspirin Chewable*] 81 mg PO DAILY #30 tab.chew 05/13/23 Followup: NONE,NONE [Primary Care Provider] - 1-2 Weeks (if symptoms return f/u with your Doctor or return to the ER.)
--- NOTE | 2023-06-22 16:55 | EKG ---
Test Date: 2023-06-19 Test Time: 23:53:24 [employer] Manager: JATINDER MEASUREMENT RESULTS: Intervals: Rate: 70 PA: QRSD: 120 QT: 432 QTc: 466 [place]: P: PA: QRS: 83 T: 76 INTERPRETIVE STATEMENTS: Sinus rhythm Right bundle branch block Lateral infarct, possibly acute Marked ST abnormality, possible inferior subendocardial injury ACUTE NV / STEMI Abnormal ECG Compared to ECG 05/06/2023 05:29:09 Myocardial infarct finding now present ST (T wave) deviation now present Sinus tachycardia no longer present Electronically Signed On 06-22-23 16:47:02 CDT by Chang Saucedo
--- NOTE | 2023-06-22 16:55 | EKG ---
Test Date: 2023-06-19 Test Time: 23:58:48 Nurse Head: JATINDER MEASUREMENT RESULTS: Intervals: Rate: 68 VA: QRSD: 126 QT: 428 QTc: 455 [place]: P: VA: QRS: 72 T: 71 INTERPRETIVE STATEMENTS: Sinus rhythm Right bundle branch block Abnormal ECG Compared to ECG 06/19/2023 23:53:24 Myocardial infarct finding no longer present ST (T wave) deviation no longer present Electronically Signed On 06-22-23 16:46:41 CDT by Chang Saucedo
== END 2023-06-20 20:25 | disposition home or self-care (01) ==
LOC: ER 22:00 → 2ND 06-20 01:09
PROVIDERS: ADMIT Internal Medicine; ATTEND Hospitalist
DX: K40.90 Unilateral inguinal hernia, without obstruction or gangrene, not specified as recurrent (principal); I10 Essential (primary) hypertension; I50.33 Acute on chronic diastolic (congestive) heart failure; I25.10 Atherosclerotic heart disease of native coronary artery without angina pectoris; I35.0 Nonrheumatic aortic (valve) stenosis; F03.90 Unspecified dementia, unspecified severity, without behavioral disturbance, psychotic disturbance, mood disturbance, and anxiety
CPT/HCPCS: 96365; 87040 ×2; 85025 ×2; 80048 ×2; 36415; 83735; 85610; 80076; 84484; 83880; 74177; 71045; 96375; 99285; Q9967; J1940 ×2; J2543 ×3; J3360; J1170 ×2; J7050; 93005; G0378

== ENCOUNTER 2024-03-16 01:39 | Inpatient (IN) | payer OTHER ==
[2024-03-16] MEDS ORDERED: ONDANSETRON 4 MG/2 ML VIAL ONE (02:13)
[2024-03-16] MEDS ORDERED: MORPHINE 4 MG/ML SYR ONE (02:13)
[2024-03-16] MEDS ORDERED: NA CHLORIDE 0.9% 1,000 ML ONE (02:13)
[2024-03-16 02:46] LABS: Absolute Eosinophils 0.1 K/uL (0-0.5); Absolute Lymphocytes (CBC) 0.8 K/uL (0.7-4.9); Absolute Monocytes 0.8 K/uL (0.1-1.3); Absolute Neutrophil 4.3 K/uL (1.8-8.0); Basophils % 0.5 % (0-1.3); Eosinophils % 1.3 % (0-4.4); Hematocrit 32.6 % (39.6-49.0); Hemoglobin 10.8 g/dL (13.6-17.9); Lymphocytes % 13.9 % (15.3-44.8); MCH 31.5 pg (27.0-35.0); MCHC 33.2 g/dL (32.0-36.0); MPV 9.4 fL (7.6-11.3); Monocytes % 12.5 % (3.3-12.3); Neutrophils % 71.8 % (41.7-73.7); Platelets 226 thou/uL (152-406); RBC Red Blood Cell Count 3.44 M/uL (4.33-5.43); Red Cell Distribution Width 14.4 % (12.1-15.2)
[2024-03-16 02:58] LABS: Albumin 2.9 g/dL (3.4-5.0); Albumin/Globulin Ratio 0.8 (1.1-1.8); Alkaline Phosphatase 73 U/L (45-117); Anion Gap 5.8 mEq/L (5.0-15.0); BUN Blood Urea Nitrogen 25 mg/dL (7-18); Bicarbonate 29 mEq/L (21-32); Bilirubin Total 0.3 mg/dL (0.2-1.0); Globulin 3.8 g/dL (2.3-3.5); Glomerular Filtration Rate 67 ml/min (=/>90); Glucose Level 107 mg/dL (74-106); Lipase 32 U/L (13-75); Protein, Total 6.7 g/dL (6.4-8.2); Sodium Level 137 mEq/L (136-145)
[2024-03-16 03:03] LABS: ALT/SGPT < 14 U/L (16-61); AST/SGOT 18 U/L (15-37); Potassium 4.8 mEq/L (3.5-5.1)
[2024-03-16] MEDS ORDERED: MORPHINE 2 MG/ML SYR ONE ×2 (03:44→12:57)
[2024-03-16] MEDS ORDERED: ETOMIDATE 20 MG/10 ML VIAL IV ONE (06:25)
[2024-03-16] MEDS ORDERED: HYDRALAZINE HCL 20 MG/ML VIAL ONE (07:19)
--- NOTE | 2024-03-16 07:22 | EDPHYS ---
Physician Documentation [facility] Name: Nicolle Lee Age: 88 yrs Sex: Male : 1935 Arrival Date: 03/16/2024 Time: 01:39 Bed 18 Private MD: ED Physician Davian Gutierres HPI: 03/16 01:44 This 88 yrs old Male presents to ER via EMS with complaints of Right groin sp4 pain acute . 05:19 Allergies: No Known Allergies; Home Meds: amlodipine; Furosemide Oral; PMHx: Congestive sp4 heart failure; Hypertension; Dementia; . 07:21 88-year-old male presents with acute moderate to severe right inguinal pain associated sp4 with bulging of right inguinal hernia.. Historical: - Allergies: 01:42 Unable to obtain; jb4 - PMHx: 01:42 Congestive heart failure; Dementia; Hypertension; jb4 - PSHx: 01:42 Unable to Obtain; jb4 - Immunization history:: Adult Immunizations up to date. - Infectious Disease History:: Denies. - Social history:: Smoking status: unknown. - Family history:: not pertinent. ROS: 07:21 Constitutional: Negative for fever, chills, and weight loss, positive for right sp4 inguinal pain associated with a right inguinal hernia Eyes: Negative for injury, pain, redness, and discharge, 07:21 All other systems are negative, Exam: 07:21 Constitutional: This is a well developed, well nourished patient who is awake, alert, sp4 patient is hard of hearing, signs of moderate dementia, mild distress secondary to pain Head/Face: Normocephalic, atraumatic. Eyes: Pupils equal round and reactive to light, extra-ocular motions intact. Lids and lashes normal. Conjunctiva and sclera are not injected. Cornea within normal limits. Periorbital areas with no swelling, redness, or edema. ENT: Nares patent. No nasal discharge, no septal abnormalities noted. Tympanic membranes are normal and external auditory canals are clear. Oropharynx with no redness, swelling, or masses, exudates, or evidence of obstruction, uvula midline. Mucous membranes moist. Neck: Trachea midline, no thyromegaly or masses palpated, and no cervical lymphadenopathy. Supple, full range of motion without nuchal rigidity, or vertebral point tenderness. Chest/axilla: Normal chest wall appearance and motion. Nontender with no deformity. No lesions are appreciated. Cardiovascular: Regular rate and rhythm with a normal S1 and S2. No gallops, murmurs, or rubs. Normal PMI, no JVD. No pulse deficits. Respiratory: Lungs have equal breath sounds bilaterally, clear to auscultation and percussion. No rales, rhonchi or wheezes noted. No increased work of breathing, no retractions or nasal flaring. Abdomen/GI: Soft, with normal bowel sounds. No distension or tympany. No guarding or rebound. No evidence of tenderness throughout. Positive for right inguinal hernia midway down inguinal canal appears to be incarcerated not able to reduce hernia on initial exam. Back: No spinal tenderness. No costovertebral tenderness. Male : Normal genitalia with no discharge or lesions. Right inguinal hernia as described above at this time nonreducible secondary to pain and discomfort. No sign of scrotal swelling or tenderness. No signs of scrotal mass. No sign of all testicular torsion. Skin: Warm, dry with normal turgor. Normal color with no rashes, no lesions, and no evidence of cellulitis. MS/ Extremity: Pulses equal, no cyanosis. Neurovascular intact. Full, normal range of motion. Neuro: Awake and alert, GCS 15, oriented to person, Cranial nerves II-XII grossly intact. Motor strength 5/5 in all extremities. Sensory grossly intact. Sings of moderate dementia, Very hard of hearing Vital Signs: 01:41 BP 155 / 79; Pulse 83; Resp 16; Temp 98.7(TE); Pulse Ox 100% on R/A; Pain 10/10; jb4 03:04 BP 167 / 82; Pulse 86; Resp 16; Pulse Ox 97% on R/A; jb4 04:00 BP 176 / 92; Pulse 80; Resp 16; Pulse Ox 98% on R/A; jb4 05:00 BP 167 / 83; Pulse 82; Resp 16; Pulse Ox 99% on R/A; jb4 08:27 BP 151 / 74; Pulse 76; Resp 21; Pulse Ox 98% on R/A; ld1 09:28 BP 140 / 61; Pulse 70; Resp 15; Pulse Ox 99% ; nj1 10:20 BP 129 / 65; Pulse 75; Resp 15; Pulse Ox 99% on R/A; nj1 13:44 Temp 98.2(A); nj1 01:41 Pain Scale: Adult jb4 Anita Coma Score: 07:21 Eye Response: spontaneous(4). Motor Response: obeys commands(6). Verbal Response: sp4 oriented(5). Total: 15. Procedures: 07:18 Moderate sedation: Pre-procedure assessment: the patient has been NPO 8 hour(s) prior sp4 to arrival, ASA physical classification: II - mild/mod systemic disease that does not interfere with daily routines, Airway assessment: able to hyperextend neck, able to maintain airway, can open mouth without difficulty, Mallampati classification of tongue size: II - faucial pillars and soft palate can be visualized, but uvula is masked by the base of the tongue, Monitoring during procedure: air sampling and monitoring, continuous pulse oximetry, nurse at bedside at all times, Medications employed: Etomidate, 10 mg(s), Right inguinal hernia with incarceration was reduced with etomidate sedation., Post-procedure assessment: the patient is moderately sedated, Garay sedation score: 4 - brisk response to a light glabellar tap, Respiratory status: requires supplemental oxygen to maintain acceptable oxygen saturation, a reversal agent was not used, No complications. MDM: 01:50 Patient medically screened. sp4 05:16 ED course: CLINICAL HISTORY: Right inguinal hernia ;Abd pain COMPARISON: 06/20/2023. sp4 TECHNIQUE: CTABDOMEN PELVIS WITHOUT IV CONTRAST on 03/16/2024 1:44 AM CDT This exam was performed according to our departmental dose-optimization program, which includes automated exposure control, adjustment of the mA and/or kV according to patient size and/or use of iterative reconstruction technique. FINDINGS: Lower lungs are clear. Abdomen: The liver is normal in appearance. There is no biliary dilatation. Gallbladder is partially decompressed. The pancreas and spleen are normal in appearance. Adrenal glands are poorly seen. Kidneys are moderately atrophic. Mid pole right renal cyst measures 3.6 cm. Abdominal aorta is densely calcified measuring up to 2.6 cm. There is no free air. There is no retroperitoneal adenopathy. Pelvis: There is moderate amount of stool throughout the colon. Urinary bladder is unremarkable. There is no free fluid. Appendix is partially visualized and is unremarkable. Right inguinal hernia contains a short segment of small bowel with proximal small bowel distention. Skeleton: There are no acute osseous findings. No suspicious bony lesions. IMPRESSION: Developing small bowel obstruction secondary to a small bowel containing right inguinal hernia. Abdominal aortic aneurysm suspected measuring 2.6 cm. Recommend follow-up every 5 years. Abdominal aortic aneurysm suspected measuring 2.6 cm. Recommend follow-up every 5 years. Right Bosniak I/Bosniak II benign renal cyst measuring 3.6 cm. No follow-up imaging is recommended. Electronically signed by: Ashok Hunt MD 03/16/2024 04:40 AM. 05:22 ED course: FINDINGS: Lower lungs are clear. Abdomen: The liver is normal in appearance. sp4 There is no biliary dilatation. Gallbladder is partially decompressed. The pancreas and spleen are normal in appearance. Adrenal glands are poorly seen. Kidneys are moderately atrophic. Mid pole right renal cyst measures 3.6 cm. Abdominal aorta is densely calcified measuring up to 2.6 cm. There is no free air. There is no retroperitoneal adenopathy. Pelvis: There is moderate amount of stool throughout the colon. Urinary bladder is unremarkable. There is no free fluid. Appendix is partially visualized and is unremarkable. Right inguinal hernia contains a short segment of small bowel with proximal small bowel distention. Skeleton: There are no acute osseous findings. No suspicious bony lesions. . 07:18 ED course: CT impression - IMPRESSION: Developing small bowel obstruction secondary to sp4 a small bowel containing right inguinal hernia. Abdominal aortic aneurysm suspected measuring 2.6 cm. Recommend follow-up every 5 years. Reference: J Am Antwan Radiol 2013;10:789-794. Abdominal aortic aneurysm suspected measuring 2.6 cm. Recommend follow-up every 5 years. Reference: J Am Antwan Radiol 2013;10:789-794. Right Bosniak I/Bosniak II benign renal cyst measuring 3.6 cm. No follow-up imaging is recommended. JACR 2018 Nov; 264-273, Management of the Incidental Renal Mass on CT, [employer] 2020; 814-848, Bosniak Classification of Cystic Renal Masses, Version 2019.. 07:25 Differential Diagnosis flu. Data reviewed: vital signs, nurses notes, lab test sp4 result(s), radiologic studies, CT scan. Consideration of Admission/Observation Patient was admitted/placed on observation. Escalation of care including admission/observation considered. Management of patient was discussed with the following: [employer] Specialist: Dmitry SAINZ General Surgery . Primary Care Provider: Shilo SAINZ . 03/16 01:44 Order name: CBC with Diff; Complete Time: 03:28 sp4 03/16 01:44 Order name: CMP; Complete Time: 03: sp4 03/16 07:40 Interpretation: GFR 67. sp4 03/16 01:44 Order name: Lipase; Complete Time: 03: sp4 03/16 01:44 Order name: CT Abd/Pelvis - Without Contrast sp4 03/16 07:33 Order name: CONS Physician Consult EDCO 03/16 01:44 Order name: IV Saline Lock; Complete Time: 02:23 sp4 03/16 01:44 Order name: Labs collected and sent; Complete Time: 02:23 sp4 03/16 03:53 Order name: Moderate Sedation; Complete Time: 07:28 sp4 Administered Medications: 02:22 Drug: Ondansetron IVP 4 mg IVP once; over 2 minutes Route: IVP; Site: right forearm; [facility] 02:22 Drug: morphine IVP or IV 4 mg IVP once over 4 mins Route: IVP; Infused Over: 4 mins; 4 Site: right forearm; 02:22 Drug: NS 0.9% IV 1000 ml IV at 125 ml/hr continuous Route: IV; Rate: 125 ml/hr; Site: jb4 right forearm; 11:00 Follow up: IV Status: Completed infusion; IV Intake: 1000ml nj1 03:57 Drug: morphine IVP or IV 2 mg IVP once over 4 mins Route: IVP; Infused Over: 4 mins; 4 Site: right forearm; 06:38 Drug: Etomidate IVP 10 mg IVP once Route: IVP; Site: right forearm; [facility] 07:55 Not Given (Other Intervention Used): [id number] mg IVP once ld1 Disposition Summary: 03/16/24 07:21 Hospitalization Ordered Notes: Hospitalization Status: Inpatient Admission sp4 Provider: Chetan Lao spFabio Condition: Stable sp4 Problem: new sp4 Symptoms: have improved sp4 Bed/Room Type: Standard sp4 Location: Telemetry/MedSurg (observation)(03/16/24 12:33) 6 Room Assignment: 209(03/16/24 12:33) bc6 Diagnosis - Unilateral inguinal hernia, without obstruction or gangrene sp4 - Right inguinal hernia with incarceration without strangulation. Developing bowel sp4 obstruction Forms: - Medication Reconciliation Form sp4 - SBAR form sp4 - Leadership Thank You Letter sp4 Signatures: Dispatcher [employer] EDMS Ervin Singh RN RN jb4 Ede Diane RN RN bp Ro Cates bc6 Davian Gutierres MD MD sp4 Tiara Barragan RN ld1 Vivian Caraballo RN nj1 Corrections: (The following items were deleted from the chart) 11:12 07:21 Telemetry/MedSurg (Inpatient) sp4 bp 11:12 07:21 sp4 bp 12:33 11:12 [facility] ER HOLD bp bc6 12:33 11:12 ERHOLD- bp bc6
--- NOTE | 2024-03-16 07:22 | ER ---
Nurse's Notes [facility] Name: Nicolle Lee Age: 88 yrs Sex: Male : 1935 Arrival Date: 03/16/2024 Time: 01:39 Bed 18 Private MD: Diagnosis: Unilateral inguinal hernia, without obstruction or gangrene;Right inguinal hernia with incarceration without strangulation. Developing bowel obstruction Presentation: 03/16 01:41 Chief complaint: EMS states: Pt's reports he is having penile pain that just jb4 started tonight. Coronavirus screen: At this time, the client does not indicate any symptoms associated with coronavirus-19. Ebola Screen: No symptoms or risks identified at this time. Initial Sepsis Screen: Does the patient meet any 2 criteria? No. Patient's initial sepsis screen is negative. Does the patient have a suspected source of infection? No. Patient's initial sepsis screen is negative. Risk Assessment: Do you want to hurt yourself or someone else? Patient reports no desire to harm self or others. Onset of symptoms was March 16, 2024. Transition of care: patient was not received from another setting of care. 01:41 Method Of Arrival: EMS: [facility] jb4 01:41 Acuity: MARY 3 jb4 Historical: - Allergies: 01:42 Unable to obtain; jb4 - PMHx: 01:42 Congestive heart failure; Dementia; Hypertension; jb4 - PSHx: 01:42 Unable to Obtain; jb4 - Immunization history:: Adult Immunizations up to date. - Infectious Disease History:: Denies. - Social history:: Smoking status: unknown. - Family history:: not pertinent. Screenin:43 [facility] ED Fall Risk Assessment (Adult) History of falling in the last 3 months, jb4 including since admission No falls in past 3 months (0 pts) Confusion or Disorientation No (0 pts) Score/Fall Risk Level 0 - 2 = Low Risk Oriented to surroundings, Maintained a safe environment. Abuse screen: Denies threats or abuse. Nutritional screening: No deficits noted. Tuberculosis screening: No symptoms or risk factors identified. Assessment: 01:43 General: Appears in no apparent distress. comfortable, Behavior is calm, cooperative, jb4 appropriate for age. Pain: Complains of pain in groin Pain does not radiate. Pain currently is 9 out of 10 on a pain scale. Neuro: Level of Consciousness is awake, alert, Oriented to person, place, situation. Cardiovascular: Patient's skin is warm and dry. Respiratory: Airway is patent Respiratory effort is even, unlabored, Respiratory pattern is regular, symmetrical. GI: No signs and/or symptoms were reported involving the gastrointestinal system. : No signs and/or symptoms were reported regarding the genitourinary system. EENT: No signs and/or symptoms were reported regarding the EENT system. Derm: Skin is intact, Skin is pink, warm \T\ dry. Musculoskeletal: Circulation, motion, and sensation intact. Range of motion: intact in all extremities. 03:04 Reassessment: Patient appears in no apparent distress at this time. Patient and/or jb4 family updated on plan of care and expected duration. Pain level reassessed. Patient is alert, oriented x 3, equal unlabored respirations, skin warm/dry/pink. 04:00 Reassessment: Pt is resting in bed with eyes closed, respirations are even and jb4 unlabored. 05:24 Reassessment: Patient appears in no apparent distress at this time. No changes from jb4 previously documented assessment. Patient and/or family updated on plan of care and expected duration. Pain level reassessed. 06:30 Reassessment: Patient appears in no apparent distress at this time. No changes from jb4 previously documented assessment. Patient and/or family updated on plan of care and expected duration. Pain level reassessed. Pt consented for Conscious sedation. reports they are [employer] and refused blood products if they are needed. 08:27 General: Appears in no apparent distress. comfortable, Behavior is calm, cooperative, ld1 appropriate for age. Neuro: Level of Consciousness is obeys commands. Cardiovascular: Capillary refill < 3 seconds Patient's skin is warm and dry. Rhythm is sinus rhythm. Respiratory: Airway is patent Respiratory effort is even, unlabored. GI: Abdomen is flat, non-distended. 09:29 Reassessment: Patient appears in no apparent distress at this time. No changes from nj1 previously documented assessment. 10:22 Reassessment: Pt moved to inpatient bed in room, assited by Ibeth Gaxiola RN, Gagan Garner RN, nj1 Ede Bhakta RN. Tolerated well. No incontinence noted at this time. 12:50 Reassessment: REPORT FAXED FOR 209. bp Vital Signs: 01:41 BP 155 / 79; Pulse 83; Resp 16; Temp 98.7(TE); Pulse Ox 100% on R/A; Pain 10/10; jb4 03:04 BP 167 / 82; Pulse 86; Resp 16; Pulse Ox 97% on R/A; jb4 04:00 BP 176 / 92; Pulse 80; Resp 16; Pulse Ox 98% on R/A; jb4 05:00 BP 167 / 83; Pulse 82; Resp 16; Pulse Ox 99% on R/A; jb4 08:27 BP 151 / 74; Pulse 76; Resp 21; Pulse Ox 98% on R/A; ld1 09:28 BP 140 / 61; Pulse 70; Resp 15; Pulse Ox 99% ; nj1 10:20 BP 129 / 65; Pulse 75; Resp 15; Pulse Ox 99% on R/A; nj1 13:44 Temp 98.2(A); nj1 01:41 Pain Scale: Adult jb4 Anita Coma Score: 07:21 Eye Response: spontaneous(4). Motor Response: obeys commands(6). Verbal Response: sp4 oriented(5). Total: 15. ED Course: 01:41 Patient arrived in ED. jb4 01:42 Triage completed. jb4 01:42 Arm band placed on right wrist. jb4 01:43 Davian Gutierres MD is Attending Physician. sp4 01:43 Patient has correct armband on for positive identification. Bed in low position. Call jb4 light in reach. Side rails up X 1. Provided Education on: unable to educate, pt appears altered and very hard of hearing.. 02:49 CT Abd/Pelvis - Without Contrast In Process Unspecified. EDMS 07:20 Chetan Lao MD is Hospitalizing Provider. sp4 08:27 Tiara Barragan RN is Primary Nurse. ld1 12:50 No provider procedures requiring assistance completed. nj1 12:50 Patient admitted, IV remains in place. nj1 Administered Medications: 02:22 Drug: Ondansetron IVP 4 mg IVP once; over 2 minutes Route: IVP; Site: right forearm; jb4 02:22 Drug: morphine IVP or IV 4 mg IVP once over 4 mins Route: IVP; Infused Over: 4 mins; jb4 Site: right forearm; 02:22 Drug: NS 0.9% IV 1000 ml IV at 125 ml/hr continuous Route: IV; Rate: 125 ml/hr; Site: jb4 right forearm; 11:00 Follow up: IV Status: Completed infusion; IV Intake: 1000ml nj1 03:57 Drug: morphine IVP or IV 2 mg IVP once over 4 mins Route: IVP; Infused Over: 4 mins; jb4 Site: right forearm; 06:38 Drug: Etomidate IVP 10 mg IVP once Route: IVP; Site: right forearm; jb4 07:55 Not Given (Other Intervention Used): [id number] mg IVP once ld1 Medication: 01:43 VIS not applicable for this client. jb4 Intake: 11:00 IV: 1000ml; Total: 1000ml. nj1 Outcome: 07:21 Decision to Hospitalize by Provider. sp4 12:50 Admitted to Med/surg accompanied by tech, via stretcher, room 209, nj1 12:50 Condition: stable 12:50 Instructed on the need for admit, 13:46 Patient left the ED. nj1 Signatures: Dispatcher [employer] EDMS Ervin Singh RN RN jb4 Ede Diane RN RN bp Sims, Lauren, RN RN ld1 Davian Gutierres MD MD sp4 Vivian Caraballo RN RN nj1 Corrections: (The following items were deleted from the chart) 03:04 01:43 Neuro: Level of Consciousness is awake, alert, Oriented to situation, jb4 jb4
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
[2024-03-16] MEDS ORDERED: ALBUTEROL 2.5 MG/3 ML NEB SOL NEB PRN ×2 (11:58→13:47)
[2024-03-16] MEDS ORDERED: ACETAMINOPHEN 650MG/RECT SUPP PR PRN (11:58)
[2024-03-16] MEDS ORDERED: ONDANSETRON 4 MG/2 ML VIAL IV PRN (11:58)
[2024-03-16] MEDS: MORPHINE 2 MG/ML SYR IV PRN (12:05)
[2024-03-16] MEDS: D5 0.9 NS 1,000 ML IV SCH (12:10)
--- NOTE | 2024-03-16 12:29 | RAD REPORT ---
EXAM DESCRIPTION: CT - Abdomen Pelvis Wo Contrast - 03/16/2024 6:13 am CLINICAL HISTORY: Right inguinal hernia ;Abd pain COMPARISON: 06/20/2023. TECHNIQUE: CT ABDOMEN PELVIS WITHOUT IV CONTRAST on 03/16/2024 1:44 AM CDT This exam was performed according to our departmental dose-optimization program, which includes autom ated exposure control, adjustment of the mA and/or kV according to patient size and/or use of iterati ve reconstruction technique. FINDINGS: Lower lungs are clear. Abdomen: The liver is normal in appearance. There is no biliary dilatation. Gallbladder is partially decompressed. The pancreas and spleen are normal in appearance. Adrenal glands are poorly seen. Kidne ys are moderately atrophic. Mid pole right renal cyst measures 3.6 cm. Abdominal aorta is densely calcified measuring up to 2.6 cm. There is no free air. There is no retrop eritoneal adenopathy. Pelvis: There is moderate amount of stool throughout the colon. Urinary bladder is unremarkable. Ther e is no free fluid. Appendix is partially visualized and is unremarkable. Right inguinal hernia conta ins a short segment of small bowel with proximal small bowel distention. Skeleton: There are no acute osseous findings. No suspicious bony lesions. IMPRESSION: Developing small bowel obstruction secondary to a small bowel containing right inguinal hernia. Abdominal aortic aneurysm suspected measuring 2.6 cm. Recommend follow-up every 5 years. Reference: J Am Antwan Radiol 2013;10:789-794. Abdominal aortic aneurysm suspected measuring 2.6 cm. Recommend follow-up every 5 years. Reference: J Am Antwan Radiol 2013;10:789-794. Right Bosniak I/Bosniak II benign renal cyst measuring 3.6 cm. No follow-up imaging is recommended. JACR 2018 Nov; 264-273, Management of the Incidental Renal Mass on CT, RadioGraphics 2020; 814-848, B osniak Classification of Cystic Renal Masses, Version 2019. Electronically signed by: Ashok Hunt MD 03/16/2024 04:40 AM CDT RP Due to temporary technical issues with the PACS/Fluency reporting system, reports are being signed by the in house radiologist without review as a courtesy to ensure prompt reporting. The interpreting r adiologist is fully responsible for the content of the report.
[2024-03-16] MEDS: MORPHINE 2 MG/ML SYR IV ONE (13:03)
--- NOTE | 2024-03-16 14:39 | P.HP ---
Certification for Inpatient Patient admitted to: Inpatient With expected LOS: >2 Midnights Patient will require the following post-hospital care: None Practitioner: I am a practitioner with admitting privileges, knowledge of patient current condition, hospital course, and medical plan of care. Services: Services provided to patient in accordance with Admission requirements found in Title 42 Section 412.3 of the Code of Federal Regulations Patient History Date of Service: 03/16/24 Reason for admission: Incarcerated right inguinal hernia History of Present Illness: Patient is a 88-year-old gentleman came to the hospital with incarcerated right inguinal hernia. Patient was seen in the emergency room by general surgery and the incarcerated hernia with reduced. However, patient's had recurrent episodes and has multiple risk factors so decision is to go ahead and proceed while patient is in the hospital. Cardiac clearance is pending. Allergies No Known Allergies Allergy (Verified 03/08/13 16:53) Home Medications: Atorvastatin Calcium 40 mg PO BEDTIME 03/16/24 Metoprolol Succinate 25 mg PO DAILY 03/16/24 - Past Medical/Surgical History Has patient received pneumonia vaccine in the past: Yes Diabetic: No -: Mild Arthritis -: Moderate to severe aortic stenosis -: HTN -: Dementia -: HX Falls -: CHF -: CAD -: Tonsilectomy -: TAVR Psychosocial/ Personal History: Lives at home with his - Social History Smoking Status: Never smoker Place of Residence: Home Physical Examination - Vital Signs Temperature: 98.2 F Blood Pressure: 129/65 Pulse: 75 Respirations: 16 Pulse Ox (%): 99 - Studies Laboratory Data (last 24 hrs) 03/16/24 03/16/24 02:07 02:07 WBC 6.10 Hgb 10.8 L Hct 32.6 L Plt Count 226 Sodium 137 Potassium 4.8 BUN 25 H Creatinine 1.07 Glucose 107 H Total Bilirubin 0.3 AST 18 ALT < 14 L Alkaline Phosphatase 73 Lipase 32 Assessment & Plan - Problems (Diagnosis) (1) Incarcerated right inguinal hernia Current Visit: Yes Status: Acute (2) Acute on chronic diastolic CHF (congestive heart failure) Onset Date: 08/31/18 Current Visit: No Status: Acute (3) Anemia Onset Date: 10/27/16 Current Visit: No Status: Acute Qualifiers: (4) Hypertension Current Visit: No Status: Acute (5) Aortic stenosis Onset Date: 08/31/18 Current Visit: No Status: Chronic - Plan -IV antibiotics -IV fluids -Surgery and GI consultation -CBC, CMP, lipase, stool cultures -N.p.o. -Repeat abdominal film -NG tube -Antiemetics -Cardiac clearance - Advance Directives Does patient have a Living Will: No Does patient have a Durable POA for Healthcare: No
--- NOTE | 2024-03-16 17:25 | RAD REPORT ---
EXAM DESCRIPTION: US - Lower Extremity Artery Uni Ltd - 03/16/2024 5:18 pm CLINICAL HISTORY: red swollen right lower extremity Pain and swelling COMPARISON: <Comparisons> FINDINGS: Right lower extremity arterial Doppler was performed. Biphasic and monophasic waveforms ar e seen involving the right lower extremity throughout system. No high-grade stenosis or occlusion.
--- NOTE | 2024-03-16 17:26 | RAD REPORT ---
EXAM DESCRIPTION: US - Extremity Venous Uni Ltd - 03/16/2024 5:20 pm CLINICAL HISTORY: swelling Leg swelling and edema. COMPARISON: <Comparisons> FINDINGS: Right lower extremity venous system was interrogated with Doppler technique. Normal flow, compressibility and augmentation was noted. There is no DVT present. IMPRESSION: No evidence of right lower extremity deep venous thrombosis.
--- NOTE | 2024-03-16 20:01 | CON ---
Date of Consultation: 03/16/2024 Reason For Consultation: Preop cardiac risk assessment. History Of Present Illness: This is an 88-year-old male, history of advanced dementia, hypertension, coronary artery disease known. I did heart cath on him in last year and he has diffuse disease invo lving left circ and the RCA and diagonal, but the LAD was okay, disease approaching 70%, but due to h is advanced dementia, was elected to be treated medically. He denies having any chest pain. He pres ented at this time with strangulated, incarcerated right inguinal hernia and planned for taking him t o surgery tomorrow morning. Denies having any active chest pain. Past Medical History: Hypertension, coronary artery disease, CHF, dementia, aortic valve stenosis, s tatus TAVR. Medications: Refer to reconciliation sheet for detailed list. Allergies: NO KNOWN DRUG ALLERGIES. Family History: No premature coronary artery disease or cancer. Social History: Does not smoke or drink. Does not use any drugs. Review of Systems: All systems were reviewed and they were negative except as mentioned in the HPI. Physical Examination: Vital Signs: Reviewed. Head and Neck: Pupils are equal, reactive to light. Intact eye movements. No JVD. No cervical lym phadenopathy. Neck is supple. Thyroid is not enlarged. Lungs: Clear to auscultation bilaterally. No rhonchi, wheezing, or crackles. No accessory muscle u se. Heart: Regular rate and rhythm. No extra sounds. Abdomen: Soft, nontender. Bowel sounds positive. No organomegaly. No masses or hernia. No rigidi ty or rebound. Extremities: No clubbing or cyanosis. Intact pulses. Neurologic: Alert, awake, with confusion. No acute focal deficits appreciated. Lymph Nodes: No cervical or axillary lymphadenopathy. Investigations: BUN is 25, creatinine 1.0, and lipase is 32, and hemoglobin is 10.8. Assessment And Recommendations: 1.Cardiac preoperative risk assessment. He is known to have coronary artery disease that is signifi cant at least of the RCA and left circumflex, but it is about 70%, and he is having no chest pain. A t this point, this surgery is emergent to proceed and we will be around for any change in his cardiac status. I recommend no further cardiac workup at this moment and to proceed with surgery as it is r ather emergent. 2.Incarcerated right inguinal hernia. Surgery as outlined above. 3.Hypertension. Blood pressure is controlled. 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 SR/MODL Voice ID: [id number] Report ID: [id number]
[2024-03-16] MEDS: MORPHINE 4 MG/ML SYR IV PRN (20:43)
--- NOTE | 2024-03-16 21:22 | CON ---
Date of Consultation: 03/16/2024 Reason For Service: Small bowel obstruction, possibly related to the right inguinal hernia. History Of Present Illness: This is a case of an 88-year-old patient who came at 5 o'clock in the [facility] with right inguinal pain that just happened to him. He went to the ER, found to have a CAT sca n with bowel obstruction, probably hernia as the culprit, so reduction was done of the hernia in the ER. He was admitted for observation pending right now to see if he passed some cardiac clearance randolph ugh for us to trying to fix the hernia. He initially was seen by Dr. Lao, but I see that then the patient was transferred to services of Dr. Roman. I discussed the case with Dr. Roman too. Much of e information is obtained from the patient's since he has some dementia associated with it and i t is hard to get the story from him. His abdomen right now feels benign. He has no abdominal pain. The says he has this hernia for some time, but they have not done anything about it because he has some other medical issues. What happened last night is just he was trying to get up and then he put some straining, and then the hernia developed; or at least not developed, but at least did not wa nt to be reduced. Allergies: NONE. Medications: Metoprolol. Medical Problems: Arthritis, severe aortic stenosis, hypertension, dementia, congestive heart failur e, coronary artery disease. Past Surgical History: Surgeries include tonsillectomy and cardiac stents. Social History: He does not smoke. He does not drink alcohol. Lives at home with his . Family History: Noncontributory. Physical Examination: General: The patient is awake, alert. No distress, although obviously mildly confused, but that is chronic as per . HEENT: Pupils anicteric. Chest: Clear. Abdomen: Soft and depressible. No guarding or rebound. No peritoneal signs. The patient has reduc ible right inguinal hernia, right now was reduced. No tenderness in that region. Extremities: Good capillary refill. Rectal: Deferred. Laboratory Data: Blood work shows a WBC count of 6.1, hemoglobin of 10.8, and platelets of 226 with potassium 4.8 and glucose 107. CAT scan of the abdomen and pelvis before the reduction shows develop ing small bowel obstruction secondary to small bowel containing right inguinal hernia. There is also aortic aneurysm, 2.6 cm. We advised the patient and family about the guidelines that the radiologis ts recommend, and advised him to follow with his primary doctor and bring this CAT scan to have a fol lowup in the future since we are not going to be following up on that. Also, we did discuss with him the findings of a renal mass and also did discuss with the primary doctor. Assessment: 88-year-old patient, but he was developing bowel obstruction, probably right inguinal he rnia that was reduced in the ER. There was a question about recurrence of this, so the patient was a dmitted for observation and obviously do serial abdominal examination, and this will be the plan that we suggest. If the abdomen continued to be benign by tomorrow morning or x-rays do not change, then we might just address the issue of the right inguinal hernia with open repair of right inguinal shawn ia with possible mesh, with benefits, alternatives, and risks including, but not limited to, infectio n, bleeding, damage to adjacent structures, anesthesia complication, [place], even . The family also understands this may not relieve symptoms, and he might need more than one surgical intervention. N ow that itself carries some risks. Cardiology to help us with the risk assessment since the patient has heart disease. Now if we see that today or tomorrow he develops some peritonitis, then we might have to assume that there is some damage to the intestines that will trigger a possible diagnostic la paroscopy, possible exploratory laparotomy with bowel resection. That include the benefits, alternat pietro, and risks including the above, but once again carry the risks of also medical conditions, so to day abdomen feels benign, hopefully remains that way and then we can proceed with the right inguinal hernia repair once we clarify the risk with cardiac department. MARJORIE/MANJULA Voice ID: [id number] Report ID: [id number]
[2024-03-17 04:06] LABS: Anion Gap 4.5 mEq/L (5.0-15.0); Potassium 4.5 mEq/L (3.5-5.1)
--- NOTE | 2024-03-17 07:10 | P.PN ---
Subjective Date of Service: 03/18/24 Chief Complaint: Incarcerated right inguinal hernia Patient is a 88-year-old gentleman came to the hospital with incarcerated right inguinal hernia. Patient was seen in the emergency room by general surgery and the incarcerated hernia with reduced., n.p.o. for surgery today Review of Systems per HPI Physical Examination - Vital Signs Temperature: 97 F Blood Pressure: 134/66 Pulse: 88 Respirations: 18 Pulse Ox (%): 94 - Physical Exam General: Alert, In no apparent distress, Oriented x3 HEENT: Atraumatic, Normocephalic Respiratory: Clear to auscultation bilaterally, Normal air movement Cardiovascular: Normal pulses, Regular rate/rhythm Capillary refill: <2 Seconds Gastrointestinal: Hypoactive, Other ( right inguinal pain, buldging hernia) Musculoskeletal: No clubbing, No swelling Neurological: Normal speech, Normal strength at 5/5 x4 extr Assessment And Plan - Plan Assessment & Plan (1) Incarcerated right inguinal hernia Current Visit: Yes Status: Acute Surgery, Dr Andres consulted CT Abd IMPRESSION: Developing small bowel obstruction secondary to a small bowel containing right inguinal hernia. Abdominal aortic aneurysm suspected measuring 2.6 cm. Recommend follow-up every 5 years. Reference: J Am Antwan Radiol 2013;10:789-794. Abdominal aortic aneurysm suspected measuring 2.6 cm. Recommend follow-up every 5 years. Reference: J Am Antwan Radiol 2013;10:789-794. Right Bosniak I/Bosniak II benign renal cyst measuring 3.6 cm. No follow-up imaging is recommended. JACR 2018 Nov; 264-273, Management of the Incidental Renal Mass on CT, RadioGraphics 2020; 814- 848, Bosniak Classification of Cystic Renal Masses, Version 2019 (2) Acute on chronic diastolic CHF (congestive heart failure) Onset Date: 08/31/18 Current Visit: No Status: Acute FINDINGS: Right lower extremity arterial Doppler was performed. Biphasic and monophasic waveforms are seen involving the right lower extremity throughout system. No high-grade stenosis or occlusion. (3) Anemia Onset Date: 10/27/16 Current Visit: No Status: Acute Qualifiers: (4) Hypertension Current Visit: No Status: Acute (5) Aortic stenosis Onset Date: 08/31/18 Current Visit: No Status: Chronic - Plan -IV antibiotics -IV fluids -Surgery and GI consultation -CBC, CMP, lipase, stool cultures -N.p.o. -Repeat abdominal film -NG tube -Antiemetics -Cardiac clearance - Code Status/Comfort Care Code Status: Full Code Critical Care: No Time Spent Managing PTS Care (In Minutes): 35
[2024-03-17] MEDS ORDERED: ROCURONIUM 50 MG/5 ML VIAL IV ONE (12:05)
[2024-03-17] MEDS ORDERED: LIDOCAINE 2% MPF 5 ML VIAL ONE (12:05)
[2024-03-17] MEDS ORDERED: FENTANYL CITR 100 MCG/2 ML ONE (12:05)
[2024-03-17] MEDS ORDERED: propofoL 200 MG/20 ML VIAL IV ONE (12:05)
[2024-03-17] MEDS ORDERED: ONDANSETRON 4 MG/2 ML VIAL ONE (12:05)
[2024-03-17] MEDS: Ringers Lactate 1,000 ML IV ONE (12:49)
[2024-03-17] MEDS: CEFAZOLIN SODIUM 1 GM/VIAL ONE (12:51)
[2024-03-17] MEDS ORDERED: ETOMIDATE 20 MG/10 ML VIAL IV ONE (12:55)
[2024-03-17] MEDS: SUGAMMADEX SODIUM 200 MG/2 ML VIAL IV ONE (13:11)
--- NOTE | 2024-03-17 13:18 | P.BOP ---
Preoperative diagnosis: incarerated right inguinal hernia Postoperative diagnosis: same Primary procedure: Open repair of incarerated right inguinal hernia with mesh Eclectic Doctor: Adelia Silvestre (Dorothy) Estimated blood loss: <10cc Specimen: none Findings: as above Anesthesia: General Complications: None Drain(s): Other (medium mesh and plug) Transferred to: Recovery Room Condition: Good
[2024-03-17] MEDS: HYDRALAZINE HCL 20 MG/ML VIAL IV PRN (17:16)
--- NOTE | 2024-03-17 19:09 | OP ---
Date of Procedure: 03/17/2024 Surgeon: Luis Alfredo Andres MD Healthcare Business Analyst: WOJCIECH Neal Preoperative Diagnosis: History of small bowel obstruction with incarcerated right inguinal hernia w ith small bowel. Postoperative Diagnosis: History of small bowel obstruction with incarcerated right inguinal hernia with small bowel. Procedure: Open repair of incarcerated right inguinal hernia with mesh. Estimated Blood Loss: Less than 10 cc. Specimen: None. Findings: The patient has direct inguinal hernia. Hernia sac was imbricated. Anesthesia: General plus local. The intestines were reduced 2 days ago. No peritonitis present. No evidence of any ischemic bowel t hrough that region. Anesthesia: General plus local. Complications: None. Implant: Mesh is a medium mesh and plug. Indications: This is a case of a male, who came to us with a small bowel obstruction due to right in guinal hernia which was reduced in the ER, but due to medical history and the small bowel obstruction , patient was kept for observation. The abdomen was benign. He had no abdominal pain at this moment , but the family wants to fix the hernia before he goes because it is becoming an emergency every tanja e. I agreed with them. If we sent him home, he might come tonight once again and with his medical i ssues in next time, we might not be as sammy at this time to save the bowel. So we discussed the kwesi e with the primary doctor and the it technical support specialist. They gave us some instructions on how to minimize ot her comorbidities. Also wants surgery done during this admission and we offered this. We offer ed open repair of right inguinal hernia, possible laparotomy, possible resection. Right now, clinica lly he looks better. No abdominal pain. He is passing gas. So the obstruction might be gone. Ther e is no peritonitis even after 48 hours. So if we see that in the hernia that his bowel is compromis ed, then she will then allow me to do a laparotomy with possible bowel resection. In the meantime, s he wanted to see if we can do only the right inguinal hernia. So the benefits, alternatives, and ris ks of all that surgery were fully explained to the patient which include, but not limited to, infecti on, bleeding, damage to adjacent structures, anesthesia complication, recurrence, IA, and even . He also understands this may not relieve any symptoms. He might need more than one surgical interv ention. He also understands we might be using mesh in that region, so pros and cons of mesh were dis cussed with him and the . They signed a consent. Description Of Procedure: The patient was brought to the operating room, placed in supine position. Anesthesia was done without complication. Right inguinal area was prepped and draped in sterile fas hion and abdominal area too. Incision was carried down to Maryjo fascia until we have external obliq ue aponeurosis that was opened in direction of the fibers. Hemostat was placed inside of the fascia. The inguinal nerve and iliohypogastric nerve were clearly identified, protected behind external obl ique aponeurosis. A Yoly was placed around the spermatic cord. We noticed the patient to have di rect hernia with the hernia sac. This was explored. There was no ischemic bowel going to that area. The content was reduced carefully, ligated and the mesh then was used to reduce and imbricate that hernia sac and put a plug in that area in the form of medium plug with VersaTack rosa. After that , we placed a mesh sheet securing that to the pubic tubercle, shelving edge of inguinal ligament and transversalis fascia and the looks around the spermatic cord was without any strangulation. Area was irrigated. We skeletonized the spermatic cord. We did not see any other pathology or any other her ferdinand in that region. So, at that moment, I proceeded then to bring the ilioinguinal nerve, iliohypoga stric nerve back into the inguinal canal, reconstructed the superficial inguinal ring, and closed the external oblique aponeurosis with Prolene. Then area was irrigated. Maryjo fascia closed with 3-0 chromic and the skin with rosa. Sponge counts and instrument counts were correct. Patient tolerated the procedure well. Patient sen t to recovery in stable condition. MARJORIE/MODL Voice ID: [id number] Report ID: [id number]
--- NOTE | 2024-03-17 20:10 | PN ---
Date of Progress Note: 03/17/2024 Subjective: Seen by bedside. Doing clinically well, postsurgery. The surgery was done very quick a bout 15 minutes and they did not even required general anesthesia. No chest pain. Review of Systems: No chest pain, shortness of breath, orthopnea, or cough. No nausea, vomiting, or diarrhea. All othe r systems were reviewed, they were negative. Objective: Vital Signs: Reviewed. Head and Neck: Pupils are equal, reactive to light. Intact eye movements. No JVD. No cervical lym phadenopathy. Neck is supple. Thyroid is not enlarged. Lungs: Clear to auscultation bilaterally. No rhonchi, wheezing, or crackles. No accessory muscle u se. Heart: Regular rate and rhythm. No extra sounds. Abdomen: Soft, nontender. Bowel sounds positive. No organomegaly. No masses or hernia. No rigidi ty or rebound. Extremities: No clubbing or cyanosis. Intact pulses. Skin: No rash. No nodule. Neurologic: Alert, awake. No acute focal deficit appreciated. Investigations: Labs were reviewed. Assessment And Recommendations: 1.Coronary artery disease. He went through the surgery without any complications. No chest pain. Continue to monitor. If he gets any chest pain, we will obtain EKG and the troponin. At this point, the patient did not even have general anesthesia during this procedure. We will plan to follow this patient up as an outpatient. Cardiology will sign off. 2.Incarcerated inguinal hernia, status post repair. 3.Hypertension. Blood pressure is controlled. 4.Aortic stenosis, status post TAVR. Follow up as an outpatient. Cardiology will sign off. /MANUJLA Voice ID: [id number] Report ID: [id number]
[2024-03-17] MEDS: ENSURE ENLIVE 237 ML CAN PO SCH (21:19)
[2024-03-17] MEDS: HYDROCODONE/APAP 5/325 MG TAB PO PRN (23:27)
--- NOTE | 2024-03-18 07:57 | P.PN ---
Subjective Date of Service: 03/18/24 Chief Complaint: Incarcerated right inguinal hernia Patient is a 88-year-old gentleman came to the hospital with incarcerated right inguinal hernia. Patient was seen in the emergency room by general surgery and the incarcerated hernia with reduced. However, patient's had recurrent episodes and has multiple risk factors so decision is to go ahead and proceed while patient is in the hospital. Cardiac clearance completed Status post 03/18 Dr. Andres Open repair of incarcerated right inguinal hernia with mesh. Advance to full liquid diet, pain control as needed analgesia As needed stool softeners - Physical Exam General: Mild distress, Confused HEENT: Atraumatic, Normocephalic Neck: Supple, 2+ carotid pulse no bruit Respiratory: Clear to auscultation bilaterally, Normal air movement Cardiovascular: Regular rate/rhythm, Normal S1 S2 Capillary refill: <2 Seconds Gastrointestinal: Soft and benign, W/out hepatosplenomegaly Musculoskeletal: No clubbing, No swelling Integumentary: No rashes Neurological: Other (Confused ), Abnormal speech Lymphatics: No axilla or inguinal lymphadenopathy Review of Systems Per HPI Physical Examination - Vital Signs Temperature: 97 F Blood Pressure: 134/66 Pulse: 88 Respirations: 18 Pulse Ox (%): 94 Assessment And Plan - Plan Assessment & Plan (1) Incarcerated right inguinal hernia Current Visit: Yes Status: Acute Surgery, Dr Andres consulted CT Abd IMPRESSION: Developing small bowel obstruction secondary to a small bowel containing right inguinal hernia. Status post 03/18 Dr. Andres Open repair of incarcerated right inguinal hernia with mesh. Abdominal aortic aneurysm suspected measuring 2.6 cm. Recommend follow-up every 5 years. Reference: J Am Antwan Radiol 2013;10:789-794. Abdominal aortic aneurysm suspected measuring 2.6 cm. Recommend follow-up every 5 years. Reference: J Am Antwan Radiol 2013;10:789-794. Right Bosniak I/Bosniak II benign renal cyst measuring 3.6 cm. No follow-up imaging is recommended. JACR 2018 Nov; 264-273, Management of the Incidental Renal Mass on CT, [employer] 2020; 814- 848, Bosniak Classification of Cystic Renal Masses, Version 2019 (2) Acute on chronic diastolic CHF (congestive heart failure) Onset Date: 08/31/18 Current Visit: No Status: Acute FINDINGS: Right lower extremity arterial Doppler was performed. Biphasic and monophasic waveforms are seen involving the right lower extremity throughout system. No high-grade stenosis or occlusion. (3) Anemia Onset Date: 10/27/16 Current Visit: No Status: Acute Qualifiers: (4) Hypertension Current Visit: No Status: Acute (5) Aortic stenosis Onset Date: 08/31/18 Current Visit: No Status: Chronic - Plan -IV antibiotics -IV fluids -Surgery and GI consultation -CBC, CMP, lipase, stool cultures -N.p.o. -Repeat abdominal film -NG tube -Antiemetics -Cardiac clearance Critical Care: No Time Spent Managing PTS Care (In Minutes): 35
[2024-03-18] MEDS: BISACODYL 10 MG RECTAL SUPP PR ONE (11:45)
[2024-03-18] MEDS: BISACODYL E.C. 5 MG TAB PO PRN (17:01)
--- NOTE | 2024-03-18 19:15 | PN ---
Date of Progress Note: 03/18/2024 Subjective: Status post incarcerated hernia repair, doing well. No complaint. No nausea, no vomiti ng. Tolerating diet. Objective: Chest: Clear. Abdomen: Soft and depressible. Intact surgical site. Bowel sounds positive. No guarding or reboun d. No abdominal pain. Plan: From the surgical standpoint, he can be discharged whenever the medical doctor believes is pro per. The only thing we have to add on is just some pain medication and follow up in my office in a w [place]. We explained to the patient and the patient's how to remove the dressings tomorrow and the n may clean the area with soap and water and then put a Band-Aid over that area. No heavy lifting, n o more than 20 pounds. The patient advised to call my office on Wednesday to schedule the appointment f or at least Wednesday. MARJORIE/MANJULA Voice ID: [id number] Report ID: [id number]
--- NOTE | 2024-03-19 07:19 | P.PN ---
Subjective Date of Service: 03/19/24 Chief Complaint: Incarcerated right inguinal hernia Patient is a 88-year-old gentleman came to the hospital with incarcerated right inguinal hernia. Patient was seen in the emergency room by general surgery and the incarcerated hernia with reduced. However, patient's had recurrent episodes and has multiple risk factors so decision is to go ahead and proceed while patient is in the hospital. Cardiac clearance completed Status post 03/18 Dr. Andres Open repair of incarcerated right inguinal hernia with mesh. Advance to full liquid diet, pain control as needed analgesia As needed stool softeners, PT ordered to ambulate patient, - Physical Exam General: Hard of hearing, confused HEENT: Atraumatic, Normocephalic Neck: Supple, 2+ carotid pulse no bruit Respiratory: Clear to auscultation bilaterally, Normal air movement Cardiovascular: Regular rate/rhythm, Normal S1 S2 Capillary refill: <2 Seconds Gastrointestinal: Soft and benign, W/out hepatosplenomegaly Musculoskeletal: No clubbing, No swelling Integumentary: No rashes Neurological: Other (Confused ), Abnormal speech Lymphatics: No axilla or inguinal lymphadenopathy Review of Systems Per HPI Physical Examination - Vital Signs Temperature: 97.9 F Blood Pressure: 135/68 Pulse: 83 Respirations: 16 Pulse Ox (%): 99 Assessment And Plan - Plan Assessment & Plan (1) Incarcerated right inguinal hernia Current Visit: Yes Status: Acute Surgery, Dr Andres consulted CT Abd IMPRESSION: Developing small bowel obstruction secondary to a small bowel containing right inguinal hernia. Status post 03/18 Dr. Andres Open repair of incarcerated right inguinal hernia with mesh. Stool softeners ordered, PT eval to ambulate patient abdominal aortic aneurysm suspected measuring 2.6 cm. Recommend follow-up every 5 years. Reference: J Am Antwan Radiol 2013;10:789-794. Abdominal aortic aneurysm suspected measuring 2.6 cm. Recommend follow-up every 5 years. Reference: J Am Antwan Radiol 2013;10:789-794. Right Bosniak I/Bosniak II benign renal cyst measuring 3.6 cm. No follow-up imaging is recommended. JACR 2017; 264-273, Management of the Incidental Renal Mass on CT, [employer] 2020; 814- 848, Bosniak Classification of Cystic Renal Masses, Version 2019 Acute on chronic diastolic CHF (congestive heart failure) Onset Date: 08/31/18 Current Visit: No Status: Acute FINDINGS: Right lower extremity arterial Doppler was performed. Biphasic and monophasic waveforms are seen involving the right lower extremity throughout system. No high-grade stenosis or occlusion. Cardiac clearance completed prior to discharge Anemia Onset Date: 10/27/16 Current Visit: No Status: Acute Qualifiers: Hypertension Current Visit: No Status: Acute Aortic stenosis Onset Date: 08/31/18 Current Visit: No Status: Chronic - Plan -IV antibiotics -IV fluids -Surgery and GI consultation -CBC, CMP, lipase, stool cultures -N.p.o. -Repeat abdominal film -NG tube -Antiemetics -Cardiac clearance Discharge Plan: Home Critical Care: No Time Spent Managing PTS Care (In Minutes): 35
[2024-03-19 10:29] LABS: Absolute Basophils 0.1 K/uL (0-0.5); Absolute Eosinophils 0.1 K/uL (0-0.5); Absolute Lymphocytes (CBC) 0.8 K/uL (0.7-4.9); Absolute Monocytes 0.6 K/uL (0.1-1.3); Absolute Neutrophil 3.8 K/uL (1.8-8.0); Eosinophils % 1.4 % (0-4.4); Hematocrit 28.3 % (39.6-49.0); Hemoglobin 9.3 g/dL (13.6-17.9); Lymphocytes % 15.2 % (15.3-44.8); MCH 31.2 pg (27.0-35.0); MCV 94.3 fL (80-100); MPV 8.5 fL (7.6-11.3); Monocytes % 11.1 % (3.3-12.3); Neutrophils % 71.3 % (41.7-73.7); Platelets 186 thou/uL (152-406); Red Cell Distribution Width 13.9 % (12.1-15.2)
--- NOTE | 2024-03-19 10:47 | P.DS ---
Admission Date: 03/16/24 Discharge Date: 03/19/24 Disposition: ROUTINE DISCHARGE Reason for Admission: Incarcerated right inguinal hernia Brief History of Present Illness: Patient is a 88-year-old gentleman came to the hospital with incarcerated right inguinal hernia. Patient was seen in the emergency room by general surgery and the incarcerated hernia with reduced. However, patient's had recurrent episodes and has multiple risk factors so decision is to go ahead and proceed while patient is in the hospital. Status post 03/18 Dr. Andres Open repair of incarcerated right inguinal hernia with mesh. Advance to full liquid diet, pain control as needed analgesia As needed stool softeners, PT ordered to ambulate patient, General: Confused HEENT: Atraumatic, Normocephalic Neck: Supple, 2+ carotid pulse no bruit Respiratory: Clear to auscultation bilaterally, Normal air movement Cardiovascular: Regular rate/rhythm, Normal S1 S2 Capillary refill: <2 Seconds Gastrointestinal: Soft and benign, W/out hepatosplenomegaly Musculoskeletal: No clubbing, No swelling Integumentary: No rashes, surgical dressing clean dry and intact Neurological: Other (Confused ), Abnormal speech Lymphatics: No axilla or inguinal lymphadenopathy Hospital Course: 88-year-old gentleman came to the hospital with incarcerated right inguinal hernia. Patient was seen in the emergency room by general surgery and the incarcerated hernia with reduced. She was evaluated by surgery,Status post 03/18 Dr. Andres Open repair of incarcerated right inguinal hernia with mesh. Dr. Andres Advanced to as tolerated, pain control as needed analgesia. Patient can discharge home, follow-up with primary care, follow-up with surgeon after discharge Assessment incarcerated right inguinal hernia. Status post 03/18 Dr. Andres Open repair of incarcerated right inguinal hernia with mesh. Dr. Andres-no heavy lifting, fall precautions, follow-up with surgery in 1 week As needed analgesics, may need as needed stool softeners as needed Abdominal aortic aneurysm suspected measuring 2.6 cm. Recommend follow-up every 5 years. Reference: J Am Antwan Radiol 2013;10:789-794. benign renal cyst measuring 3.6 cm. No follow-up imaging is recommended. JACR 2018 Nov; 264-273, Management of the Incidental Renal Mass on CT, [employer] 2020; 814- 848, Bosniak Classification of Cystic Renal Masses, Version 2019 Cardiac clearance prior to surgery History of aortic stenosis History of acute on chronic heart failure, 03/16 CT of the abdomen pelvis CT Abd IMPRESSION: Developing small bowel obstruction secondary to a small bowel containing right inguinal hernia. Status post 03/18 Dr. Andres Open repair of incarcerated right inguinal hernia with mesh. FINDINGS: Right lower extremity arterial Doppler was performed. Biphasic and monophasic waveforms are seen involving the right lower extremity throughout system. No high-grade stenosis or occlusion. Continue home medicines as previously prescribed GOAL: Clear understanding of disease process INSTRUCTIONS: Physician Discharge Instructions: -Follow-up with PCP in 1 to 2 weeks -Please call Dr. Roman at [phone] if any questions regarding hospital stay -Please call nursing station at [phone] if any nursing or medication questions -Return to the emergency room if symptoms worsen Diet: ADA, low sodium Activity: Fall precautions Vital Signs/Physical Exam: Temp Pulse Resp BP Pulse Ox 98 F 77 17 138/60 97 03/19/24 08:00 03/19/24 08:00 03/19/24 08:00 03/19/24 08:00 03/19/24 08:00 Laboratory Data at Discharge: WBC 5.30 thou/uL (4.3-10.9) 03/19/24 10:19 Hgb 9.3 g/dL (13.6-17.9) L 03/19/24 10:19 Hct 28.3 % (39.6-49.0) L 03/19/24 10:19 Plt Count 186 thou/uL (152-406) 03/19/24 10:19 Sodium 136 mEq/L (136-145) 03/17/24 03:17 Potassium 4.5 mEq/L (3.5-5.1) 03/17/24 03:17 BUN 13 mg/dL (7-18) 03/17/24 03:17 Creatinine 0.82 mg/dL (0.70-1.30) 03/17/24 03:17 Glucose 114 mg/dL (74-106) H 03/17/24 03:17 Total Bilirubin 0.3 mg/dL (0.2-1.0) 03/16/24 02:07 AST 18 U/L (15-37) 03/16/24 02:07 ALT < 14 U/L (16-61) L 03/16/24 02:07 Alkaline Phosphatase 73 U/L (45-117) 03/16/24 02:07 Lipase 32 U/L (13-75) 03/16/24 02:07 Home Medications: Atorvastatin Calcium 40 mg PO BEDTIME 03/16/24 Metoprolol Succinate 25 mg PO DAILY 03/16/24 Physician Discharge Instructions: Keep dressing intact for 24H then may remove outer dressing and shower. Then may cover rosa with bandaid. Activity: No lifting more than 10 lbs Followup: Luis Alfredo Andres MD [ACTIVE - CAN ADMIT] - 1 Week NONE,NONE [Primary Care Provider] - Time spent managing pt's care (in minutes): 55
[2024-03-19 13:06] LABS: Anion Gap 4.7 mEq/L (5.0-15.0); Potassium 4.7 mEq/L (3.5-5.1)
[2024-03-19 13:15] VITALS: O2SAT 97
[2024-03-19 16:26] VITALS: BP 138/67; TEMP 99.5
== END 2024-03-19 19:53 | disposition home health service (06) | DRG 350 ==
LOC: ER 01:39 → ERHOLD 07:29 → 2ND 13:09
PROVIDERS: ADMIT Internal Medicine; ATTEND Hospitalist
PROC: 0YU50JZ Supplement Right Inguinal Region with Synthetic Substitute, Open Approach (ICD-10-PCS; principal; 2024-03-17 12:30)
DX: K40.30 Unilateral inguinal hernia, with obstruction, without gangrene, not specified as recurrent (principal); I50.33 Acute on chronic diastolic (congestive) heart failure; I11.0 Hypertensive heart disease with heart failure; N28.1 Cyst of kidney, acquired; D64.9 Anemia, unspecified; I35.0 Nonrheumatic aortic (valve) stenosis; I71.40 Abdominal aortic aneurysm, without rupture, unspecified; I25.10 Atherosclerotic heart disease of native coronary artery without angina pectoris; F03.90 Unspecified dementia, unspecified severity, without behavioral disturbance, psychotic disturbance, mood disturbance, and anxiety; Z79.899 Other long term (current) drug therapy
CPT/HCPCS: 36415; 74176; 80048; 80053; 83690; 85025; 93926; 93971; 94010; 96361; 96374; 96375; 97116; 97161; 97530; 99285; J0360; J0690; J2001; J2270; J2405; J2704; J3010; J7030; J7042; J7120

== ENCOUNTER 2024-04-14 18:30 | Inpatient (IN) | payer OTHER ==
[2024-04-14 19:05] LABS: Absolute Basophils 0.1 K/uL (0-0.5); Absolute Eosinophils 0.2 K/uL (0-0.5); Absolute Lymphocytes (CBC) 0.7 K/uL (0.7-4.9); Absolute Monocytes 0.5 K/uL (0.1-1.3); Absolute Neutrophil 2.8 K/uL (1.8-8.0); Basophils % 1.2 % (0-1.3); Eosinophils % 5.6 % (0-4.4); Hematocrit 29.1 % (39.6-49.0); Hemoglobin 9.7 g/dL (13.6-17.9); Lymphocytes % 16.3 % (15.3-44.8); MCH 31.2 pg (27.0-35.0); MCHC 33.3 g/dL (32.0-36.0); MCV 93.7 fL (80-100); MPV 8.4 fL (7.6-11.3); Monocytes % 12.5 % (3.3-12.3); Neutrophils % 64.4 % (41.7-73.7); Nucleated Red Blood Cells % 0.1 % (0-0); Platelets 220 thou/uL (152-406); RBC Red Blood Cell Count 3.11 M/uL (4.33-5.43); Red Cell Distribution Width 14.8 % (12.1-15.2)
--- NOTE | 2024-04-14 19:26 | RAD REPORT ---
EXAM DESCRIPTION: CT - Head Brain Wo Cont - 04/14/2024 7:14 pm CLINICAL HISTORY: Alteration of awareness/confusion. Fall with head injury COMPARISON: 2020 TECHNIQUE: Computed axial tomography of the head was obtained. IV contrast was not requested. All CT scans are performed using dose optimization technique as appropriate and may include automated exposure control or mA/KV adjustment according to patient size. FINDINGS: An intracranial bleed is not seen The ventricles are normal in caliber No extra-axial fluid collection is noted. Mild to moderate low-density areas within periventricular, deep and subcortical white matter likely r epresent ischemic changes secondary to small vessel disease. Fluid within the sinuses/ mastoids is not seen. IMPRESSION: No acute intracranial abnormality is seen If patient's symptoms persist MRI of the brain would be recommended
[2024-04-14 19:28] LABS: AST/SGOT 17 U/L (15-37); Albumin 2.7 g/dL (3.4-5.0); Albumin/Globulin Ratio 0.8 (1.1-1.8); Alkaline Phosphatase 81 U/L (45-117); BUN Blood Urea Nitrogen 26 mg/dL (7-18); Bicarbonate 30 mEq/L (21-32); Bilirubin Total 0.3 mg/dL (0.2-1.0); Globulin 3.6 g/dL (2.3-3.5); Glomerular Filtration Rate 78 ml/min (=/>90); Glucose Level 88 mg/dL (74-106); Magnesium 2.1 mg/dL (1.6-2.4); Protein, Total 6.3 g/dL (6.4-8.2); Sodium Level 141 mEq/L (136-145); Troponin High Sensitivity 15.3 pg/mL (<58.9)
--- NOTE | 2024-04-14 19:41 | RAD REPORT ---
EXAM DESCRIPTION: Chao Single View04/14/2024 7:25 pm CLINICAL HISTORY: Chest pain COMPARISON: 2022 FINDINGS: Lungs are hyperaerated. Lungs appear clear of acute infiltrate. Heart is mildly enlarged IMPRESSION: No acute abnormalities displayed
[2024-04-14 20:02] LABS: ALT/SGPT < 14 U/L (16-61); Bilirubin Direct < 0.2 mg/dL (0-0.2); Bilirubin Indirect, Calculated 0.1 mg/dL (0.2-0.8)
--- NOTE | 2024-04-14 21:17 | EDPHYS ---
Physician Documentation [facility] Name: Nicolle Lee Age: 88 yrs Sex: Male : 1935 Arrival Date: 04/14/2024 Time: 18:30 Bed 13 Private MD: ED Physician Horacio Giron HPI: 04/14 19:11 This 88 yrs old Male presents to ER via EMS with complaints of Altered Mental Status. rt 19:11 Patient with history of severe dementia presents to the ED following a fall. Unclear rt how long the patient has been on the ground for. Of note, his , his primary caregiver, was life flighted for a stroke. Unclear if the patient sustained any injuries. EMS states that he is otherwise alone at home. Denies other acute complaints, symptoms are moderate severity, no other aggravating or alleviating factors.. Historical: - Allergies: 21:19 No Known Allergies; cm10 - PMHx: 18:50 Congestive heart failure; Dementia; Hypertension; rs5 18:57 UTI's; falls; rs5 - PSHx: 18:57 inguinal hernia repair; heart valve replacement; rs5 - Immunization history:: Adult Immunizations unknown. - Infectious Disease History:: Denies. - Social history:: Smoking status: unknown. - Family history:: not pertinent. ROS: 19:11 Unable to obtain ROS due to baseline dementia, rt Exam: 19:11 Head/Face: Normocephalic, atraumatic. Chest/axilla: Normal chest wall appearance and rt motion. Nontender with no deformity. No lesions are appreciated. Cardiovascular: Regular rate and rhythm with a normal S1 and S2. No gallops, murmurs, or rubs. Normal PMI, no JVD. No pulse deficits. Respiratory: Lungs have equal breath sounds bilaterally, clear to auscultation and percussion. No rales, rhonchi or wheezes noted. No increased work of breathing, no retractions or nasal flaring. Abdomen/GI: Soft, non-tender, with normal bowel sounds. No distension or tympany. No guarding or rebound. No evidence of tenderness throughout. Skin: Warm, dry with normal turgor. Normal color with no rashes, no lesions, and no evidence of cellulitis. MS/ Extremity: Pulses equal, no cyanosis. Neurovascular intact. Full, normal range of motion. 19:11 ECG was reviewed by the Attending Physician. 19:11 Neuro: Confused, moves all 4 extremities equally, Vital Signs: 18:40 BP 126 / 81; Pulse 70; Resp 17; Temp 97.8(O); Pulse Ox 99% on R/A; rs5 19:00 BP 118 / 58; Pulse 70; Resp 16 S; Pulse Ox 100% on R/A; jw7 23:30 BP 138 / 55; Pulse 70; Resp 17 S; Pulse Ox 100% on R/A; ha1 MDM: 18:40 Patient medically screened. rt 21:17 Differential Diagnosis: CVA, electrolyte abnormality, hypoglycemia, intracranial bleed, beau seizure, sepsis, TIA, UTI, volume depletion. Data reviewed: vital signs, nurses notes, EMS record, lab test result(s), EKG, radiologic studies, CT scan, plain films. Consideration of Admission/Observation Escalation of care including admission/observation considered. I considered the following discharge prescriptions or medication management in the emergency department Medications were administered in the Emergency Department. See MAR. Independent interpretation of the following test(s) in the Emergency Department EKG: See my EKG interpretation above. Test considered but Not performed: MRI: no mri brain. Care significantly affected by the following chronic conditions: Hypertension, Congestive Heart Failure, dementia, uti's. 04/14 18:40 Order name: Basic Metabolic Panel; Complete Time: 21:01 rt 04/14 18:40 Order name: CBC with Diff; Complete Time: 21: rt 04/14 18:40 Order name: LFT's; Complete Time: 21: rt 04/14 18:40 Order name: Magnesium; Complete Time: 21: rt 04/14 18:40 Order name: Troponin HS; Complete Time: 21:01 rt 04/14 18:40 Order name: UAM; Complete Time: 22:33 rt 04/14 23:04 Order name: Urinalysis w/ reflexes EDMS 04/14 18:40 Order name: XRAY Chest (1 view); Complete Time: 21:01 rt 04/14 18:40 Order name: CT Head Brain wo Cont; Complete Time: 21: rt 04/14 18:40 Order name: Cardiac monitoring; Complete Time: 19:25 rt 04/14 18:40 Order name: EKG - Nurse/Tech; Complete Time: 19:28 rt 04/14 18:40 Order name: IV Saline Lock; Complete Time: rt 04/14 18:40 Order name: Labs collected and sent; Complete Time: rt 04/14 18:40 Order name: O2 Per Protocol; Complete Time: rt 04/14 18:40 Order name: O2 Sat Monitoring; Complete Time: : rt 04/14 21:02 Order name: Misc. Order: get ua; Complete Time: 21:55 beau EC: Rate is 78 beats/min. Rhythm is regular, Normal Sinus Rhythm with No ectopy, Right rt bundle branch block. QRS [place] is Normal. GA interval is normal. QRS interval is normal. QT interval is normal. No ST changes noted. Administered Medications: 21:36 Drug: NS 0.9% IV 1000 ml IV at 125 ml/hr continuous Route: IV; Rate: 125 ml/hr; Site: [facility] right antecubital; 21:36 Drug: foLIC Acid IVPB 1 mg IVPB once Route: IVPB; Site: right antecubital; [facility] 21:36 Drug: Rocephin IV 1 grams IV at per protocol once; Given slow IV push per pharmacy [facility] instructions Route: IV; Rate: per protocol; Site: right antecubital; 21:37 Drug: NS 0.9% IV 500 ml IV at bolus once Route: IV; Rate: bolus; Site: right [facility] antecubital; Disposition Summary: 04/14/24 21:17 Hospitalization Ordered Notes: Hospitalization Status: Inpatient Admission beau Provider: Johnson He cha Location: Telemetry/MedSurg (Inpatient) beau Condition: Fair beau Problem: new beau Symptoms: have improved beau Bed/Room Type: Standard beau Room Assignment: 403(04/14/24 23:16) vc1 Diagnosis - Weakness beau - Repeated falls beau - Dementia in other diseases classified elsewhere without behavioral disturbance beau - Dysuria beau - Cardiomegaly beau Forms: - Medication Reconciliation Form beau - SBAR form beau - Leadership Thank You Letter beau Signatures: Dispatcher [employer] Horacio Mosqueda MD MD cha Calcote, Vanessa RN RN vc1 Marly Miles RN RN jw7 Rafa Shin MD MD rt Gagan Lynne RN RN rs5 Dmitry, Ann, RN RN cm10 Corrections: (The following items were deleted from the chart) 18:41 18:41 Head Brain Wo Cont+CT.RAD.BRZ ordered. EDMS EDMS 21:19 18:57 Allergies: Unable to obtain; rsLolly cm10 23:16 21:17 beau vc1
--- NOTE | 2024-04-14 21:17 | ER ---
Nurse's Notes [facility] Name: Nicolle Lee Age: 88 yrs Sex: Male : 1935 Arrival Date: 04/14/2024 Time: 18:30 Bed 13 Private MD: Diagnosis: Weakness;Repeated falls;Dementia in other diseases classified elsewhere without behavioral disturbance;Dysuria;Cardiomegaly Presentation: 04/14 18:40 Chief complaint: EMS states: Daughter found pt on floor of home, alone. Unknown rs5 downtime. Last seen last night by daughter. Pt has severe baseline dementia and is AOx0. 18:40 Coronavirus screen: At this time, the client does not indicate any symptoms associated rs5 with coronavirus-19. Ebola Screen: No symptoms or risks identified at this time. Initial Sepsis Screen: Does the patient meet any 2 criteria? Altered Mental Status. Yes Does the patient have a suspected source of infection? No. Patient's initial sepsis screen is negative. Risk Assessment: Do you want to hurt yourself or someone else? Patient reports no desire to harm self or others. Onset of symptoms was April 14, 2024. Care prior to arrival: IV initiated. 20 GA, in the right antecubital area. 18:40 Method Of Arrival: EMS: [facility] rs5 18:40 Acuity: MARY 3 rs5 Triage Assessment: 18:50 General: Appears distressed, uncomfortable, Behavior is anxious, crying. Pain: Denies rs5 pain. Neuro: Level of Consciousness is awake, alert, obeys commands, Oriented to none. Historical: - Allergies: 21:19 No Known Allergies; cm10 - PMHx: 18:50 Congestive heart failure; Dementia; Hypertension; rs5 18:57 UTI's; falls; rs5 - PSHx: 18:57 inguinal hernia repair; heart valve replacement; rs5 - Immunization history:: Adult Immunizations unknown. - Infectious Disease History:: Denies. - Social history:: Smoking status: unknown. - Family history:: not pertinent. Screenin:09 [facility] ED Fall Risk Assessment (Adult) History of falling in the last 3 months, jw7 including since admission Yes- fall prone (multiple falls) (3 pts) Confusion or Disorientation Yes (5 pts) Intoxicated or Sedated No (0 pts) Impaired Gait Yes (1 pt) Mobility Assist Device Used Yes (1 pt) Altered Elimination No (0 pt) Score/Fall Risk Level 3 or more points = High Risk Oriented to surroundings, Maintained a safe environment, Educated pt \T\ family on fall prevention, incl call for assistance when getting out of bed, Assessed \T\ reinforced patient's understanding of fall precautions, Provided non-skid footwear, Hourly rounding (assess needs \T\ fall precautionary measures) done, Apply high fall risk patient identification: yellow non skid footwear/ fall signage. Abuse screen: Denies threats or abuse. Denies injuries from another. Nutritional screening: No deficits noted. Tuberculosis screening: No symptoms or risk factors identified. Assessment: 19:10 General: Appears in no apparent distress. comfortable, Behavior is calm, cooperative, jw7 appropriate for age. Pain: Denies pain. Neuro: Level of Consciousness is awake, alert, obeys commands, Oriented to person. Cardiovascular: Heart tones S1 S2 present Capillary refill < 3 seconds Clubbing of nail beds is absent JVD is absent Patient's skin is warm and dry. Respiratory: Airway is patent Trachea midline Respiratory effort is even, unlabored, Respiratory pattern is regular, symmetrical. GI: Abdomen is flat, non-distended, Bowel sounds present X 4 quads. Abd is soft and non tender X 4 quads. : No deficits noted. No signs and/or symptoms were reported regarding the genitourinary system. EENT: No deficits noted. No signs and/or symptoms were reported regarding the EENT system. Derm: Skin is fragile, Skin is dry, Skin is normal, Skin temperature is warm Bruising that is dark purple, on face. Musculoskeletal: Circulation, motion, and sensation intact. Range of motion: intact in all extremities. 20:00 Reassessment: Patient appears in no apparent distress at this time. No changes from jw7 previously documented assessment. Patient and/or family updated on plan of care and expected duration. Pain level reassessed. 21:00 Reassessment: Patient appears in no apparent distress at this time. No changes from jw7 previously documented assessment. Patient and/or family updated on plan of care and expected duration. Pain level reassessed. 22:00 Reassessment: Patient appears in no apparent distress at this time. No changes from jw7 previously documented assessment. Patient and/or family updated on plan of care and expected duration. Pain level reassessed. 22:48 General: Daughter Meenu Linn #[phone]. jw7 Vital Signs: 18:40 BP 126 / 81; Pulse 70; Resp 17; Temp 97.8(O); Pulse Ox 99% on R/A; rs5 19:00 BP 118 / 58; Pulse 70; Resp 16 S; Pulse Ox 100% on R/A; jw7 23:30 BP 138 / 55; Pulse 70; Resp 17 S; Pulse Ox 100% on R/A; ha1 ED Course: 18:39 Patient arrived in ED. kmf 18:40 Rafa Shin MD is Attending Physician. rt 18:41 Gagan Lynne, GURDEEP is Primary Nurse. rs5 18:50 Triage completed. rs5 19:09 Arm band placed on. jw7 19:09 Patient has correct armband on for positive identification. Bed in low position. Call jw7 light in reach. Side rails up X2. Provided Education on: Use of Call Light. 19:16 CT Head Brain wo Cont In Process Unspecified. EDMS 19:26 XRAY Chest (1 view) In Process Unspecified. EDMS 20:00 Assisted with urinal. Cleaned of incontinence. Linen changed. ha1 20:57 Attending Physician role handed off by Rafa Shin MD beau 20:57 Horacio Giron MD is Attending Physician. beau 21:16 Johnson He MD is Hospitalizing Provider. beau 21:55 UAM Sent. jw7 21:59 Cleaned of incontinence. Linen changed. af3 22:00 Warm blanket given. af3 22:00 Warm blanket given. af3 23:26 Maintain EMS IV. Dressing intact. Good blood return noted. Site clean \T\ dry. Gauge \T\ jordan 1 site: 20 g RAC. Administered Medications: 21:36 Drug: NS 0.9% IV 1000 ml IV at 125 ml/hr continuous Route: IV; Rate: 125 ml/hr; Site: jw7 right antecubital; 21:36 Drug: foLIC Acid IVPB 1 mg IVPB once Route: IVPB; Site: right antecubital; jw7 21:36 Drug: Rocephin IV 1 grams IV at per protocol once; Given slow IV push per pharmacy jw7 instructions Route: IV; Rate: per protocol; Site: right antecubital; 21:37 Drug: NS 0.9% IV 500 ml IV at bolus once Route: IV; Rate: bolus; Site: right jw7 antecubital; Outcome: 21:17 Decision to Hospitalize by Provider. [facility] 04/15 00:45 Patient left the ED. af3 Signatures: Dispatcher [employer] EDMS Horacio Giron MD MD cha Waits, Jodi RN RN jw7 Elisa Duron RN RN ha1 Rafa Shin MD MD Gagan Lynne RN RN rs5 Ann Andres RN RN cm10 Neelam Samuels [facility] Shantal Mulligan af3 Corrections: (The following items were deleted from the chart) 04/14 21:19 18:57 Allergies: Unable to obtain; rsLolly cm10
[2024-04-14] MEDS ORDERED: CEFTRIAXONE 1000 MG/VIAL ONE (21:19)
[2024-04-14] MEDS ORDERED: NA CHLORIDE 0.9% 500 ML ONE (21:20)
[2024-04-14] MEDS ORDERED: FOLIC ACID 5 MG/ML VIAL ONE (21:20)
[2024-04-14] MEDS ORDERED: NA CHLORIDE 0.9% 1,000 ML ONE (21:20)
[2024-04-14] MEDS ORDERED: NA CHLORIDE 0.9% 50 ML ONE (21:20)
[2024-04-14 22:26] LABS: Specific Gravity 1.023 (1.005-1.030); Sqamous Epithelial <5 /HPF (None Seen); Urine Bacteria None Seen /HPF (<20); Urine Bilirubin NEGATIVE (Negative); Urine Blood Negative (Negative); Urine Clarity Clear (Clear); Urine Color Yellow (Yellow); Urine Culture Reflex Order NOT NEEDED; Urine Glucose NEGATIVE (Negative); Urine Ketones NEGATIVE (Negative); Urine Micro Reflex YN NO BILL MICROSCOPIC; Urine Mucus Slight /HPF (None Seen); Urine Nitrite NEGATIVE (Negative); Urine Protein NEGATIVE (Negative); Urine RBC None Seen /HPF (None Seen); Urine Urobilinogen Normal (Normal); Urine WBC <5 /HPF (<5); Urine pH 6.5 (5.0-7.0)
[2024-04-14] MEDS ORDERED: ONDANSETRON 4 MG/2 ML VIAL IV PRN (22:59)
[2024-04-14] MEDS: NA CHLORIDE 0.9% 1,000 ML IV SCH (23:00)
--- NOTE | 2024-04-14 23:03 | P.HP ---
Certification for Inpatient Patient admitted to: Inpatient With expected LOS: >2 Midnights Practitioner: I am a practitioner with admitting privileges, knowledge of patient current condition, hospital course, and medical plan of care. 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 Patient with history of severe dementia presents to the ED f ollowing a fall. He cannot provide any details. Patient denies any fever or chills. No pain. No nausea vomiting or diarrhea.His , his primary caregiver, was life flighted for a stroke. Unclear if the patient sustained any injuries. EMS states that he is otherwise alone at home. Patient was assessed in the ER and was admitted for further management Allergies No Known Allergies Allergy (Verified 03/08/13 16:53) Home medications list reviewed: Yes Home Medications: Atorvastatin Calcium 40 mg PO BEDTIME 03/16/24 Metoprolol Succinate 25 mg PO DAILY 03/16/24 - Past Medical/Surgical History Diabetic: No Past Medical History: Reviewed- Non-Contributory -: Mild Arthritis -: Moderate to severe aortic stenosis -: HTN -: Dementia -: HX Falls -: CHF -: CAD Past Surgical History: Reviewed- Non-Contributory -: Tonsilectomy -: TAVR Psychosocial/ Personal History: Lives at home with his - Family History Family History: Reviewed- Non-Contributory - Social History Smoking Status: Never smoker Alcohol use: No CD- Drugs: No Caffeine use: No Review of Systems is unable to be obtained Physical Examination - Vital Signs Temperature: 98.2 F Blood Pressure: 128/68 Pulse: 78 Respirations: 18 Pulse Ox (%): 94 - Physical Exam General: Alert, Oriented x1, Confused HEENT: Atraumatic, Normocephalic Neck: Supple, 2+ carotid pulse no bruit Respiratory: Clear to auscultation bilaterally, Normal air movement Cardiovascular: No edema, Regular rate/rhythm, Normal S1 S2 Capillary refill: <2 Seconds Gastrointestinal: Soft and benign, Non-distended, W/out hepatosplenomegaly Musculoskeletal: No clubbing, No swelling Integumentary: No rashes, No breakdown Neurological: Normal speech, Cranial nerves 3-12 intact, Normal reflexes 2+ Lymphatics: No axilla or inguinal lymphadenopathy - Studies Laboratory Data (last 24 hrs) 04/14/24 04/14/24 18:50 18:50 WBC 4.30 Hgb 9.7 L Hct 29.1 L Plt Count 220 Sodium 141 Potassium 4.0 BUN 26 H Creatinine 0.94 Glucose 88 Magnesium 2.1 Total Bilirubin 0.3 AST 17 ALT < 14 L Alkaline Phosphatase 81 Assessment and Plan - Problems (Diagnosis) (1) Metabolic encephalopathy Current Visit: No Status: Acute Plan: Acute metabolic encephalopathy CT head is negative for any acute changes Neuro vital signs monitored PT eval Dehydration Started on IV hydration Monitor volume status Renal parameters monitored Hypertension Continue home medications and titrate as needed Hyperlipidemia Continue statin History of aortic stenosis with status post TAVR Monitor closely under telemetry GI/DVT prophylaxis Advanced directive full code Discharge Plan: Home Plan to discharge in: 48 Hours - Advance Directives Does patient have a Living Will: No Does patient have a Durable POA for Healthcare: No - Code Status/Comfort Care Code Status: Full Code Time Spent Managing Pts Care (In Minutes): 48
[2024-04-15 01:55] VITALS: BMI 18.1
[2024-04-15] MEDS: NA CHLORIDE 0.9% 1,000 ML IV SCH (02:00)
[2024-04-15] MEDS: ACETAMINOPHEN 325 MG TABLET PO PRN (04:32)
[2024-04-15] MEDS: ENOXAPARIN 40 MG/0.4 ML SQ SCH (08:23)
--- NOTE | 2024-04-15 08:52 | P.PN ---
Date of Service: 04/15/24 Subjective confused, found on floor, reports bilateral leg pain, as needed analgesics Review of Systems is unable to be obtained Physical Examination - Vital Signs reviewed - Physical Exam General: Alert, Oriented x1, Confused, total care HEENT: Atraumatic, Normocephalic Neck: Supple, 2+ carotid pulse no bruit Respiratory: Clear to auscultation bilaterally, Normal air movement Cardiovascular: No edema, Regular rate/rhythm, Normal S1 S2 Capillary refill: <2 Seconds Gastrointestinal: Soft and benign, Non-distended, W/out hepatosplenomegaly Musculoskeletal: No clubbing, No swelling Integumentary: No rashes, No breakdown Neurological: Normal speech, Cranial nerves 3-12 intact, Normal reflexes 2+ Lymphatics: No axilla or inguinal lymphadenopathy Assessment and Plan - Problems (Diagnosis) Acute metabolic encephalopathy CT head is negative for any acute changes Neuro vital signs monitored PT eval UA neg uti CT heads IMPRESSION: No acute intracranial abnormality is seen If patient's symptoms persist MRI of the brain would be recommended, Mild to moderate low-density areas within periventricular, deep and subcortical white matter likely represent ischemic changes secondary to small vessel disease CXR Heart is mildly enlarged IMPRESSION: No acute abnormalities displayed SS SNF placement DC Dehydration Started on IV hydration Monitor volume status Renal parameters monitored Hypertension Continue home medications and titrate as needed Hyperlipidemia Continue statin History of aortic stenosis with status post TAVR Monitor closely under telemetry GI/DVT prophylaxis Advanced directive full code Discharge Plan: Home Plan to discharge in: 48 Hours - Advance Directives Does patient have a Living Will: No Does patient have a Durable POA for Healthcare: No - Code Status/Comfort Care Code Status: Full Code Time Spent Managing Pts Care (In Minutes): 35 <Adelia Louis - Last Filed: 04/16/24 13:46> Patient was seen and examined. Events of the last 24 hours have been noted. Spoke with with KIMMIE regarding patient's clinical picture after evaluating and examining the patient independently. I performed a substantial part of the MDM during this patient's care today. I personally made or approved the documented management plan and acknowledge its risk of complications. I agree with the findings and documentation provided in the KIMMIE's notes. Patient's is at [facility] for a stroke and will need shelter facility placement. Patient was just discharged a few weeks ago for incarcerated inguinal hernia. Patient had repair of the incarcerated hernia. Patient did well postoperatively and was discharged home to be with his . Patient is readmitted for a fall. Patient with g eneralized weakness and patient unable to really care for himself at home by himself. Will work on rehab placement at this time. <Rae Roman - Last Filed: 04/16/24 23:22>
[2024-04-15] MEDS ORDERED: HYDROMORPHONE HCL 0.5 MG/0.5 ML INJ IV PRN (09:00)
[2024-04-15] MEDS: METOPROLOL XL 25 MG TAB PO SCH (12:00)
[2024-04-15] MEDS: QUETIAPINE 25 MG TAB PO SCH (20:09)
[2024-04-15] MEDS: ATORVASTATIN 40 MG TAB PO SCH (20:09)
[2024-04-16 06:59] LABS: Absolute Eosinophils 0.2 K/uL (0-0.5); Absolute Lymphocytes (CBC) 0.8 K/uL (0.7-4.9); Absolute Monocytes 0.4 K/uL (0.1-1.3); Absolute Neutrophil 2.6 K/uL (1.8-8.0); Basophils % 1.1 % (0-1.3); Eosinophils % 4.3 % (0-4.4); Hematocrit 27.4 % (39.6-49.0); Hemoglobin 9.3 g/dL (13.6-17.9); Lymphocytes % 19.4 % (15.3-44.8); MCH 31.5 pg (27.0-35.0); MCHC 33.9 g/dL (32.0-36.0); MPV 8.4 fL (7.6-11.3); Neutrophils % 65.2 % (41.7-73.7); Nucleated Red Blood Cells % 0.1 % (0-0); Platelets 197 thou/uL (152-406); RBC Red Blood Cell Count 2.94 M/uL (4.33-5.43); Red Cell Distribution Width 14.8 % (12.1-15.2)
[2024-04-16 07:28] LABS: Anion Gap 9.4 mEq/L (5.0-15.0); Magnesium 1.9 mg/dL (1.6-2.4); Phosphorus 3.4 mg/dL (2.5-4.9); Potassium 4.4 mEq/L (3.5-5.1)
--- NOTE | 2024-04-16 13:55 | P.PN ---
Date of Service: 04/16/24 Subjective Confused, alert oriented x 1, total care, fall precautions, PT to eval Review of Systems is unable to be obtained Physical Examination - Vital Signs reviewed - Physical Exam General: Afebrile, oriented to person HEENT: Atraumatic, Normocephalic Neck: Supple, 2+ carotid pulse no bruit Respiratory: Clear to auscultation bilaterally, unlabored Cardiovascular: No edema, Regular rate/rhythm, Normal S1 S2 Capillary refill: <2 Seconds Gastrointestinal: Soft and benign, Non-distended, W/out hepatosplenomegaly Musculoskeletal: No clubbing, No swelling, generalized weakness Integumentary: No rashes, No breakdown Neurological: Normal speech, confused, Assessment and Plan - Problems (Diagnosis) Acute metabolic encephalopathy CT head is negative for any acute changes Neuro vital signs monitored PT eval UA neg uti CT heads IMPRESSION: No acute intracranial abnormality is seen If patient's symptoms persist MRI of the brain would be recommended, Mild to moderate low- density areas within periventricular, deep and subcortical white matter likely represent ischemic changes secondary to small vessel disease CXR Heart is mildly enlarged IMPRESSION: No acute abnormalities displayed SS SNF placement DC Dehydration Started on IV hydration Monitor volume status Renal parameters monitored Microcytic anemia Trend H&H Hypertension Continue home medications and titrate as needed Hyperlipidemia Continue statin History of aortic stenosis with status post TAVR Monitor closely under telemetry GI/DVT prophylaxis Advanced directive full code Discharge Plan: Home Plan to discharge in: 48 Hours - Advance Directives Does patient have a Living Will: No Does patient have a Durable POA for Healthcare: No - Code Status/Comfort Care Code Status: Full Code Time Spent Managing Pts Care (In Minutes): 35 <Adelia Louis - Last Filed: 04/16/24 13:52> Patient was seen and examined. Events of the last 24 hours have been noted. Spoke with with KIMMIE regarding patient's clinical picture after evaluating and examining the patient independently. I performed a substantial part of the MDM during this patient's care today. I personally made or approved the documented management plan and acknowledge its risk of complications. I agree with the findings and documentation provided in the KIMMIE's notes. Patient doing well clinically. Patient's confusion has improved. Working on placement at this time. Family wanted to go to a nursing home facility in [place]. <Rae Roman - Last Filed: 04/16/24 23:23>
[2024-04-16 21:58] VITALS: O2SAT 98
[2024-04-17 08:22] LABS: Absolute Basophils 0.1 K/uL (0-0.5); Absolute Eosinophils 0.2 K/uL (0-0.5); Absolute Monocytes 0.5 K/uL (0.1-1.3); Absolute Neutrophil 2.4 K/uL (1.8-8.0); Basophils % 2.3 % (0-1.3); Eosinophils % 4.9 % (0-4.4); Hematocrit 27.7 % (39.6-49.0); Hemoglobin 9.3 g/dL (13.6-17.9); Lymphocytes % 24.5 % (15.3-44.8); MCH 31.4 pg (27.0-35.0); MCHC 33.5 g/dL (32.0-36.0); MCV 93.8 fL (80-100); MPV 8.7 fL (7.6-11.3); Monocytes % 10.9 % (3.3-12.3); Neutrophils % 57.4 % (41.7-73.7); Nucleated Red Blood Cells % 0.1 % (0-0); Platelets 205 thou/uL (152-406); RBC Red Blood Cell Count 2.95 M/uL (4.33-5.43); Red Cell Distribution Width 14.7 % (12.1-15.2)
[2024-04-17 08:40] LABS: Anion Gap 6.4 mEq/L (5.0-15.0); Potassium 4.4 mEq/L (3.5-5.1)
--- NOTE | 2024-04-17 10:51 | P.PN ---
Subjective Date of Service: 04/17/24 Chief Complaint: AMS Pt is resting comfortably in bed. He answered some of my questions. Pt is waiting for SNF placement. No other complaints. Review of Systems Limited General: Unremarkable Eyes: Unremarkable ENT: Unremarkable Respiratory: Unremarkable Cardiovascular: Unremarkable Gastrointestinal: Unremarkable Genitourinary: Unremarkable Musculoskeletal: Unremarkable Integumentary: Unremarkable Neurological: Unremarkable Lymphatics: Unremarkable Physical Examination - Vital Signs Temperature: 97.7 F Blood Pressure: 158/75 Pulse: 68 Respirations: 17 Pulse Ox (%): 99 - Physical Exam General: Alert, In no apparent distress, Confused HEENT: Atraumatic, Normocephalic, PERRLA Neck: Supple, 2+ carotid pulse no bruit, JVD not distended Respiratory: Clear to auscultation bilaterally, Normal air movement Cardiovascular: No edema, Normal pulses, Regular rate/rhythm, Normal S1 S2 Capillary refill: <2 Seconds Gastrointestinal: Normal bowel sounds, Soft and benign, Non-distended Musculoskeletal: No clubbing, No swelling Integumentary: No rashes, No breakdown, No significant lesion Neurological: Normal speech, Normal tone Lymphatics: No axilla or inguinal lymphadenopathy Assessment And Plan - Plan Acute metabolic encephalopathy: CT head is negative for any acute changes. UA is negative for UTI. Will continue physical therapy and neurochecks. Dehydration: Pt received IVF. Will monitor renal status Microcytic anemia: Hgb is 9.3. Monitor H/H. Hypertension: Continue home medications and titrate as needed Hyperlipidemia: Continue statin History of aortic stenosis with status post TAVR: Will monitor closely under telemetry GI ppx: protonix DVT ppx: SCD Code: full code Dispo: Waiting for SNF placement.
--- NOTE | 2024-04-17 13:43 | P.DS ---
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 Patient with history of severe dementia presents to the ED following a fall. He cannot provide any details. Patient denies any fever or chills. No pain. No nausea vomiting or diarrhea.His , his primary caregiver, was life flighted for a stroke. Unclear if the patient sustained any injuries. EMS states that he is otherwise alone at home. Patient was assessed in the ER and was admitted for further management Hospital Course: Pt is an 88 yo male with past medical history of hypertension, dementia, congestive heart failure, history of falls, UTIs, and heart valve replacement TAVR for aortic stenosis who presented with Altered Mental Status. 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 Of note, pt was alone at home prior to this admission because his was life flighted for a stroke. He was admitted for AMS. CT head was unremarkable. Urinalysis was negative for UTI. We continued Physical therapy and Neuro-checks. His mental status returned to his baseline. We also gave him IVF for dehydration. We monitored H/H and continued home med for other chronic medical problems. Pt was in NAD prior to discharge. Vital Signs/Physical Exam: Temp Pulse Resp BP Pulse Ox 98.3 F 69 18 158/72 H 99 04/17/24 12:00 04/17/24 12:00 04/17/24 12:00 04/17/24 12:00 04/17/24 12:00 Laboratory Data at Discharge: WBC 4.10 thou/uL (4.3-10.9) L 04/17/24 07:21 Hgb 9.3 g/dL (13.6-17.9) L 04/17/24 07:21 Hct 27.7 % (39.6-49.0) L 04/17/24 07:21 Plt Count 205 thou/uL (152-406) 04/17/24 07:21 Sodium 142 mEq/L (136-145) 04/17/24 07:21 Potassium 4.4 mEq/L (3.5-5.1) 04/17/24 07:21 BUN 19 mg/dL (7-18) H 04/17/24 07:21 Creatinine 0.84 mg/dL (0.70-1.30) 04/17/24 07:21 Glucose 81 mg/dL (74-106) 04/17/24 07:21 Phosphorus 3.4 mg/dL (2.5-4.9) 04/16/24 06:39 Magnesium 2.0 mg/dL (1.6-2.4) 04/17/24 07:21 Total Bilirubin 0.3 mg/dL (0.2-1.0) 04/14/24 18:50 AST 17 U/L (15-37) 04/14/24 18:50 ALT < 14 U/L (16-61) L 04/14/24 18:50 Alkaline Phosphatase 81 U/L (45-117) 04/14/24 18:50 Home Medications: Atorvastatin Calcium 40 mg PO BEDTIME 03/16/24 Metoprolol Succinate 25 mg PO DAILY 03/16/24 Quetiapine [Seroquel*] 50 mg PO BEDTIME 30 Days #30 tab 04/17/24 New Medications: Quetiapine [Seroquel*] 50 mg PO BEDTIME 30 Days #30 tab Physician Discharge Instructions: Continue ad hanane activity as tolerated. Take home meds as prescribed. Follow up with PCP within 1 - 2 weeks. Followup: Luis Alfredo Andres MD [Primary Care Provider] -
[2024-04-17 13:52] VITALS: BP 158/72; TEMP 98.3
--- NOTE | 2024-04-17 14:22 | EKG ---
Test Date: 2024-04-14 Test Time: 18:54:10 Supervisor Polishing: MEASUREMENT RESULTS: Intervals: Rate: 78 MD: 156 QRSD: 142 QT: 420 QTc: 478 [place]: P: 40 MD: 156 QRS: 71 T: 57 INTERPRETIVE STATEMENTS: Normal sinus rhythm Right bundle branch block Abnormal ECG Compared to ECG 06/19/2023 23:58:48 No significant changes Electronically Signed On 04-17-24 14:16:14 CDT by Chang Saucedo
== END 2024-04-17 16:20 | DRG 72 ==
LOC: ER 18:30 → 4TH 22:59
PROVIDERS: ADMIT Family Medicine; ATTEND Hospitalist
DX: G93.41 Metabolic encephalopathy (principal); F03.C0 Unspecified dementia, severe, without behavioral disturbance, psychotic disturbance, mood disturbance, and anxiety; I10 Essential (primary) hypertension; E86.0 Dehydration; E78.5 Hyperlipidemia, unspecified; D50.9 Iron deficiency anemia, unspecified; M79.605 Pain in left leg; M79.604 Pain in right leg; I25.10 Atherosclerotic heart disease of native coronary artery without angina pectoris; R29.6 Repeated falls; Z95.2 Presence of prosthetic heart valve; Z91.81 History of falling; Z79.899 Other long term (current) drug therapy; W19.XXXA Unspecified fall, initial encounter; Y93.9 Activity, unspecified; Y92.9 Unspecified place or not applicable; Y99.9 Unspecified external cause status
CPT/HCPCS: 36415; 70450; 71045; 80048; 80076; 81001; 83735; 84100; 84484; 85025; 93005; 94760; 96374; 96375; 97116; 97163; 97530; 99284; J0696; J1650; J7030; J7040